=== PATIENT | male | born 1970 | race Caucasian/White ===

== ENCOUNTER → 2019-11-21 15:46 | Outpatient (BNVA) | payer OTHER, SELFPAY | PROVIDERS: Family Provider Nurse Practitioner Family; PCP Internal Medicine; Visit Provider Urology | DX: N48.6 Induration penis plastica (principal); N52.9 Male erectile dysfunction, unspecified; N52.8 Other male erectile dysfunction | CPT/HCPCS: 81001 ==

== ENCOUNTER 2020-08-26 09:38 | Inpatient (IN) | payer OTHER, SELFPAY ==
[2020-08-26] VITALS (74 sets, daily range): BP systolic 104–246; BP diastolic 70–147; PULSE 68–124; RESP 14–18; TEMP 36.2–36.6; O2SAT 16–98; BMI 33.9
--- NOTE | 2020-08-26 | XR_ITS ---
WS: [id number] XR chest 1V portable [id number] REASON FOR EXAM: POST intubation FINDINGS: In comparison to previous examination on 08/26/2020 at 9:56 AM the patient has been intubated. The ti p of the endotracheal tube is within the christie. There is cardiomegaly. In less than an hour the infiltrative changes in the lungs have significantly increased. This has to indicate hemorrhage and/or fluid with such a rapid development. Possibly this is the rapid onset of a dult respiratory distress syndrome. No barotrauma identified. XR/XR chest 1V portable [id number] IMPRESSION: Endotracheal tube tip within the christie. Rapidly progressive infiltrative changes in the lungs as above.
--- NOTE | 2020-08-26 09:41 | XR_ITS ---
WS: [id number] XR chest 1V portable [id number] REASON FOR EXAM: sob- possible covid FINDINGS: There are no prior chest films for comparison. The heart is enlarged. There are interstitial infiltrative changes in the periphery of the right lower lung field with more patchy consolidative changes noted in both lower lung ying. No other significant findings. XR/XR chest 1V portable [id number] IMPRESSION: Findings compatible with acute/subacute pneumonitis.
--- NOTE | 2020-08-26 09:41 | ECG_ITS ---
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 Measurements Intervals [place] Rate: 106 P: 15 TN: 152 QRS: -52 QRSD: 106 T: 32 QT: 329 QTc: 438 Interpretive Statements SINUS TACHYCARDIA POSSIBLE LEFT ATRIAL ENLARGEMENT [-0.1mV P WAVE IN V1/V2] LEFT AXIS DEVIATION [QRS AXIS < -30] POSSIBLE LEFT VENTRICULAR HYPERTROPHY [VOLTAGE CRITERIA PLUS LAE OR QRS WIDENING] POSSIBLE ANTERIOR MYOCARDIAL INFARCTION , OF INDETERMINATE AGE [30 ms Q WAVE IN V3/V4, OR R < 0.2 mV IN V4] No previous ECG available for comparison Electronically Signed On 08-26-2020 19:17:56 CLINICAL SCIENCES PROFESSOR by Efra Castro M.D. [id number]
[2020-08-26 09:53] LABS: ABG PCO2 22.9 mmHg (35-45); ABG PH Result 7.48 (7.35-7.45); Arterial Blood Gas Hematocrit 46.6 % (42-52); Base Excess ABG -4.3 mmol/L (-2.0-2.0); Blood Gas Allen Test Pos; Blood Gas Operator Identificat CAK; Blood Gas Sample Site Radial, right; Blood Gas Sample Type Arterial; Oxygen Device NRB; PO2 ABG 55.8 mmHg (80.0-100.0)
--- NOTE | 2020-08-26 09:53 | W.ED.SOB ---
HPI - SOB/Dyspnea General: Chief Complaint: Shortness of Breath/Dyspnea Stated Complaint: RESP DISTRESS Time Seen by Provider: 08/26/20 09:41 History of Present Illness: HPI Narrative: 49-year-old male presents emergency room via EMS with hypoxia and dyspnea. He started having symptoms last week and was tested for Covid on Tuesday it sounds if he had a rapid antibody test which she was told was negative. In the last 2 to 3 days he began having increasing shortness of breath and increasing diarrhea. He does have some level of baseline diarrhea. He is cough has not been productive. He has had some myalgias and subjective low-grade fever. Patient was given several nebulizer treatments in route to the emergency room. EMS reports he had a 72% oxygen saturation in the field MD elicited complaint: shortness of breath and cough Pertinent past history: diabetes Onset (ago): day(s) Context: recent illness Timing: constant Severity: severe Exacerbating factors: exertion and coughing Relieving factors: oxygen, rest and bronchodilators Associated symptoms: Reports chest congestion, cough, myalgias and nausea; Deny abdominal pain, chest pain, diaphoresis, dizziness, extremity pain, fever(s), hemoptysis, lightheadedness, orthopnea, palpitations, paresthesias, polydipsia, polyuria, rash, sense of impending doom, syncope or vomiting Treatment prior to arrival: oxygen and bronchodilator Review of Systems Const: Denies: fever(s) or diaphoresis ENMT: Denies: throat pain, ear or mastoid pain, nasal discharge or nasal congestion Card: Denies: chest pain, palpitations, lightheadedness, syncope or orthopnea Resp: Reports: chest congestion; Denies: hemoptysis GI: Reports: nausea; Denies: abdominal pain or vomiting : Denies: flank pain, dysuria, urinary frequency or urinary urgency Musc: Denies: extremity pain Skin/Breast: Denies: rash or pruritus Neuro: Denies: dizziness Endo: Denies: polyuria or polydipsia PFS ED PFSH: Medical History (Updated 08/27/20 @ 13:12 by Gurinder Patino DO) Erectile dysfunction Peyronie's disease Type 2 diabetes mellitus Surgical History History of vasectomy Family History Mother Hypertension Social History Smoking and tobacco status: smoker, details unknown smokeless tobacco Alcohol intake: never Adopted: No Caregiver/support person: No Lives independently: No Household members: spouse Marital status: Current occupational status: employed History of recent travel: No Physical Exam Const: COMMON NORMALS: no acute distress GENERAL APPEARANCE: cooperative and comfortable ORIENTATION/CONSCIOUSNESS: Yes awake, Yes oriented to person, Yes oriented to place and Yes oriented to time HENMT: COMMON NORMALS: normocephalic, atraumatic and hearing grossly normal bilaterally HEAD & SCALP: normocephalic and atraumatic Eye: COMMON NORMALS: Equal, round and reactive pupils present, EOMs intact bilaterally, conjunctivae normal and no scleral icterus CONJUNCTIVA: Yes conjunctivae normal PUPIL: Yes Equal, round and reactive pupils present Neck/C-Spine: COMMON NORMALS: full ROM, no lymphadenopathy, supple and no JVD Lymph: LYMPHATIC: no lymphadenopathy noted and no lymphedema noted Resp: AUSCULTATION: rhonchi right lower and wheezes Cardio: COMMON NORMALS: no JVD, regular rate, regular rhythm and No murmurs present (Cardio) RATE: regular rate RHYTHM: regular rhythm GI: COMMON NORMALS: Soft to palpation and No hepatosplenomegaly present AUSCULTATION: Yes normoactive bowel sounds PALPATION: Yes Soft to palpation, No Tenderness to palpation present (GI), No Guarding due to palpation present (GI) and Yes No hepatosplenomegaly present Extremity: COMMON NORMALS: normal to inspection, capillary refill normal, no clubbing, cyanosis or edema, no calf tenderness and no pedal edema Neuro: SENSORIUM/ORIENTATION: Yes oriented to person, Yes oriented to place and Yes oriented to time Skin: COMMON NORMALS: no rashes or lesions noted GENERAL SKIN EXAM: no rashes or lesions noted Procedures Intubation Time out performed: Yes sedative: Etomidate Mg Given: 40 paralytic: Succinylcholine Mg Given: 120 Laryngoscope: fiber optic video scope Assist Device Used: fiber optic device ET Tube Size: 8.5 ET Tube Uncuffed: No Tube Secured Depth (cm): 22 Tube Secured Location: teeth Tube Placement Confirmation: visualized tube passing through cords, equal breath sounds bilaterally, no breath sounds over epigastrium and confirmation by capnometry Patient Tolerated Procedure: well Intubation Complications: none Additional Comments: Initially ET tube at 22 cm at the teeth reviewed the first chest x-ray the tip is just at the os of the right mainstem it was retracted and alma-rayed it is above the christie at the level of the clavicles we will leave it in place there. He is ventilating well at this time. Course Vital Signs: Vital signs: Vital Signs Temperature 98.8 F 08/27/20 12:21 Pulse Rate 109 H 08/27/20 12:45 Respiratory Rate 12 08/27/20 12:21 Blood Pressure 129/66 08/27/20 12:45 Pulse Oximetry 96 08/27/20 12:45 MDM - SOB/Dyspnea Lab Data: Labs: Lab Results 08/26/20 08/26/20 08/26/20 Range/Units 09:42 10:12 10:12 WBC 16.6 H (4.0-10.0) 10^3/ uL RBC 5.16 (4.1-5.3) 10^6/u L Hgb 14.6 (11.7-16.6) g/dL Hct 44.9 (42.0-52.0) % MCV 87.0 (80-94) fL MCH 28.3 (28.0-34.0) pg MCHC 32.5 (30.0-36.0) g/dL RDW 13.2 (12.1-15.1) % Plt Count 291 (130-400) 10^3/c mm MPV 10.6 H (7.4-10.4) fL Neut % (Auto) 89.7 % Lymph % (Auto) 6.9 % Dillon % (Auto) 1.9 % Eos % (Auto) 0.0 % Baso % (Auto) 0.2 % Neut # (Auto) 14.85 H (1.8-7.7) 10^3/u L Lymph # (Auto) 1.1 (0.8-4.8) 10^3/u L Dillon # (Auto) 0.3 (0.2-0.9) 10^3/u L Eos # (Auto) 0.0 (0.0-0.8) 10^3/u L Baso # (Auto) 0.0 (0.0-0.1) 10^3/u L Nucleated RBC % (a uto) 0 % Nucleated RBCs # 0.0 /100WBC PT 14.80 (12.1-14.9) SECO NDS INR 1.12 (0.8-1.2) Fibrinogen 736 H (174-498) mg/dL D-Dimer 2.29 H (0-0.59) ug/mIFE U Specimen Type Arterial Sample Site Radial, right ABG pH 7.48 H (7.35-7.45) ABG pCO2 22.9 L (35-45) mmHg ABG pO2 55.8 L (80.0-100.0) mmH g ABG HCO3 17.0 L (22-26) mmol/L ABG O2 Saturation ABG Base Excess -4.3 L (-2.0-2.0) mmol/ L Mina Test Pos A-a O2 Gradient (5-10) mmHg Hematocrit 46.6 (42-52) % Hgb O2 Saturation (95-100) % Carboxyhemoglobin (0.4-20.1) %THgb Methemoglobin (0.4-1.5) % Total Hemoglobin (14-18) g/dL Ionized Calcium (1.1-1.4) mmol/L O2 Delivery Device Nrb FiO2 15.0 % Tidal Volume PEEP cmH20 Customer Marketing Assistant ID Cak Sodium (136-145) mmol/L Potassium (3.5-5.1) mmol/L Chloride (98-107) mmol/L Carbon Dioxide (22-29) mmol/L Anion Gap (5-19) BUN (6-20) mg/dL Creatinine (0.7-1.2) mg/dL GFR Calculation (90-130) mL/min Glucose (65-115) mg/dL Calculated Osmolal ity (285-295) mOsm/k g Lactic Acid (0.5-2.2) mmol/L Calcium (8.5-10.5) mg/dL Magnesium (1.7-2.3) mg/dL Iron (59-158) ug/dL TIBC mcg/dl % Saturation (20-50) % Unsat Iron Binding (112-347) ug/dL Ferritin (30-400) ng/mL Total Bilirubin (0.15-1.2) mg/dL AST (0-40) U/L ALT (0-41) U/L Alkaline Phosphata se (40-130) IU/L Lactate Dehydrogen ase (135-225) U/L Troponin T Gen 5 n g/L (0-15) ng/L C-Reactive Protein (0.0-4.9) mg/L NT-Pro-B Natriuret Pep (0-125) pg/mL Total Protein (6.6-8.7) g/dL Albumin (3.5-5.2) g/dL Globulin (1.3-4.6) g/dL Procalcitonin (0-0.5) ng/mL TSH (0.27-4.20) uIU/ mL SARS-CoV-2 Ag (Rap id) (Negative) 08/26/20 08/26/20 08/26/20 Range/Units 10:12 10:12 10:12 WBC (4.0-10.0) 10^3/ uL RBC (4.1-5.3) 10^6/u L Hgb (11.7-16.6) g/dL Hct (42.0-52.0) % MCV (80-94) fL MCH (28.0-34.0) pg MCHC (30.0-36.0) g/dL RDW (12.1-15.1) % Plt Count (130-400) 10^3/c mm MPV (7.4-10.4) fL Neut % (Auto) % Lymph % (Auto) % Dillon % (Auto) % Eos % (Auto) % Baso % (Auto) % Neut # (Auto) (1.8-7.7) 10^3/u L Lymph # (Auto) (0.8-4.8) 10^3/u L Dillon # (Auto) (0.2-0.9) 10^3/u L Eos # (Auto) (0.0-0.8) 10^3/u L Baso # (Auto) (0.0-0.1) 10^3/u L Nucleated RBC % (a uto) % Nucleated RBCs # /100WBC PT (12.1-14.9) SECO NDS INR (0.8-1.2) Fibrinogen (174-498) mg/dL D-Dimer (0-0.59) ug/mIFE U Specimen Type Sample Site ABG pH (7.35-7.45) ABG pCO2 (35-45) mmHg ABG pO2 (80.0-100.0) mmH g ABG HCO3 (22-26) mmol/L ABG O2 Saturation ABG Base Excess (-2.0-2.0) mmol/ L Mina Test A-a O2 Gradient (5-10) mmHg Hematocrit (42-52) % Hgb O2 Saturation (95-100) % Carboxyhemoglobin (0.4-20.1) %THgb Methemoglobin (0.4-1.5) % Total Hemoglobin (14-18) g/dL Ionized Calcium (1.1-1.4) mmol/L O2 Delivery Device FiO2 % Tidal Volume PEEP cmH20 Customer Marketing Assistant ID Sodium 133 L (136-145) mmol/L Potassium 3.5 (3.5-5.1) mmol/L Chloride 91 L (98-107) mmol/L Carbon Dioxide 18 L (22-29) mmol/L Anion Gap 27.5 H (5-19) BUN 25 H (6-20) mg/dL Creatinine 1.1 (0.7-1.2) mg/dL GFR Calculation 70.6 L (90-130) mL/min Glucose 315 H (65-115) mg/dL Calculated Osmolal ity 292 (285-295) mOsm/k g Lactic Acid 3.1 H (0.5-2.2) mmol/L Calcium 8.5 (8.5-10.5) mg/dL Magnesium 2.2 (1.7-2.3) mg/dL Iron (59-158) ug/dL TIBC mcg/dl % Saturation (20-50) % Unsat Iron Binding (112-347) ug/dL Ferritin 1430 H (30-400) ng/mL Total Bilirubin 0.5 (0.15-1.2) mg/dL AST 30 (0-40) U/L ALT 16 (0-41) U/L Alkaline Phosphata se 150 H (40-130) IU/L Lactate Dehydrogen ase 800 H (135-225) U/L Troponin T Gen 5 n g/L 14 (0-15) ng/L C-Reactive Protein 369.0 H (0.0-4.9) mg/L NT-Pro-B Natriuret Pep 231 H (0-125) pg/mL Total Protein 7.3 (6.6-8.7) g/dL Albumin 3.5 (3.5-5.2) g/dL Globulin 3.8 (1.3-4.6) g/dL Procalcitonin 0.65 H (0-0.5) ng/mL TSH (0.27-4.20) uIU/ mL SARS-CoV-2 Ag (Rap id) (Negative) 08/26/20 08/26/20 08/26/20 Range/Units 10:12 10:23 10:50 WBC (4.0-10.0) 10^3/ uL RBC (4.1-5.3) 10^6/u L Hgb (11.7-16.6) g/dL Hct (42.0-52.0) % MCV (80-94) fL MCH (28.0-34.0) pg MCHC (30.0-36.0) g/dL RDW (12.1-15.1) % Plt Count (130-400) 10^3/c mm MPV (7.4-10.4) fL Neut % (Auto) % Lymph % (Auto) % Dillon % (Auto) % Eos % (Auto) % Baso % (Auto) % Neut # (Auto) (1.8-7.7) 10^3/u L Lymph # (Auto) (0.8-4.8) 10^3/u L Dillon # (Auto) (0.2-0.9) 10^3/u L Eos # (Auto) (0.0-0.8) 10^3/u L Baso # (Auto) (0.0-0.1) 10^3/u L Nucleated RBC % (a uto) % Nucleated RBCs # /100WBC PT (12.1-14.9) SECO NDS INR (0.8-1.2) Fibrinogen (174-498) mg/dL D-Dimer (0-0.59) ug/mIFE U Specimen Type Arterial Sample Site Radial, left ABG pH 7.31 L (7.35-7.45) ABG pCO2 41.9 (35-45) mmHg ABG pO2 76.0 L (80.0-100.0) mmH g ABG HCO3 21.0 L (22-26) mmol/L ABG O2 Saturation 94.1 ABG Base Excess -5.2 L (-2.0-2.0) mmol/ L Mina Test Pos A-a O2 Gradient 47.8 H (5-10) mmHg Hematocrit 48.6 (42-52) % Hgb O2 Saturation 93.0 L (95-100) % Carboxyhemoglobin 1.0 (0.4-20.1) %THgb Methemoglobin 0.2 L (0.4-1.5) % Total Hemoglobin 15.9 (14-18) g/dL Ionized Calcium 1.1 (1.1-1.4) mmol/L O2 Delivery Device Vent FiO2 70.0 % Tidal Volume 0.55 PEEP 10.0 cmH20 Customer Marketing Assistant ID Ck Sodium 136.0 (136-145) mmol/L Potassium 3.3 L (3.5-5.1) mmol/L Chloride (98-107) mmol/L Carbon Dioxide (22-29) mmol/L Anion Gap (5-19) BUN (6-20) mg/dL Creatinine (0.7-1.2) mg/dL GFR Calculation (90-130) mL/min Glucose 312.0 H (65-115) mg/dL Calculated Osmolal ity (285-295) mOsm/k g Lactic Acid (0.5-2.2) mmol/L Calcium (8.5-10.5) mg/dL Magnesium (1.7-2.3) mg/dL Iron 21 L (59-158) ug/dL TIBC 188 mcg/dl % Saturation 11.1 L (20-50) % Unsat Iron Binding 167 (112-347) ug/dL Ferritin (30-400) ng/mL Total Bilirubin (0.15-1.2) mg/dL AST (0-40) U/L ALT (0-41) U/L Alkaline Phosphata se (40-130) IU/L Lactate Dehydrogen ase (135-225) U/L Troponin T Gen 5 n g/L (0-15) ng/L C-Reactive Protein (0.0-4.9) mg/L NT-Pro-B Natriuret Pep (0-125) pg/mL Total Protein (6.6-8.7) g/dL Albumin (3.5-5.2) g/dL Globulin (1.3-4.6) g/dL Procalcitonin (0-0.5) ng/mL TSH 0.85 (0.27-4.20) uIU/ mL SARS-CoV-2 Ag (Rap id) Positive H (Negative) Critical Care Time Critical Care Time: Critical Care Time: Yes Total Critical Care Time: 30 Attestation: This case had a high probability of a clinically significant, sudden, or life threatening deterioration of this patient's condition which required my full and direct attention, intervention and personal management. Discharge Plan Discharge Patient Disposition: Admitted As Inpatient Admit Provider: Steve Barbosa Clinical Impression: Severe acute respiratory syndrome coronavirus 2 (SARS-CoV-2) detected, Type 2 diabetes mellitus, Lactic acidosis, Hyponatremia, ARDS (adult respiratory distress syndrome) Condition: Stable Coding Level of Care Code ED Or First Assist Registered Nurse for Wendyg Fwd Exam Comprehensive
[2020-08-26] MEDS: LORazepam 2 mg/mL INJ 1 mL 1 MG IVP (10:13)
[2020-08-26] MEDS: dexamethasone 4 mg/mL INJ 8 MG (10:27)
[2020-08-26 10:32] LABS: Basophils % 0.2 %; Hematocrit 44.9 % (42.0-52.0); Hemoglobin 14.6 g/dL (11.7-16.6); Lymphocytes # 1.1 10^3/uL (0.8-4.8); Lymphocytes % 6.9 %; Mean Corpuscular HGB Conc 32.5 g/dL (30.0-36.0); Mean Corpuscular Hemoglobin 28.3 pg (28.0-34.0); Mean Platelet Volume 10.6 fL (7.4-10.4); Monocytes # 0.3 10^3/uL (0.2-0.9); Monocytes % 1.9 %; Neutrophils # 14.85 10^3/uL (1.8-7.7); Neutrophils % 89.7 %; Nucleated Red Blood Cells % 0 %; Platelet Count 291 10^3/cmm (130-400); Red Blood Count 5.16 10^6/uL (4.1-5.3); Red Cell Distribution Width 13.2 % (12.1-15.1); White Blood Count 16.6 10^3/uL (4.0-10.0)
[2020-08-26] MEDS: succinylcholine 20 mg/mL SDV 10mL 120 MG IVP (10:36)
[2020-08-26] MEDS: vecuronium 10 mg SDV IVP (10:45)
[2020-08-26] MEDS: propofol 1,000 MG/100 ML INJ 13 MG (10:45)
[2020-08-26 10:51] LABS: Lactic Sepsis W/Reflex 3.1 mmol/L (0.5-2.2)
[2020-08-26 10:54] LABS: INR 1.12 (0.8-1.2)
[2020-08-26 10:55] LABS: Fibrinogen 736 mg/dL (174-498)
[2020-08-26 10:57] LABS: NT Pro B Type Natriuretic Pept 231 pg/mL (0-125); Procalcitonin 0.65 ng/mL (0-0.5)
[2020-08-26 10:58] LABS: D Dimer 2.29 ug/mIFEU (0-0.59)
[2020-08-26 11:01] LABS: ABG PCO2 41.9 mmHg (35-45); ABG PH Result 7.31 (7.35-7.45); Alveolar-Arterial Oxygen Gradi 47.8 mmHg (5-10); Arterial Blood Gas Hematocrit 48.6 % (42-52); Base Excess ABG -5.2 mmol/L (-2.0-2.0); Blood Gas Allen Test Pos; Blood Gas Operator Identificat CAL; Blood Gas Sample Site Radial, left; Blood Gas Sample Type Arterial; Blood Gas Tidal Volume 0.55; Ionized Calcium Level - ABG 1.1 mmol/L (1.1-1.4); Methemoglobin 0.2 % (0.4-1.5); Oxygen Device VENT; Oxygen Saturation ABG 94.1; Potassium Level - ABG 3.3 mmol/L (3.5-5.0); Total Hemoglobin 15.9 g/dL (14-18)
--- NOTE | 2020-08-26 11:03 | CT_ITS ---
WS: [id number] CTA OF THE CHEST WITH PULMONARY EMBOLISM PROTOCOL TECHNIQUE: High-resolution contrast enhanced CTA of the chest with coronal and sagittal reformatted i elizabeths with pulmonary embolism protocol. MIP images are also reviewed. CLINICAL INFORMATION: elevated d-dimer COMPARISON: None. DLP: 485.[address] scans at [facility] use at least one of these dose optimization techniques: automat ed exposure control; mA and/or kV adjustment per patient size (includes targeted exams where dose is matched to clinical indication); or iterative reconstruction. FINDINGS: Some images degraded by breathing artifact. Proximal main pulmonary arteries are normal. Proximal tiffanie n pulmonary arteries are patent. Segmental and subsegmental pulmonary arteries are patent where visua lized considering motion artifact. No evidence of pulmonary embolus. Endotracheal tube with tip above the christie. Enteric tube with tip in the stomach.Reactive mediastinal and hilar lymph nodes. Small n odule right lower pole thyroid. Normal caliber thoracic aorta. Diffuse extensive hazy bilateral groundglass infiltrates in the perihi lar and upper lungs. Consolidative atelectasis in the lower lungs bilaterally. Adrenal glands are normal. Fatty atrophy of the pancreas. CT/CT angio chest PE protcl [id number] IMPRESSION: 1. No evidence for pulmonary embolus. 2. Diffuse hazy groundglass infiltrates in the perihilar and upper lungs bilat erally consistent with viral pneumonia. Compressive atelectasis in the lung bas es. 3. Endotracheal tube with tip above the christie. 4. Enteric tube with tip in the stomach. 5. Reactive mediastinal and hilar lymph nodes. Notified Gurinder Patino DO at 08/26/2020 1:18 PM.
[2020-08-26 11:08] LABS: Alanine Aminotransferase 16 U/L (0-41); Albumin Level 3.5 g/dL (3.5-5.2); Alkaline Phosphatase 150 IU/L (40-130); Anion Gap 27.5 (5-19); Aspartate Amino Transferase 30 U/L (0-40); Blood Urea Nitrogen 25 mg/dL (6-20); Calcium 8.5 mg/dL (8.5-10.5); Carbon Dioxide 18 mmol/L (22-29); Chloride 91 mmol/L (98-107); Globulin 3.8 g/dL (1.3-4.6); Glomerular Filtration Rate 70.6 mL/min (90-130); Glucose 315 mg/dL (65-115); Lactate Dehydrogenase 800 U/L (135-225); Magnesium 2.2 mg/dL (1.7-2.3); Osmolality Calculated 292 mOsm/kg (285-295); Potassium 3.5 mmol/L (3.5-5.1); Sodium 133 mmol/L (136-145); Total Bilirubin 0.5 mg/dL (0.15-1.2); Total Protein 7.3 g/dL (6.6-8.7)
[2020-08-26 11:30] LABS: Troponin T (5th) Once 14 ng/L (0-15)
[2020-08-26 11:35] LABS: SARS Covid-2 Antigen Positive (Negative)
[2020-08-26 12:05] LABS: Ferritin 1430 ng/mL (30-400)
[2020-08-26 12:08] LABS: Reflex Lactate Order REFLEX LACTIC ORDERD
[2020-08-26] MEDS: vancomycin 1,000 MG in sodium chloride 0.9% 250 ML 250 MG IV (12:30)
[2020-08-26] MEDS: aztreonam 2,000 MG in sodium chloride 0.9% (plus) 100 ML 200 MG IV (12:31)
[2020-08-26] MEDS: iohexol 350 mg/mL 100 mL Btl IV (12:45)
--- NOTE | 2020-08-26 15:20 | USCV_ITS ---
Bharath Vallejo Age: 49 Gender: M : 1970 Exam Date: 08/26/2020 15:44 Ordering Phys: Steve Barbosa MD Technologist: Russel Martinez [place] [facility] [place]: PULMONARY HTN, AND DD BP: 122 / 79 HR: 79 Rhythm: Sinus Technical Quality: Technically difficult study MEASUREMENTS (Male / Female) Normal Values 2D ECHO LV Diastolic Diameter PLAX 2.6 cm 4.2 - 5.9 / 3.9 - 5.3 cm LV Systolic Diameter PLAX 1.6 cm IVS Diastolic Thickness 0.8 cm 0.6 - 1.0 / 0.6 - 0.9 cm IVS Systolic Thickness 1.4 cm LVPW Diastolic Thickness 0.9 cm 0.6 - 1.0 / 0.6 - 0.9 cm LVPW Systolic Thickness 1.1 cm LVOT Diameter 2.0 cm LV Ejection Fraction 2D Teich 73.7 % LV Ejection Fraction MOD 2C 72.9 % LV Ejection Fraction 2C AL 73.8 % LA Diameter 3.9 cm LA Width 3.1 cm LA Height 5.4 cm RA Width 3.4 cm RA Height 4.2 cm M-MODE LV Diastolic Diameter MM 4.3 cm 4.2 - 5.9 / 3.9 - 5.3 cm LV Systolic Diameter MM 2.7 cm LV Ejection Fraction MM Teich 66.0 % IVS Diastolic Thickness MM 1.2 cm 0.6 - 1.0 / 0.6 - 0.9 cm IVS Systolic Thickness MM 1.7 cm LVPW Diastolic Thickness MM 1.1 cm 0.6 - 1.0 / 0.6 - 0.9 cm LVPW Systolic Thickness MM 2.1 cm RV Diastolic Diameter MM 1.2 cm Aortic Annulus Diameter 3.4 cm LA Ao Ratio MM 1.1 MV E Point Septal Separation 1.2 cm DOPPLER LVOT Peak Velocity 89.0 cm/s MV Area PHT 5.6 cm squared Mitral E to A Ratio 0.7 MV E' Velocity 35.0 cm/s Mitral E to MV E' Ratio 12.0 Mitral E to LV E' Lateral Ratio 12.4 Mitral E to LV E' Septal Ratio 11.8 TR Peak Velocity 130.8 cm/s TR Peak Gradient 6.8 mmHg TV Peak E Velocity 71.0 cm/s Right Atrial Pressure 3.0 mmHg Pulmonary Artery Systolic Pressu 9.8 mmHg PV Peak Velocity 99.0 cm/s FINDINGS Left Ventricle Normal left ventricular size, systolic function and wall thickness. Regional wall motion abnormalities cannot be assessed because of limited visualization of cardiac structures. LVEF is 55 to 60%. Normal left ventricular wall thickness. Grade 1 diastolic dysfunction is noted. Right Ventricle The right ventricle is normal in size and function. Right Atrium Not well-visualized. Left Atrium The left atrium is normal in size. Mitral Valve Grossly normal there is no significant stenosis.. There is no mitral regurgitation. Aortic Valve Structurally normal aortic valve without significant sclerosis or stenosis. There is no aortic regurgitation. Tricuspid Valve Grossly normal. Insufficient TR jet to calculate RVSP. Pulmonic Valve Not well-visualized. There is no pulmonic regurgitation. Pericardium Normal pericardium without effusion. Aorta Normal ascending aorta dimension. CONCLUSIONS This is a limited quality echocardiogram. LV systolic function is normal with EF of 55 to 60%. Grade 1 diastolic dysfunction is noted. Valvular structures are not well visualized however no gross abnormalities. Insufficient TR jet to calculate RVSP and assess pulmonary hypertension. No comparison studies are available. Wade Zepeda MD (Electronically Signed) Final Date: 26 August 2020 18:14 S
--- NOTE | 2020-08-26 15:30 | PM.HP ---
Providers/Chief Complaint Primary Care Provider: Kenn Cruz DO Chief Complaint: RESP DISTRESS History of Present Illness Bharath Vallejo is a 49 year old male with known medical history of type 2 diabetes mellitus who was brought into the ER today via EMS because of difficulty in breathing. In the field he was found to have a saturation of 50% on room air which improved to 70% on high flow nasal cannula. Most of the history taken via chart review and through ER physician. Apparently patient has been having difficulty in breathing and cough since Tuesday and had a rapid antibody test as an outpatient which was negative. In last 2 to 3 days he has been having increasing difficulty in breathing along with cough and some diarrhea and myalgias. Is brought to ER by EMS. On arrival in the ER he was saturating 50% on room air which did not improve even though he was put on high flow oxygenation. After discussion between the ER physician and patient he was electively intubated for further management. Currently on my examination patient is saturating 92% but the 100% FiO2, 14 oh respiratory rate with 10 of PEEP and 510 to volume on AC VC mode. His blood work in the ER showed white count of 16.6, hemoglobin of 14.6, INR of 1.2, D-dimer of 2.2, fibrinogen of 736, sodium of 133, creatinine of 1.1, lactate of 3.1, ferritin of 1430, AST/ALT of 30/16, alkaline phosphatase of 150, LDH of 800, CRP of 369, pro-Ck of 0.65. ABG done in the ER on presentation showing a pH of 7.4, PCO2 22, PO2 of 55 on nonrebreather mask. Review of Systems General: Reports: ROS unobtainable due to endotracheal tube Medications/Allergies Home Medications Medication Instructions Recorded Confirmed Last Taken Type NyQuil See Rx Instructions .ROUTE .COMPLEX 08/26/20 08/26/20 Unknown History acetaminophen [Tylenol Extra 1,000 - 1,500 mg PO PRN 08/26/20 08/26/20 Unknown History Strength] insulin glargine [Lantus Solostar See Rx Instructions .ROUTE .COMPLEX 08/26/20 08/26/20 Unknown History U-100 Insulin] insulin lispro [Humalog KwikPen See Rx Instructions .ROUTE .COMPLEX 08/26/20 08/26/20 Unknown History Insulin] omeprazole 20 mg PO DAILY PRN 08/26/20 08/26/20 Unknown History Allergies Allergy/AdvReac Type Severity Reaction Status Date / Time Penicillins Allergy Unknown Verified 08/26/20 11:20 PFSH Acute PFSH: Medical History (Updated 08/26/20 @ 15:36 by Steve Barbosa MD) Erectile dysfunction Peyronie's disease Type 2 diabetes mellitus Surgical History History of vasectomy Family History Mother Hypertension Social History Smoking and tobacco status: smoker, details unknown smokeless tobacco Alcohol intake: never Adopted: No Caregiver/support person: No Lives independently: No Household members: spouse Marital status: Current occupational status: employed History of recent travel: No Vitals/I&O/Wt Last Vital Signs Temp 97.8 F 08/26/20 09:40 Pulse 124 H 08/26/20 11:10 Resp 18 08/26/20 14:12 BP 188/122 08/26/20 11:10 Pulse Ox 96 08/26/20 11:10 08/26/20 08/26/20 08/26/20 06:59 14:59 22:59 Intake Total 13.850 / 13.850 Balance 13.850 / 13.850 Weight last 48 hrs Weight 113.398 kg Physical Exam Narrative: EXAM NARRATIVE: General: Intubated, sedated, no rash only to cotter present on the body HEENT: PERRLA, pupils bilaterally equal and reactive Chest: Normal vesicular breath sounds, bilateral coarse crepitations present all over the lung ying, right more than left, anterior more than posterior, equal good air entry bilaterally CVS: S1-S2 regular, no murmurs, tachycardia, no gallops, no rubs Abdomen: Soft, nontender, no organomegaly, bowel sounds present Neuro: GCS: E1 M1 VT Urinary Catheter Management^: Colon: Cath Placed During This Visit: no Data : 08/26/20 10:12 08/26/20 10:12 A&P Assessment and plan (1) ARDS (adult respiratory distress syndrome): Status: Acute (2) Severe acute respiratory syndrome coronavirus 2 (SARS-CoV-2) detected: Status: Acute (3) Type 2 diabetes mellitus: Status: Acute (4) Lactic acidosis: Status: Acute (5) Hyponatremia: Status: Acute Additional A&P Information ARDS secondary to severe COVID-19 pneumonia: Patient was intubated in the ER for severe hypoxia even on high flow oxygenation. Sepsis criteria met because of leukocytosis, tachycardia, lactic acidosis, hypoxia on admission. Keep sedated for now with fentanyl and Precedex. We will repeat ABG in 2 hours. We will check CTA pulmonary embolism protocol to rule out PE. Start patient on remdesivir for overall 5-day course. Dexamethasone 6 mg IV daily. Pulmonary toilet with chest vest. DuoNebs every 4 hour, budesonide twice daily. Vitamin C, zinc. Proning as possible. Check blood cultures, sputum culture, urinalysis, urine culture, urine Legionella, bacterial antigen, MRSA swab. Pro-Ck elevated, lactate elevated, leukocytosis cannot rule out bacterial pneumonia given severe illness. For now start patient on vancomycin and aztreonam as patient is penicillin allergic. Both renally adjusted. Will de-escalate antibiotics as per the culture results. For now start patient on azithromycin to finish a 3-day course at least. Start patient on Lovenox 1 mg/kg body weight every 12 hourly. Continue to monitor inflammatory markers including ferritin, LDH, proBNP, D-dimer, fibrinogen. Normal saline at 50 cc/h. Repeat lactate tomorrow morning. Type 2 diabetes mellitus: N.p.o. for now. Insulin sliding scale at moderate dose every 4 hourly. Lactic acidosis: Most likely from severe sepsis. Hyponatremia: IV fluids as above. Continue to monitor BMP daily for now. Severely guarded prognosis. Full code. NPO. Full dose Lovenox. Protonix for PUD prophylaxis. Attestations Medical Necessity Statement*: Patient requires admission for management of ARDS because severe COVID-19 pneumonia. Patient is currently intubated. Anticipate admission for more than 2 midnights. 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
[2020-08-26 16:34] LABS: ABG PCO2 37.1 mmHg (35-45); ABG PH Result 7.29 (7.35-7.45); Alveolar-Arterial Oxygen Gradi 41.4 mmHg (5-10); Arterial Blood Gas Hematocrit 44.6 % (42-52); Base Excess ABG -8.3 mmol/L (-2.0-2.0); Blood Gas Allen Test Pos; Blood Gas Operator Identificat CAK; Blood Gas Sample Site Radial, left; Blood Gas Sample Type Arterial; Blood Gas Tidal Volume 0.55; HCO3 ABG 17.6 mmol/L (22-26); HGB O2 Sat 87.1 % (95-100); Ionized Calcium Level - ABG 1.1 mmol/L (1.1-1.4); Oxygen Device VENT; Oxygen Saturation ABG 88.9; PO2 ABG 59.6 mmHg (80.0-100.0); Potassium Level - ABG 4.4 mmol/L (3.5-5.0); Total Hemoglobin 14.5 g/dL (14-18)
[2020-08-26] MEDS: pantoprazole 40 mg SDV IVP (16:52)
[2020-08-26 17:48] LABS: Iron 21 ug/dL (59-158); Percent Saturation 11.1 % (20-50); Thyroid Stimulating Hormone 0.85 uIU/mL (0.27-4.20); Total Iron Binding Capacity 188 mcg/dl; Unsaturated Iron Binding 167 ug/dL (112-347)
[2020-08-26] MEDS: insulin regular-human 100 units/1 mL 10 UNIT IV (18:00)
--- NOTE | 2020-08-26 18:30 | PC.NURSE ---
Received bedside report on patient from Zoey KISER. Assumed care at this time.
[2020-08-26 18:37] LABS: Influenza A by IFA Negative (Negative); Influenza B by IFA Negative (Negative)
[2020-08-26] MEDS: sodium chloride 0.9% 1,000 ML 50 ML IV (18:43)
[2020-08-26 18:55] LABS: Amphetamines Screen Urine Negative (Negative); Barbiturates Screen Urine Negative (Negative); Benzodiazepines Screen Urine Negative (Negative); Cocaine Screen Urine Negative (Negative); Opiate Screen Urine Negative (Negative); PCP Screen Urine Negative (Negative); THC Screen Urine Negative (Negative)
[2020-08-26 19:30] LABS: Glucose Point of Care 429 mg/dL (70-110)
[2020-08-26] MEDS: propofol 1,000 MG/100 ML INJ 30.6 MG IV ×2 (19:49→22:51)
[2020-08-26] MEDS: dexamethasone 4 mg/mL INJ 6 MG IVP (19:51)
[2020-08-26] MEDS: budesonide 0.5 mg/2 mL Neb INHALATION (20:30)
[2020-08-26] MEDS: ipratropium-albuterol 3 mL Neb INHALATION ×2 (20:30→23:26)
[2020-08-26 20:59] LABS: ABG PCO2 39.1 mmHg (35-45); ABG PH Result 7.32 (7.35-7.45); Arterial Blood Gas Hematocrit 42.3 % (42-52); Base Excess ABG -5.8 mmol/L (-2.0-2.0); Blood Gas Allen Test Pos; Blood Gas Sample Site Radial, right; Blood Gas Sample Type Arterial; Blood Gas Tidal Volume 0.55; HCO3 ABG 19.9 mmol/L (22-26); Oxygen Device VENT; PO2 ABG 54.9 mmHg (80.0-100.0)
[2020-08-26 22:57] LABS: Glucose Point of Care 398 mg/dL (70-110)
[2020-08-27] VITALS (136 sets, daily range): BP systolic 100–156; BP diastolic 55–100; PULSE 60–119; RESP 12–21; TEMP 36.8–37.2; O2SAT 82–99; BMI 33.9
[2020-08-27] MEDS: aztreonam 1,000 MG in sodium chloride 0.9% (plus) 50 ML 100 MG IV (00:38)
[2020-08-27] MEDS: propofol 1,000 MG/100 ML INJ 34 MG IV ×6 (02:21→23:18)
[2020-08-27 03:35] LABS: Estmated Average Glucose 214; Hemoglobin A1C 9.1 % (4.0-6.0)
[2020-08-27 03:40] LABS: Glucose Point of Care 350 mg/dL (70-110)
[2020-08-27] MEDS: pantoprazole 40 mg SDV IVP ×2 (03:51→16:24)
[2020-08-27 04:19] LABS: Basophils % 0.3 %; Hematocrit 40.6 % (42.0-52.0); Lymphocytes % 9.3 %; Mean Corpuscular Hemoglobin 28.3 pg (28.0-34.0); Mean Corpuscular Volume 88.5 fL (80-94); Mean Platelet Volume 10.2 fL (7.4-10.4); Monocytes # 0.3 10^3/uL (0.2-0.9); Monocytes % 2.8 %; Neutrophils # 9.67 10^3/uL (1.8-7.7); Neutrophils % 86.4 %; Nucleated Red Blood Cells % 0 %; Platelet Count 303 10^3/cmm (130-400); Red Blood Count 4.59 10^6/uL (4.1-5.3); Red Cell Distribution Width 13.6 % (12.1-15.1); White Blood Count 11.2 10^3/uL (4.0-10.0)
[2020-08-27 04:29] LABS: Lactic Sepsis W/Reflex 1.7 mmol/L (0.5-2.2)
[2020-08-27 04:30] LABS: Alanine Aminotransferase 12 U/L (0-41); Albumin Level 3.1 g/dL (3.5-5.2); Alkaline Phosphatase 131 IU/L (40-130); Anion Gap 17.4 (5-19); Aspartate Amino Transferase 23 U/L (0-40); Blood Urea Nitrogen 40 mg/dL (6-20); Calcium 8.1 mg/dL (8.5-10.5); Carbon Dioxide 23 mmol/L (22-29); Chloride 99 mmol/L (98-107); Globulin 4.1 g/dL (1.3-4.6); Glomerular Filtration Rate 63.8 mL/min (90-130); Glucose 380 mg/dL (65-115); Osmolality Calculated 305 mOsm/kg (285-295); Potassium 4.4 mmol/L (3.5-5.1); Sodium 135 mmol/L (136-145); Total Bilirubin 0.3 mg/dL (0.15-1.2); Total Protein 7.2 g/dL (6.6-8.7)
[2020-08-27 04:30] LABS: C Reactive Protein 347.7 mg/L (0.0-4.9); Lactate Dehydrogenase 654 U/L (135-225)
[2020-08-27 04:32] LABS: Creatine Phosphokinase 382 U/L (39-308)
[2020-08-27 04:39] LABS: Fibrinogen 858 mg/dL (174-498)
[2020-08-27 04:42] LABS: Ferritin 1633 ng/mL (30-400)
[2020-08-27 05:04] LABS: Slide Review Slide Review Perform
[2020-08-27] MEDS: enoxaparin 120 mg/0.8 mL Syringe 110 MG SUBCUT ×2 (05:15→16:07)
--- NOTE | 2020-08-27 06:00 | XR_ITS ---
WS: [id number] Portable AP semiupright chest, 08/27/2020 Clinical Data: covid Comparison: Portable chest, 08/26/2020 Findings: The nasogastric tube and enteric tube remain in same position. The bilateral diffuse opacit ies have not changed. The heart is enlarged. No nodules or masses are seen. Monitor leads on the ches t wall. XR/XR chest 1V portable [id number] Impression: 1. No change in bilateral opacities which probably represent diffuse pneumonia. 2. Cardiomegaly. 3. No change in endotracheal tube and oral gastric tube.
[2020-08-27 06:07] LABS: Glucose Point of Care 343 mg/dL (70-110)
[2020-08-27 06:15] LABS: INR 0.99 (0.8-1.2)
[2020-08-27] MEDS: budesonide 0.5 mg/2 mL Neb INHALATION ×2 (07:28→20:36)
[2020-08-27] MEDS: ipratropium-albuterol 3 mL Neb INHALATION ×5 (07:28→23:52)
[2020-08-27 07:31] LABS: Magnesium 2.7 mg/dL (1.7-2.3); Phosphorus 4.4 mg/dL (2.5-4.5)
[2020-08-27] MEDS: propofol 1,000 MG/100 ML INJ 27.2 MG IV (09:07)
[2020-08-27] MEDS: ascorbic acid 500 mg Tablet PO (09:27)
[2020-08-27] MEDS: dexamethasone 4 mg/mL INJ 6 MG IVP (09:27)
[2020-08-27 10:37] LABS: Alveolar-Arterial Oxygen Gradi 36.9 mmHg (5-10); Arterial Blood Gas Hematocrit 41.1 % (42-52); Blood Gas Allen Test Pos; Blood Gas Operator Identificat CAK; Blood Gas Sample Site Brachial, left; Blood Gas Sample Type Arterial; Carboxyhemoglobin 0.8 %THgb (0.4-20.1); HCO3 ABG 16.5 mmol/L (22-26); HGB O2 Sat 91.1 % (95-100); Oxygen Device VENT; Oxygen Saturation ABG 92.7; PO2 ABG 66.1 mmHg (80.0-100.0); Potassium Level - ABG 3.4 mmol/L (3.5-5.0); Total Hemoglobin 13.4 g/dL (14-18)
[2020-08-27] MEDS: insulin glargine 100 units/1 mL 15 UNIT SUBCUT (11:20)
[2020-08-27] MEDS: sodium chloride 0.9% 1,000 ML 50 ML IV (11:20)
[2020-08-27] MEDS: aztreonam 1,000 MG in sodium chloride 0.9% (plus) 50 ML 50 MG IV ×2 (12:07→23:42)
[2020-08-27 14:02] LABS: D Dimer 6.42 ug/mIFEU (0-0.59)
[2020-08-27 14:15] LABS: Glucose Point of Care 437 mg/dL (70-110)
[2020-08-27] MEDS: FUROsemide 10 mg/mL SDV 2mL 20 MG IVP (15:21)
--- NOTE | 2020-08-27 15:38 | PM.PN ---
Subjective Subjective: Interval history: No acute events overnight. Overnight patient has been getting mildly agitated and breathing over the vent on the sedation with fentanyl and propofol for which Versed was added. Currently patient is on fentanyl, propofol, Versed. Patient is sedated but arousable not agitated. Currently he is on 55% FiO2, 550 of tidal volume, PEEP of 10. ABG appreciated. Labs and vitals have been appreciated. Patient has remained hemodynamically stable and afebrile. Documented urine output since last night 550 cc. Vitals/I&O/Wt Last Vital Signs Temp 98.8 F 08/27/20 12:21 Pulse 109 H 08/27/20 12:45 Resp 12 08/27/20 12:21 BP 129/66 08/27/20 12:45 Pulse Ox 96 08/27/20 12:45 08/27/20 08/27/20 08/27/20 06:59 14:59 22:59 Intake Total 100.117 / 062.083 2982.513 / 2088.513 Output Total 550 / 550 Balance -449.883 / 443.029 3240.513 / 2088.513 Weight last 48 hrs Weight 113.398 kg Weight 113.398 kg Physical Exam Narrative: EXAM NARRATIVE: General: Intubated, sedated, no rash only to cotter present on the body HEENT: PERRLA, pupils bilaterally equal and reactive Chest: Normal vesicular breath sounds, bilateral coarse crepitations present all over the lung ying, right more than left, anterior more than posterior, equal good air entry bilaterally CVS: S1-S2 regular, no murmurs, tachycardia, no gallops, no rubs Abdomen: Soft, nontender, no organomegaly, bowel sounds present Neuro: GCS: E1 M1 VT Urinary Catheter Management^: Colon: Cath Placed During This Visit: no Data : 08/27/20 02:40 08/27/20 02:40 Micro: Microbiology 08/26/20 16:30 Gram Stain - Final Sputum - Expectorated Sputum Sputum Culture - Preliminary 08/26/20 17:26 Legionella Urinary Antigen - Final Urethra 08/26/20 18:40 Blood Culture - Preliminary Blood SPECIMEN COLLECTED 08/26/20 10:12 Blood Culture - Preliminary Blood SPECIMEN COLLECTED A&P Assessment and plan (1) ARDS (adult respiratory distress syndrome): Status: Acute (2) Severe acute respiratory syndrome coronavirus 2 (SARS-CoV-2) detected: Status: Acute (3) Type 2 diabetes mellitus: Status: Acute (4) Lactic acidosis: Status: Acute (5) Hyponatremia: Status: Acute Additional A&P Information ARDS secondary to severe COVID-19 pneumonia: Patient was intubated in the ER for severe hypoxia even on high flow oxygenation. Sepsis criteria met because of leukocytosis, tachycardia, lactic acidosis, hypoxia on admission. Continue sedation with fentanyl, propofol, Versed. Patient did get 1 dose of convalescent plasma today morning. We will repeat second dose tomorrow. We will confirm with blood bank. Continue with remdesivir for overall 5-day course. Day 2 of 5 Dexamethasone 6 mg IV daily. Pulmonary toilet with chest vest. DuoNebs every 4 hour, budesonide twice daily. Vitamin C, zinc. Proning as possible. Urine Legionella, bacterial antigen negative. MRSA swab, sputum culture, blood culture awaited. For now continue with vancomycin, aztreonam and azithromycin. Will dose follow dose renally. We will continue to monitor the culture results and change her medications accordingly. Continue with therapeutic dose of Lovenox. Continue to monitor inflammatory markers including ferritin, LDH, proBNP, D-dimer, fibrinogen. Normal saline at 75 cc/h. Patient urine output is on the lower side so we will give him 20 mg of IV Lasix. Type 2 diabetes mellitus: N.p.o. for now. Blood sugars have been trending high even though he was given 15 units of Lantus and has been getting moderate insulin sliding scale every 4 hours. We will stop the sliding scale. Switch over to insulin drip given blood sugars around 200. Lactic acidosis: Resolved. Most likely from severe sepsis. Anion gap metabolic acidosis: pH 7.3 on the ABG done today morning with a PCO2 of 34. Patient does not have DKA. Lactic acidosis resolved. Most likely secondary to normal saline bolus he received in the ER yesterday. For now we will continue to monitor. Insulin drip as above. Continue check BMP every 12 hours for now. Hyponatremia: Resolved. IV fluids as above. Continue to monitor BMP daily for now. Severely guarded prognosis. Full code. NPO. Full dose Lovenox. Protonix for PUD prophylaxis. Patient's care has been discussed in detail with his Ms. Thomas on [phone]. All the questions were answered. Attestations Medical Necessity Statement*: Patient requires further hospitalization for management of ARDS from COVID-19 pneumonia, uncontrolled hyperglycemia, anion gap metabolic acidosis, vent dependent Critical Care Time: Critical Care Time (min): 70 Coding Level of Care Code Acute Retail Sales Associate Bilingual for [facility] Fwd Diagnoses ARDS (adult respiratory distress syndrome) J80 Severe acute respiratory syndrome coronavirus 2 (SARS-CoV-2) detected U07.1 Type 2 diabetes mellitus E11.9 Lactic acidosis E87.2 Hyponatremia E87.1
[2020-08-27 15:55] LABS: Glucose Point of Care 395 mg/dL (70-110)
[2020-08-27] MEDS: insulin regular-human 250 UNIT in sodium chloride 0.9% 250 ML 10 UNIT IV (16:02)
[2020-08-27] MEDS: azithromycin 500 MG in sodium chloride 0.9% 250 ML 250 MG IV (16:24)
[2020-08-27] MEDS: artificial tears Op Soln 15 mL Btl 1 DROP EYE-BOTH (16:32)
[2020-08-27] MEDS: blistex lip oint 7 gm Tube 1 APPLIC TOPICAL (16:33)
--- NOTE | 2020-08-27 16:51 | PC.RESP ---
Smoking Cessation information sent to patient.
[2020-08-27 17:01] LABS: Glucose Point of Care 397 mg/dL (70-110)
--- NOTE | 2020-08-27 17:01 | PC.NURSE ---
Started patients plasma at 26 minutes after recieving product. Contacted blood bank and they stated that that was fine. Md aware as well. The expiration date did not scan due to blood bank changing it and writing on it but blood aware as well and verified with another nurse, Rosalind Hemphill RN.
[2020-08-27 18:00] LABS: Glucose Point of Care 345 mg/dL (70-110)
[2020-08-27 18:51] LABS: Glucose Point of Care 332 mg/dL (70-110)
[2020-08-27 20:03] LABS: Glucose Point of Care 284 mg/dL (70-110)
[2020-08-27 21:31] LABS: Glucose Point of Care 211 mg/dL (70-110)
[2020-08-27 22:04] LABS: Glucose Point of Care 163 mg/dL (70-110)
[2020-08-27 23:01] LABS: Glucose Point of Care 127 mg/dL (70-110)
[2020-08-28] VITALS (102 sets, daily range): BP systolic 114–163; BP diastolic 64–96; PULSE 64–117; RESP 11–20; TEMP 36.9–37.2; O2SAT 87–100
[2020-08-28 00:17] LABS: Glucose Point of Care 125 mg/dL (70-110)
[2020-08-28 01:03] LABS: Glucose Point of Care 123 mg/dL (70-110)
[2020-08-28] MEDS: sodium chloride 0.9% 1,000 ML 50 ML IV (01:13)
[2020-08-28 02:08] LABS: Glucose Point of Care 124 mg/dL (70-110)
[2020-08-28] MEDS: propofol 1,000 MG/100 ML INJ 34 MG IV ×4 (02:08→10:42)
[2020-08-28 03:12] LABS: Glucose Point of Care 127 mg/dL (70-110)
[2020-08-28] MEDS: ipratropium-albuterol 3 mL Neb INHALATION ×6 (03:14→23:54)
[2020-08-28] MEDS: pantoprazole 40 mg SDV IVP ×2 (03:18→16:26)
[2020-08-28] MEDS: enoxaparin 120 mg/0.8 mL Syringe 110 MG SUBCUT ×2 (03:57→16:26)
--- NOTE | 2020-08-28 04:06 | XR_ITS ---
WS: [id number] Portable AP upright chest, 08/28/2020 Clinical Data: covid vent pt Comparison: Portable chest, 08/27/2020 Findings: The diffuse bilateral lung opacities remain unchanged. The heart size is enlarged. The endo tracheal tube and nasogastric tube remain in the same position. Monitor leads are on the chest wall. XR/XR chest 1V portable [id number] Impression: No change from yesterday's portable chest.
[2020-08-28 04:20] LABS: Glucose Point of Care 144 mg/dL (70-110)
[2020-08-28 05:06] LABS: Glucose Point of Care 146 mg/dL (70-110)
[2020-08-28 05:24] LABS: D Dimer 3.06 ug/mIFEU (0-0.59)
[2020-08-28 05:37] LABS: ABG PCO2 39.9 mmHg (35-45); ABG PH Result 7.38 (7.35-7.45); Base Excess ABG -1.4 mmol/L (-2.0-2.0); Blood Gas Allen Test POS; Blood Gas Operator Identificat JB; HCO3 ABG 23.6 mmol/L (22-26); Oxygen Device VENT; PO2 ABG 76.4 mmHg (80.0-100.0)
[2020-08-28 05:38] LABS: Arterial Blood Gas Hematocrit 29.7 % (42-52)
[2020-08-28 05:57] LABS: Glucose Point of Care 156 mg/dL (70-110)
[2020-08-28 05:58] LABS: Fibrinogen 685 mg/dL (174-498)
[2020-08-28 06:22] LABS: Hematocrit 35.1 % (42.0-52.0); Hemoglobin 11.2 g/dL (11.7-16.6); Mean Corpuscular HGB Conc 31.9 g/dL (30.0-36.0); Mean Corpuscular Hemoglobin 28.6 pg (28.0-34.0); Mean Corpuscular Volume 89.5 fL (80-94); Mean Platelet Volume 10.2 fL (7.4-10.4); Platelet Count 318 10^3/cmm (130-400); Red Blood Count 3.92 10^6/uL (4.1-5.3); Red Cell Distribution Width 13.7 % (12.1-15.1); White Blood Count 14.8 10^3/uL (4.0-10.0)
[2020-08-28 06:47] LABS: Alanine Aminotransferase 15 U/L (0-41); Albumin Level 2.8 g/dL (3.5-5.2); Alkaline Phosphatase 99 IU/L (40-130); Anion Gap 14.4 (5-19); Aspartate Amino Transferase 27 U/L (0-40); Blood Urea Nitrogen 44 mg/dL (6-20); Calcium 7.9 mg/dL (8.5-10.5); Carbon Dioxide 24 mmol/L (22-29); Chloride 108 mmol/L (98-107); Globulin 3.4 g/dL (1.3-4.6); Glomerular Filtration Rate 88.6 mL/min (90-130); Glucose 128 mg/dL (65-115); Osmolality Calculated 309 mOsm/kg (285-295); Potassium 3.4 mmol/L (3.5-5.1); Sodium 143 mmol/L (136-145); Total Bilirubin 0.2 mg/dL (0.15-1.2); Total Protein 6.2 g/dL (6.6-8.7)
[2020-08-28 07:11] LABS: Slide Review Slide Review Perform
[2020-08-28 07:13] LABS: Absolute Segmented Neutrophil 11.4 10/cmm (1.6-7.1); Band Neutrophils Absolute 1.6 10^3/cmm (0.0-1.2); Lymphocytes 4 %; Monocytes Absolute 0.6 10^3/cmm (0.1-0.6); Platelet Estimate Normal (Normal); Segmented Neutrophils 77 %; Total Cells Counted 100 (0-100)
[2020-08-28 07:14] LABS: Eosinophils 0 %
[2020-08-28] MEDS: budesonide 0.5 mg/2 mL Neb INHALATION ×2 (07:58→20:10)
[2020-08-28 08:18] LABS: Glucose Point of Care 176 mg/dL (70-110)
[2020-08-28 09:04] LABS: Glucose Point of Care 172 mg/dL (70-110)
[2020-08-28 09:14] LABS: C Reactive Protein 145.9 mg/L (0.0-4.9); Lactate Dehydrogenase 509 U/L (135-225); NT Pro B Type Natriuretic Pept 453 pg/mL (0-125)
[2020-08-28 09:37] LABS: Creatine Phosphokinase 1167 U/L (39-308); Ferritin 1334 ng/mL (30-400)
[2020-08-28] MEDS: blistex lip oint 7 gm Tube 1 APPLIC TOPICAL (10:33)
[2020-08-28] MEDS: artificial tears Op Soln 15 mL Btl 1 DROP EYE-BOTH (10:34)
[2020-08-28] MEDS: ascorbic acid 500 mg Tablet PO (10:34)
[2020-08-28] MEDS: zinc gluconate 50 mg Tablet PO (10:34)
[2020-08-28] MEDS: dexamethasone 4 mg/mL INJ 6 MG IVP (10:34)
[2020-08-28 11:06] LABS: Glucose Point of Care 179 mg/dL (70-110)
[2020-08-28 11:37] LABS: Coronavirus Lab Test PTC Positive
[2020-08-28] MEDS: FUROsemide 10 mg/mL SDV 4mL 40 MG IVP ×2 (11:59→23:29)
[2020-08-28] MEDS: lidocaine 1% 5 ML in potassium chloride premix 100 ML 25 ML IV (12:00)
[2020-08-28] MEDS: aztreonam 1,000 MG in sodium chloride 0.9% (plus) 50 ML 50 MG IV (12:57)
--- NOTE | 2020-08-28 13:14 | PC.RESP ---
Dr. Bowers was notified and was satisfied with the current vent settings, and to wean down the FIO2
[2020-08-28] MEDS: propofol 1,000 MG/100 ML INJ 27.2 MG IV ×3 (14:00→22:39)
[2020-08-28 14:11] LABS: Glucose Point of Care 300 mg/dL (70-110)
[2020-08-28 14:11] LABS: Glucose Point of Care 265 mg/dL (70-110)
[2020-08-28 14:11] LABS: Glucose Point of Care 278 mg/dL (70-110)
[2020-08-28] MEDS: azithromycin 500 MG in sodium chloride 0.9% 250 ML 250 MG IV (16:25)
[2020-08-28 16:34] LABS: Glucose Point of Care 226 mg/dL (70-110)
[2020-08-28 16:34] LABS: Glucose Point of Care 270 mg/dL (70-110)
[2020-08-28 17:16] LABS: Glucose Point of Care 215 mg/dL (70-110)
--- NOTE | 2020-08-28 17:27 | PM.PN ---
Subjective Subjective: Interval history: This morning patient was examined, currently he is intubated, sedated on the ventilator, on propofol, Versed, Precedex, overnight did have episodes of tachypnea and desats to the low 80s, requiring increasing his sedation. Remains afebrile, normotensive, no pressors required, currently is on the vent with a PEEP of 10, rate of 14, 70% FiO2, Vitals/I&O/Wt Last Vital Signs Temp 98.7 F 08/28/20 15:45 Pulse 95 08/28/20 17:15 Resp 18 08/28/20 17:13 BP 143/75 08/28/20 17:15 Pulse Ox 96 08/28/20 17:15 08/28/20 08/28/20 08/28/20 06:59 14:59 22:59 Intake Total 1417.033 / 4278.389 1052.524 / 1052.524 27.557 / 1080.081 Output Total 850 / 1725 Balance 567.033 / 2553.389 1052.524 / 1052.524 27.557 / 1080.081 Weight last 48 hrs Weight 113.398 kg Physical Exam Const: COMMON NORMALS: no acute distress OTHER: Intubated, sedated, on multiple sedation medication HENMT: COMMON NORMALS: normocephalic HEAD & SCALP: normocephalic Neck/C-Spine: COMMON NORMALS: no JVD Resp: COMMON NORMALS: normal respiratory effort, No retractions and No use of accessory muscles AUSCULTATION: crackles Cardio: COMMON NORMALS: no JVD, regular rate, regular rhythm, S1 normal heart sound present and S2 normal heart sound present RATE: regular rate RHYTHM: regular rhythm HEART SOUNDS: S1 normal heart sound present and S2 normal heart sound present GI: COMMON NORMALS: Normal to inspection, nondistended, normoactive bowel sounds present, Soft to palpation, non-tender, No hepatosplenomegaly present, no masses and no bruits PALPATION: Yes Soft to palpation and Yes No hepatosplenomegaly present Extremity: COMMON NORMALS: capillary refill normal, no clubbing, cyanosis or edema, no calf tenderness and no pedal edema Urinary Catheter Management^: Colon: Cath Placed During This Visit: no Data : 08/28/20 03:00 08/28/20 03:00 Micro: Microbiology 08/26/20 16:30 Gram Stain - Final Sputum - Expectorated Sputum Sputum Culture - Final 08/26/20 18:40 Blood Culture - Preliminary Blood Gram positive cocci 08/26/20 10:12 Blood Culture - Preliminary Blood NEGATIVE TO DATE A&P Assessment and plan (1) ARDS (adult respiratory distress syndrome): Status: Acute (2) Severe acute respiratory syndrome coronavirus 2 (SARS-CoV-2) detected: Status: Acute (3) Type 2 diabetes mellitus: Status: Acute (4) Lactic acidosis: Status: Acute (5) Hyponatremia: Status: Acute Additional A&P Information Acute hypoxic respiratory failure secondary to : ARDS, severe COVID-19 pneumonia, secondary bacterial pneumonia -Patient was intubated in the ER for severe hypoxia even on high flow oxygenation. -Sepsis criteria met because of leukocytosis, tachycardia, lactic acidosis, hypoxia on admission. -Currently intubated, vent settings PEEP of 10, FiO2 of 70%, rate 14, minimize tidal volumes, minimize FiO2 -Continue sedation with fentanyl, propofol, Versed. -Day 2 of 2 of convalescent plasma -Continue with remdesivir for overall 5-day course. Day 2 of 5 -Dexamethasone 6 mg IV daily. -Broad-spectrum antibiotics vancomycin, aztreonam, azithromycin -Pulmonary toilet with chest vest. -DuoNebs every 4 hour, budesonide twice daily. -vit C, zinc. -Proning if possible. -Urine Legionella, bacterial antigen negative. MRSA swab, sputum culture, blood culture awaited. -Daily EKGs, telemetry monitoring -Continue with therapeutic dose of Lovenox. -Continue to monitor inflammatory markers including ferritin, LDH, proBNP, D-dimer, fibrinogen. -Stop IV fluids, patient's positive fluid balance, Lasix 40 mg IV twice daily -We will start him on tube feeds, with free water flushes -We will consult pulmonary, input appreciated Type 2 diabetes mellitus: N.p.o. for now. Continue insulin drip Continue tube feeds Lactic acidosis: Resolved. Most likely from severe sepsis. Anion gap metabolic acidosis: Resolved, pH 7.38, bicarb 24 Patient does not have DKA. Lactic acidosis resolved. Hyponatremia: Resolved. Continue to monitor BMP daily for now. Severely guarded prognosis. Full code. NPO. Full dose Lovenox. Protonix for PUD prophylaxis. Patient's care has been discussed in detail with his Ms. Thomas on [phone]. All the questions were answered. Attestations Medical Necessity Statement*: Patient requires hospitalization for acute hypoxic respiratory failure secondary to acute respiratory distress syndrome, COVID-19 pneumonia, secondary bacterial pneumonia Coding Level of Care Code Acute Health Promotion Manager for [facility] Fwd Diagnoses ARDS (adult respiratory distress syndrome) J80 Severe acute respiratory syndrome coronavirus 2 (SARS-CoV-2) detected U07.1 Type 2 diabetes mellitus E11.9 Lactic acidosis E87.2 Hyponatremia E87.1
[2020-08-28 18:01] LABS: Glucose Point of Care 184 mg/dL (70-110)
--- NOTE | 2020-08-28 19:00 | PC.NURSE ---
Report received, care assumed. Monitor alarms, plan of care et previous orders reviewed. Patient currently on Fentanyl, Insulin, Propofol et Versed gtts. Orally intubated with 8.0 ETT secured 25 cm at the lip, see RT flowsheet for details. Please see physical assessment et vital sign flowhsheets for details.
[2020-08-28 19:15] LABS: Glucose Point of Care 162 mg/dL (70-110)
--- NOTE | 2020-08-28 20:00 | PC.NURSE ---
Plasma infusion complete. Vital sign obtained et documented. No transfusion reaction noted. Will continue to monitor closely.
--- NOTE | 2020-08-28 20:00 | ECG_ITS ---
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 Measurements Intervals [place] Rate: 93 P: 14 IN: 128 QRS: -26 QRSD: 106 T: 29 QT: 371 QTc: 462 Interpretive Statements SINUS RHYTHM BORDERLINE LEFT AXIS DEVIATION [QRS AXIS < -20] VOLTAGE CRITERIA FOR LVH NONSPECIFIC T-WAVE ABNORMALITY Compared to ECG 08/26/2020 10:17:17 T-wave abnormality now present Sinus tachycardia no longer present Myocardial infarct finding no longer present Electronically Signed On 09-02-2020 22:10:36 EDITOR MANAGING NEWSPAPER by Mini You M.D. [id number]
[2020-08-28 20:14] LABS: Glucose Point of Care 147 mg/dL (70-110)
[2020-08-28 21:16] LABS: Glucose Point of Care 165 mg/dL (70-110)
[2020-08-28 22:19] LABS: Glucose Point of Care 178 mg/dL (70-110)
[2020-08-28 23:28] LABS: Glucose Point of Care 197 mg/dL (70-110)
[2020-08-28] MEDS: aztreonam 1,000 MG in sodium chloride 0.9% (plus) 50 ML 100 MG IV (23:31)
[2020-08-29] VITALS (90 sets, daily range): BP systolic 130–173; BP diastolic 57–98; PULSE 76–100; RESP 14–17; TEMP 37.1–37.9; O2SAT 90–100
[2020-08-29] MEDS: propofol 1,000 MG/100 ML INJ 27.2 MG IV ×2 (01:34→04:59)
[2020-08-29 02:15] LABS: Glucose Point of Care 266 mg/dL (70-110)
[2020-08-29 02:15] LABS: Glucose Point of Care 258 mg/dL (70-110)
[2020-08-29 02:15] LABS: Glucose Point of Care 221 mg/dL (70-110)
[2020-08-29] MEDS: ipratropium-albuterol 3 mL Neb INHALATION ×5 (03:03→20:09)
[2020-08-29] MEDS: enoxaparin 120 mg/0.8 mL Syringe 110 MG SUBCUT ×2 (03:52→15:29)
[2020-08-29] MEDS: pantoprazole 40 mg SDV IVP ×2 (03:52→15:28)
[2020-08-29 04:38] LABS: ABG PCO2 38.1 mmHg (35-45); ABG PH Result 7.43 (7.35-7.45); Arterial Blood Gas Hematocrit 48.2 % (42-52); Blood Gas Allen Test Pos; Blood Gas Operator Identificat JB; Blood Gas Sample Site Radial, right; Blood Gas Sample Type Arterial; HCO3 ABG 25.2 mmol/L (22-26); Oxygen Device VENT; PO2 ABG 62.3 mmHg (80.0-100.0)
[2020-08-29 04:59] LABS: Basophils % 0.3 %; Eosinophils % 0.1 %; Hematocrit 34.4 % (42.0-52.0); Lymphocytes # 1.3 10^3/uL (0.8-4.8); Lymphocytes % 10.4 %; Mean Corpuscular Hemoglobin 28.6 pg (28.0-34.0); Mean Corpuscular Volume 89.6 fL (80-94); Mean Platelet Volume 10.2 fL (7.4-10.4); Monocytes # 0.3 10^3/uL (0.2-0.9); Monocytes % 2.5 %; Neutrophils # 9.82 10^3/uL (1.8-7.7); Neutrophils % 81.6 %; Nucleated Red Blood Cells % 0 %; Platelet Count 320 10^3/cmm (130-400); Red Blood Count 3.84 10^6/uL (4.1-5.3); Red Cell Distribution Width 14.3 % (12.1-15.1)
[2020-08-29 05:35] LABS: INR 1.13 (0.8-1.2)
[2020-08-29 05:36] LABS: Fibrinogen 774 mg/dL (174-498)
[2020-08-29 05:39] LABS: D Dimer 1.49 ug/mIFEU (0-0.59)
[2020-08-29 05:49] LABS: Lactic Sepsis W/Reflex 1.9 mmol/L (0.5-2.2)
[2020-08-29 05:57] LABS: Alanine Aminotransferase 20 U/L (0-41); Alkaline Phosphatase 123 IU/L (40-130); Anion Gap 14.5 (5-19); Aspartate Amino Transferase 53 U/L (0-40); Blood Urea Nitrogen 32 mg/dL (6-20); C Reactive Protein 234.6 mg/L (0.0-4.9); Calcium 8.2 mg/dL (8.5-10.5); Carbon Dioxide 25 mmol/L (22-29); Chloride 108 mmol/L (98-107); Globulin 3.2 g/dL (1.3-4.6); Glomerular Filtration Rate 88.6 mL/min (90-130); Glucose 239 mg/dL (65-115); Magnesium 2.5 mg/dL (1.7-2.3); Osmolality Calculated 313 mOsm/kg (285-295); Phosphorus 1.8 mg/dL (2.5-4.5); Potassium 3.5 mmol/L (3.5-5.1); Sodium 144 mmol/L (136-145); Total Bilirubin 0.3 mg/dL (0.15-1.2); Total Protein 6.2 g/dL (6.6-8.7)
--- NOTE | 2020-08-29 06:00 | ECG_ITS ---
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 Measurements Intervals [place] Rate: 90 P: 16 IL: 136 QRS: -33 QRSD: 102 T: 21 QT: 356 QTc: 436 Interpretive Statements SINUS RHYTHM MARKED LEFT AXIS DEVIATION [QRS AXIS < -30] VOLTAGE CRITERIA FOR LVH [MEETS CRITERIA IN ONE OF: R(aVL), S(V1), R(V5), R(V5/V6)+S(V1)] NONSPECIFIC T-WAVE ABNORMALITY Compared to ECG 08/28/2020 21:02:01 No significant changes Electronically Signed On 09-02-2020 22:08:32 LADDER OPERATOR by Mini You M.D. [email or web address]
[2020-08-29 06:10] LABS: NT Pro B Type Natriuretic Pept 466 pg/mL (0-125); Procalcitonin 1.11 ng/mL (0-0.5)
[2020-08-29 06:10] LABS: Glucose Point of Care 242 mg/dL (70-110)
[2020-08-29 06:10] LABS: Glucose Point of Care 197 mg/dL (70-110)
[2020-08-29 06:10] LABS: Glucose Point of Care 228 mg/dL (70-110)
[2020-08-29 06:10] LABS: Glucose Point of Care 219 mg/dL (70-110)
[2020-08-29 06:21] LABS: Lactate Dehydrogenase 537 U/L (135-225)
[2020-08-29 06:25] LABS: Creatine Phosphokinase 1491 U/L (39-308); Slide Review Slide Review Perform
--- NOTE | 2020-08-29 06:30 | PC.NURSE ---
Critical lab notification to physician: Spoke with Dr. Olmos about patient's critical lab value et patient's recent change in movements. Updated on patient condition.No new orders received at this time. Will continue to monitor.
[2020-08-29 06:40] LABS: Ferritin 1224 ng/mL (30-400)
--- NOTE | 2020-08-29 07:00 | XR_ITS ---
WS: [id number] Portable AP upright chest, 08/29/2020 Clinical Data: sob Comparison: Portable chest, 08/28/2020 Findings: Bilateral lung opacities remain unchanged. The heart is enlarged. The endotracheal tube and nasogastric tube remain in the same position. Monitor leads on the chest wall. XR/XR chest 1V portable [id number] Impression: No change from yesterday's portable chest.
--- NOTE | 2020-08-29 07:07 | PC.NURSE ---
Report given to next shift.
[2020-08-29] MEDS: propofol 1,000 MG/100 ML INJ 34 MG IV (08:10)
[2020-08-29] MEDS: dexamethasone 4 mg/mL INJ 6 MG IVP (08:10)
[2020-08-29] MEDS: ascorbic acid 500 mg Tablet PO (08:10)
[2020-08-29] MEDS: zinc gluconate 50 mg Tablet PO (08:12)
[2020-08-29 08:29] LABS: Glucose Point of Care 250 mg/dL (70-110)
[2020-08-29] MEDS: budesonide 0.5 mg/2 mL Neb INHALATION ×2 (09:27→20:09)
[2020-08-29] MEDS: lidocaine 1% 5 ML in potassium chloride premix 100 ML 25 ML IV (09:51)
[2020-08-29] MEDS: metOLazone 5 MG Tablet PO (09:51)
[2020-08-29] MEDS: FUROsemide 10 mg/mL SDV 4mL 40 MG IVP ×2 (09:51→20:32)
[2020-08-29 11:24] LABS: Glucose Point of Care 249 mg/dL (70-110)
[2020-08-29 11:24] LABS: Glucose Point of Care 229 mg/dL (70-110)
[2020-08-29 11:24] LABS: Glucose Point of Care 245 mg/dL (70-110)
[2020-08-29 11:24] LABS: Glucose Point of Care 216 mg/dL (70-110)
--- NOTE | 2020-08-29 12:53 | P.PN_ITS ---
Subjective Subjective: Interval history: Patient overnight has remained afebrile, normotensive, urine output was a bit lackluster with diuresis 1.7 L, remains on the ventilator, no tachypnea or desaturation episodes overnight, 40% FiO2, PEEP of 10, respiratory rate 14, Vitals/I&O/Wt Last Vital Signs Temp 99.2 F 08/29/20 08:00 Pulse 82 08/29/20 11:50 Resp 14 08/29/20 11:55 BP 148/68 08/29/20 11:00 Pulse Ox 94 08/29/20 11:50 08/28/20 08/29/20 08/29/20 22:59 06:59 14:59 Intake Total 764.192 / 5714.386 4893.786 / 2821.502 863.368 / 863.368 Output Total 700 / 700 800 / 1500 Balance 64.192 / 1116.716 204.786 / 1321.502 863.368 / 863.368 Weight last 48 hrs Weight 129.41 kg Physical Exam Const: COMMON NORMALS: no acute distress OTHER: Intubated, sedated, on multiple sedation medication HENMT: COMMON NORMALS: normocephalic HEAD & SCALP: normocephalic Neck/C-Spine: COMMON NORMALS: no JVD Resp: COMMON NORMALS: normal respiratory effort, No retractions and No use of accessory muscles AUSCULTATION: crackles Cardio: COMMON NORMALS: no JVD, regular rate, regular rhythm, S1 normal heart sound present and S2 normal heart sound present RATE: regular rate RHYTHM: regular rhythm HEART SOUNDS: S1 normal heart sound present and S2 normal heart sound present GI: COMMON NORMALS: Normal to inspection, nondistended, normoactive bowel sounds present, Soft to palpation, non-tender, No hepatosplenomegaly present, no masses and no bruits PALPATION: Yes Soft to palpation and Yes No hepatosplenomegaly present Extremity: COMMON NORMALS: capillary refill normal, no clubbing, cyanosis or e mansoor, no calf tenderness and no pedal edema Urinary Catheter Management^: Colon: Cath Placed During This Visit: no Data : 08/29/20 04:15 08/29/20 04:15 Micro: Microbiology 08/26/20 16:30 Gram Stain - Final Sputum - Expectorated Sputum Sputum Culture - Final 08/26/20 18:40 Blood Culture - Preliminary Blood Gram positive cocci A&P Assessment and plan (1) ARDS (adult respiratory distress syndrome): Status: Acute (2) Severe acute respiratory syndrome coronavirus 2 (SARS-CoV-2) detected: Status: Acute (3) Type 2 diabetes mellitus: Status: Acute (4) Lactic acidosis: Status: Acute (5) Hyponatremia: Status: Acute Additional A&P Information Acute hypoxic respiratory failure secondary to : ARDS, severe COVID-19 pneumonia, secondary bacterial pneumonia -Patient was intubated in the ER for severe hypoxia even on high flow oxygenation. -Sepsis criteria met because of leukocytosis, tachycardia, lactic acidosis, hypoxia on admission. -Currently intubated, vent settings PEEP of 10, FiO2 of 40%, rate 14, minimize tidal volumes, minimize FiO2 -Continue sedation with fentanyl, propofol, Versed. -Day 2 of 2 of convalescent plasma completed on 08/28/2020 -Continue with remdesivir for overall 5-day course. Day 3 of 5 -Dexamethasone 6 mg IV daily. -Broad-spectrum antibiotics vancomycin, aztreonam, azithromycin -Pulmonary toilet with chest vest. -DuoNebs every 4 hour, budesonide twice daily. -vit C, zinc. -Proning if possible. -Urine Legionella, bacterial antigen negative. MRSA swab, sputum culture, blood culture awaited. -Daily EKGs, telemetry monitoring -Continue with therapeutic dose of Lovenox. -Continue to monitor inflammatory markers including ferritin, LDH, proBNP, D- dimer, fibrinogen. -Lasix 40 mg IV twice daily, with metolazone 5 mg daily -We will start him on tube feeds, with free water flushes -We will consult pulmonary, input appreciated Type 2 diabetes mellitus: N.p.o. for now. Continue insulin drip Continue tube feeds Lactic acidosis: Resolved. Most likely from severe sepsis. Anion gap metabolic acidosis: Resolved, pH 7.43, PCO2 30.1 Patient does not have DKA. Lactic acidosis resolved. Hyponatremia: Resolved. Continue to monitor BMP daily for now. Severely guarded prognosis. Full code. NPO. Full dose Lovenox. Protonix for PUD prophylaxis. Patient's care has been discussed in detail with his Ms. Thomas on [phone]. All the questions were answered. Attestations Medical Necessity Statement*: Patient requires hospitalization for acute respiratory distress syndrome secondary COVID-19 Coding Level of Care Code Acute Government Service Executive for g Fwd Diagnoses ARDS (adult respiratory distress syndrome) J80 Severe acute respiratory syndrome coronavirus 2 (SARS-CoV-2) detected U07.1 Type 2 diabetes mellitus E11.9 Lactic acidosis E87.2 Hyponatremia E87.1
[2020-08-29 12:59] LABS: Vancomycin Trough 19.9 ug/mL (10-15)
--- NOTE | 2020-08-29 13:31 | P.CONIM_ITS ---
Providers/Reason For Consult Consulting Physican/Specialty*: Vin Bowers M.D/ Pulmonary Critical care Reason for Consult*: Vent management Attending Physician: Robert Roy MD Primary Care Provider: Kenn Cruz DO History of Present Illness History of Present Illness Bharath Vallejo is a 50 year old male with past medical history of type 2 diabetes admitted [facility]2020 for acute hypoxic respiratory failure secondary to ARDS due to Covid 19 pneumonia. Patient was intubated in the ER. Currently patient is sedated and is on vent settings. Failed weaning trial today Review of Systems General: Reports: ROS unobtainable due to endotracheal tube and ROS unobtainable due to mental status Meds/Allergies Home Medications and Allergies Home Medications Medication Instructions Recorded Confirmed Last Taken Type NyQuil See Rx Instructions .ROUTE .COMPLEX 08/26/20 08/26/20 Unknown History acetaminophen [Tylenol Extra 1,000 - 1,500 mg PO PRN 08/26/20 08/26/20 Unknown History Strength] insulin glargine [Lantus Solostar See Rx Instructions .ROUTE .COMPLEX 08/26/20 08/26/20 Unknown History U-100 Insulin] insulin lispro [Humalog KwikPen See Rx Instructions .ROUTE .COMPLEX 08/26/20 08/26/20 Unknown History Insulin] omeprazole 20 mg PO DAILY PRN 08/26/20 08/26/20 Unknown History Allergies Allergy/AdvReac Type Severity Reaction Status Date / Time Penicillins Allergy Unknown Verified 08/26/20 11:20 Current Medications Current Medications Generic Name Dose Route Start Last Admin Trade Name Freq PRN Reason Stop Dose Admin Albuterol/Ipratropium 3 ml 08/26/20 20:00 08/29/20 11:49 Ipratropium-Albuterol 3 Ml Neb INHALATION 3 ml Q4H.RESPIRATORY STALIN Administration Artificial Tears 1 drop 08/27/20 15:18 08/28/20 10:34 Artificial Tears Op Soln 15 Ml Btl EYE-BOTH 1 drop Q4H PRN Administration DRY EYE(S) Ascorbic Acid 500 mg 08/27/20 09:00 08/29/20 08:10 Ascorbic Acid 500 Mg Tablet PO 500 mg DAILY STALIN Administration Budesonide 0.5 mg 08/26/20 20:00 08/29/20 09:27 Budesonide 0.5 Mg/2 Ml Neb INHALATION 0.5 mg BID.RESPIRATORY STALIN Administration Camphor/Menthol/Phenol 1 applic 08/27/20 15:17 08/28/20 10:33 Blistex Lip Oint 7 Gm Tube TOPICAL 1 applic PRN PRN Administration DRYNESS Dexamethasone 6 mg 08/27/20 09:00 08/29/20 08:10 Dexamethasone 4 Mg/Ml Inj IVP 6 mg Q24H STALIN Administration Enoxaparin Sodium 110 mg 08/26/20 16:30 08/29/20 03:52 Enoxaparin 120 Mg/0.8 Ml Syringe SUBCUT 110 mg Q12H STALIN Administration Furosemide 40 mg 08/29/20 08:30 08/29/20 09:51 Furosemide 10 Mg/Ml Sdv 4ml IVP 08/29/20 20:31 40 mg Q12H STALIN Administration Fentanyl 1,000 mcg/ Sodium 100 mls @ 0 mls/hr 08/26/20 10:30 08/29/20 04:59 Chloride IV 100 mcg/hr .Q0M STALIN 10 mls/hr Administration Protocol Per Protocol Propofol 1,000 mg in 100 mls @ 0 mls/hr 08/26/20 10:45 08/29/20 11:48 Diprivan IV Infused .Q0M STALIN Titration Protocol Per Protocol remdesivir (EUA) 100 mg/ 100 mls @ 100 mls/hr 08/27/20 13:00 08/28/20 13:24 Sodium Chloride IV 08/30/20 13:59 Infused Q24H STALIN Infusion Azithromycin 500 mg/ Sodium 250 mls @ 250 mls/hr 08/27/20 16:00 08/28/20 19:04 Chloride IV Infused Q24H STALIN Infusion Protocol Aztreonam 1,000 mg/ Sodium 50 mls @ 100 mls/hr 08/27/20 00:30 08/29/20 08:03 Chloride IV Infused Q12H STALIN Infusion Protocol Midazolam HCl 100 mg/ Sodium 100 mls @ 0 mls/hr 08/27/20 00:15 08/29/20 11:48 Chloride IV 3 mg/hr .Q0M STALIN 3 mls/hr Titration Protocol Per Protocol Insulin Human Regular 250 unit 252.5 mls @ 0 mls/hr 08/27/20 14:45 08/29/20 11:49 / Sodium Chloride IV 3.7 ml/hr .Q0M STALIN 3.7 mls/hr Titration Protocol Per Protocol Vancomycin HCl 1,500 mg/ 250 mls @ 166.667 mls/hr 08/28/20 12:00 08/29/20 12:55 Sodium Chloride IV 250 mls/hr Q12H STALIN Administration Protocol Pantoprazole Sodium 40 mg 08/26/20 16:00 08/29/20 03:52 Pantoprazole 40 Mg Sdv IVP 40 mg Q12H STALIN Administration Zinc Gluconate 50 mg 08/27/20 09:00 08/29/20 08:12 Zinc Gluconate 50 Mg Tablet PO 50 mg DAILY STALIN Administration PFSH Acute PFSH: Medical History Erectile dysfunction Peyronie's disease Type 2 diabetes mellitus Surgical History History of vasectomy Family History Mother Hypertension Social History Smoking and tobacco status: smoker, details unknown smokeless tobacco Alcohol intake: never Adopted: No Caregiver/support person: No Lives independently: No Household members: spouse Marital status: Current occupational status: employed History of recent travel: No Vitals/I&O/Wt Last Vital Signs Temp 99.2 F 08/29/20 08:00 Pulse 82 08/29/20 11:50 Resp 14 08/29/20 11:55 BP 148/68 08/29/20 11:00 Pulse Ox 94 08/29/20 11:50 08/28/20 08/29/20 08/29/20 22:59 06:59 14:59 Intake Total 764.192 / 0100.680 7793.786 / 2821.502 863.368 / 863.368 Output Total 700 / 700 800 / 1500 Balance 64.192 / 1116.716 204.786 / 1321.502 863.368 / 863.368 Weight last 48 hrs Weight 285 lb 4.8 oz Physical Exam Narrative: EXAM NARRATIVE: PHYSICAL EXAM: General: lying in bed, sedated and intubated. HEENT:NCAT, PERRLA, EOMI Neck: Supple Lungs: Clear, Heart: s1/s2, RRR Abd: soft, NT, ND, BS + Normoactive Extremities: No edema ENVIRONMENTAL COMPLIANCE SPECIALIST: sedated and limited ENVIRONMENTAL COMPLIANCE SPECIALIST exam possible. SKIN: no rash Urinary Catheter Management^: Guevara: Cath Placed During This Visit: no Data Micro: Micro: Microbiology 08/26/20 16:30 Gram Stain - Final Sputum - Expector ated Sputum Sputum Culture - F inal 08/26/20 18:40 Blood Culture - Pr eliminary Blood Gram positive c occi Other Data: Other data: Review the chest x-ray, echo, CT A A&P Assessment and plan (1) Severe acute respiratory syndrome coronavirus 2 (SARS-CoV-2) detected: Status: Acute (2) Type 2 diabetes mellitus: Status: Acute (3) Acute respiratory failure with hypoxia: Status: Acute 50-year-old male with past medical history of type 2 diabetes admitted to PICU for acute hypoxic respiratory failure secondary to severe ARDS secondary to COVID-19 pneumonia on 08/26/2020. NEURO: Sedation -Propofol, Versed, fentanyl -DC Versed and start patient on Precedex -Continue SBT trial tomorrow and try to extubate PULM: Acute hypoxic and hypercapneic respiratory failure -secondary to COVID pna -Intubated on arrival to ER 08/26/2020 -CMV PC PIP 24, 40%, 12, 18, , pulling at good tidal volumes, can come down on IPAP to 20 -ABG 7.4 3/38/62/20 5/92% -CXR Bilateral lung opacities remain unchanged. The heart is enlarged. -BNP 466 -On remdesivir, azithromycin, vancomycin, aztreonam, dexamethasone, -DuoNeb and Pulmicort nebulizations -Monitor saturation and titrate down FiO2 -Daily morning awakening trials and breathing trials and extubate if tolerates -Daily chest x-ray CVS: -Echo LV systolic function normal with EF 55 to 60%, grade 1 diastolic. -Hemodynamically stable -Monitor input output -Lasix 40 every 12 GI: On tube feeds Recommended to start bowel regimen -Monitor LFTs; AST today 5 3 RENAL: -Normal renal functions, improving BUN -On Lasix 40 twice daily -Strict I/O-try to keep slight negative to even -Continue guevara cath -Avoid nephrotoxins -Potassium 3.5, phosphorus 1.8-given potassium phosphate -Monitor electrolytes and supplement accordingly HEM: H&H stable Plts stable,will trend DVT prophylaxis: On Lovenox ENDO: Sugars 197-289 On IV insulin POCT Q6H ID: Severe sepsis secondary to COVID pna -afebrile,Tmax 100.1,Mild leucocytosis 12 K trending down -Blood cultures preliminary gram-positive cocci -On remdesivir, azithromycin, vancomycin, aztreonam, dexamethasone, -Procalcitonin 1.11, lactic acid normal Code Status: Full code Disposition: ICU Consult Attestations Medical Necessity Statement: Acute hypoxic respiratory failure secondary to ARDS due to COVID-19 pneumonia, intubated and mechanically ventilated. Coding Level of Care Code New Pt Acute Blanker Operator for g Fwd Patient Type New History Comprehensive Exam Comprehensive Medical Decision Making High Complexity Diagnoses Severe acute respiratory syndrome coronavirus 2 (SARS-CoV-2) detected U07.1 Type 2 diabetes mellitus E11.9 Acute respiratory failure with hypoxia J96.01 Time Spent (min) 45
[2020-08-29] MEDS: aztreonam 1,000 MG in sodium chloride 0.9% (plus) 50 ML 100 MG IV (13:33)
[2020-08-29] MEDS: propofol 1,000 MG/100 ML INJ 20.4 MG IV ×2 (14:02→19:32)
--- NOTE | 2020-08-29 14:25 | PC.NURSE ---
Called pharmacy. No propofol was stocked in the xis but there was a box of propofol on the table. I called pharmacy and asked them to stock tiara because my patient needed a new bottle spiked now. They told me to grab a bottle out of the unopened box and they would come and restock the rest when they had time.
[2020-08-29 14:57] LABS: Glucose Point of Care 305 mg/dL (70-110)
[2020-08-29 14:57] LABS: Glucose Point of Care 245 mg/dL (70-110)
[2020-08-29 14:57] LABS: Glucose Point of Care 289 mg/dL (70-110)
[2020-08-29] MEDS: azithromycin 500 MG in sodium chloride 0.9% 250 ML 250 MG IV (15:28)
[2020-08-29] MEDS: dexmedetomidine 400 MCG in sodium chloride 0.9% (100 ml) 100 ML IV (16:55)
[2020-08-29 17:06] LABS: Glucose Point of Care 297 mg/dL (70-110)
[2020-08-29 17:06] LABS: Glucose Point of Care 317 mg/dL (70-110)
[2020-08-29 18:06] LABS: Glucose Point of Care 276 mg/dL (70-110)
[2020-08-29 18:59] LABS: Glucose Point of Care 232 mg/dL (70-110)
--- NOTE | 2020-08-29 19:00 | PC.NURSE ---
versed gtt 100mls/100mg bag not opened handed off to RASHEL Hart
[2020-08-29 20:15] LABS: Glucose Point of Care 169 mg/dL (70-110)
[2020-08-29] MEDS: phosphorus 250 mg Tablet OG-TUBE (20:33)
[2020-08-29 21:21] LABS: Glucose Point of Care 175 mg/dL (70-110)
[2020-08-29] MEDS: insulin regular-human 250 UNIT in sodium chloride 0.9% 250 ML IV (22:00)
[2020-08-30] VITALS (68 sets, daily range): BP systolic 127–191; BP diastolic 72–104; PULSE 79–103; RESP 14–981; TEMP 36.7–37.4; O2SAT 89–96
[2020-08-30] MEDS: ipratropium-albuterol 3 mL Neb INHALATION ×7 (00:12→23:57)
--- NOTE | 2020-08-30 00:30 | PC.NURSE ---
RT notified RN that patient is pulling 1000 mL tidal volumes et is concerned that he is not tolerating decreasing sedation from a pulmonary standpoint. Increased precedex to 0.7 mcg/ kg/ hr et versed to 3 mg/hr. Will continue to monitor et assess for sedation needs.
[2020-08-30] MEDS: dexmedetomidine 400 MCG in sodium chloride 0.9% (100 ml) 100 ML 23.6 MCG IV ×3 (00:51→09:34)
[2020-08-30] MEDS: propofol 1,000 MG/100 ML INJ 20.4 MG IV ×3 (00:52→06:42)
[2020-08-30] MEDS: aztreonam 1,000 MG in sodium chloride 0.9% (plus) 50 ML 100 MG IV ×3 (00:53→17:26)
[2020-08-30 02:04] LABS: Glucose Point of Care 216 mg/dL (70-110)
[2020-08-30 02:04] LABS: Glucose Point of Care 203 mg/dL (70-110)
[2020-08-30 02:04] LABS: Glucose Point of Care 241 mg/dL (70-110)
[2020-08-30 02:04] LABS: Glucose Point of Care 263 mg/dL (70-110)
[2020-08-30 02:04] LABS: Glucose Point of Care 185 mg/dL (70-110)
[2020-08-30] MEDS: pantoprazole 40 mg SDV IVP ×2 (03:26→17:25)
[2020-08-30 04:00] LABS: ABG PCO2 41.1 mmHg (35-45); ABG PH Result 7.46 (7.35-7.45); Arterial Blood Gas Hematocrit 40.4 % (42-52); Base Excess ABG 5.1 mmol/L (-2.0-2.0); Blood Gas Allen Test Pos; Blood Gas Operator Identificat HARKR; Blood Gas Sample Site Radial, left; Blood Gas Sample Type Arterial; HCO3 ABG 29.4 mmol/L (22-26); Oxygen Device VENT; PO2 ABG 52.4 mmHg (80.0-100.0)
[2020-08-30] MEDS: enoxaparin 120 mg/0.8 mL Syringe 110 MG SUBCUT ×2 (05:10→17:26)
--- NOTE | 2020-08-30 06:00 | ECG_ITS ---
[facility] ED Test Date: 2020-08-30 Pat Name: Bharath Vallejo Department: Room: ICU19 Gender: Male Frame Fixer: : 1970 Requested By: Robert Roy Order Number: [id number] August MD: Mini You M.D. Measurements Intervals [place] Rate: 83 P: 21 SD: 150 QRS: -35 QRSD: 104 T: 19 QT: 377 QTc: 443 Interpretive Statements SINUS RHYTHM MARKED LEFT AXIS DEVIATION [QRS AXIS < -30] POSSIBLE RIGHT VENTRICULAR CONDUCTION DELAY [RSR (QR) IN V1/V2] VOLTAGE CRITERIA FOR LVH [MEETS CRITERIA IN ONE OF: R(aVL), S(V1), R(V5), R(V5/V6)+S(V1)] MODERATE ST DEPRESSION [0.05+ mV ST DEPRESSION] Compared to ECG 08/29/2020 05:24:51 ST (T wave) deviation now present T-wave abnormality no longer present Electronically Signed On 09-02-2020 22:07:19 LEAD INSTRUCTOR/FLIGHT ATTENDANT by Mini You M.D. [id number]
[2020-08-30 06:10] LABS: Lactic Sepsis W/Reflex 1.4 mmol/L (0.5-2.2)
[2020-08-30 06:12] LABS: Basophils # 0.1 10^3/uL (0.0-0.1); Basophils % 0.4 %; Hematocrit 39.2 % (42.0-52.0); Hemoglobin 12.6 g/dL (11.7-16.6); Lymphocytes # 1.2 10^3/uL (0.8-4.8); Lymphocytes % 8.2 %; Mean Corpuscular HGB Conc 32.1 g/dL (30.0-36.0); Mean Corpuscular Hemoglobin 28.7 pg (28.0-34.0); Mean Corpuscular Volume 89.3 fL (80-94); Mean Platelet Volume 10.2 fL (7.4-10.4); Monocytes # 0.5 10^3/uL (0.2-0.9); Monocytes % 3.3 %; Neutrophils # 11.31 10^3/uL (1.8-7.7); Nucleated Red Blood Cells % 0 %; Platelet Count 378 10^3/cmm (130-400); Red Blood Count 4.39 10^6/uL (4.1-5.3); Red Cell Distribution Width 14.3 % (12.1-15.1); White Blood Count 14.1 10^3/uL (4.0-10.0)
[2020-08-30 06:18] LABS: Glucose Point of Care 245 mg/dL (70-110)
[2020-08-30 06:18] LABS: Glucose Point of Care 197 mg/dL (70-110)
[2020-08-30 06:18] LABS: Glucose Point of Care 171 mg/dL (70-110)
[2020-08-30 06:18] LABS: Glucose Point of Care 180 mg/dL (70-110)
[2020-08-30 06:53] LABS: D Dimer 1.52 ug/mIFEU (0-0.59)
[2020-08-30 06:54] LABS: Alanine Aminotransferase 28 U/L (0-41); Albumin Level 2.9 g/dL (3.5-5.2); Alkaline Phosphatase 186 IU/L (40-130); Aspartate Amino Transferase 53 U/L (0-40); Blood Urea Nitrogen 27 mg/dL (6-20); Calcium 8.7 mg/dL (8.5-10.5); Carbon Dioxide 28 mmol/L (22-29); Chloride 106 mmol/L (98-107); Globulin 4.4 g/dL (1.3-4.6); Glomerular Filtration Rate 101.5 mL/min (90-130); Glucose 201 mg/dL (65-115); Magnesium 2.5 mg/dL (1.7-2.3); Osmolality Calculated 311 mOsm/kg (285-295); Phosphorus 2.1 mg/dL (2.5-4.5); Sodium 145 mmol/L (136-145); Total Bilirubin 0.4 mg/dL (0.15-1.2); Total Protein 7.3 g/dL (6.6-8.7)
--- NOTE | 2020-08-30 07:00 | XRR_ITS ---
PROCEDURE INFORMATION: Exam: XR Chest, 1 View Exam date and time: 08/30/2020 3:17 AM Age: 50 years old Clinical indication: Shortness of breath; Patient HX: Covid; Additional info: SOB TECHNIQUE: Imaging protocol: XR of the chest Views: 1 view. COMPARISON: CR XR chest 1V portable [id number] 08/29/2020 4:59 AM FINDINGS: Tubes, catheters and devices: An endotracheal tube and nasogastric tube projects in satisfactory position. Lungs: There is bilateral pulmonary consolidation especially in the lung bases. This has worsened in the left base when compared to the previous study. This may indicate bibasilar worsening pneumonia. Pleural space: No pleural effusion or pneumothorax is seen. Heart/Mediastinum: Cardiac silhouette is mildly enlarged but unchanged. Bones/joints: Unremarkable. XR/XR chest 1V portable [id number] IMPRESSION: 1. Satisfactory endotracheal tube and nasogastric tube position. 2. Bibasilar pneumonia worsening on the left side.
[2020-08-30 07:12] LABS: Fibrinogen 1224 mg/dL (174-498)
[2020-08-30 07:31] LABS: C Reactive Protein 360.8 mg/L (0.0-4.9)
[2020-08-30] MEDS: budesonide 0.5 mg/2 mL Neb INHALATION ×2 (08:18→19:59)
[2020-08-30 08:23] LABS: Neutrophils % 87.4 %
[2020-08-30 08:41] LABS: Glucose Point of Care 234 mg/dL (70-110)
[2020-08-30 08:41] LABS: Glucose Point of Care 273 mg/dL (70-110)
[2020-08-30 08:55] LABS: NT Pro B Type Natriuretic Pept 822 pg/mL (0-125); Procalcitonin 0.75 ng/mL (0-0.5)
[2020-08-30] MEDS: ascorbic acid 500 mg Tablet PO (09:19)
[2020-08-30] MEDS: sennosides-docusate Tablet 1 TAB PO (09:19)
[2020-08-30] MEDS: zinc gluconate 50 mg Tablet PO (09:19)
[2020-08-30] MEDS: FUROsemide 10 mg/mL SDV 4mL 40 MG IVP ×2 (09:20→20:43)
[2020-08-30] MEDS: dexamethasone 4 mg/mL INJ 6 MG IVP (09:20)
[2020-08-30 09:34] LABS: Creatine Phosphokinase 1404 U/L (39-308)
[2020-08-30] MEDS: metOLazone 5 MG Tablet PO (09:34)
[2020-08-30 12:01] LABS: Glucose Point of Care 212 mg/dL (70-110)
--- NOTE | 2020-08-30 12:35 | PC.NURSE ---
Addendum entered by Rossana Stewart RN 08/31/20 16:33: Error: His 's name is not Gloria. STACI. Original Note: Gloria, his , called for update.. Spoke to her about his condition and pans for the day.
[2020-08-30] MEDS: dexmedetomidine 400 MCG in sodium chloride 0.9% (100 ml) 100 ML 16.8 MCG IV ×2 (15:56→22:56)
--- NOTE | 2020-08-30 16:45 | PC.RESP ---
pt on ps of 6, peep 9, 45%, pt has tidal volumes of 700-900, rr 14-17, sats 92%. pt is not responding appropriately, pt will not squeeze hand, or acknowledge rt or nurse
--- NOTE | 2020-08-30 17:00 | PC.NURSE ---
Dr Roy notified via telephone of last two blood sugar checks missed and antibiotic late start due to care of another patient. ok'd, no new orders.
[2020-08-30 17:06] LABS: Glucose Point of Care 217 mg/dL (70-110)
--- NOTE | 2020-08-30 17:32 | PM.PN ---
Subjective Subjective: Interval history: This morning patient was examined, he is intubated, sedated, on the ventilator, remains afebrile overnight, normotensive, no telemetry events, had over 4300 cc urine output, this afternoon weaning trial was tried, however patient became tachypneic, variable tidal volumes, with desaturations, this was done on Precedex Vitals/I&O/Wt Last Vital Signs Temp 98.8 F 08/30/20 04:00 Pulse 99 08/30/20 15:15 Resp 18 08/30/20 16:50 BP 158/82 08/30/20 05:30 Pulse Ox 92 08/30/20 15:15 08/30/20 08/30/20 08/30/20 06:59 14:59 22:59 Intake Total 1679.429 / 4354.823 207.84 / 207.84 Output Total 1750 / 4300 Balance -70.571 / 54.823 207.84 / 207.84 Weight last 48 hrs Weight 124.33 kg Weight 129.41 kg Physical Exam Const: COMMON NORMALS: no acute distress OTHER: Intubated, sedated, on multiple sedation medication HENMT: COMMON NORMALS: normocephalic HEAD & SCALP: normocephalic Neck/C-Spine: COMMON NORMALS: no JVD Resp: COMMON NORMALS: normal respiratory effort, No retractions and No use of accessory muscles AUSCULTATION: crackles Cardio: COMMON NORMALS: no JVD, regular rate, regular rhythm, S1 normal heart sound present and S2 normal heart sound present RATE: regular rate RHYTHM: regular rhythm HEART SOUNDS: S1 normal heart sound present and S2 normal heart sound present GI: COMMON NORMALS: Normal to inspection, nondistended, normoactive bowel sounds present, Soft to palpation, non-tender, No hepatosplenomegaly present, no masses and no bruits PALPATION: Yes Soft to palpation and Yes No hepatosplenomegaly present Extremity: COMMON NORMALS: capillary refill normal, no clubbing, cyanosis or edema, no calf tenderness and no pedal edema Urinary Catheter Management^: Colon: Cath Placed During This Visit: yes Reason for Continuing Indwelling Catheter: Accurate Measurement of Urinary Output in Critically Ill Patients Urinary Catheter Date of Insertion: 08/26/20 Urinary Catheter Time of Insertion: 10:45 Data : 08/30/20 03:46 08/30/20 03:46 Micro: Microbiology 08/26/20 18:40 Blood Culture - Preliminary Blood Coagulase negativ staphylococc 08/30/20 03:40 Blood Culture - Preliminary Blood SPECIMEN COLLECTED 08/30/20 03:40 Blood Culture - Preliminary Blood SPECIMEN COLLECTED A&P Assessment and plan (1) ARDS (adult respiratory distress syndrome): Status: Acute (2) Severe acute respiratory syndrome coronavirus 2 (SARS-CoV-2) detected: Status: Acute (3) Type 2 diabetes mellitus: Status: Acute (4) Lactic acidosis: Status: Acute (5) Hyponatremia: Status: Acute (6) Pneumonia due to COVID-19 virus: Status: Acute (7) Secondary bacterial pneumonia: Status: Acute Additional A&P Information Acute hypoxic respiratory failure secondary to : ARDS, severe COVID-19 pneumonia, secondary bacterial pneumonia, pulmonary edema -Patient was intubated in the ER for severe hypoxia even on high flow oxygenation. -Sepsis criteria met because of leukocytosis, tachycardia, lactic acidosis, hypoxia on admission. -Currently intubated, vent settings FiO2 50%, PEEP of 10, respiratory rate of 14, minimize tidal volumes, minimize FiO2 -We will do weaning trials on Precedex, has failed last 2 days, due to tachypnea, desaturations, high variable tidal volumes -Continue sedation with fentanyl, propofol, Versed. -Day 2 of 2 of convalescent plasma completed on 08/28/2020 -Continue with remdesivir for overall 5-day course. Day 4 of 5 -Dexamethasone 6 mg IV daily. -Broad-spectrum antibiotics vancomycin, aztreonam, azithromycin -Pulmonary toilet with chest vest. -DuoNebs every 4 hour, budesonide twice daily. -vit C, zinc. -Proning if possible. -Urine Legionella, bacterial antigen negative. MRSA swab, sputum culture, blood culture awaited. -Daily EKGs, telemetry monitoring -Continue with therapeutic dose of Lovenox. -Continue to monitor inflammatory markers including ferritin, LDH, proBNP, D-dimer, fibrinogen. -For pulmonary edema, Lasix 40 mg IV twice daily, with metolazone 5 mg daily, and albumin. Monitor creatinine, monitor urine output -On tube feeds with free water flushes -We will consult pulmonary, input appreciated -Replace potassium and phosphorus today -1 blood culture coagulase-negative staphylococci, likely contamination, repeat blood cultures negative so far Rhabdomyolysis, CPK 1404, continue to monitor Type 2 diabetes mellitus: N.p.o. for now. Continue insulin drip Continue tube feeds Lactic acidosis: Resolved. Most likely from severe sepsis. Anion gap metabolic acidosis: Resolved, pH 7.46, PCO2 41.1, bicarb 29.4 Patient does not have DKA. Lactic acidosis resolved. Hyponatremia: Resolved. Continue to monitor BMP daily for now. Severely guarded prognosis. Full code. NPO. Full dose Lovenox. Protonix for PUD prophylaxis. Patient's care has been discussed in detail with his Ms. Thomas on [phone]. All the questions were answered. 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
[2020-08-30] MEDS: azithromycin 500 MG in sodium chloride 0.9% 250 ML 250 MG IV (17:44)
[2020-08-30] MEDS: insulin regular-human 250 UNIT in sodium chloride 0.9% 250 ML 7.3 UNIT IV (18:50)
--- NOTE | 2020-08-30 19:59 | PC.NURSE ---
Shift summary: Pt remains intubated and sedated. Attempted to wean sedation, pt did not tolerate it completely. Was able to stop the Versed and Propofol. Fentanyl and Precedex decreased. Please see DEC. Bilat hand IVs removed. NOew IV to left wrist. Pt remains on insulin gtt, blood sugars rangning 217 to 300's. He was afebrile but has been diaphoretic twice today, first thing am shift and during weaning trial. He has Jevity infusing into Og at goal rate of 60 ml/hr with H2O flushes scheduled.. He has had a large bowel movement Pale yellow , clear urnie output of 3300.
[2020-08-30] MEDS: dextrose 5%-sod chloride 0.45% 1,000 ML 75 ML IV (22:15)
--- NOTE | 2020-08-30 23:21 | PC.NURSE ---
CHANGE OF SHIFT Upon change of shift, patient on 0.5 mcg/kg/hour of precedex and 35 mcg/hour of fentanyl. Insulin gtt at 7.3 units/hour prior to 1900 blood sugar and gtt titration.
[2020-08-30] MEDS: hyDRALAzine 20 mg/mL INJ 1 mL 10 MG IVP (23:34)
--- NOTE | 2020-08-30 23:55 | PC.NURSE ---
INSULIN GTT Patients blood sugar dropped from 256 at 1900 to 180 at 2100. Physician called to notify of drop and nurse requested fluids to keep patients blood sugar from decreasing too quickly. Physician ordered D51/2NS at 75 mL/hour. Order to change accu checks to Q6H and to discontinue the insulin gtt. Insulin gtt discontinued at 2215.
[2020-08-31] VITALS (53 sets, daily range): BP systolic 88–185; BP diastolic 63–104; PULSE 77–124; RESP 14–29; TEMP 37–37.9; O2SAT 90–97
--- NOTE | 2020-08-31 00:08 | PC.NURSE ---
SEDATION Patient has been increasingly restless tonight and hypertensive. Sedation has been increased and order for IV hydralazine 10 mg put in by Dr. Olmos. Post administration patients BP decreased to 166/89. Patient appearing more comfortable at this time.
--- NOTE | 2020-08-31 00:20 | PC.NURSE ---
HYPERTENSION Patients BP 191/104 and maintaining high. Physician notified and one time order for 10 mg IV hydralazine ordered. Patients blood pressure decreased to 166/89.
[2020-08-31] MEDS: dexmedetomidine 400 MCG in sodium chloride 0.9% (100 ml) 100 ML IV (02:05)
[2020-08-31] MEDS: propofol 1,000 MG/100 ML INJ 3.4 MG IV (02:36)
[2020-08-31] MEDS: ipratropium-albuterol 3 mL Neb INHALATION ×6 (03:13→23:50)
--- NOTE | 2020-08-31 03:36 | PC.NURSE ---
BLOOD SUGAR Patients blood sugar 261 at 0130. Physician notified and ordered to discontinue the D5 1/2 NS. Sugar rechecked at 0245 and was 441. Physician notified and ordered 25 units of novolog one time and Q6H sliding scale insulin for coverage with Q6H accu checks.
[2020-08-31 04:16] LABS: Basophils # 0.1 10^3/uL (0.0-0.1); Basophils % 0.4 %; Eosinophils % 0.1 %; Hematocrit 38.3 % (42.0-52.0); Hemoglobin 12.1 g/dL (11.7-16.6); Lymphocytes # 1.4 10^3/uL (0.8-4.8); Lymphocytes % 8.5 %; Mean Corpuscular HGB Conc 31.6 g/dL (30.0-36.0); Mean Corpuscular Hemoglobin 28.1 pg (28.0-34.0); Mean Corpuscular Volume 89.1 fL (80-94); Mean Platelet Volume 10.1 fL (7.4-10.4); Monocytes # 0.7 10^3/uL (0.2-0.9); Monocytes % 4.3 %; Neutrophils # 12.58 10^3/uL (1.8-7.7); Neutrophils % 78.6 %; Nucleated Red Blood Cells % 0 %; Platelet Count 431 10^3/cmm (130-400); Red Cell Distribution Width 13.9 % (12.1-15.1)
[2020-08-31 04:24] LABS: Lactic Sepsis W/Reflex 1.6 mmol/L (0.5-2.2)
[2020-08-31 04:34] LABS: Alanine Aminotransferase 30 U/L (0-41); Albumin Level 3.3 g/dL (3.5-5.2); Alkaline Phosphatase 135 IU/L (40-130); Anion Gap 19.4 (5-19); Aspartate Amino Transferase 42 U/L (0-40); Blood Urea Nitrogen 36 mg/dL (6-20); C Reactive Protein 212.2 mg/L (0.0-4.9); Calcium 8.7 mg/dL (8.5-10.5); Carbon Dioxide 27 mmol/L (22-29); Chloride 98 mmol/L (98-107); Globulin 3.2 g/dL (1.3-4.6); Glomerular Filtration Rate 101.5 mL/min (90-130); Glucose 477 mg/dL (65-115); Magnesium 2.2 mg/dL (1.7-2.3); Osmolality Calculated 319 mOsm/kg (285-295); Phosphorus 2.4 mg/dL (2.5-4.5); Potassium 4.4 mmol/L (3.5-5.1); Sodium 140 mmol/L (136-145); Total Bilirubin 0.5 mg/dL (0.15-1.2); Total Protein 6.5 g/dL (6.6-8.7)
[2020-08-31 04:38] LABS: NT Pro B Type Natriuretic Pept 978 pg/mL (0-125); Procalcitonin 0.55 ng/mL (0-0.5)
[2020-08-31 04:46] LABS: ABG PCO2 36.8 mmHg (35-45); ABG PH Result 7.51 (7.35-7.45); Arterial Blood Gas Hematocrit 38.9 % (42-52); Base Excess ABG 6.4 mmol/L (-2.0-2.0); Blood Gas Allen Test Pos; Blood Gas Sample Site Brachial, right; Blood Gas Sample Type Arterial; HCO3 ABG 29.6 mmol/L (22-26); Oxygen Device VENT; PO2 ABG 64.9 mmHg (80.0-100.0)
[2020-08-31 04:58] LABS: INR 1.02 (0.8-1.2)
[2020-08-31 05:00] LABS: Fibrinogen 877 mg/dL (174-498)
[2020-08-31 05:02] LABS: Creatine Phosphokinase 912 U/L (39-308)
[2020-08-31 05:04] LABS: Glucose Point of Care 302 mg/dL (70-110)
[2020-08-31 05:04] LABS: Glucose Point of Care 168 mg/dL (70-110)
[2020-08-31 05:04] LABS: Glucose Point of Care 240 mg/dL (70-110)
[2020-08-31 05:04] LABS: Glucose Point of Care 180 mg/dL (70-110)
[2020-08-31 05:04] LABS: Glucose Point of Care 205 mg/dL (70-110)
[2020-08-31 05:04] LABS: Glucose Point of Care 261 mg/dL (70-110)
[2020-08-31 05:04] LABS: Glucose Point of Care 277 mg/dL (70-110)
[2020-08-31 05:04] LABS: Glucose Point of Care 256 mg/dL (70-110)
[2020-08-31 05:04] LABS: Glucose Point of Care 235 mg/dL (70-110)
[2020-08-31 05:04] LABS: Glucose Point of Care 238 mg/dL (70-110)
[2020-08-31 05:04] LABS: Glucose Point of Care 322 mg/dL (70-110)
[2020-08-31 05:04] LABS: Glucose Point of Care 335 mg/dL (70-110)
[2020-08-31 05:05] LABS: Glucose Point of Care 465 mg/dL (70-110)
[2020-08-31 05:05] LABS: Glucose Point of Care 441 mg/dL (70-110)
--- NOTE | 2020-08-31 05:26 | PC.NURSE ---
BLOOD GLUCOSE 1 hour after giving patient 25 unit subq novolog injection, patients blood sugar still at 462. Doctor notified and ordered to restart the insulin drip. Nurse asked physician if it would be beneficial for patient to switch him to glucerna tube feeds instead of jevity. Patients tube feeds switched to glucerna.
[2020-08-31] MEDS: enoxaparin 120 mg/0.8 mL Syringe 110 MG SUBCUT ×2 (05:55→15:48)
[2020-08-31] MEDS: pantoprazole 40 mg SDV IVP ×2 (05:55→15:48)
[2020-08-31] MEDS: insulin regular-human 250 UNIT in sodium chloride 0.9% 250 ML 10.7 UNIT IV (06:00)
--- NOTE | 2020-08-31 06:00 | ECG_ITS ---
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 Measurements Intervals [place] Rate: 95 P: 50 NM: 153 QRS: -35 QRSD: 100 T: 57 QT: 351 QTc: 443 Interpretive Statements SINUS RHYTHM MARKED LEFT AXIS DEVIATION [QRS AXIS < -30] MINIMAL VOLTAGE CRITERIA FOR LVH, CONSIDER NORMAL VARIANT [MEETS CRITERIA IN ONE OF: R(aVL), S(V1), R(V5), R(V5/V6)+S(V1)] Compared to ECG 08/30/2020 05:16:28 ST (T wave) deviation no longer present Electronically Signed On 09-02-2020 22:03:33 MANAGING EDITOR by Mini You M.D. [id number]
--- NOTE | 2020-08-31 06:52 | PC.NURSE ---
GTTS Patient on propofol at 25 mcg/kg/hour, fentanyl at 75 mcg/hour, and insulin gtt at 10.7 units/hour until titration at 0700 check.
--- NOTE | 2020-08-31 07:00 | XRR_ITS ---
PROCEDURE INFORMATION: Exam: XR Chest, 1 View Exam date and time: 08/31/2020 4:01 AM Age: 50 years old Clinical indication: Condition or disease; Other: Covid; Patient HX: Et, og; Additional info: SOB TECHNIQUE: Imaging protocol: XR of the chest Views: 1 view. COMPARISON: CR XR chest 1V portable [id number] 08/30/2020 4:12 AM FINDINGS: Tubes, catheters and devices: An endotracheal tube is placed with its tip approximately 3.6 cm from the christie. A nasogastric tube is present with its tip at least in the proximal stomach. Lungs: Bilateral ground-glass opacities are present with some patchy areas of consolidation seen predominately within the right lower hemithorax, findings compatible with a bilateral interstitial pneumonia. These findings are slightly improved compared with yesterday's examination. Pleural space: Unremarkable. No pleural effusion. No pneumothorax. Heart/Mediastinum: Unremarkable. No cardiomegaly. Bones/joints: Unremarkable. XR/XR chest 1V portable [id number] IMPRESSION: 1. Endotracheal tube tip approximately 3.6 cm from the christie. 2. Bilateral ground-glass opacities with areas of consolidation seen in the right lower hemithorax compatible with a bilateral interstitial pneumonitis. There is a slight improvement in aeration compared with yesterday's examination.
[2020-08-31] MEDS: propofol 1,000 MG/100 ML INJ 17 MG IV (07:25)
[2020-08-31] MEDS: budesonide 0.5 mg/2 mL Neb INHALATION ×2 (07:55→19:51)
[2020-08-31] MEDS: albumin 12.5 GM/50 ML VIAL IV (08:11)
[2020-08-31] MEDS: ascorbic acid 500 mg Tablet PO (08:13)
[2020-08-31] MEDS: zinc gluconate 50 mg Tablet PO (08:13)
[2020-08-31] MEDS: FUROsemide 10 mg/mL SDV 4mL 40 MG IVP ×2 (08:13→18:13)
[2020-08-31] MEDS: dexamethasone 4 mg/mL INJ 6 MG IVP (08:13)
--- NOTE | 2020-08-31 10:21 | PC.NURSE ---
H2O flushes per OG decreased to 20ml every 6 hours as ordered.
[2020-08-31] MEDS: phosphorus 250 mg Tablet 500 MG PO (10:31)
[2020-08-31] MEDS: dexmedetomidine 400 MCG in sodium chloride 0.9% (100 ml) 100 ML 16 MCG IV (11:35)
--- NOTE | 2020-08-31 11:55 | PC.NURSE ---
Wasted Versed gtt still hanging in room. 72.5 ml wasted. Witness by Jamee Acosta RN.
[2020-08-31 12:11] LABS: Glucose Point of Care 462 mg/dL (70-110)
[2020-08-31 12:11] LABS: Glucose Point of Care 356 mg/dL (70-110)
[2020-08-31 12:11] LABS: Glucose Point of Care 279 mg/dL (70-110)
[2020-08-31 12:11] LABS: Glucose Point of Care 418 mg/dL (70-110)
[2020-08-31 12:11] LABS: Glucose Point of Care 163 mg/dL (70-110)
[2020-08-31 12:11] LABS: Glucose Point of Care 209 mg/dL (70-110)
[2020-08-31 12:11] LABS: Glucose Point of Care 309 mg/dL (70-110)
[2020-08-31 12:11] LABS: Glucose Point of Care 266 mg/dL (70-110)
[2020-08-31] MEDS: aztreonam 1,000 MG in sodium chloride 0.9% (plus) 50 ML 100 MG IV (12:30)
--- NOTE | 2020-08-31 13:02 | PM.PN ---
Subjective Subjective: Interval history: This morning on sedation vacation, patient was able to follow commands, he nods his head, voicing understanding, squeezes my fingers, overnight remains afebrile, normotensive, good urine output, the morning was 40% FiO2, PEEP of 10, respiratory 14, plan on extubating today, if all parameters met Vitals/I&O/Wt Last Vital Signs Temp 100 F H 08/31/20 07:45 Pulse 89 08/31/20 11:22 Resp 19 H 08/31/20 11:40 BP 132/73 08/31/20 09:15 Pulse Ox 94 08/31/20 11:22 08/30/20 08/31/20 08/31/20 22:59 06:59 14:59 Intake Total 1675.600 / 2660.2729 1601.031 / 4261.3039 171.45 / 171.45 Output Total 2900 / 4600 1750 / 6350 150 / 150 Balance -1224.400 / -1939.7271 -148.969 / -2088.6961 21.45 / 21.45 Weight last 48 hrs Weight 122.742 kg Weight 124.33 kg Physical Exam Narrative: EXAM NARRATIVE: Follows commands on sedation vacation Const: COMMON NORMALS: no acute distress and patient oriented x3 HENMT: COMMON NORMALS: normocephalic HEAD & SCALP: normocephalic Neck/C-Spine: COMMON NORMALS: no JVD Resp: COMMON NORMALS: normal respiratory effort, No retractions, No use of accessory muscles and clear to auscultation bilaterally AUSCULTATION: clear to auscultation bilaterally Cardio: COMMON NORMALS: no JVD, regular rate, regular rhythm, S1 normal heart sound present and S2 normal heart sound present RATE: regular rate RHYTHM: regular rhythm HEART SOUNDS: S1 normal heart sound present and S2 normal heart sound present GI: COMMON NORMALS: Normal to inspection, nondistended, normoactive bowel sounds present, Soft to palpation, non-tender, No hepatosplenomegaly present, no masses and no bruits PALPATION: Yes Soft to palpation and Yes No hepatosplenomegaly present Extremity: COMMON NORMALS: capillary refill normal, no clubbing, cyanosis or edema, no calf tenderness and no pedal edema Neuro: COMMON NORMALS: patient oriented x3 Psych: COMMON NORMALS: mental status grossly normal Urinary Catheter Management^: Colon: Cath Placed During This Visit: yes Reason for Continuing Indwelling Catheter: Accurate Measurement of Urinary Output in Critically Ill Patients Urinary Catheter Date of Insertion: 08/26/20 Urinary Catheter Time of Insertion: 10:45 Data : 08/31/20 03:25 08/31/20 03:25 Micro: Microbiology 08/30/20 03:40 Blood Culture - Preliminary Blood NEGATIVE TO DATE 08/30/20 03:40 Blood Culture - Preliminary Blood NEGATIVE TO DATE 08/26/20 18:40 Blood Culture - Preliminary Blood Coagulase negativ staphylococc A&P Assessment and plan (1) ARDS (adult respiratory distress syndrome): Status: Acute (2) Severe acute respiratory syndrome coronavirus 2 (SARS-CoV-2) detected: Status: Acute (3) Type 2 diabetes mellitus: Status: Acute (4) Lactic acidosis: Status: Acute (5) Hyponatremia: Status: Acute (6) Pneumonia due to COVID-19 virus: Status: Acute (7) Secondary bacterial pneumonia: Status: Acute Additional A&P Information Acute hypoxic respiratory failure secondary to : ARDS, severe COVID-19 pneumonia, secondary bacterial pneumonia, pulmonary edema -Patient was intubated in the ER for severe hypoxia even on high flow oxygenation. -Sepsis criteria met because of leukocytosis, tachycardia, lactic acidosis, hypoxia on admission. -Currently intubated, on sedation vacation, plan on extubating later on today with Precedex - has failed last 2 days, due to tachypnea, desaturations, high variable tidal volumes -Sedation with propofol and Precedex, would avoid fentanyl try Versed instead if required -Day 2 of 2 of convalescent plasma completed on 08/28/2020 -Continue with remdesivir for overall 5-day course. Day 5 of 5 -Dexamethasone 6 mg IV daily. -Broad-spectrum antibiotics vancomycin, aztreonam, azithromycin -Pulmonary toilet with chest vest. -DuoNebs every 4 hour, budesonide twice daily. -vit C, zinc. -Proning if possible. -Urine Legionella, bacterial antigen negative. MRSA swab, sputum culture, blood culture awaited. -Daily EKGs, telemetry monitoring -Continue with therapeutic dose of Lovenox. -Continue to monitor inflammatory markers including ferritin, LDH, proBNP, D-dimer, fibrinogen. -For pulmonary edema, Lasix 40 mg IV once today, monitor creatinine, monitor urine output -On tube feeds with free water flushes, decrease free water flushes to 20 cc every 4 -We will consult pulmonary, input appreciated -Replace potassium and phosphorus today -1 blood culture coagulase-negative staphylococci, likely contamination, repeat blood cultures negative so far continue antibiotics as above -Tube feeds changed to Glucerna due to hyperglycemia -Continue insulin drip Rhabdomyolysis, CPK 912 continue to monitor Type 2 diabetes mellitus: N.p.o. for now. Continue insulin drip Continue tube feeds Lactic acidosis: Resolved. Most likely from severe sepsis. Anion gap metabolic acidosis: Resolved, Patient does not have DKA. Lactic acidosis resolved. Hyponatremia: Resolved. Continue to monitor BMP daily for now. Severely guarded prognosis. Full code. NPO. Full dose Lovenox. Protonix for PUD prophylaxis. Patient's care has been discussed in detail with his Ms. Thomas on [phone]. All the questions were answered. Plan for today: Plan on extubation today, will get Lasix dose today, continue antibiotics, see if we can get him off insulin drip Attestations Medical Necessity Statement*: Patient requires hospitalization, inpatient for acute respiratory failure secondary COVID-19 Coding Level of Care Code Acute Microfiche Duplicator for [facility] Diagnoses ARDS (adult respiratory distress syndrome) J80 Severe acute respiratory syndrome coronavirus 2 (SARS-CoV-2) detected U07.1 Type 2 diabetes mellitus E11.9 Lactic acidosis E87.2 Hyponatremia E87.1 Pneumonia due to COVID-19 virus U07.1; J12.89 Secondary bacterial pneumonia J15.9
--- NOTE | 2020-08-31 13:03 | PC.NURSE ---
Fentanyl gtt wast: 30 ml. Witnessed by Jazzmine Mackey RN.
--- NOTE | 2020-08-31 13:04 | PC.NURSE ---
30 mLs of fentanyl wasted.
[2020-08-31] MEDS: propofol 1,000 MG/100 ML INJ 6.8 MG IV (13:12)
--- NOTE | 2020-08-31 15:10 | PC.NURSE ---
Tube feeding discontinued on preparation of extubation.
--- NOTE | 2020-08-31 15:30 | PC.NURSE ---
Pt extubated. OG removed. Pt tolerating good. RT at bedside. Heated hi flow applied. See RT documentation.
[2020-08-31] MEDS: azithromycin 500 MG in sodium chloride 0.9% 250 ML 250 MG IV (15:48)
--- NOTE | 2020-08-31 16:55 | PC.NURSE ---
Attempted to call Martha, , to give update. No answer. Left Message.
--- NOTE | 2020-08-31 17:20 | PC.NURSE ---
Pt face timed with his , Martha, on IPad.
[2020-08-31 18:14] LABS: Glucose Point of Care 121 mg/dL (70-110)
[2020-08-31 18:14] LABS: Glucose Point of Care 156 mg/dL (70-110)
[2020-08-31 18:14] LABS: Glucose Point of Care 166 mg/dL (70-110)
[2020-08-31 18:14] LABS: Glucose Point of Care 167 mg/dL (70-110)
[2020-08-31 18:14] LABS: Glucose Point of Care 197 mg/dL (70-110)
[2020-08-31 18:14] LABS: Glucose Point of Care 141 mg/dL (70-110)
[2020-08-31 18:14] LABS: Glucose Point of Care 185 mg/dL (70-110)
[2020-08-31 18:14] LABS: Vancomycin Trough 9.7 ug/mL (10-15)
[2020-08-31] MEDS: ondansetron 2 mg/ML SDV 2 mL 4 MG IVP (18:42)
--- NOTE | 2020-08-31 18:44 | PC.PHAR ---
Vancomycin trough level on dosage of 1500mg IVPB every 18 hours is 9.7. Dosage is adjusted to 1500mg IVPB every 12 hours with another trough level to be obtained before the fourth dose.
--- NOTE | 2020-08-31 18:44 | PC.NURSE ---
Pt yelling them coughing. Then emesis noted. Zofran admin for his comfort. Will continue to monitor.
--- NOTE | 2020-08-31 19:41 | PC.NURSE ---
Pt summary: Pt extubated at 1530 to hi flow oxygen 50 l/75% FIO2. Pt is alert to self, family. He is able to answer question appropriately. He remains on insulin gtt and precedex at 0.2mcg/kg/min. He has had two bouts of emesis since extubation. Zofran admin after first bout, Second bout within an hour of first bout. He has ad 1850 of clear yellow urine output.
[2020-08-31] MEDS: hyDRALAzine 20 mg/mL INJ 1 mL 5 MG IVP (22:15)
[2020-08-31] MEDS: metoclopramide 5 mg/mL SDV 2 mL IVP (22:42)
[2020-09-01] VITALS (33 sets, daily range): BP systolic 101–161; BP diastolic 54–87; PULSE 90–119; RESP 16–34; TEMP 36.5–37.1; O2SAT 78–100
[2020-09-01] MEDS: aztreonam 1,000 MG in sodium chloride 0.9% (plus) 50 ML 100 MG IV ×2 (01:23→12:07)
[2020-09-01] MEDS: pantoprazole 40 mg SDV IVP ×2 (03:12→15:31)
[2020-09-01] MEDS: ipratropium-albuterol 3 mL Neb INHALATION ×4 (03:15→15:48)
[2020-09-01 04:35] LABS: Lactic Sepsis W/Reflex 2.4 mmol/L (0.5-2.2)
[2020-09-01 04:43] LABS: ABG PCO2 39.8 mmHg (35-45); ABG PH Result 7.54 (7.35-7.45); Arterial Blood Gas Hematocrit 39.8 % (42-52); Base Excess ABG 10.6 mmol/L (-2.0-2.0); Blood Gas Operator Identificat HARKR; Blood Gas Sample Site Brachial, left; Blood Gas Sample Type Arterial; HCO3 ABG 34.1 mmol/L (22-26); PO2 ABG 56.9 mmHg (80.0-100.0)
[2020-09-01 04:44] LABS: Basophils # 0.1 10^3/uL (0.0-0.1); Basophils % 0.3 %; Eosinophils # 0.1 10^3/uL (0.0-0.8); Eosinophils % 0.4 %; Hematocrit 39.7 % (42.0-52.0); Hemoglobin 12.7 g/dL (11.7-16.6); Lymphocytes # 1.4 10^3/uL (0.8-4.8); Lymphocytes % 8.2 %; Mean Corpuscular Hemoglobin 28.5 pg (28.0-34.0); Mean Platelet Volume 9.8 fL (7.4-10.4); Monocytes % 6.3 %; Neutrophils # 13.07 10^3/uL (1.8-7.7); Neutrophils % 78.9 %; Nucleated Red Blood Cells % 0 %; Platelet Count 445 10^3/cmm (130-400); Red Blood Count 4.46 10^6/uL (4.1-5.3); Red Cell Distribution Width 13.8 % (12.1-15.1); White Blood Count 16.5 10^3/uL (4.0-10.0)
[2020-09-01] MEDS: enoxaparin 120 mg/0.8 mL Syringe 110 MG SUBCUT ×2 (05:01→17:20)
[2020-09-01 05:03] LABS: Alanine Aminotransferase 31 U/L (0-41); Albumin Level 4.2 g/dL (3.5-5.2); Alkaline Phosphatase 122 IU/L (40-130); Anion Gap 18.3 (5-19); Aspartate Amino Transferase 47 U/L (0-40); Blood Urea Nitrogen 45 mg/dL (6-20); C Reactive Protein 123.6 mg/L (0.0-4.9); Calcium 9.8 mg/dL (8.5-10.5); Carbon Dioxide 31 mmol/L (22-29); Chloride 96 mmol/L (98-107); Glomerular Filtration Rate 88.6 mL/min (90-130); Glucose 150 mg/dL (65-115); Magnesium 2.2 mg/dL (1.7-2.3); Osmolality Calculated 308 mOsm/kg (285-295); Phosphorus 4.5 mg/dL (2.5-4.5); Potassium 3.3 mmol/L (3.5-5.1); Sodium 142 mmol/L (136-145); Total Bilirubin 0.7 mg/dL (0.15-1.2); Total Protein 8.2 g/dL (6.6-8.7)
[2020-09-01] MEDS: FUROsemide 10 mg/mL SDV 4mL 40 MG IVP (05:32)
[2020-09-01] MEDS: ondansetron 2 mg/ML SDV 2 mL 4 MG IVP ×2 (05:32→19:51)
[2020-09-01 05:38] LABS: NT Pro B Type Natriuretic Pept 813 pg/mL (0-125); Procalcitonin 0.51 ng/mL (0-0.5)
[2020-09-01 05:46] LABS: INR 1.11 (0.8-1.2)
[2020-09-01 05:51] LABS: Fibrinogen 787 mg/dL (174-498)
--- NOTE | 2020-09-01 06:00 | ECG_ITS ---
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 Measurements Intervals [place] Rate: 104 P: 6 ND: 132 QRS: -38 QRSD: 105 T: 10 QT: 360 QTc: 475 Interpretive Statements SINUS TACHYCARDIA MARKED LEFT AXIS DEVIATION [QRS AXIS < -30] LEFT VENTRICULAR HYPERTROPHY AND ST-T CHANGE [VOLTAGE CRITERIA PLUS ST/T ABNORMALITY] Compared to ECG 09/01/2020 05:50:28 Left-axis deviation now present Left anterior fascicular block no longer present Myocardial infarct finding no longer present ST (T wave) deviation still present Electronically Signed On 09-02-2020 22:00:15 TEST LEAD by Mini You M.D. [id number]
--- NOTE | 2020-09-01 06:00 | ECG_ITS ---
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 Measurements Intervals [place] Rate: 100 P: 21 MI: 146 QRS: -47 QRSD: 109 T: 18 QT: 363 QTc: 469 Interpretive Statements SINUS TACHYCARDIA POSSIBLE LEFT ATRIAL ENLARGEMENT [-0.1mV P WAVE IN V1/V2] LEFT ANTERIOR FASCICULAR BLOCK [QRS AXIS <= -45, QR IN I, RS IN II] LEFT VENTRICULAR HYPERTROPHY AND ST-T CHANGE POSSIBLE LATERAL MYOCARDIAL INFARCTION, OF INDETERMINATE AGE Compared to ECG 08/31/2020 04:00:48 Left anterior fascicular block now present ST (T wave) deviation now present Myocardial infarct finding now present Sinus rhythm no longer present Left-axis deviation no longer present Electronically Signed On 09-02-2020 22:00:50 PERFECT BINDER OPERATOR by Mini You M.D. [id number]
[2020-09-01 06:19] LABS: Reflex Lactate Order REFLEX LACTIC ORDERD
[2020-09-01 06:20] LABS: Slide Review Slide Review Perform
[2020-09-01 06:37] LABS: Ferritin 1267 ng/mL (30-400)
[2020-09-01 06:38] LABS: Creatine Phosphokinase 785 U/L (39-308)
--- NOTE | 2020-09-01 07:00 | XR_ITS ---
WS: [id number] Exam: XR chest 1V portable [id number] Date/Time of Exam: 09/01/2020 5:34 AM Reason For Exam: sob Comparison 08/31/2020. Bilateral interstitial infiltrates are noted. Infiltrates on the right have improved. No other change since prior study. Heart size is normal. The mediastinum is not widened. The ET tube and enteric tub e have been removed since previous exam. No pneumothorax or pleural effusion. Monitoring leads superi mpose the chest. XR/XR chest 1V portable [id number] IMPRESSION: 1. Bilateral interstitial infiltrates. There is been significant improvement on the right but no other significant change. 2. ET tube and NG tube have been removed since prior study.
--- NOTE | 2020-09-01 07:43 | PC.NURSE ---
CHANGE OF SHIFT When coming onto shift, patient on heated high erinn nasal cannula at 50 L and 70%. Patient on 0.2 mcg/kg/hour of precedex. Patient has vomited on himself and in his bed. Day shift nurse and current nurse bathed and changed patients linens.
--- NOTE | 2020-09-01 07:45 | PC.NURSE ---
HYPERTENSION Patient had hypertensive episode with BP at 184/98. Nurse obtained order for IV hydralazine 5mg PRN. Only given once and patient 150s/90s.
--- NOTE | 2020-09-01 07:46 | PC.NURSE ---
NAUSEA Patient had multiple episodes of vomiting this shift. One time order from physician for Reglan. Patient also given zofran once throughout the night.
--- NOTE | 2020-09-01 07:48 | PC.NURSE ---
BIPAP Patients work of breathing has been increased and patient somewhat diaphoretic. Patients oxygen did not decrease this shift but respiratory switched patient to BIPAP about 0600. Patients effort appears less labored.
[2020-09-01 08:10] LABS: Lactic Acid level (Lactate) 1.7 mmol/L (0.5-2.2)
[2020-09-01 08:25] LABS: Glucose Point of Care 152 mg/dL (70-110)
[2020-09-01 08:25] LABS: Glucose Point of Care 156 mg/dL (70-110)
[2020-09-01 08:25] LABS: Glucose Point of Care 109 mg/dL (70-110)
[2020-09-01 08:25] LABS: Glucose Point of Care 115 mg/dL (70-110)
[2020-09-01 08:25] LABS: Glucose Point of Care 145 mg/dL (70-110)
[2020-09-01 08:25] LABS: Glucose Point of Care 142 mg/dL (70-110)
[2020-09-01 08:25] LABS: Glucose Point of Care 150 mg/dL (70-110)
[2020-09-01 08:25] LABS: Glucose Point of Care 162 mg/dL (70-110)
[2020-09-01 08:25] LABS: Glucose Point of Care 111 mg/dL (70-110)
[2020-09-01 08:25] LABS: Glucose Point of Care 147 mg/dL (70-110)
[2020-09-01 08:25] LABS: Glucose Point of Care 158 mg/dL (70-110)
[2020-09-01 08:25] LABS: Glucose Point of Care 137 mg/dL (70-110)
[2020-09-01] MEDS: dexamethasone 4 mg/mL INJ 6 MG IVP (08:43)
[2020-09-01] MEDS: blistex lip oint 7 gm Tube 1 APPLIC TOPICAL (08:43)
[2020-09-01] MEDS: lidocaine 1% 5 ML in potassium chloride premix 100 ML 25 ML IV (08:44)
[2020-09-01] MEDS: budesonide 0.5 mg/2 mL Neb INHALATION ×2 (11:05→23:36)
[2020-09-01 11:52] LABS: Glucose Point of Care 363 mg/dL (70-110)
--- NOTE | 2020-09-01 12:18 | PM.PN ---
Subjective Subjective: Interval history: Yesterday evening, patient was successfully extubated on to heated high flow, he did well, currently remains on 50 L, 50% FiO2, alert oriented x3, does have episodes of confusion, but follows all commands, denies any chest pain, does feel a bit short of breath when moved, but overall doing well wondering when he can go home, diuresed over 6 L yesterday Vitals/I&O/Wt Last Vital Signs Temp 98.8 F 09/01/20 08:00 Pulse 112 H 09/01/20 11:00 Resp 20 H 09/01/20 11:00 BP 155/85 09/01/20 09:00 Pulse Ox 97 09/01/20 11:00 08/31/20 09/01/20 09/01/20 22:59 06:59 14:59 Intake Total 1782.108 / 2258.898 84.4 / 2343.298 37.215 / 37.215 Output Total 2301 / 3301 975 / 4276 Balance -518.892 / -1042.102 -890.6 / -1932.702 37.215 / 37.215 Weight last 48 hrs Weight 120.447 kg Weight 122.742 kg Physical Exam Const: COMMON NORMALS: no acute distress and patient oriented x3 HENMT: COMMON NORMALS: normocephalic HEAD & SCALP: normocephalic Neck/C-Spine: COMMON NORMALS: no JVD Resp: COMMON NORMALS: normal respiratory effort, No retractions and No use of accessory muscles AUSCULTATION: wheezes Cardio: COMMON NORMALS: no JVD, regular rate, regular rhythm, S1 normal heart sound present and S2 normal heart sound present RATE: regular rate RHYTHM: regular rhythm HEART SOUNDS: S1 normal heart sound present and S2 normal heart sound present GI: COMMON NORMALS: Normal to inspection, nondistended, normoactive bowel sounds present, Soft to palpation, non-tender, No hepatosplenomegaly present, no masses and no bruits PALPATION: Yes Soft to palpation and Yes No hepatosplenomegaly present Extremity: COMMON NORMALS: capillary refill normal, no clubbing, cyanosis or edema, no calf tenderness and no pedal edema Neuro: COMMON NORMALS: patient oriented x3 Urinary Catheter Management^: Colon: Cath Placed During This Visit: yes Reason for Continuing Indwelling Catheter: Accurate Measurement of Urinary Output in Critically Ill Patients Urinary Catheter Date of Insertion: 08/26/20 Urinary Catheter Time of Insertion: 10:45 Data : 09/01/20 04:05 09/01/20 04:05 Micro: Microbiology 08/26/20 10:12 Blood Culture - Final Blood NO GROWTH AFTER 5 DAYS A&P Assessment and plan (1) ARDS (adult respiratory distress syndrome): Status: Acute (2) Severe acute respiratory syndrome coronavirus 2 (SARS-CoV-2) detected: Status: Acute (3) Type 2 diabetes mellitus: Status: Acute (4) Lactic acidosis: Status: Acute (5) Hyponatremia: Status: Acute (6) Pneumonia due to COVID-19 virus: Status: Acute (7) Secondary bacterial pneumonia: Status: Acute Additional A&P Information Acute hypoxic respiratory failure secondary to : ARDS, severe COVID-19 pneumonia, secondary bacterial pneumonia, pulmonary edema -Successfully extubated 08/31/2020 -Currently on high flow, 50 L, 50% FiO2 -Passed bedside swallow eval -Day 2 of 2 of convalescent plasma completed on 08/28/2020 -Continue with remdesivir for overall 5-day course. Day 5 of 5 -Dexamethasone 6 mg IV daily. -Broad-spectrum antibiotics aztreonam, azithromycin. Vancomycin stopped yesterday -ABG this morning shows metabolic alkalosis likely secondary to diuresis, hold for today -Pulmonary toilet with chest vest. -DuoNebs every 4 hour, budesonide twice daily. -vit C, zinc. -Blood cultures negative so far, blood culture on 08/26/2023 shows coagulase-negative staphylococci, likely contamination -Daily EKGs, telemetry monitoring -Continue with therapeutic dose of Lovenox. -Continue to monitor inflammatory markers including ferritin, LDH, proBNP, D-dimer, fibrinogen. -For pulmonary edema, Lasix 40 mg IV on hold, monitor creatinine, monitor urine output -We will consult pulmonary, input appreciated -Replace potassium and phosphorus as needed -1 blood culture coagulase-negative staphylococci, likely contamination, repeat blood cultures negative so far continue antibiotics as above -Switch over to moderate dose sliding scale, Levemir 5 units twice daily Metabolic alkalosis: Likely secondary to Lasix therapy, hold for today Rhabdomyolysis, CPK 785 continue to monitor Type 2 diabetes mellitus: Clear liquid, advance to dysphagia diet Moderate dose sliding scale, Levemir 5 units twice daily Lactic acidosis: Resolved. Most likely from severe sepsis. Anion gap metabolic acidosis: Resolved, Patient does not have DKA. Lactic acidosis resolved. Hyponatremia: Resolved. Continue to monitor BMP daily for now. Status is stable, prognosis is guarded Start to work on LTAC placement Physical therapy Full code. NPO. Full dose Lovenox. Protonix for PUD prophylaxis. Patient's care has been discussed in detail with his Ms. Thomas on [phone]. All the questions were answered. Plan for today: Continue high flow, hold Lasix, continue antibiotics, work with physical therapy Attestations Medical Necessity Statement*: Patient requires hospitalization for acute hypoxic respiratory failure secondary to COVID-19 Coding Level of Care Code Acute Coroner Technician for [facility] Diagnoses ARDS (adult respiratory distress syndrome) J80 Severe acute respiratory syndrome coronavirus 2 (SARS-CoV-2) detected U07.1 Type 2 diabetes mellitus E11.9 Lactic acidosis E87.2 Hyponatremia E87.1 Pneumonia due to COVID-19 virus U07.1; J12.89 Secondary bacterial pneumonia J15.9
--- NOTE | 2020-09-01 15:54 | PM.PN ---
Subjective Subjective: Interval history: Yesterday evening, patient was successfully extubated on to heated high flow, he did well, currently remains on 30 L, 40% FiO2, alert oriented x3, does feel a bit short of breath when moved, but overall doing well. Diuresed 6L yesterday Vitals/I&O/Wt Last Vital Signs Temp 98.7 F 09/01/20 12:00 Pulse 108 H 09/01/20 15:48 Resp 20 H 09/01/20 15:48 BP 137/80 09/01/20 12:00 Pulse Ox 91 09/01/20 15:48 09/01/20 09/01/20 09/01/20 06:59 14:59 22:59 Intake Total 84.4 / 2343.298 277.215 / 277.215 50 / 327.215 Output Total 975 / 4276 450 / 450 Balance -890.6 / -1932.702 -172.785 / -172.785 50 / -122.785 Weight last 48 hrs Weight 265 lb 8.64 oz Weight 270 lb 9.6 oz Physical Exam Narrative: EXAM NARRATIVE: PHYSICAL EXAM: General:sitting in chair, in mild respiratory distress HEENT:NCAT, PERRLA, EOMI Neck: Supple Lungs: Clear, Heart: s1/s2, RRR Abd: soft, NT, ND, BS + Normoactive Extremities: No edema TUBE MOLDER FIBERGLASS: alert, on and off episodes of slowing, 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 SKIN: no rash Urinary Catheter Management^: Guevara: Cath Placed During This Visit: yes Reason for Continuing Indwelling Catheter: Accurate Measurement of Urinary Output in Critically Ill Patients Urinary Catheter Date of Insertion: 08/26/20 Urinary Catheter Time of Insertion: 10:45 Data : 09/01/20 04:05 09/01/20 04:05 Micro: Microbiology 08/26/20 10:12 Blood Culture - Final Blood NO GROWTH AFTER 5 DAYS A&P Assessment and plan (1) Severe acute respiratory syndrome coronavirus 2 (SARS-CoV-2) detected: Status: Acute (2) Type 2 diabetes mellitus: Status: Acute (3) Acute respiratory failure with hypoxia: Status: Acute 50-year-old male with past medical history of type 2 diabetes admitted to PICU for acute hypoxic respiratory failure secondary to severe ARDS secondary to COVID-19 pneumonia on 08/26/2020. NEURO: off sedation and extubated following commands alert but mildly confused possibly due to previous sedation PULM: Acute hypoxic and hypercapneic respiratory failure -secondary to COVID pna -Intubated on arrival to ER 08/26/2020 - extuabted on 08/31/2020 -Currently on high flow 30 L and 40% FiO2 saturating 94% -ABG 7.54/39/56/30 4/94% on 60% FiO2 on 50 L today morning -CXR Bilateral interstitial infiltrates. There is been significant improvement on the right but no other significant change. -BNP 466 -On remdesivir, azithromycin, vancomycin, aztreonam, dexamethasone, -Cultures negative so far -DuoNeb and Pulmicort nebulizations -Monitor saturation and titrate down FiO2 CVS: -Echo LV systolic function normal with EF 55 to 60%, grade 1 diastolic. -Hemodynamically stable -Monitor input output -Lasix 40 every 12 ; hold lasix and give diamox 500 mg one dose -BNP improving GI: On tube feeds -On senna -Monitor LFTs; AST today 47 RENAL: -Normal renal functions, improving BUN -Metabolic alkalosis likely due to contraction alkalosis -Can you 500 cc NS at 75 mL/h -DC lasix and give diamox 500 mg one dose -Strict I/O-try to keep slight negative to even -Continue guevara cath -Avoid nephrotoxins -Potassium 3.3, supplement -Monitor electrolytes and supplement accordingly -CK improving HEM: H&H stable Plts stable,will trend DVT prophylaxis: On Lovenox ENDO: Sugars well controlled with one hard reading 363 today morning On Levemir 5 every 12 and a scale coverage POCT Q6H ID: Severe sepsis secondary to COVID pna -afebrile, leukocytosis 16 point 5K -Blood cultures coagulase-negative staph -On remdesivir, azithromycin, aztreonam, dexamethasone, -Can DC aztreonam after 7 days -Procalcitonin 0.51, lactic acid 2.4 Code Status: Full code Disposition: ICU Attestations Medical Necessity Statement*: Acute hypoxic respiratory failure secondary to COVID-19 pneumonia, extubated yesterday, still requiring high flow oxygen 30 L at 40% FiO2 Time Spent in Patient Care: Greater than 35 minutes (>than 50% of time spent in counselling and/or direct pt care on unit). Coding Level of Care Code Acute Unloading Checker for [facility]wd Diagnoses Severe acute respiratory syndrome coronavirus 2 (SARS-CoV-2) detected U07.1 Type 2 diabetes mellitus E11.9 Acute respiratory failure with hypoxia J96.01
[2020-09-01 16:51] LABS: Glucose Point of Care 422 mg/dL (70-110)
[2020-09-01] MEDS: acetaZOLAMIDE 250 mg Tablet 500 MG PO (17:19)
[2020-09-01] MEDS: azithromycin 500 MG in sodium chloride 0.9% 250 ML 250 MG IV (17:19)
--- NOTE | 2020-09-01 20:03 | PC.NURSE ---
Report received from previous nurse; plan of care reviewed. Patient viced c/o nausea; zofran given per MD orders. Patient otherwise stable and denies pain and or chest pain. No other concerns noted at this time. Will continue to monitor for safety or any acute changes.
[2020-09-02] VITALS (36 sets, daily range): BP systolic 80–157; BP diastolic 58–97; PULSE 85–110; RESP 8–32; TEMP 36.6–37.6; O2SAT 83–100
[2020-09-02 00:11] LABS: Glucose Point of Care 323 mg/dL (70-110)
[2020-09-02 00:11] LABS: Glucose Point of Care 148 mg/dL (70-110)
[2020-09-02 00:11] LABS: Glucose Point of Care 259 mg/dL (70-110)
--- NOTE | 2020-09-02 02:31 | PC.NURSE ---
Patient refusing to ear Bipap to assit with work of breathing and increase oxygen saturation. Patient has been consistently at a saturation level ranging from HHF oxygen supplementation. RT and staff nurse educated pation of the risks and benefits of not earing the Bipap. The of the patient was called to assist with patient decision making; unreachable and a phone message was left. Patient is currently wearing his Bipap, an order for Ativan 1mg was also obtained to assist with any anxiety that the patient may be experiencing. Will continue to monitor. No other concerns noted at this time.
[2020-09-02] MEDS: aztreonam 1,000 MG in sodium chloride 0.9% (plus) 50 ML 100 MG IV ×3 (02:40→23:48)
[2020-09-02] MEDS: LORazepam 2 mg/mL INJ 1 mL 1 MG IVP (02:52)
--- NOTE | 2020-09-02 03:11 | PC.NURSE ---
Addendum entered by Layton Tony RN 09/02/20 03:46: Bipap 03/08 Original Note: of patient Martha returned phone call to facility. was given an update concerning the patients respiratory status and his episodes of refusing the Bipap. Patient currently has the Bipap 09/25 @100%. Oxygen saturation 100%. Patient received 1 mg of ativan iv; patien calm and tolerating Bipap at this time.
[2020-09-02] MEDS: ipratropium-albuterol 3 mL Neb INHALATION ×7 (03:20→23:45)
[2020-09-02] MEDS: enoxaparin 120 mg/0.8 mL Syringe 110 MG SUBCUT ×2 (04:27→17:38)
[2020-09-02] MEDS: pantoprazole 40 mg SDV IVP ×2 (04:27→17:36)
[2020-09-02] MEDS: acetaZOLAMIDE 250 mg Tablet 500 MG PO (04:28)
[2020-09-02 04:39] LABS: Lactic Sepsis W/Reflex 1.6 mmol/L (0.5-2.2)
[2020-09-02 04:57] LABS: Basophils % 0.3 %; Eosinophils % 0.2 %; Hematocrit 37.1 % (42.0-52.0); Hemoglobin 11.9 g/dL (11.7-16.6); Lymphocytes % 6.4 %; Mean Corpuscular HGB Conc 32.1 g/dL (30.0-36.0); Mean Corpuscular Hemoglobin 28.1 pg (28.0-34.0); Mean Corpuscular Volume 87.7 fL (80-94); Monocytes # 0.9 10^3/uL (0.2-0.9); Monocytes % 5.8 %; Neutrophils # 13.56 10^3/uL (1.8-7.7); Neutrophils % 85.3 %; Nucleated Red Blood Cells % 0 %; Platelet Count 429 10^3/cmm (130-400); Red Blood Count 4.23 10^6/uL (4.1-5.3); Red Cell Distribution Width 13.4 % (12.1-15.1); White Blood Count 15.9 10^3/uL (4.0-10.0)
[2020-09-02 05:06] LABS: Fibrinogen 772 mg/dL (174-498); INR 1.17 (0.8-1.2)
[2020-09-02 05:17] LABS: Alanine Aminotransferase 22 U/L (0-41); Alkaline Phosphatase 101 IU/L (40-130); Anion Gap 18.4 (5-19); Aspartate Amino Transferase 22 U/L (0-40); Blood Urea Nitrogen 56 mg/dL (6-20); C Reactive Protein 151.1 mg/L (0.0-4.9); Calcium 9.3 mg/dL (8.5-10.5); Carbon Dioxide 30 mmol/L (22-29); Chloride 94 mmol/L (98-107); Globulin 3.5 g/dL (1.3-4.6); Glomerular Filtration Rate 78.5 mL/min (90-130); Glucose 243 mg/dL (65-115); Magnesium 2.4 mg/dL (1.7-2.3); Osmolality Calculated 312 mOsm/kg (285-295); Phosphorus 3.7 mg/dL (2.5-4.5); Potassium 3.4 mmol/L (3.5-5.1); Sodium 139 mmol/L (136-145); Total Bilirubin 0.8 mg/dL (0.15-1.2); Total Protein 7.5 g/dL (6.6-8.7)
[2020-09-02 05:36] LABS: D Dimer 1.14 ug/mIFEU (0-0.59)
[2020-09-02 05:39] LABS: NT Pro B Type Natriuretic Pept 1093 pg/mL (0-125); Procalcitonin 0.49 ng/mL (0-0.5)
[2020-09-02 05:54] LABS: Creatine Phosphokinase 407 U/L (39-308)
--- NOTE | 2020-09-02 06:00 | ECG_ITS ---
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 Measurements Intervals [place] Rate: 102 P: 19 IA: 149 QRS: -58 QRSD: 106 T: 60 QT: 356 QTc: 465 Interpretive Statements SINUS TACHYCARDIA LEFT ANTERIOR FASCICULAR BLOCK [QRS AXIS <= -45, QR IN I, RS IN II] LEFT VENTRICULAR HYPERTROPHY AND ST-T CHANGE [VOLTAGE CRITERIA PLUS ST/T ABNORMALITY] Compared to ECG 09/01/2020 08:18:31 Left anterior fascicular block now present Left-axis deviation no longer present ST (T wave) deviation still present Electronically Signed On 09-02-2020 21:57:31 WIND TURBINE CONTROLS ENGINEER by Mini You M.D. [id number]
[2020-09-02 06:07] LABS: Ferritin 1071 ng/mL (30-400)
[2020-09-02 06:17] LABS: Vancomycin Trough 5.9 ug/mL (10-15)
--- NOTE | 2020-09-02 07:00 | XR_ITS ---
WS: [id number] Exam: XR chest 1V portable [id number] Date/Time of Exam: 09/02/2020 7:02 AM Reason For Exam: sob Comparison 09/01/2020. There is increasing consolidating pneumonia in the upper and lower lobes of the left lung since last exam. Right pulmonary infiltrates are unchanged. The lungs are fully expanded. Heart size is top limi ts normal. The mediastinum and bony thorax are intact. XR/XR chest 1V portable [id number] IMPRESSION: 1. Increasing infiltrates in the mid and lower left lung since previous study. No other change.
[2020-09-02 07:31] LABS: Glucose Point of Care 286 mg/dL (70-110)
[2020-09-02] MEDS: budesonide 0.5 mg/2 mL Neb INHALATION ×2 (08:31→19:54)
[2020-09-02] MEDS: sennosides-docusate Tablet 1 TAB PO (09:18)
[2020-09-02] MEDS: zinc gluconate 50 mg Tablet PO (09:18)
[2020-09-02] MEDS: dexamethasone 4 mg/mL INJ 6 MG IVP (09:33)
[2020-09-02] MEDS: ascorbic acid 500 mg Tablet PO (09:33)
[2020-09-02] MEDS: potassium chloride ER 10 mEq Tablet 40 MEQ PO (09:33)
[2020-09-02 09:45] LABS: ABG PH Result 7.48 (7.35-7.45); Arterial Blood Gas Hematocrit 38.3 % (42-52); Base Excess ABG 3.6 mmol/L (-2.0-2.0); Blood Gas Allen Test Pos; Blood Gas Sample Site Radial, right; Blood Gas Sample Type Arterial; HCO3 ABG 27.2 mmol/L (22-26); PO2 ABG 60.2 mmHg (80.0-100.0)
--- NOTE | 2020-09-02 10:21 | PC.OT ---
OT note: Hold OT today per nursing.
[2020-09-02 11:24] LABS: Glucose Point of Care 345 mg/dL (70-110)
[2020-09-02] MEDS: ondansetron 2 mg/ML SDV 2 mL 4 MG IVP (11:48)
--- NOTE | 2020-09-02 12:18 | P.PN_ITS ---
Subjective Subjective: Interval history: This morning patient was examined multiple times, at noon he was up into a chair, on heated high flow, overnight he did require BiPAP, this morning in a chair, when he speaks he does desat into the low 80s, on heated high flow, has no particular complaints, low-grade temperatures overnight, diuresed over 4 L yesterday, Vitals/I&O/Wt Last Vital Signs Temp 99.4 F 09/02/20 08:00 Pulse 87 09/02/20 11:07 Resp 20 H 09/02/20 11:07 BP 157/84 09/02/20 10:00 Pulse Ox 92 09/02/20 11:07 09/01/20 09/02/20 09/02/20 22:59 06:59 14:59 Intake Total 764 / 1041.215 480 / 1521.215 885 / 885 Output Total 950 / 1400 750 / 2150 Balance -186 / -358.785 -270 / -628.785 885 / 885 Weight last 48 hrs Weight 120.447 kg Physical Exam Const: COMMON NORMALS: no acute distress and patient oriented x3 HENMT: COMMON NORMALS: normocephalic HEAD & SCALP: normocephalic Neck/C-Spine: COMMON NORMALS: no JVD Resp: COMMON NORMALS: normal respiratory effort, No retractions and No use of accessory muscles AUSCULTATION: wheezes Cardio: COMMON NORMALS: no JVD, regular rate, regular rhythm, S1 normal heart sound present and S2 normal heart sound present RATE: regular rate RHYTHM: regular rhythm HEART SOUNDS: S1 normal heart sound present and S2 normal heart sound present GI: COMMON NORMALS: Normal to inspection, nondistended, normoactive bowel s ounds present, Soft to palpation, non-tender, No hepatosplenomegaly present, no masses and no bruits PALPATION: Yes Soft to palpation and Yes No hepatosplenomegaly present Extremity: COMMON NORMALS: capillary refill normal, no clubbing, cyanosis or edema, no calf tenderness and no pedal edema Neuro: COMMON NORMALS: patient oriented x3 Psych: COMMON NORMALS: mental status grossly normal Urinary Catheter Management^: Colon: Cath Placed During This Visit: yes Reason for Continuing Indwelling Catheter: Accurate Measurement of Urinary Output in Critically Ill Patients Urinary Catheter Date of Insertion: 08/26/20 Urinary Catheter Time of Insertion: 10:45 Data : 09/02/20 03:27 09/02/20 03:27 A&P Assessment and plan (1) ARDS (adult respiratory distress syndrome): Status: Acute (2) Severe acute respiratory syndrome coronavirus 2 (SARS-CoV-2) detected: Status: Acute (3) Type 2 diabetes mellitus: Status: Acute (4) Lactic acidosis: Status: Acute (5) Hyponatremia: Status: Acute (6) Pneumonia due to COVID-19 virus: Status: Acute (7) Secondary bacterial pneumonia: Status: Acute Additional A&P Information Acute hypoxic respiratory failure secondary to : ARDS, severe COVID-19 pneumonia, secondary bacterial pneumonia, pulmonary edema -Successfully extubated 08/31/2020 -Currently on high flow, 40 L, 70% FiO2 -Passed bedside swallow eval -Day 2 of 2 of convalescent plasma completed on 08/28/2020 -Continue with remdesivir for overall 5-day course. Day 5 of 5 -Dexamethasone 6 mg IV daily. -Broad-spectrum antibiotics aztreonam, azithromycin. Vancomycin stopped yesterday, MRSA nares pending, started on Diamox -ABG this morning shows metabolic alkalosis likely secondary to diuresis, pH 7.48 -Pulmonary toilet with chest vest. -DuoNebs every 4 hour, budesonide twice daily. -vit C, zinc. -Blood cultures negative so far, blood culture on 08/26/2023 shows coagulase- negative staphylococci, likely contamination -Daily EKGs, telemetry monitoring -Continue with therapeutic dose of Lovenox. -Continue to monitor inflammatory markers including ferritin, LDH, proBNP, D- dimer, fibrinogen. -For pulmonary edema, Lasix 40 mg IV on hold, monitor creatinine, monitor urine output -We will consult pulmonary, input appreciated -Replace potassium and phosphorus as needed -1 blood culture coagulase-negative staphylococci, likely contamination, repeat blood cultures negative so far continue antibiotics as above -Switch over to moderate dose sliding scale, Levemir 10 units twice daily Metabolic alkalosis: Likely secondary to Lasix therapy, hold for today, on Diamox Rhabdomyolysis, CPK 407 continue to monitor Type 2 diabetes mellitus: Clear liquid, advance to dysphagia diet Moderate dose sliding scale, Levemir 5 units twice daily Lactic acidosis: Resolved. Most likely from severe sepsis. Anion gap metabolic acidosis: Resolved, Patient does not have DKA. Lactic acidosis resolved. Hyponatremia: Resolved. Continue to monitor BMP daily for now. Status is stable, prognosis is guarded Start to work on LTAC placement Physical therapy Full code. NPO. Full dose Lovenox. Protonix for PUD prophylaxis. Patient's care has been discussed in detail with his Ms. Thomas on [phone]. All the questions were answered. Plan for today: Continue high flow, up out of bed, work with physical therapy, monitor urine output, monitor respiratory status Attestations Medical Necessity Statement*: Patient requires hospitalization for acute respiratory distress syndrome COVID-19 pneumonia Coding Level of Care Code Acute Filler Shaker for [facility] F[facility] Diagnoses ARDS (adult respiratory distress syndrome) J80 Severe acute respiratory syndrome coronavirus 2 (SARS-CoV-2) detected U07.1 Type 2 diabetes mellitus E11.9 Lactic acidosis E87.2 Hyponatremia E87.1 Pneumonia due to COVID-19 virus U07.1; J12.89 Secondary bacterial pneumonia J15.9
[2020-09-02 17:06] LABS: Glucose Point of Care 138 mg/dL (70-110)
--- NOTE | 2020-09-02 17:24 | PM.PN ---
Subjective Subjective: Interval history: Noted to be sitting out of bed to chair -On high flow 70% -Chest x-ray showing worsening left upper lobe and lower lobe opacities -Clinically looks good but there is concern of worsening left pneumonIA mostly from aspiration due to poor cough reflex -Overall fluid status is close to even since admission Vitals/I&O/Wt Last Vital Signs Temp 99.4 F 09/02/20 08:00 Pulse 95 09/02/20 15:42 Resp 20 H 09/02/20 15:42 BP 139/84 09/02/20 13:00 Pulse Ox 94 09/02/20 15:42 09/02/20 09/02/20 09/02/20 06:59 14:59 22:59 Intake Total 480 / 6687.306 5745 / 1065 50 / 1115 Output Total 750 / 2150 400 / 400 Balance -270 / -628.785 665 / 665 50 / 715 Weight last 48 hrs Weight 265 lb 8.64 oz Physical Exam Narrative: EXAM NARRATIVE: PHYSICAL EXAM: General:sitting in chair, in mild respiratory distress HEENT:NCAT, PERRLA, EOMI Neck: Supple Lungs: Left lower lobe crackles Heart: s1/s2, RRR Abd: soft, NT, ND, BS + Normoactive Extremities: No edema OIL BAY TECHNICIAN: alert, on and off episodes of slowing, 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 SKIN: no rash Urinary Catheter Management^: Guevara: Cath Placed During This Visit: yes Reason for Continuing Indwelling Catheter: Accurate Measurement of Urinary Output in Critically Ill Patients Urinary Catheter Date of Insertion: 08/26/20 Urinary Catheter Time of Insertion: 10:45 Data : 09/02/20 03:27 09/02/20 03:27 A&P Assessment and plan (1) Severe acute respiratory syndrome coronavirus 2 (SARS-CoV-2) detected: Status: Acute (2) Type 2 diabetes mellitus: Status: Acute (3) Acute respiratory failure with hypoxia: Status: Acute 50-year-old male with past medical history of type 2 diabetes admitted to PICU for acute hypoxic respiratory failure secondary to severe ARDS secondary to COVID-19 pneumonia on 08/26/2020. NEURO: Mentation normal following commands PULM: Acute hypoxic and hypercapneic respiratory failure -secondary to COVID pna -Intubated on arrival to ER 08/26/2020 - extuabted on 08/31/2020 -Currently on high flow 40 L and 70 % FiO2 saturating 94% -ABG 7.4 // on 70% and 40 L -CXR worsening left upper lobe and lower lobe consolidation -On remdesivir, azithromycin,aztreonam, dexamethasone, -Recommended to send for MRSA nares until then covered with vancomycin and Flagyl for anaerobic coverage -Cultures negative so far: Sent for sputum cultures -Encourage incentive spirometry -Chest physiotherapy -DuoNeb and Pulmicort nebulizations -Monitor saturation and titrate down FiO2 CVS: -Echo LV systolic function normal with EF 55 to 60%, grade 1 diastolic. -Hemodynamically stable -Monitor input output -Held Lasix and was on Diamox 500 mg for contraction alkalosis; can hold Diamox GI: -Started on carb consistent diet -On senna -Improved LFTs RENAL: -Normal renal functions except worsening BUN likely due to overdiuresis -Metabolic alkalosis likely due to contraction alkalosis -Overall close to net even -Can give 500 cc NS at 75 mL/h; DC diuretics -Strict I/O-try to keep slight negative to even -Continue guevara cath -Avoid nephrotoxins -Potassium 3.4, supplement -Monitor electrolytes and supplement accordingly -CK improving HEM: H&H stable Plts stable,will trend DVT prophylaxis: On Lovenox ENDO: Sugars well controlled On Levemir 18 every 12 and a scale coverage POCT Q6H ID: Severe sepsis secondary to COVID pna -afebrile, leukocytosis 15 K -Blood cultures coagulase-negative staph -On remdesivir, azithromycin, aztreonam, dexamethasone, -Can DC aztreonam after 7 days -In view of chest x-ray showing left-sided consolidations and requiring higher FiO2 would go ahead and do sputum culture, MRSA and start gram-positive coverage with vancomycin and Flagyl for anaerobic coverage and encourage incentive spirometry and chest physiotherapy Code Status: Full code Disposition: ICU Recommendations conveyed to hospitalist covering the patient Attestations Medical Necessity Statement*: Acute hypoxic respiratory failure secondary to COVID-19 pneumonia still requiring high flow oxygen 70% and high risk for reintubation Time Spent in Patient Care: Greater than 35 minutes (>than 50% of time spent in counselling and/or direct pt care on unit). 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
[2020-09-02] MEDS: metroNIDAZOLE IV 500 MG/100 ML PREMIX 100 MG IV (17:37)
[2020-09-02] MEDS: azithromycin 500 MG in sodium chloride 0.9% 250 ML 250 MG IV (17:39)
[2020-09-02] MEDS: sodium chloride 0.9% 500 ML 75 ML IV (18:37)
--- NOTE | 2020-09-02 19:41 | PC.NURSE ---
Report received from previous nurse; plan of care reviewed. Patient in bed resting with eyes open. Respirations even and unlabored. Patient currently on HHF 45L 60%. No acute distress noted.will continue to monitor for any acute changes.
[2020-09-02 20:14] LABS: Glucose Point of Care 236 mg/dL (70-110)
--- NOTE | 2020-09-02 23:59 | PC.NURSE ---
Patient starting to experience respiratory distress approximately 2320pm with HHF noted at 45L 80%.Patient encourage to use the Bipap HS assist with breathing demand and requirements. Despite provided education patient is reluctant to accepting t//he recommended treatment but eventually after much education to accept. Patient has been placed on Bipap / @ 80%. No other concerns noted at this time,
[2020-09-03] VITALS (46 sets, daily range): BP systolic 115–175; BP diastolic 63–110; PULSE 70–105; RESP 14–30; TEMP 36.2–37.4; O2SAT 82–98
[2020-09-03] MEDS: metroNIDAZOLE IV 500 MG/100 ML PREMIX 100 MG IV ×3 (00:40→16:55)
[2020-09-03] MEDS: ondansetron 2 mg/ML SDV 2 mL 4 MG IVP (02:18)
[2020-09-03 03:51] LABS: ABG PCO2 36.5 mmHg (35-45); ABG PH Result 7.41 (7.35-7.45); Arterial Blood Gas Hematocrit 41.8 % (42-52); Base Excess ABG -1.3 mmol/L (-2.0-2.0); Blood Gas Allen Test Pos; Blood Gas Sample Site Radial, right; Blood Gas Sample Type Arterial; Oxygen Device BIPAP; PO2 ABG 61.6 mmHg (80.0-100.0)
[2020-09-03 03:57] LABS: Basophils % 0.2 %; Eosinophils # 0.1 10^3/uL (0.0-0.8); Eosinophils % 0.3 %; Hematocrit 38.4 % (42.0-52.0); Hemoglobin 12.1 g/dL (11.7-16.6); Lymphocytes # 1.1 10^3/uL (0.8-4.8); Lymphocytes % 6.2 %; Mean Corpuscular HGB Conc 31.5 g/dL (30.0-36.0); Mean Corpuscular Hemoglobin 28.1 pg (28.0-34.0); Mean Corpuscular Volume 89.1 fL (80-94); Mean Platelet Volume 9.7 fL (7.4-10.4); Monocytes # 0.9 10^3/uL (0.2-0.9); Monocytes % 4.7 %; Neutrophils # 15.69 10^3/uL (1.8-7.7); Nucleated Red Blood Cells % 0 %; Platelet Count 388 10^3/cmm (130-400); Red Blood Count 4.31 10^6/uL (4.1-5.3); Red Cell Distribution Width 13.1 % (12.1-15.1)
[2020-09-03 04:23] LABS: INR 1.16 (0.8-1.2)
[2020-09-03 04:25] LABS: Fibrinogen 775 mg/dL (174-498); NT Pro B Type Natriuretic Pept 275 pg/mL (0-125); Procalcitonin 0.34 ng/mL (0-0.5)
[2020-09-03 04:25] LABS: Lactic Sepsis W/Reflex 1.3 mmol/L (0.5-2.2)
[2020-09-03 04:28] LABS: D Dimer 0.78 ug/mIFEU (0-0.59)
[2020-09-03 04:38] LABS: Alanine Aminotransferase 26 U/L (0-41); Albumin Level 3.8 g/dL (3.5-5.2); Alkaline Phosphatase 111 IU/L (40-130); Anion Gap 16.9 (5-19); Aspartate Amino Transferase 23 U/L (0-40); Blood Urea Nitrogen 41 mg/dL (6-20); C Reactive Protein 154.7 mg/L (0.0-4.9); Calcium 8.8 mg/dL (8.5-10.5); Carbon Dioxide 23 mmol/L (22-29); Chloride 101 mmol/L (98-107); Globulin 3.1 g/dL (1.3-4.6); Glomerular Filtration Rate 101.5 mL/min (90-130); Glucose 189 mg/dL (65-115); Magnesium 2.5 mg/dL (1.7-2.3); Osmolality Calculated 299 mOsm/kg (285-295); Phosphorus 2.7 mg/dL (2.5-4.5); Potassium 3.9 mmol/L (3.5-5.1); Sodium 137 mmol/L (136-145); Total Bilirubin 0.7 mg/dL (0.15-1.2); Total Protein 6.9 g/dL (6.6-8.7)
[2020-09-03] MEDS: enoxaparin 120 mg/0.8 mL Syringe 110 MG SUBCUT ×2 (04:39→16:56)
[2020-09-03] MEDS: pantoprazole 40 mg SDV IVP ×2 (04:39→16:56)
[2020-09-03 04:40] LABS: Creatine Phosphokinase 188 U/L (39-308)
[2020-09-03 04:57] LABS: Ferritin 1100 ng/mL (30-400)
[2020-09-03 06:00] LABS: Glucose Point of Care 201 mg/dL (70-110)
--- NOTE | 2020-09-03 06:00 | ECG_ITS ---
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 Measurements Intervals [place] Rate: 89 P: 21 WA: 147 QRS: -54 QRSD: 104 T: 30 QT: 387 QTc: 473 Interpretive Statements SINUS RHYTHM LEFT ANTERIOR FASCICULAR BLOCK [QRS AXIS <= -45, QR IN I, RS IN II] LEFT VENTRICULAR HYPERTROPHY AND ST-T CHANGE [VOLTAGE CRITERIA PLUS ST/T ABNORMALITY] Compared to ECG 09/02/2020 03:32:12 Sinus tachycardia no longer present ST (T wave) deviation still present Electronically Signed On 09-05-2020 10:28:27 GROUNDS KEEPER by Mini You M.D. [id number]
[2020-09-03] MEDS: ipratropium-albuterol 3 mL Neb INHALATION ×5 (08:08→23:39)
[2020-09-03] MEDS: budesonide 0.5 mg/2 mL Neb INHALATION ×2 (08:08→19:33)
[2020-09-03] MEDS: dexamethasone 4 mg/mL INJ 6 MG IVP (09:06)
[2020-09-03] MEDS: sennosides-docusate Tablet 1 TAB PO (09:06)
[2020-09-03] MEDS: guaiFENesin 600 mg Tablet 1200 MG PO ×2 (09:06→16:58)
[2020-09-03] MEDS: zinc gluconate 50 mg Tablet PO (09:06)
[2020-09-03] MEDS: ascorbic acid 500 mg Tablet PO (09:07)
[2020-09-03 09:34] LABS: Glucose Point of Care 202 mg/dL (70-110)
[2020-09-03 11:22] LABS: Glucose Point of Care 236 mg/dL (70-110)
--- NOTE | 2020-09-03 11:45 | P.PN_ITS ---
Subjective Subjective: Interval history: This morning patient was examined, overnight he did require BiPAP therapy, this morning is on high flow, states that he is doing doing okay, really wants to go home, no fevers, chills, no nausea, no vomiting Vitals/I&O/Wt Last Vital Signs Temp 97.2 F L 09/03/20 11:32 Pulse 88 09/03/20 11:38 Resp 16 09/03/20 11:38 BP 158/105 09/03/20 02:00 Pulse Ox 94 09/03/20 11:38 09/02/20 09/03/20 09/03/20 22:59 06:59 14:59 Intake Total 720 / 1785 350 / 2135 1000 / 1000 Output Total 600 / 1000 450 / 1450 Balance 120 / 785 -100 / 685 1000 / 1000 Weight last 48 hrs Weight 123.377 kg Physical Exam Const: COMMON NORMALS: no acute distress and patient oriented x3 HENMT: COMMON NORMALS: normocephalic HEAD & SCALP: normocephalic Neck/C-Spine: COMMON NORMALS: no JVD Resp: COMMON NORMALS: normal respiratory effort, No retractions and No use of accessory muscles AUSCULTATION: wheezes Cardio: COMMON NORMALS: no JVD, regular rate, regular rhythm, S1 normal heart sound present and S2 normal heart sound present RATE: regular rate RHYTHM: regular rhythm HEART SOUNDS: S1 normal heart sound present and S2 normal heart sound present GI: COMMON NORMALS: Normal to inspection, nondistended, normoactive bowel sounds present, Soft to palpation, non-tender, No hepatosplenomegaly present, no masses and no bruits PALPATION: Yes Soft to palpation and Yes No hepatos plenomegaly present Extremity: COMMON NORMALS: capillary refill normal, no clubbing, cyanosis or edema, no calf tenderness and no pedal edema Neuro: COMMON NORMALS: patient oriented x3 Psych: COMMON NORMALS: mental status grossly normal Urinary Catheter Management^: Colon: Cath Placed During This Visit: yes Reason for Continuing Indwelling Catheter: Accurate Measurement of Urinary Output in Critically Ill Patients Urinary Catheter Date of Insertion: 08/26/20 Urinary Catheter Time of Insertion: 10:45 Data : 09/03/20 03:20 09/03/20 03:20 A&P Assessment and plan (1) ARDS (adult respiratory distress syndrome): Status: Acute (2) Severe acute respiratory syndrome coronavirus 2 (SARS-CoV-2) detected: Status: Acute (3) Type 2 diabetes mellitus: Status: Acute (4) Lactic acidosis: Status: Acute (5) Hyponatremia: Status: Acute (6) Pneumonia due to COVID-19 virus: Status: Acute (7) Secondary bacterial pneumonia: Status: Acute Additional A&P Information Acute hypoxic respiratory failure secondary to : ARDS, severe COVID-19 pneumonia, secondary bacterial pneumonia, pulmonary edema -Successfully extubated 08/31/2020 -Currently on high flow needed as tolerated, BiPAP as needed during the night -Passed bedside swallow eval -Day 2 of 2 of convalescent plasma completed on 08/28/2020 -Continue with remdesivir for overall 5-day course. Day 5 of 5 -Dexamethasone 6 mg IV daily. -Broad-spectrum antibiotics aztreonam, azithromycin. Vancomycin and Flagyl was restarted today due to concerns for developing consolidation on the left lung, with white blood cell count of 18,000, pro-Ck 0.34 -ABG this morning shows pH 7.41, PCO2 36.5, PO2 61.6, -Pulmonary toilet with chest vest incentive spirometer, flutter valve -DuoNebs every 4 hour, budesonide twice daily. -vit C, zinc. -Blood cultures negative so far, blood culture on 08/26/2023 shows coagulase- negative staphylococci, likely contamination -Repeat sputum, blood, urine cultures -Daily EKGs, telemetry monitoring -Continue with therapeutic dose of Lovenox. -Continue to monitor inflammatory markers including ferritin, LDH, proBNP, D- dimer, fibrinogen. -For pulmonary edema, Lasix 40 mg IV on hold, monitor creatinine, monitor urine output -We will consult pulmonary, input appreciated -Replace potassium and phosphorus as needed -1 blood culture coagulase-negative staphylococci, likely contamination, repeat blood cultures negative so far continue antibiotics as above -Switch over to moderate dose sliding scale, Levemir 10 units twice daily Metabolic alkalosis: Likely secondary to Lasix therapy, hold for today, on Diamox Rhabdomyolysis, CPK 407 continue to monitor Type 2 diabetes mellitus: Clear liquid, advance to dysphagia diet Moderate dose sliding scale, Levemir 5 units twice daily Lactic acidosis: Resolved. Most likely from severe sepsis. Anion gap metabolic acidosis: Resolved, Patient does not have DKA. Lactic acidosis resolved. Hyponatremia: Resolved. Continue to monitor BMP daily for now. Status is stable, prognosis is guarded Start to work on LTAC placement Physical therapy Full code. NPO. Full dose Lovenox. Protonix for PUD prophylaxis. Patient's care has been discussed in detail with his Ms. Thomas on . All the questions were answered. Plan for today: Continue high flow, up out of bed, work with physical therapy, monitor urine output, monitor respiratory status, aggressive pulmonary toilet,, add vancomycin, Flagyl Attestations Medical Necessity Statement*: Patient requires hospitalization for acute respiratory distress syndrome secondary COVID-19 pneumonia, secondary bacterial pneumonia Coding Level of Care Code Acute Solutions Architect Consultant for [facility] Fw Diagnoses ARDS (adult respiratory distress syndrome) J80 Severe acute respiratory syndrome coronavirus 2 (SARS-CoV-2) detected U07.1 Type 2 diabetes mellitus E11.9 Lactic acidosis E87.2 Hyponatremia E87.1 Pneumonia due to COVID-19 virus U07.1; J12.89 Secondary bacterial pneumonia J15.9
[2020-09-03] MEDS: aztreonam 1,000 MG in sodium chloride 0.9% (plus) 50 ML 100 MG IV (12:56)
--- NOTE | 2020-09-03 12:58 | P.PN_ITS ---
Subjective Subjective: Interval history: Overall patient is clinically improving except requiring BiPAP at night -Currently on high flow 50% saturating more than 92% Otherwise no new complaints Vitals/I&O/Wt Last Vital Signs Temp 97.2 F L 09/03/20 11:32 Pulse 88 09/03/20 11:38 Resp 16 09/03/20 11:38 BP 158/105 09/03/20 02:00 Pulse Ox 94 09/03/20 11:38 09/02/20 09/03/20 09/03/20 22:59 06:59 14:59 Intake Total 720 / 1785 350 / 2135 1000 / 1000 Output Total 600 / 1000 450 / 1450 Balance 120 / 785 -100 / 685 1000 / 1000 Weight last 48 hrs Weight 272 lb Physical Exam Narrative: EXAM NARRATIVE: PHYSICAL EXAM: General:sitting in chair, in mild respiratory distress HEENT:NCAT, PERRLA, EOMI Neck: Supple Lungs: Clear bilaterally no wheeze Heart: s1/s2, RRR Abd: soft, NT, ND, BS + Normoactive Extremities: No edema SENIOR TECHNICAL PROGRAM MANAGER: alert, 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 SKIN: no rash Urinary Catheter Management^: Guevara: Cath Placed During This Visit: yes Reason for Continuing Indwelling Catheter: Accurate Measurement of Urinary Output in Critically Ill Patients Urinary Catheter Date of Insertion: 08/26/20 Urinary Catheter Time of Insertion: 10:45 Data : 09/03/20 03:20 09/03/20 03:20 A&P Assessment and plan (1) Severe acute respiratory syndrome coronavirus 2 (SARS-CoV-2) detected: Status: Acute (2) Type 2 diabetes mellitus: Status: Acute (3) Acute respiratory failure with hypoxia: Status: Acute 50-year-old male with past medical history of type 2 diabetes admitted to PICU for acute hypoxic respiratory failure secondary to severe ARDS secondary to COVID-19 pneumonia on 08/26/2020. NEURO: Mentation normal following commands PULM: Acute hypoxic and hypercapneic respiratory failure -secondary to COVID pna -Intubated on arrival to ER 08/26/2020 - extuabted on 08/31/2020 -Currently on high flow 40 L and 50 % FiO2 saturating 94% -ABG today morning 7.4 // -CXR : Increasing infiltrates in the mid and lower left lung since previous study. -On remdesivir, azithromycin,aztreonam, dexamethasone, vancomycin and Flagyl -Recommended to send for MRSA nares until then cover with vancomycin and Flagyl for anaerobic coverage -Cultures negative so far: Repeat sputum and blood cultures cultures -Encourage incentive spirometry/chest physiotherapy/out of bed to chair -Continue scheduled DuoNeb, Pulmicort, Mucomyst nebulizations -Monitor saturation and titrate down FiO2 CVS: -Echo LV systolic function normal with EF 55 to 60%, grade 1 diastolic. -Hemodynamically stable -Monitor input output GI: -Started on carb consistent diet -On senna -Improved LFTs RENAL: -Renal functions improving -Metabolic alkalosis resolved -Overall close to net even -Give Lasix 40 mg 1 dose today evening if fluid positive -Strict I/O-try to keep slight negative to even -Continue guevara cath -Avoid nephrotoxins -Monitor electrolytes and supplement accordingly -CK normalized HEM: H&H stable Plts stable,will trend DVT prophylaxis: On Lovenox ENDO: Sugars well controlled 200-2 50 On Levemir 18 every 12 and a scale coverage POCT Q6H ID: Severe sepsis secondary to COVID pna -afebrile, leukocytosis slightly up to 18 K -Blood cultures coagulase-negative staph -CXR : Increasing infiltrates in the mid and lower left lung since previous study. -On remdesivir, azithromycin,aztreonam, dexamethasone, vancomycin and Flagyl -Recommended to send for MRSA nares until then cover with vancomycin and Flagyl for anaerobic coverage -Cultures negative so far: Repeat sputum and blood cultures cultures -In view of chest x-ray showing left-sided consolidations and requiring higher FiO2 would go ahead and do sputum culture, MRSA and start gram-positive coverage with vancomycin and Flagyl for anaerobic coverage and encourage incentive spirometry and chest physiotherapy Code Status: Full code Disposition: ICU Recommendations conveyed to hospitalist covering the patient Attestations Medical Necessity Statement*: Acute hypoxic respiratory failure likely secondary to COVID-19 pneumonia still requiring high flow oxygen-gradually improving with worsening left lung infiltrates Time Spent in Patient Care: Greater than 35 minutes (>than 50% of time spent in counselling and/or direct pt care on unit) . 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
[2020-09-03 16:16] LABS: Glucose Point of Care 117 mg/dL (70-110)
[2020-09-03] MEDS: vancomycin 1,500 MG/300 ML PIGGYBACK 200 MG IV (16:55)
[2020-09-03] MEDS: azithromycin 500 MG in sodium chloride 0.9% 250 ML 250 MG IV (16:57)
--- NOTE | 2020-09-03 17:55 | PC.NURSE ---
Vancomycin trough was retimed for next vancomycin dose. MD mccrayay with that and pharmacy aware.
[2020-09-03] MEDS: FUROsemide 10 mg/mL SDV 4mL 40 MG IVP (18:03)
[2020-09-03 19:55] LABS: Glucose Point of Care 87 mg/dL (70-110)
--- NOTE | 2020-09-03 20:55 | PC.NURSE ---
Report received from previous nurse; plan of care reviewed. Patient in bed resting with HHF in place. respiratory at bedside to assist with proning the patient. Denies pain or chest pain. No other concerns noted at this time. Will continue to monitor.
[2020-09-03 21:06] LABS: Lactate (Lactic Acid level) 1.3 mmol/L (0.5-2.2)
[2020-09-04] VITALS (34 sets, daily range): BP systolic 95–169; BP diastolic 60–97; PULSE 84–106; RESP 16–37; TEMP 36.9–37.4; O2SAT 82–97
[2020-09-04] MEDS: aztreonam 1,000 MG in sodium chloride 0.9% (plus) 50 ML 100 MG IV ×2 (00:15→13:12)
[2020-09-04] MEDS: metroNIDAZOLE IV 500 MG/100 ML PREMIX 100 MG IV ×3 (00:58→15:58)
[2020-09-04] MEDS: ipratropium-albuterol 3 mL Neb INHALATION ×6 (03:44→23:23)
[2020-09-04] MEDS: vancomycin 1,500 MG/300 ML PIGGYBACK 200 MG IV ×2 (03:54→18:11)
[2020-09-04] MEDS: pantoprazole 40 mg SDV IVP ×2 (03:54→15:57)
[2020-09-04] MEDS: enoxaparin 120 mg/0.8 mL Syringe 110 MG SUBCUT ×2 (03:54→15:57)
[2020-09-04 04:29] LABS: Basophils # 0.1 10^3/uL (0.0-0.1); Basophils % 0.2 %; Eosinophils # 0.2 10^3/uL (0.0-0.8); Eosinophils % 0.9 %; Hemoglobin 12.1 g/dL (11.7-16.6); Lymphocytes # 1.6 10^3/uL (0.8-4.8); Lymphocytes % 7.8 %; Mean Corpuscular HGB Conc 32.7 g/dL (30.0-36.0); Mean Corpuscular Hemoglobin 28.3 pg (28.0-34.0); Mean Corpuscular Volume 86.4 fL (80-94); Neutrophils # 17.79 10^3/uL (1.8-7.7); Neutrophils % 84.6 %; Nucleated Red Blood Cells % 0 %; Platelet Count 380 10^3/cmm (130-400); Red Blood Count 4.28 10^6/uL (4.1-5.3); Red Cell Distribution Width 12.8 % (12.1-15.1)
[2020-09-04 04:56] LABS: Vancomycin Trough 18.7 ug/mL (10-15)
[2020-09-04 05:00] LABS: D Dimer 0.81 ug/mIFEU (0-0.59)
[2020-09-04 05:06] LABS: ABG PCO2 31.7 mmHg (35-45); ABG PH Result 7.43 (7.35-7.45); Arterial Blood Gas Hematocrit 37.9 % (42-52); Base Excess ABG -2.3 mmol/L (-2.0-2.0); Blood Gas Allen Test Pos; Blood Gas Sample Type Arterial; HCO3 ABG 21.1 mmol/L (22-26); PO2 ABG 70.3 mmHg (80.0-100.0)
[2020-09-04 05:07] LABS: NT Pro B Type Natriuretic Pept 206 pg/mL (0-125); Procalcitonin 0.37 ng/mL (0-0.5)
[2020-09-04 05:07] LABS: Blood Gas Sample Site Brachial, left
[2020-09-04 05:18] LABS: Creatine Phosphokinase 81 U/L (39-308)
[2020-09-04 05:59] LABS: Alanine Aminotransferase 27 U/L (0-41); Albumin Level 3.6 g/dL (3.5-5.2); Alkaline Phosphatase 114 IU/L (40-130); Anion Gap 20.6 (5-19); Aspartate Amino Transferase 23 U/L (0-40); Blood Urea Nitrogen 41 mg/dL (6-20); C Reactive Protein 77.8 mg/L (0.0-4.9); Calcium 9.1 mg/dL (8.5-10.5); Carbon Dioxide 20 mmol/L (22-29); Chloride 100 mmol/L (98-107); Globulin 3.1 g/dL (1.3-4.6); Glomerular Filtration Rate 88.6 mL/min (90-130); Glucose 82 mg/dL (65-115); Magnesium 2.1 mg/dL (1.7-2.3); Osmolality Calculated 293 mOsm/kg (285-295); Phosphorus 3.3 mg/dL (2.5-4.5); Potassium 3.6 mmol/L (3.5-5.1); Sodium 137 mmol/L (136-145); Total Bilirubin 0.5 mg/dL (0.15-1.2); Total Protein 6.7 g/dL (6.6-8.7)
[2020-09-04 06:28] LABS: Glucose Point of Care 91 mg/dL (70-110)
[2020-09-04 06:44] LABS: Oxygen Device HHFNC
--- NOTE | 2020-09-04 07:00 | XR_ITS ---
WS: [id number] Exam: XR chest 1V portable [id number] Date/Time of Exam: 09/04/2020 7:00 AM Reason For Exam: sob Comparison 09/02/2020. Increasing groundglass opacities throughout both lungs since previous study. Heart size is stable. No pneumothorax or pleural effusion seen. Monitoring leads superimpose the chest. XR/XR chest 1V portable [id number] IMPRESSION: 1. Increasing consolidating pneumonia in both lung since prior study.
[2020-09-04] MEDS: budesonide 0.5 mg/2 mL Neb INHALATION ×2 (08:02→20:17)
[2020-09-04] MEDS: guaiFENesin 600 mg Tablet 1200 MG PO ×2 (08:41→18:12)
[2020-09-04] MEDS: dexamethasone 4 mg/mL INJ 6 MG IVP (08:42)
[2020-09-04] MEDS: sennosides-docusate Tablet 1 TAB PO (08:42)
[2020-09-04] MEDS: zinc gluconate 50 mg Tablet PO (08:42)
[2020-09-04] MEDS: ascorbic acid 500 mg Tablet PO (08:42)
[2020-09-04 10:06] LABS: HIV 1 & 2 Antibody Non-Reactive (Non-Reactiv); HIV 1 & 2 Antigen Non-Reactive (Non-Reactiv)
[2020-09-04] MEDS: morphine 4 mg/mL SDV 1 mL 1 MG IVP ×2 (10:49→20:15)
[2020-09-04 11:35] LABS: Glucose Point of Care 173 mg/dL (70-110)
--- NOTE | 2020-09-04 12:24 | P.PN_ITS ---
Subjective Subjective: Interval history: This morning patient was examined, he was actually sitting up in a chair, when he is speaking with me, and with minimal exertion, his oxygen saturations do's sustained in the low 80s, but they do come up into the low 90s after some time, still has a cough, no fevers, no shortness of breath, no chest discomfort Vitals/I&O/Wt Last Vital Signs Temp 98.9 F 09/04/20 08:00 Pulse 93 09/04/20 11:00 Resp 35 H 09/04/20 11:00 BP 165/89 09/04/20 11:00 Pulse Ox 95 09/04/20 11:00 09/03/20 09/04/20 09/04/20 22:59 06:59 14:59 Intake Total 420 / 1810 604 / 2414 790 / 790 Output Total 250 / 250 1450 / 1700 Balance 170 / 1560 -846 / 714 790 / 790 Weight last 48 hrs Weight 121.79 kg Weight 123.377 kg Physical Exam Const: COMMON NORMALS: no acute distress and patient oriented x3 HENMT: COMMON NORMALS: normocephalic HEAD & SCALP: normocephalic Neck/C-Spine: COMMON NORMALS: no JVD Resp: COMMON NORMALS: normal respiratory effort, No retractions, No use of accessory muscles and clear to auscultation bilaterally AUSCULTATION: clear to auscultation bilaterally and diminished lung sounds on the left Cardio: COMMON NORMALS: no JVD, regular rate, regular rhythm, S1 normal heart sound present and S2 normal heart sound present RATE: regular rate RHYTHM: regular rhythm HEART SOUNDS: S1 normal heart sound present and S2 normal heart sound present GI: COMMON NORMALS: Normal to inspection, nondistended, normoactive bowel sounds present, Soft to palpation, non-tender, No hepatosplenomegaly present, no masses and no bruits PALPATION: Yes Soft to palpation and Yes No hepatosplenomegaly present Extremity: COMMON NORMALS: capillary refill normal, no clubbing, cyanosis or edema, no calf tenderness and no pedal edema Neuro: COMMON NORMALS: patient oriented x3 Psych: COMMON NORMALS: mental status grossly normal Urinary Catheter Management^: Colon: Cath Placed During This Visit: yes Reason for Continuing Indwelling Catheter: Accurate Measurement of Urinary Output in Critically Ill Patients Urinary Catheter Date of Insertion: 08/26/20 Urinary Catheter Time of Insertion: 10:45 Data : 09/04/20 03:44 09/04/20 03:44 Micro: Microbiology 08/30/20 03:40 Blood Culture - Final Blood NO GROWTH AFTER 5 DAYS 08/30/20 03:40 Blood Culture - Final Blood NO GROWTH AFTER 5 DAYS 09/03/20 20:30 Blood Culture - Preliminary Blood SPECIMEN COLLECTED 09/03/20 20:30 Blood Culture - Preliminary Blood SPECIMEN COLLECTED A&P Assessment and plan (1) ARDS (adult respiratory distress syndrome): Status: Acute (2) Severe acute respiratory syndrome coronavirus 2 (SARS-CoV-2) detected: Status: Acute (3) Type 2 diabetes mellitus: Status: Acute (4) Lactic acidosis: Status: Acute (5) Hyponatremia: Status: Acute (6) Pneumonia due to COVID-19 virus: Status: Acute (7) Secondary bacterial pneumonia: Status: Acute Additional A&P Information Acute hypoxic respiratory failure secondary to : ARDS, severe COVID-19 pneumonia, secondary bacterial pneumonia, pulmonary edema -Successfully extubated 08/31/2020 -Currently on high flow needed as tolerated, BiPAP as needed during the night -Passed bedside swallow eval -Day 2 of 2 of convalescent plasma completed on 08/28/2020 -Continue with remdesivir for overall 5-day course. Day 5 of 5 -Dexamethasone 6 mg IV daily. -Broad-spectrum antibiotics aztreonam, azithromycin. Vancomycin and Flagyl was restarted yesterday due to concerns for developing consolidation on the left lung. However continues to have consolidation in left lung, afebrile overnight, white blood cell count 21,006, CRP 77.8, pro-Ck 0.37. Caspofungin was started for antifungal coverage, fungal studies sent. Might need a bronchoscopy in the near future. -ABG this morning shows pH 7.43, PO2 70.3, bicarb 21 -Pulmonary toilet with chest vest incentive spirometer, flutter valve -DuoNebs every 4 hour, budesonide twice daily. -vit C, zinc. -Blood cultures negative so far, blood culture on 08/26/2023 shows coagulase- negative staphylococci, likely contamination -Repeat sputum, blood, urine cultures so far negative -Daily EKGs, telemetry monitoring -Continue with therapeutic dose of Lovenox. -Continue to monitor inflammatory markers including ferritin, LDH, proBNP, D- dimer, fibrinogen. -For pulmonary edema, Lasix 40 mg IV on hold, monitor creatinine, monitor urine output -We will consult pulmonary, input appreciated -Replace potassium and phosphorus as needed -1 blood culture coagulase-negative staphylococci, likely contamination, repeat blood cultures negative so far continue antibiotics as above -Switch over to moderate dose sliding scale, Levemir 10 units twice daily Metabolic alkalosis: Likely secondary to Lasix therapy, hold for today, finished Diamox Rhabdomyolysis, continue to monitor Type 2 diabetes mellitus: Clear liquid, advance to dysphagia diet Moderate dose sliding scale, Levemir 10 units twice daily Lactic acidosis: Resolved. Most likely from severe sepsis. Anion gap metabolic acidosis: Resolved, Patient does not have DKA. Lactic acidosis resolved. Hyponatremia: Resolved. Continue to monitor BMP daily for now. Status is stable, prognosis is guarded Start to work on LTAC placement Physical therapy Full code. dysphagia diet Full dose Lovenox. Protonix for PUD prophylaxis. Patient's care has been discussed in detail with his Ms. Thomas on [phone]. All the questions were answered. 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
[2020-09-04] MEDS: azithromycin 500 MG in sodium chloride 0.9% 250 ML 250 MG IV (15:57)
[2020-09-04 16:42] LABS: Glucose Point of Care 173 mg/dL (70-110)
--- NOTE | 2020-09-04 19:05 | PM.PN ---
Subjective Subjective: Interval history: Overall patient looks clinically improving except for worsening the opacities on the left side chest x-ray and worsening WBC. Vitals/I&O/Wt Last Vital Signs Temp 98.4 F 09/04/20 16:00 Pulse 94 09/04/20 18:17 Resp 24 H 09/04/20 18:17 BP 142/81 09/04/20 17:00 Pulse Ox 90 09/04/20 18:17 09/04/20 09/04/20 09/04/20 06:59 14:59 22:59 Intake Total 604 / 2414 990 / 990 450 / 1440 Output Total 1450 / 1700 1300 / 1300 Balance -846 / 714 990 / 990 -850 / 140 Weight last 48 hrs Weight 268 lb 8 oz Weight 272 lb Physical Exam Narrative: EXAM NARRATIVE: PHYSICAL EXAM: General:sitting in chair, in mild respiratory distress HEENT:NCAT, PERRLA, EOMI Neck: Supple Lungs: Reduced left chest breath sounds Heart: s1/s2, RRR Abd: soft, NT, ND, BS + Normoactive Extremities: No edema 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, 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 SKIN: no rash Urinary Catheter Management^: Guevara: Cath Placed During This Visit: yes Reason for Continuing Indwelling Catheter: Accurate Measurement of Urinary Output in Critically Ill Patients Urinary Catheter Date of Insertion: 08/26/20 Urinary Catheter Time of Insertion: 10:45 Data : 09/04/20 03:44 09/04/20 03:44 Micro: Microbiology 08/26/20 18:40 Blood Culture - Final Blood Coagulase negativ staphylococc 08/30/20 03:40 Blood Culture - Final Blood NO GROWTH AFTER 5 DAYS 08/30/20 03:40 Blood Culture - Final Blood NO GROWTH AFTER 5 DAYS 09/03/20 20:30 Blood Culture - Preliminary Blood SPECIMEN COLLECTED 09/03/20 20:30 Blood Culture - Preliminary Blood SPECIMEN COLLECTED A&P Assessment and plan (1) Severe acute respiratory syndrome coronavirus 2 (SARS-CoV-2) detected: Status: Acute (2) Type 2 diabetes mellitus: Status: Acute (3) Acute respiratory failure with hypoxia: Status: Acute 50-year-old male with past medical history of type 2 diabetes admitted to PICU for acute hypoxic respiratory failure secondary to severe ARDS secondary to COVID-19 pneumonia on 08/26/2020. NEURO: Mentation normal following commands PULM: Acute hypoxic and hypercapneic respiratory failure -secondary to COVID pna -Intubated on arrival to ER 08/26/2020 - extuabted on 08/31/2020 -Currently on high flow 45 L and 60% FiO2 saturating 90% -ABG today morning 7.4 01/14/70 on FiO2 75% and 45 L -CXR : Increasing consolidating pneumonia in both lung since prior study. -On remdesivir, azithromycin,aztreonam, dexamethasone, vancomycin and Flagyl -started micafungin for fungal coverage in view of worsening leukocytosis, metabolic acidosis, worsening consolidations on x-ray despite being on broad-spectrum antibiotics along with anaerobic coverage -Also received convalescent plasma -Recommended to send for MRSA nares until then cover with vancomycin and Flagyl for anaerobic coverage -Cultures negative so far: Repeat sputum and blood cultures cultures -Improving inflammatory markers -Encourage incentive spirometry/chest physiotherapy/out of bed to chair -Continue scheduled DuoNeb, Pulmicort, Mucomyst nebulizations -Monitor saturation and titrate down FiO2 CVS: -Echo LV systolic function normal with EF 55 to 60%, grade 1 diastolic. -Hemodynamically stable -Monitor input output GI: -Started on carb consistent diet -On senna -Improved LFTs RENAL: -Renal functions improving -Metabolic alkalosis resolved but currently anion gap metabolic acidosis -Baseline lactic acid -Overall close to net even -Give Lasix 40 mg 1 dose today evening if fluid positive -Strict I/O-try to keep slight negative to even -Continue guevara cath -Avoid nephrotoxins -Monitor electrolytes and supplement accordingly -CK normalized HEM: H&H stable Plts stable,will trend DVT prophylaxis: On Lovenox ENDO: Sugars well controlled 87-1 73 On Levemir 18 every 12 and a scale coverage POCT Q6H ID: Severe sepsis secondary to COVID pna -afebrile, leukocytosis slightly up to 21 K -Blood cultures coagulase-negative staph -CXR : Worsening consolidation bilaterally -On remdesivir, azithromycin,aztreonam, dexamethasone, vancomycin and Flagyl -Received convalescent plasma transfusion to doses, -Improving inflammatory markers -Recommended to send for MRSA nares until then cover with vancomycin and Flagyl for anaerobic coverage -Cultures negative so far: Repeat sputum and blood cultures cultures -Please send for Fungitell and galactomannan -Recommended to start micafungin for fungal coverage in view of worsening leukocytosis, metabolic acidosis, worsening consolidations on x-ray despite being on broad-spectrum antibiotics along with anaerobic coverage Code Status: Full code Disposition: ICU Recommendations conveyed to hospitalist covering the patient Attestations Medical Necessity Statement*: Acute hypoxic failure secondary to COVID-19 pneumonia still requiring high flow 60% and now with worsening consolidations on x-ray, leukocytosis, metabolic acidosis despite being on broad-spectrum bacterial and anaerobic coverage. Started on anti-fungal coverage as well Time Spent in Patient Care: Greater than 35 minutes (>than 50% of time spent in counselling and/or direct pt care on unit). 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
[2020-09-04 21:07] LABS: Glucose Point of Care 135 mg/dL (70-110)
[2020-09-05] VITALS (34 sets, daily range): BP systolic 116–157; BP diastolic 66–106; PULSE 83–103; RESP 17–35; TEMP 36.7–36.9; O2SAT 86–99
[2020-09-05] MEDS: morphine 4 mg/mL SDV 1 mL 1 MG IVP (00:06)
[2020-09-05] MEDS: ipratropium-albuterol 3 mL Neb INHALATION ×6 (03:36→23:50)
[2020-09-05] MEDS: pantoprazole 40 mg SDV IVP ×2 (04:09→16:26)
[2020-09-05] MEDS: enoxaparin 120 mg/0.8 mL Syringe 110 MG SUBCUT ×2 (04:10→16:27)
[2020-09-05] MEDS: vancomycin 1,500 MG/300 ML PIGGYBACK 200 MG IV (04:10)
[2020-09-05 04:24] LABS: Oxygen Device HHFNC
[2020-09-05 05:43] LABS: Basophils # 0.1 10^3/uL (0.0-0.1); Basophils % 0.3 %; Eosinophils # 0.2 10^3/uL (0.0-0.8); Eosinophils % 1.3 %; Hematocrit 36.5 % (42.0-52.0); Hemoglobin 11.8 g/dL (11.7-16.6); Lymphocytes # 1.7 10^3/uL (0.8-4.8); Lymphocytes % 9.5 %; Mean Corpuscular HGB Conc 32.3 g/dL (30.0-36.0); Mean Corpuscular Volume 86.7 fL (80-94); Mean Platelet Volume 9.7 fL (7.4-10.4); Neutrophils % 81.4 %; Nucleated Red Blood Cells % 0 %; Platelet Count 367 10^3/cmm (130-400); Red Blood Count 4.21 10^6/uL (4.1-5.3); Red Cell Distribution Width 12.9 % (12.1-15.1); White Blood Count 17.4 10^3/uL (4.0-10.0)
[2020-09-05 05:56] LABS: D Dimer 0.67 ug/mIFEU (0-0.59)
[2020-09-05 06:01] LABS: Lactate (Lactic Acid level) 1.1 mmol/L (0.5-2.2)
[2020-09-05 06:08] LABS: NT Pro B Type Natriuretic Pept 148 pg/mL (0-125)
[2020-09-05 06:09] LABS: Creatine Phosphokinase 54 U/L (39-308); NT Pro B Type Natriuretic Pept 154 pg/mL (0-125)
[2020-09-05 06:27] LABS: Alanine Aminotransferase 25 U/L (0-41); Albumin Level 3.3 g/dL (3.5-5.2); Alkaline Phosphatase 111 IU/L (40-130); Anion Gap 17.8 (5-19); Aspartate Amino Transferase 24 U/L (0-40); Blood Urea Nitrogen 32 mg/dL (6-20); C Reactive Protein 50.4 mg/L (0.0-4.9); Calcium 8.9 mg/dL (8.5-10.5); Carbon Dioxide 19 mmol/L (22-29); Chloride 100 mmol/L (98-107); Globulin 3.1 g/dL (1.3-4.6); Glomerular Filtration Rate 118.4 mL/min (90-130); Glucose 92 mg/dL (65-115); Osmolality Calculated 283 mOsm/kg (285-295); Phosphorus 3.5 mg/dL (2.5-4.5); Potassium 3.8 mmol/L (3.5-5.1); Sodium 133 mmol/L (136-145); Total Bilirubin 0.4 mg/dL (0.15-1.2); Total Protein 6.4 g/dL (6.6-8.7)
--- NOTE | 2020-09-05 07:00 | XR_ITS ---
WS: [id number] Exam: XR chest 1V portable [id number] Date/Time of Exam: 09/05/2020 7:00 AM Reason For Exam: sob Comparison 09/04/2020. Extensive bilateral consolidating infiltrates are unchanged. Heart size is top limits normal. No pleu ral effusions. No pneumothorax. Monitoring leads superimpose the chest. XR/XR chest 1V portable [id number] IMPRESSION: 1. Extensive bilateral pneumonia showing no change since prior study.
--- NOTE | 2020-09-05 07:42 | CT_ITS ---
WS: [id number] CT CHEST WITHOUT INTRAVENOUS CONTRAST HISTORY: LLL consolidation TECHNIQUE: Contiguous 5 mm axial imaging performed on the thorax. Coronal and sagittal reformats are submitted. All CT scans at [facility] use at least one of these dose optimization techniq ues: automated exposure control; mA and/or kV adjustment per patient size (includes targeted exams wh ere dose is matched to clinical indication); or iterative reconstruction. CONTRAST: None DLP: 899.57 mGy.cm COMPARISON: 08/26/2020 Lungs and central airway: There are extensive bilateral areas of consolidation involving all lobes. C onsolidation is increasing with less groundglass opacification. Crazy paving is also noted in all lob es. Slight improvement in the dense consolidations and atelectasis at the lung bases. No pericardial or pleural effusion. No pneumothorax. Pleura: Normal. No pleural effusion. Heart and pericardium: Normal size heart with no pericardial effusion. Mediastinum and angela: Mildly prominent lymphoid tissue. Cannot be further evaluated without IV contra st. Endotracheal tube has been removed. Nasogastric tube is no longer present. Vessels: Normal size aortic and pulmonary artery. No coronary artery calcifications. Chest wall and lower neck: No soft tissue masses. Upper abdomen: Negative. Osseous structures: No destructive process. CT/CT chest wo con [id number] IMPRESSION: 1. Progression of bilateral diffuse opacifications since the prior CT of 08/26. Less groundglass attenuation with increasing consolidations. These findi ngs can be seen with temporal progression of Covid 19. No improvement. 2. Endotracheal nasogastric tubes have been removed.
[2020-09-05 07:49] LABS: Glucose Point of Care 104 mg/dL (70-110)
[2020-09-05] MEDS: budesonide 0.5 mg/2 mL Neb INHALATION ×2 (08:10→20:20)
[2020-09-05 09:03] LABS: Procalcitonin 0.38 ng/mL (0-0.5)
[2020-09-05] MEDS: guaiFENesin 600 mg Tablet 1200 MG PO ×2 (09:48→17:17)
[2020-09-05 09:50] LABS: ABG PCO2 30.4 mmHg (35-45); ABG PH Result 7.44 (7.35-7.45); Arterial Blood Gas Hematocrit 38.2 % (42-52); Base Excess ABG -2.4 mmol/L (-2.0-2.0); Blood Gas Allen Test Pos; Blood Gas Sample Site Radial, right; Blood Gas Sample Type Arterial; HCO3 ABG 20.8 mmol/L (22-26); PO2 ABG 61.7 mmHg (80.0-100.0)
[2020-09-05] MEDS: dexamethasone 4 mg/mL INJ 6 MG IVP (09:54)
[2020-09-05] MEDS: zinc gluconate 50 mg Tablet PO (09:55)
[2020-09-05] MEDS: ascorbic acid 500 mg Tablet PO (09:55)
[2020-09-05] MEDS: sennosides-docusate Tablet 1 TAB PO (09:55)
--- NOTE | 2020-09-05 11:00 | PM.PN ---
Subjective Subjective: Interval history: Overall patient looks clinically stable sitting out of bed to chair and offers no complaints except he wants to go home No bowel movements in last 5 days Chest x-ray still showing Extensive bilateral pneumonia showing no change since prior study. Vitals/I&O/Wt Last Vital Signs Temp 98.4 F 09/04/20 16:00 Pulse 96 09/05/20 10:11 Resp 20 H 09/05/20 10:11 BP 133/76 09/05/20 04:00 Pulse Ox 95 09/05/20 10:11 09/04/20 09/05/20 09/05/20 22:59 06:59 14:59 Intake Total 850 / 1840 300 / 2140 Output Total 1300 / 1300 1000 / 2300 Balance -450 / 540 -700 / -160 Weight last 48 hrs Weight 268 lb 8 oz Physical Exam Narrative: EXAM NARRATIVE: PHYSICAL EXAM: General:sitting in chair, in mild respiratory distress HEENT:NCAT, PERRLA, EOMI Neck: Supple Lungs: Bilateral diffuse crackles Heart: s1/s2, RRR Abd: soft, NT, ND, BS + Normoactive Extremities: No edema 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, 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 SKIN: no rash Urinary Catheter Management^: Guevara: Cath Placed During This Visit: yes Reason for Continuing Indwelling Catheter: Accurate Measurement of Urinary Output in Critically Ill Patients Urinary Catheter Date of Insertion: 08/26/20 Urinary Catheter Time of Insertion: 10:45 Data : 09/05/20 03:40 09/05/20 03:40 Micro: Microbiology 09/03/20 20:30 Blood Culture - Preliminary Blood NEGATIVE TO DATE 09/03/20 20:30 Blood Culture - Preliminary Blood NEGATIVE TO DATE 08/26/20 18:40 Blood Culture - Final Blood Coagulase negativ staphylococc 08/30/20 03:40 Blood Culture - Final Blood NO GROWTH AFTER 5 DAYS 08/30/20 03:40 Blood Culture - Final Blood NO GROWTH AFTER 5 DAYS A&P Assessment and plan (1) Severe acute respiratory syndrome coronavirus 2 (SARS-CoV-2) detected: Status: Acute (2) Type 2 diabetes mellitus: Status: Acute (3) Acute respiratory failure with hypoxia: Status: Acute 50-year-old male with past medical history of type 2 diabetes admitted to VICU for acute hypoxic respiratory failure secondary to severe ARDS secondary to COVID-19 pneumonia on 08/26/2020 and currently with worsening bilateral consolidations on chest x-ray.. NEURO: Mentation normal following commands PULM: Acute hypoxic and hypercapneic respiratory failure secondary to COVID-19 pneumonia Worsening bilateral opacities on imaging with PF ratio 100 suggestive of ARDS Cannot rule out underlying nonresolving pneumonia - ? fungal pneumonia -secondary to COVID pna -Intubated on arrival to ER 08/26/2020 - extuabted on 08/31/2020 -Currently on high flow 35 L and 60% FiO2 saturating 98% -ABG today morning 7.4 02/13/61/20/92% on 60% FiO2 -CXR :Extensive bilateral pneumonia showing no change since prior study.-Likely ARDS -Obtain CT chest -S/p remdesivir, -Also received convalescent plasma -Currently on vancomycin, imipenem, micafungin azithromycin, dexamethasone, -started micafungin for fungal coverage in view of worsening leukocytosis, metabolic acidosis, worsening consolidations on x-ray despite being on broad-spectrum antibiotics along with anaerobic coverage -Recommended to send for MRSA nares until then cover with vancomycin -Cultures negative so far: Repeat sputum cultures -Improving inflammatory markers -Encourage incentive spirometry/chest physiotherapy/out of bed to chair -Continue scheduled DuoNeb, Pulmicort, Mucomyst nebulizations -Monitor saturation and titrate down FiO2 CVS: -Echo LV systolic function normal with EF 55 to 60%, grade 1 diastolic. -Hemodynamically stable -Monitor input output GI: -Started on carb consistent diet -On senna -no BM in the last 5 days-add lactulose 15 bid -Improved LFTs RENAL: -Renal functions improving - CMP suggestive of anion gap metabolic acidosis please send lactic acid -Overall close to net even -Strict I/O-try to keep slight negative to even -Continue guevara cath -Avoid nephrotoxins -Monitor electrolytes and supplement accordingly -CK normalized HEM: H&H stable Plts stable,will trend DVT prophylaxis: On Lovenox ENDO: Sugars well controlled On Levemir 18 every 12 and a scale coverage POCT Q6H ID: Severe sepsis secondary to COVID pna -afebrile, leukocytosis slightly down to 17 K -Blood cultures coagulase-negative staph -CXR : Worsening consolidation bilaterally-obtain CT-looks more like ARDS than infection -S/p remdesivir, -Also received convalescent plasma -Currently on vancomycin, imipenem, micafungin azithromycin, dexamethasone, -started micafungin for fungal coverage in view of worsening leukocytosis, metabolic acidosis, worsening consolidations on x-ray despite being on broad-spectrum antibiotics along with anaerobic coverage -Recommended to send for MRSA nares until then cover with vancomycin -Cultures negative so far: Repeat sputum cultures -Improving inflammatory markers -Follow-up Fungitell and galactomannan and histoplasma Code Status: Full code Disposition: ICU Recommendations conveyed to hospitalist covering the patient Attestations Medical Necessity Statement*: Acute hypoxic failure secondary to COVID-19 pneumonia still requiring high flow 60% and now with worsening consolidations on x-ray, leukocytosis, metabolic acidosis despite being on broad-spectrum bacterial and anaerobic coverage. Started on anti-fungal coverage as well Time Spent in Patient Care: Greater than 35 minutes (>than 50% of time spent in counselling and/or direct pt care on unit). 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
[2020-09-05 11:45] LABS: Glucose Point of Care 255 mg/dL (70-110)
[2020-09-05] MEDS: lactulose oral liq 20 gm/30 mL UDC PO (12:11)
--- NOTE | 2020-09-05 12:42 | P.PN_ITS ---
Subjective Subjective: Interval history: This morning patient was examined, he is actually sitting up into a chair, he tells me today is his 's birthday, he really wants to be with her, he wants me to do the best I can to try to get him out of the hospital, afebrile overnight, denies any shortness of breath, doing well with incentive spirometer and flutter valve use, Vitals/I&O/Wt Last Vital Signs Temp 98.3 F 09/05/20 12:00 Pulse 97 09/05/20 11:15 Resp 22 H 09/05/20 11:15 BP 136/94 09/05/20 10:00 Pulse Ox 92 09/05/20 11:15 09/04/20 09/05/20 09/05/20 22:59 06:59 14:59 Intake Total 1100 / 2090 300 / 2390 750 / 750 Output Total 1300 / 1300 1000 / 2300 675 / 675 Balance -200 / 790 -700 / 90 75 / 75 Weight last 48 hrs Weight 121.79 kg Physical Exam Const: COMMON NORMALS: no acute distress and patient oriented x3 HENMT: COMMON NORMALS: normocephalic HEAD & SCALP: normocephalic Neck/C-Spine: COMMON NORMALS: no JVD Resp: COMMON NORMALS: normal respiratory effort, No retractions, No use of accessory muscles and clear to auscultation bilaterally AUSCULTATION: clear to auscultation bilaterally Cardio: COMMON NORMALS: no JVD, regular rate, regular rhythm, S1 normal heart sound present and S2 normal heart sound present RATE: regular rate RHYTHM: regular rhythm HEART SOUNDS: S1 normal heart sound present and S2 normal heart sound present GI: COMMON NORMALS: Normal to inspection, nondistended, normoactive bowel sounds present, Soft to palpation, non-tender, No hepatosplenomegaly present, no masses and no bruits PALPATION: Yes Soft to palpation and Yes No hepatosplenomegaly present Extremity: COMMON NORMALS: capillary refill normal, no clubbing, cyanosis or edema, no calf tenderness and no pedal edema Neuro: COMMON NORMALS: patient oriented x3 Psych: COMMON NORMALS: mental status grossly normal Urinary Catheter Management^: Colon: Cath Placed During This Visit: yes Reason for Continuing Indwelling Catheter: Accurate Measurement of Urinary Output in Critically Ill Patients Urinary Catheter Date of Insertion: 08/26/20 Urinary Catheter Time of Insertion: 10:45 Data : 09/05/20 03:40 09/05/20 03:40 Micro: Microbiology 09/03/20 20:30 Blood Culture - Preliminary Blood NEGATIVE TO DATE 09/03/20 20:30 Blood Culture - Preliminary Blood NEGATIVE TO DATE 08/26/20 18:40 Blood Culture - Final Blood Coagulase negativ staphylococc A&P Assessment and plan (1) ARDS (adult respiratory distress syndrome): Status: Acute (2) Severe acute respiratory syndrome coronavirus 2 (SARS-CoV-2) detected: Status: Acute (3) Type 2 diabetes mellitus: Status: Acute (4) Lactic acidosis: Status: Acute (5) Hyponatremia: Status: Acute (6) Pneumonia due to COVID-19 virus: Status: Acute (7) Secondary bacterial pneumonia: Status: Acute Additional A&P Information Acute hypoxic respiratory failure secondary to : ARDS, severe COVID-19 pneumonia, secondary bacterial pneumonia, pulmonary edema -Successfully extubated 08/31/2020 -Currently on high flow needed as tolerated, BiPAP as needed during the night -Passed bedside swallow eval, nurses report some desaturations after feeding, will have speech therapy reassess him -Day 2 of 2 of convalescent plasma completed on 08/28/2020 -Continue with remdesivir for overall 5-day course. Day 5 of 5 -Dexamethasone 6 mg IV daily. -Spoke to infectious disease, recommended to switch aztreonam and Flagyl to Primaxin, continue vancomycin, continue caspofungin for possible candidal fungemia, if has fevers or continue white count over the next 48 hours, consider switching over to voriconazole for possible Aspergillus only risk factor is type 2 diabetes A1c 9.1, repeat blood cultures, sputum cultures, urine cultures, fungal studies ordered, hopefully will have a CT chest today -ABG this morning shows pH 7.44, bicarb 20.8, PCO2 30.4 -Pulmonary toilet with chest vest incentive spirometer, flutter valve -DuoNebs every 4 hour, budesonide twice daily. -vit C, zinc. -Daily EKGs, telemetry monitoring -Continue with therapeutic dose of Lovenox. -Continue to monitor inflammatory markers including ferritin, LDH, proBNP, D- dimer, fibrinogen. -We will consult pulmonary, input appreciated -Replace potassium and phosphorus as needed -Switch over to moderate dose sliding scale, Levemir 10 units twice daily Metabolic alkalosis: Likely secondary to Lasix therapy, hold for today, finished Diamox Rhabdomyolysis, continue to monitor Type 2 diabetes mellitus: Clear liquid, advance to dysphagia diet Moderate dose sliding scale, Levemir 10 units twice daily Lactic acidosis: Resolved. Most likely from severe sepsis. Anion gap metabolic acidosis: Resolved, Patient does not have DKA. Lactic acidosis resolved. Hyponatremia: Resolved. Continue to monitor BMP daily for now. Status is stable, prognosis is guarded Start to work on LTAC placement Physical therapy Full code. dysphagia diet Full dose Lovenox. Protonix for PUD prophylaxis. Patient's care has been discussed in detail with his Ms. Thomas on [phone]. All the questions were answered. Plan for today: Continue high flow, up out of bed, work with physical therapy, aggressive pulmonary toilet, monitor for fevers, monitor respiratory status, will do CT of the chest today Attestations Medical Necessity Statement*: She requires hospitalization, for acute respiratory distress syndrome, COVID-19 pneumonia, secondary bacterial pneumonia, recurrent fevers, high oxygen requirements Coding Level of Care Code Acute Signals Intelligence Superintendent for [facility] Diagnoses ARDS (adult respiratory distress syndrome) J80 Severe acute respiratory syndrome coronavirus 2 (SARS-CoV-2) detected U07.1 Type 2 diabetes mellitus E11.9 Lactic acidosis E87.2 Hyponatremia E87.1 Pneumonia due to COVID-19 virus U07.1; J12.89 Secondary bacterial pneumonia J15.9
[2020-09-05] MEDS: azithromycin 500 MG in sodium chloride 0.9% 250 ML 250 MG IV (16:26)
[2020-09-05] MEDS: vancomycin 1,500 MG/300 ML PIGGYBACK 166 MG IV (16:28)
[2020-09-05 16:51] LABS: Glucose Point of Care 305 mg/dL (70-110)
--- NOTE | 2020-09-05 18:41 | PC.NURSE ---
per dr wade he asked that lab draw a few fungal type labs . i notified them at 1130 and again at 1800 as i noticed nothing had been collected. they said they would look into it.
--- NOTE | 2020-09-05 18:56 | PC.NURSE ---
lab personalexis spoke to sheri, apparently it is only a sputum that will be sent out . patient is aware he needs to expectorate one from the lungs not just saliva.
--- NOTE | 2020-09-05 19:09 | PC.NURSE ---
PATIENTS BUTTOCK CLEFT IS SCABBED AND HAS EXUDATE PRESENT. OPTIFOAMS PLACED TO PROTECT AND PADS USED IN CHAIR , HE COULD LAY SIDE TO SIDE IN THE CHAIR AND IN BED . WANTS HIS MORPHINE AT AROUND 2300.
--- NOTE | 2020-09-05 20:03 | PC.NURSE ---
Beginning Shift assessment AO x4, 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, speech clear, answers questions appropriately denied SOB, lungs diminished and clear, unlabored RR
[2020-09-06] VITALS (25 sets, daily range): BP systolic 132–180; BP diastolic 71–106; PULSE 84–107; RESP 17–42; TEMP 36.8–37.1; O2SAT 86–98
[2020-09-06] MEDS: lactulose oral liq 20 gm/30 mL UDC PO (00:26)
[2020-09-06 01:27] LABS: Glucose Point of Care 57 mg/dL (70-110)
--- NOTE | 2020-09-06 01:37 | PC.NURSE ---
C/O sudden onset of nausea and Dyspnea, Glucose 54, Juice offered per protocol, pt requested milk instead
[2020-09-06 01:46] LABS: Glucose Point of Care 242 mg/dL (70-110)
[2020-09-06 01:46] LABS: Glucose Point of Care 63 mg/dL (70-110)
[2020-09-06 02:14] LABS: Glucose Point of Care 89 mg/dL (70-110)
[2020-09-06] MEDS: ipratropium-albuterol 3 mL Neb INHALATION ×6 (03:15→23:43)
[2020-09-06 04:13] LABS: ABG PCO2 28.9 mmHg (35-45); ABG PH Result 7.47 (7.35-7.45); Arterial Blood Gas Hematocrit 37.7 % (42-52); Base Excess ABG -1.8 mmol/L (-2.0-2.0); Blood Gas Operator Identificat HARKR; Blood Gas Sample Site Brachial, left; Blood Gas Sample Type Arterial; HCO3 ABG 20.9 mmol/L (22-26); PO2 ABG 84.9 mmHg (80.0-100.0)
[2020-09-06 04:36] LABS: Basophils % 0.2 %; Eosinophils # 0.2 10^3/uL (0.0-0.8); Eosinophils % 0.9 %; Hemoglobin 11.8 g/dL (11.7-16.6); Lymphocytes # 1.6 10^3/uL (0.8-4.8); Lymphocytes % 9.5 %; Mean Corpuscular HGB Conc 32.8 g/dL (30.0-36.0); Mean Corpuscular Hemoglobin 28.4 pg (28.0-34.0); Mean Corpuscular Volume 86.7 fL (80-94); Mean Platelet Volume 9.9 fL (7.4-10.4); Monocytes # 1.3 10^3/uL (0.2-0.9); Monocytes % 7.3 %; Neutrophils # 13.89 10^3/uL (1.8-7.7); Neutrophils % 80.4 %; Nucleated Red Blood Cells % 0 %; Platelet Count 379 10^3/cmm (130-400); Red Blood Count 4.15 10^6/uL (4.1-5.3); Red Cell Distribution Width 12.9 % (12.1-15.1); White Blood Count 17.3 10^3/uL (4.0-10.0)
[2020-09-06] MEDS: enoxaparin 120 mg/0.8 mL Syringe 110 MG SUBCUT ×2 (04:38→17:19)
[2020-09-06] MEDS: pantoprazole 40 mg SDV IVP ×2 (04:38→15:13)
[2020-09-06 05:06] LABS: Alanine Aminotransferase 31 U/L (0-41); Albumin Level 3.3 g/dL (3.5-5.2); Alkaline Phosphatase 116 IU/L (40-130); Anion Gap 15.4 (5-19); Aspartate Amino Transferase 34 U/L (0-40); Blood Urea Nitrogen 26 mg/dL (6-20); C Reactive Protein 39.9 mg/L (0.0-4.9); Calcium 9.3 mg/dL (8.5-10.5); Carbon Dioxide 20 mmol/L (22-29); Chloride 103 mmol/L (98-107); Globulin 3.6 g/dL (1.3-4.6); Glomerular Filtration Rate 118.4 mL/min (90-130); Glucose 133 mg/dL (65-115); Magnesium 1.9 mg/dL (1.7-2.3); Osmolality Calculated 287 mOsm/kg (285-295); Phosphorus 3.1 mg/dL (2.5-4.5); Potassium 3.4 mmol/L (3.5-5.1); Sodium 135 mmol/L (136-145); Total Bilirubin 0.3 mg/dL (0.15-1.2); Total Protein 6.9 g/dL (6.6-8.7)
[2020-09-06 05:13] LABS: Vancomycin Trough 19.4 ug/mL (10-15)
--- NOTE | 2020-09-06 05:38 | PC.NURSE ---
This Nurse Reported Vanc trough 19.4 to Rx, this nurse was advised to continue same dose
[2020-09-06] MEDS: vancomycin 1,500 MG/300 ML PIGGYBACK 200 MG IV (05:39)
[2020-09-06 05:56] LABS: Glucose Point of Care 154 mg/dL (70-110)
[2020-09-06 06:03] LABS: INR 1.16 (0.8-1.2)
[2020-09-06 06:05] LABS: D Dimer 0.52 ug/mIFEU (0-0.59)
--- NOTE | 2020-09-06 07:00 | XRR_ITS ---
PROCEDURE INFORMATION: Exam: XR Chest, 1 View Exam date and time: 09/06/2020 4:24 AM Age: 50 years old Clinical indication: Condition or disease; Lung condition and disease; Other: Covid; Additional info: SOB TECHNIQUE: Imaging protocol: XR of the chest Views: 1 view. COMPARISON: CT chest con [id number] 09/05/2020 2:00 PM FINDINGS: Lungs: Interstitial and chronic granulomatous disease. Extensive asymmetric airspace disease, left greater than right, in the setting of reported COVID pneumonitis. Pleural space: No significant pleural effusion. Heart/Mediastinum: no cardiomegaly, allowing for hypoinflation and portable positioning. Bones/joints: Mild degenerative change. XR/XR chest 1V portable [id number] IMPRESSION: Extensive asymmetric airspace disease, left greater than right, in the setting of reported COVID pneumonitis.
[2020-09-06 07:52] LABS: NT Pro B Type Natriuretic Pept 225 pg/mL (0-125); Procalcitonin 0.29 ng/mL (0-0.5)
[2020-09-06 08:04] LABS: Creatine Phosphokinase 44 U/L (39-308)
--- NOTE | 2020-09-06 08:05 | PC.RESP ---
chest vest not performed due to patient having belly pain. Patient also tried IS and could not managed to achieve any goal. Therapist will try at a later time and nurse notified.
[2020-09-06] MEDS: budesonide 0.5 mg/2 mL Neb INHALATION ×2 (08:07→20:14)
[2020-09-06] MEDS: lidocaine 1% 5 ML in potassium chloride premix 100 ML 25 ML IV (09:22)
[2020-09-06] MEDS: hyDRALAzine 20 mg/mL INJ 1 mL 5 MG IVP ×2 (09:28→12:05)
[2020-09-06] MEDS: guaiFENesin 600 mg Tablet 1200 MG PO ×2 (09:28→15:34)
[2020-09-06] MEDS: ascorbic acid 500 mg Tablet PO (09:30)
[2020-09-06] MEDS: sennosides-docusate Tablet 1 TAB PO (09:30)
[2020-09-06] MEDS: dexamethasone 4 mg/mL INJ 6 MG IVP (09:31)
[2020-09-06] MEDS: zinc gluconate 50 mg Tablet PO (09:33)
[2020-09-06] MEDS: morphine 4 mg/mL SDV 1 mL 1 MG IVP (09:42)
--- NOTE | 2020-09-06 09:46 | PM.PN ---
Subjective Subjective: Interval history: Patient appears clinically stable, normal mentation mild respiratory distress but otherwise saturating 95% on 55% FiO2\ Had an episode of hypoglycemia overnight Patient wants to go home as he said staying isolated for so long the so depressing but denied any suicidal or homicidal ideations. His son is getting today and evidently he is missing the occasion and he is emotional about it. Vitals/I&O/Wt Last Vital Signs Temp 98.4 F 09/05/20 20:00 Pulse 94 09/06/20 08:08 Resp 25 H 09/06/20 09:42 BP 152/102 09/06/20 06:24 Pulse Ox 94 09/06/20 08:08 09/05/20 09/06/20 09/06/20 22:59 06:59 14:59 Intake Total 600 / 1750 100 / 1850 Output Total 200 / 875 1400 / 2275 Balance 400 / 875 -1300 / -425 Weight last 48 hrs Weight 270 lb Physical Exam Narrative: EXAM NARRATIVE: PHYSICAL EXAM: General:sitting in chair, in mild respiratory distress HEENT:NCAT, PERRLA, EOMI Neck: Supple Lungs: Bilateral diffuse crackles Heart: s1/s2, RRR Abd: soft, NT, ND, BS + Normoactive Extremities: No edema CLINICAL OPERATIONS MANAGER: alert, 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 SKIN: no rash Urinary Catheter Management^: Guevara: Cath Placed During This Visit: yes Reason for Continuing Indwelling Catheter: Accurate Measurement of Urinary Output in Critically Ill Patients Urinary Catheter Date of Insertion: 08/26/20 Urinary Catheter Time of Insertion: 10:45 Data : 09/06/20 03:50 09/06/20 03:50 Micro: Microbiology 09/05/20 07:30 MRSA Culture - Final Nose A&P Assessment and plan (1) Severe acute respiratory syndrome coronavirus 2 (SARS-CoV-2) detected: Status: Acute (2) Type 2 diabetes mellitus: Status: Acute (3) Acute respiratory failure with hypoxia: Status: Acute 50-year-old male with past medical history of type 2 diabetes admitted to VICU for acute hypoxic respiratory failure secondary to severe ARDS secondary to COVID-19 pneumonia on 08/26/2020 and currently with worsening bilateral consolidations on chest x-ray.. NEURO: Mentation normal following commands PULM: Acute hypoxic and hypercapneic respiratory failure secondary to COVID-19 pneumonia Worsening bilateral opacities on imaging with PF ratio 100 suggestive of ARDS Cannot rule out underlying nonresolving pneumonia - ? fungal pneumonia -secondary to COVID pna -Intubated on arrival to ER 08/26/2020 - extuabted on 08/31/2020 -Currently on high flow 35 L and 60% FiO2 saturating 98% -ABG today morning 7.4 4/30/61/20/92% on 60% FiO2 -CXR :Extensive bilateral pneumonia showing no change since prior study. -CT chest 09/05/2020:Progression of bilateral diffuse opacifications since the prior CT of 08/26/2020. Less groundglass attenuation with increasing consolidations. These findings can be seen with temporal progression of Covid 19. No improvement. -S/p remdesivir, -Also received convalescent plasma -Currently on vancomycin, imipenem, micafungin azithromycin, dexamethasone, -MRSA nares negative -Overall clinically patient doing well and oxygenating 95% on 50% FiO2 when compared to the severity of CT chest findings of GGO's of severe COVID-19 pneumonia -I feel like it is a slow process of recovery and radiological findings will take its time for resolution -Once repeat blood cultures are negative recommend to DC antibiotics and antifungals -Cultures negative so far: Repeat sputum cultures -Improving inflammatory markers -Encourage incentive spirometry/chest physiotherapy/out of bed to chair -Continue scheduled DuoNeb, Pulmicort, Mucomyst nebulizations -Monitor saturation and titrate down FiO2 CVS: -Echo LV systolic function normal with EF 55 to 60%, grade 1 diastolic. -Hemodynamically stable -Monitor input output GI: -Started on carb consistent diet -On senna -no BM in the last 5 days-add lactulose 15 bid -Improved LFTs RENAL: -Renal functions improving - CMP suggestive of anion gap metabolic acidosis please send lactic acid -Overall close to net even -Strict I/O-try to keep slight negative to even -Continue guevara cath -Avoid nephrotoxins -Monitor electrolytes and supplement accordingly -CK normalized HEM: H&H stable Plts stable,will trend DVT prophylaxis: On Lovenox ENDO: Sugars well controlled -Episode of hypoglycemia yesterday night Recommended to decrease Levemir to 15 units twice daily and continue scale coverage POCT Q6H ID: Severe sepsis secondary to COVID pna -afebrile, leukocytosis slightly down to 17 K -Blood cultures coagulase-negative staph -CXR :Extensive bilateral pneumonia showing no change since prior study. -CT chest 09/05/2020:Progression of bilateral diffuse opacifications since the prior CT of 08/26/2020. Less groundglass attenuation with increasing consolidations. These findings can be seen with temporal progression of Covid 19. No improvement. -S/p remdesivir, -Also received convalescent plasma -Currently on vancomycin, imipenem, micafungin azithromycin, dexamethasone, -MRSA nares negative -Overall clinically patient doing well and oxygenating 95% on 50% FiO2 when compared to the severity of CT chest findings of GGO's of severe COVID-19 pneumonia -I feel like it is a slow process of recovery and radiological findings will take its time for resolution -Once repeat blood cultures are negative recommend to DC antibiotics and antifungals -Cultures negative so far: Repeat sputum cultures -Improving inflammatory markers -Follow-up Fungitell and galactomannan and histoplasma Code Status: Full code Disposition: ICU Recommendations conveyed to hospitalist covering the patient Attestations Medical Necessity Statement*: Patient requires hospitalization, for acute respiratory distress syndrome, COVID-19 pneumonia, secondary bacterial pneumonia, recurrent fevers, high oxygen requirements Time Spent in Patient Care: Greater than 35 minutes (>than 50% of time spent in counselling and/or direct pt care on unit). Coding Level of Care Code Established Pt Acute Game Manager for [facility] Fwd Patient Type Established History Comprehensive Exam Comprehensive Medical Decision Making High Complexity Diagnoses Severe acute respiratory syndrome coronavirus 2 (SARS-CoV-2) detected U07.1 Type 2 diabetes mellitus E11.9 Acute respiratory failure with hypoxia J96.01 Time Spent (min) 45
[2020-09-06] MEDS: sodium chloride 0.9% 250 ML IV (10:06)
[2020-09-06] MEDS: collagenase oint 30 gm 1 APPLIC TOPICAL (10:19)
[2020-09-06 11:54] LABS: Glucose Point of Care 245 mg/dL (70-110)
--- NOTE | 2020-09-06 13:37 | P.PN_ITS ---
Subjective Subjective: Interval history: This morning patient was examined, he is in bed, he is a bit emotional this morning, it is his son's wedding, he really wants to get out of the hospital, afebrile overnight, no shortness of breath, his oxygen requirements are improving Vitals/I&O/Wt Last Vital Signs Temp 98.8 F 09/06/20 11:41 Pulse 106 H 09/06/20 11:43 Resp 23 H 09/06/20 11:43 BP 180/106 09/06/20 11:43 Pulse Ox 93 09/06/20 11:43 09/05/20 09/06/20 09/06/20 22:59 06:59 14:59 Intake Total 850 / 2000 100 / 2100 340 / 340 Output Total 200 / 875 1400 / 2275 780 / 780 Balance 650 / 1125 -1300 / -175 -440 / -440 Weight last 48 hrs Weight 122.47 kg Physical Exam Const: COMMON NORMALS: no acute distress and patient oriented x3 HENMT: COMMON NORMALS: normocephalic HEAD & SCALP: normocephalic Neck/C-Spine: COMMON NORMALS: no JVD Resp: COMMON NORMALS: normal respiratory effort, No retractions, No use of accessory muscles and clear to auscultation bilaterally AUSCULTATION: clear to auscultation bilaterally Cardio: COMMON NORMALS: no JVD, regular rate, regular rhythm, S1 normal heart sound present and S2 normal heart sound present RATE: regular rate RHYTHM: regular rhythm HEART SOUNDS: S1 normal heart sound present and S2 normal heart sound present GI: COMMON NORMALS: Normal to inspection, nondistended, normoactive bowel sounds present, Soft to palpation, non-tender, No hepatosplenomegaly present, no masses and no bruits PALPATION: Yes Soft to palpation and Yes No hepato splenomegaly present Extremity: COMMON NORMALS: capillary refill normal, no clubbing, cyanosis or edema, no calf tenderness and no pedal edema Neuro: COMMON NORMALS: patient oriented x3 Psych: COMMON NORMALS: mental status grossly normal Urinary Catheter Management^: Colon: Cath Placed During This Visit: yes Reason for Continuing Indwelling Catheter: Accurate Measurement of Urinary Output in Critically Ill Patients Urinary Catheter Date of Insertion: 08/26/20 Urinary Catheter Time of Insertion: 10:45 Data : 09/06/20 03:50 09/06/20 03:50 Micro: Microbiology 09/05/20 07:30 MRSA Culture - Final Nose A&P Assessment and plan (1) ARDS (adult respiratory distress syndrome): Status: Acute (2) Severe acute respiratory syndrome coronavirus 2 (SARS-CoV-2) detected: Status: Acute (3) Type 2 diabetes mellitus: Status: Acute (4) Lactic acidosis: Status: Acute (5) Hyponatremia: Status: Acute (6) Pneumonia due to COVID-19 virus: Status: Acute (7) Secondary bacterial pneumonia: Status: Acute Additional A&P Information Acute hypoxic respiratory failure secondary to : ARDS, severe COVID-19 pneumonia, secondary bacterial pneumonia, pulmonary edema -Successfully extubated 08/31/2020 -Currently on high flow needed as tolerated, BiPAP as needed during the night -Passed bedside swallow eval, nurses report some desaturations after feeding, will have speech therapy reassess him -Day 2 of 2 of convalescent plasma completed on 08/28/2020 -Continue with remdesivir for overall 5-day course. Day 5 of 5 -Dexamethasone 6 mg IV daily. -CT chest progression of bilateral diffuse opacifications since the prior CT of 08/26/2020. Less groundglass attenuation with increasing consolidations. These findings can be seen with temporal progression of Covid 19. No improvement -White blood cell count has improved to 17,000, all repeat cultures so far have been unremarkable -Caspofungin discontinued today -Continue vancomycin, Primaxin and azithromycin -Will discontinue vancomycin based upon follow-up cultures -Pulmonary toilet with chest vest incentive spirometer, flutter valve -DuoNebs every 4 hour, budesonide twice daily. -vit C, zinc. -Daily EKGs, telemetry monitoring -Continue with therapeutic dose of Lovenox. -Continue to monitor inflammatory markers including ferritin, LDH, proBNP, D- dimer, fibrinogen. -We will consult pulmonary, input appreciated -Replace potassium and phosphorus as needed -Switch over to moderate dose sliding scale, Levemir decreased to 12 units twice daily given hypoglycemic episode last night, Metabolic alkalosis: Resolved Rhabdomyolysis, continue to monitor Type 2 diabetes mellitus: Clear liquid, advance to dysphagia diet Moderate dose sliding scale, Levemir 12 units twice daily Lactic acidosis: Resolved. Most likely from severe sepsis. Anion gap metabolic acidosis: Resolved, Patient does not have DKA. Lactic acidosis resolved. Hyponatremia: Resolved. Continue to monitor BMP daily for now. Status is stable, prognosis is guarded Start to work on LTAC placement Physical therapy Full code. dysphagia diet Full dose Lovenox. Protonix for PUD prophylaxis. Patient's care has been discussed in detail with his Ms. Thomas on [phone]. All the questions were answered. Plan for today: Continue high flow, up out of bed, work with physical therapy, aggressive pulmonary toilet, monitor for fevers, monitor respiratory status, Attestations Medical Necessity Statement*: Patient requires hospitalization for acute respiratory failure secondary to COVID-19, acute respiratory distress syndrome Coding Level of Care Code Acute Drawing Kiln Operator for [facility] Fwd Diagnoses ARDS (adult respiratory distress syndrome) J80 Severe acute respiratory syndrome coronavirus 2 (SARS-CoV-2) detected U07.1 Type 2 diabetes mellitus E11.9 Lactic acidosis E87.2 Hyponatremia E87.1 Pneumonia due to COVID-19 virus U07.1; J12.89 Secondary bacterial pneumonia J15.9
[2020-09-06] MEDS: azithromycin 500 MG in sodium chloride 0.9% 250 ML 250 MG IV (15:11)
[2020-09-06] MEDS: HYDROcodone-acetaminophen 5-325 mg Tablet 1 TAB PO (15:34)
[2020-09-06 16:56] LABS: Glucose Point of Care 240 mg/dL (70-110)
[2020-09-06] MEDS: vancomycin 1,500 MG/300 ML PIGGYBACK 166 MG IV (17:19)
--- NOTE | 2020-09-06 19:01 | PC.NURSE ---
PATIENT WORE OUT TODAY AND IRRITATED BY SORE ON BUTTOCK. PATIENT HAS A SMALL STAGE 2 WITHIN A 7CM LONG DTI IN BUTTOCK CLEFT. AND 2 STAGE 1 NON BLANCHING AREAS ABOUT 1CM IN DIAMETER ON EITHER SIDE OF BUTTOCK. OPTIFOAM FOR THE BUTTOCK UNAVAILABLE IN THE STOREROOM AND MEDSURGE DID NOT HAVE ANY . 2 2/2 OPTIFOAM ON STAGE 1 S AND GAUZE WET TO DRY WITH SANTYL IN THE CLEFT. AND A ISLAND DRESSING OVER THAT AREA. PAIN TREATED, HE MAY BE ANXIOUS. ENCOURAGED HIM TO GET UP TO CHAIR FOR DINNER. HE BARELY ATE ALL DAY. HE DID BRUSH TEETH.
[2020-09-06 21:12] LABS: Glucose Point of Care 140 mg/dL (70-110)
[2020-09-07] VITALS (21 sets, daily range): BP systolic 120–154; BP diastolic 64–97; PULSE 82–109; RESP 17–34; TEMP 36.9–37.1; O2SAT 88–97
--- NOTE | 2020-09-07 00:51 | PC.NURSE ---
When explaining medication to patient and its purpose, pt states he does not want as he had explosive diarrhea this morning.
[2020-09-07 03:57] LABS: Basophils % 0.3 %; Eosinophils # 0.1 10^3/uL (0.0-0.8); Hematocrit 33.7 % (42.0-52.0); Hemoglobin 10.9 g/dL (11.7-16.6); Lymphocytes # 1.5 10^3/uL (0.8-4.8); Lymphocytes % 11.4 %; Mean Corpuscular HGB Conc 32.3 g/dL (30.0-36.0); Mean Corpuscular Hemoglobin 28.2 pg (28.0-34.0); Mean Corpuscular Volume 87.3 fL (80-94); Mean Platelet Volume 10.9 fL (7.4-10.4); Monocytes # 1.1 10^3/uL (0.2-0.9); Neutrophils # 10.45 10^3/uL (1.8-7.7); Neutrophils % 77.7 %; Nucleated Red Blood Cells % 0 %; Platelet Count 315 10^3/cmm (130-400); Red Blood Count 3.86 10^6/uL (4.1-5.3); Red Cell Distribution Width 13.1 % (12.1-15.1); White Blood Count 13.5 10^3/uL (4.0-10.0)
[2020-09-07] MEDS: enoxaparin 120 mg/0.8 mL Syringe 110 MG SUBCUT ×2 (04:00→15:19)
[2020-09-07] MEDS: pantoprazole 40 mg SDV IVP ×2 (04:00→15:19)
[2020-09-07 04:01] LABS: ABG PCO2 29.4 mmHg (35-45); ABG PH Result 7.47 (7.35-7.45); Arterial Blood Gas Hematocrit 34.9 % (42-52); Base Excess ABG -1.5 mmol/L (-2.0-2.0); Blood Gas Allen Test Pos; Blood Gas Sample Site Radial, left; Blood Gas Sample Type Arterial; HCO3 ABG 21.4 mmol/L (22-26); PO2 ABG 90.2 mmHg (80.0-100.0)
[2020-09-07] MEDS: vancomycin 1,500 MG/300 ML PIGGYBACK 166 MG IV ×2 (04:01→16:25)
[2020-09-07 04:09] LABS: INR 1.14 (0.8-1.2)
[2020-09-07 04:12] LABS: D Dimer 0.44 ug/mIFEU (0-0.59)
[2020-09-07] MEDS: ipratropium-albuterol 3 mL Neb INHALATION ×3 (04:30→11:06)
[2020-09-07 04:42] LABS: Oxygen Device HHFNC
[2020-09-07 05:19] LABS: NT Pro B Type Natriuretic Pept 302 pg/mL (0-125); Procalcitonin 0.18 ng/mL (0-0.5)
[2020-09-07 05:32] LABS: Alanine Aminotransferase 32 U/L (0-41); Albumin Level 3.1 g/dL (3.5-5.2); Alkaline Phosphatase 94 IU/L (40-130); Anion Gap 13.8 (5-19); Aspartate Amino Transferase 33 U/L (0-40); Blood Urea Nitrogen 23 mg/dL (6-20); C Reactive Protein 19.4 mg/L (0.0-4.9); Calcium 8.6 mg/dL (8.5-10.5); Carbon Dioxide 20 mmol/L (22-29); Chloride 105 mmol/L (98-107); Creatine Phosphokinase 37 U/L (39-308); Globulin 3.2 g/dL (1.3-4.6); Glomerular Filtration Rate 141.5 mL/min (90-130); Glucose 132 mg/dL (65-115); Magnesium 1.8 mg/dL (1.7-2.3); Osmolality Calculated 286 mOsm/kg (285-295); Phosphorus 2.7 mg/dL (2.5-4.5); Potassium 3.8 mmol/L (3.5-5.1); Sodium 135 mmol/L (136-145); Total Bilirubin 0.3 mg/dL (0.15-1.2); Total Protein 6.3 g/dL (6.6-8.7)
[2020-09-07] MEDS: budesonide 0.5 mg/2 mL Neb INHALATION (07:55)
[2020-09-07] MEDS: sennosides-docusate Tablet 1 TAB PO (08:55)
[2020-09-07] MEDS: guaiFENesin 600 mg Tablet 1200 MG PO ×2 (08:55→15:21)
[2020-09-07] MEDS: zinc gluconate 50 mg Tablet PO (08:56)
[2020-09-07] MEDS: ascorbic acid 500 mg Tablet PO (08:56)
[2020-09-07] MEDS: dexamethasone 4 mg/mL INJ 6 MG IVP (08:56)
[2020-09-07] MEDS: HYDROcodone-acetaminophen 5-325 mg Tablet 1 TAB PO ×3 (08:56→21:35)
[2020-09-07] MEDS: ondansetron 2 mg/ML SDV 2 mL 4 MG IVP (08:57)
[2020-09-07] MEDS: collagenase oint 30 gm 1 APPLIC TOPICAL (08:57)
[2020-09-07] MEDS: tamsulosin 0.4 mg Capsule PO (11:18)
[2020-09-07] MEDS: polyethylene glycol 3350 Pkt 17 gm PO (11:18)
[2020-09-07 11:50] LABS: Glucose Point of Care 347 mg/dL (70-110)
[2020-09-07] MEDS: albuterol 8 gm MDI 2 PUFF INHALATION ×3 (15:12→23:29)
[2020-09-07] MEDS: azithromycin 500 MG in sodium chloride 0.9% 250 ML 250 MG IV (15:16)
[2020-09-07 16:21] LABS: Glucose Point of Care 399 mg/dL (70-110)
[2020-09-07 21:08] LABS: Glucose Point of Care 161 mg/dL (70-110)
--- NOTE | 2020-09-07 21:22 | PC.NURSE ---
Pt stated I don't want the insulin 6 units, I dropped last night my blood sugar . Pt agreed to take the Levemir SQ. Pt c/o about his coccyx pain at the wound.
[2020-09-08] VITALS (19 sets, daily range): BP systolic 100–153; BP diastolic 55–105; PULSE 84–104; RESP 12–33; TEMP 36.1–37.1; O2SAT 90–100; BMI 37.4
[2020-09-08] MEDS: pantoprazole 40 mg SDV IVP ×2 (04:06→17:29)
[2020-09-08] MEDS: enoxaparin 120 mg/0.8 mL Syringe 110 MG SUBCUT (04:06)
[2020-09-08 05:54] LABS: Basophils # 0.1 10^3/uL (0.0-0.1); Basophils % 0.4 %; Eosinophils # 0.2 10^3/uL (0.0-0.8); Eosinophils % 1.7 %; Hematocrit 33.4 % (42.0-52.0); Hemoglobin 10.8 g/dL (11.7-16.6); Lymphocytes # 1.7 10^3/uL (0.8-4.8); Lymphocytes % 14.2 %; Mean Corpuscular HGB Conc 32.3 g/dL (30.0-36.0); Mean Corpuscular Hemoglobin 28.6 pg (28.0-34.0); Mean Corpuscular Volume 88.4 fL (80-94); Monocytes # 0.9 10^3/uL (0.2-0.9); Monocytes % 7.8 %; Neutrophils # 8.78 10^3/uL (1.8-7.7); Neutrophils % 74.7 %; Nucleated Red Blood Cells % 0 %; Platelet Count 367 10^3/cmm (130-400); Red Blood Count 3.78 10^6/uL (4.1-5.3); White Blood Count 11.8 10^3/uL (4.0-10.0)
[2020-09-08 06:39] LABS: Glucose Point of Care 222 mg/dL (70-110)
--- NOTE | 2020-09-08 07:00 | XR_ITS ---
WS: [id number] XR chest 1V portable [id number] REASON FOR EXAM: sob FINDINGS: The chest is unchanged compared to previous examination of 09/06/2020. There are diffuse alveolar infiltrates throughout both lung ying compatible with acute/subacute pne umonitis. No new chest findings. XR/XR chest 1V portable [id number] IMPRESSION: Stable abnormal chest as above.
--- NOTE | 2020-09-08 07:00 | PC.NURSE ---
report to RASHEL Greer
[2020-09-08 07:08] LABS: Alanine Aminotransferase 35 U/L (0-41); Albumin Level 3.2 g/dL (3.5-5.2); Alkaline Phosphatase 102 IU/L (40-130); Anion Gap 15.1 (5-19); Aspartate Amino Transferase 24 U/L (0-40); Blood Urea Nitrogen 18 mg/dL (6-20); C Reactive Protein 20.9 mg/L (0.0-4.9); Calcium 8.5 mg/dL (8.5-10.5); Carbon Dioxide 21 mmol/L (22-29); Chloride 103 mmol/L (98-107); Globulin 2.6 g/dL (1.3-4.6); Glomerular Filtration Rate 174.6 mL/min (90-130); Glucose 201 mg/dL (65-115); Magnesium 1.8 mg/dL (1.7-2.3); Osmolality Calculated 288 mOsm/kg (285-295); Phosphorus 2.6 mg/dL (2.5-4.5); Potassium 4.1 mmol/L (3.5-5.1); Sodium 135 mmol/L (136-145); Total Bilirubin 0.4 mg/dL (0.15-1.2); Total Protein 5.8 g/dL (6.6-8.7)
[2020-09-08 07:09] LABS: NT Pro B Type Natriuretic Pept 301 pg/mL (0-125); Procalcitonin 0.12 ng/mL (0-0.5)
[2020-09-08] MEDS: dexamethasone 4 mg/mL INJ 6 MG IVP (08:33)
[2020-09-08] MEDS: zinc gluconate 50 mg Tablet PO (08:33)
[2020-09-08] MEDS: ascorbic acid 500 mg Tablet PO (08:33)
[2020-09-08] MEDS: sennosides-docusate Tablet 1 TAB PO (08:33)
[2020-09-08] MEDS: polyethylene glycol 3350 Pkt 17 gm PO (08:37)
[2020-09-08] MEDS: albuterol 8 gm MDI 2 PUFF INHALATION ×5 (09:01→23:46)
[2020-09-08] MEDS: guaiFENesin 600 mg Tablet 1200 MG PO ×2 (09:40→17:28)
[2020-09-08] MEDS: collagenase oint 30 gm 1 APPLIC TOPICAL (10:17)
--- NOTE | 2020-09-08 11:10 | P.PN_ITS ---
Subjective Subjective: Interval history: clinically improving, down to 6L O2, off antibiotics tolerated out of bed to chair, physical therapy Vitals/I&O/Wt Last Vital Signs Temp 97.0 F L 09/08/20 07:45 Pulse 101 H 09/08/20 10:00 Resp 22 H 09/08/20 10:00 BP 151/91 09/08/20 10:00 Pulse Ox 93 09/08/20 10:00 09/07/20 09/08/20 09/08/20 22:59 06:59 14:59 Intake Total 950 / 1650 300 / 1950 890 / 890 Output Total 620 / 870 475 / 1345 Balance 330 / 780 -175 / 605 890 / 890 Weight last 48 hrs Weight 276 lb 3 oz Weight 276 lb 3 oz Physical Exam Narrative: EXAM NARRATIVE: PHYSICAL EXAM: General:sitting in chair, in mild respiratory distress HEENT:NCAT, PERRLA, EOMI Neck: Supple Lungs: bilateral mild diffuse crackles Heart: s1/s2, RRR Abd: soft, NT, ND, BS + Normoactive Extremities: No edema 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, 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 SKIN: no rash Urinary Catheter Management^: Guevara: Cath Placed During This Visit: yes, but has since been removed by the nurse Reason for Continuing Indwelling Catheter: Decision to DC Catheter Urinary Catheter Date of Insertion: 08/26/20 Urinary Catheter Time of Insertion: 10:45 Date Urinary Catheter Removed: 09/07/20 Time Urinary Catheter Discontinued: 10:25 Data : 09/08/20 04:55 09/08/20 04:55 A&P Assessment and plan (1) Severe acute respiratory syndrome coronavirus 2 (SARS-CoV-2) detected: Status: Acute (2) Type 2 diabetes mellitus: Status: Acute (3) Acute respiratory failure with hypoxia: Status: Acute 50-year-old male with past medical history of type 2 diabetes admitted to VICU for acute hypoxic respiratory failure secondary to severe ARDS secondary to COVID-19 pneumonia on 08/26/2020 and currently with worsening bilateral consolidations on chest x-ray but improving clinically and today down to 6 L nasal cannula. NEURO: Mentation normal following commands PULM: Acute hypoxic and hypercapneic respiratory failure secondary to COVID-19 pneumonia Worsening bilateral opacities on imaging -improving clinically -secondary to COVID pna -Intubated on arrival to ER 08/26/2020 - extuabted on 08/31/2020 -Currently on 6 L nasal cannula saturating 92% -Last ABG on 09/07/2020 7.4 4/30/61/20/92% on 60% FiO2 -CXR :Extensive bilateral pneumonia showing no change since prior study. -CT chest 09/05/2020:Progression of bilateral diffuse opacifications since the prior CT of 08/26/2020. Less groundglass attenuation with increasing consolidations. These findings can be seen with temporal progression of Covid 19. No improvement. -S/p remdesivir, -Also received convalescent plasma -On dexamethasone, -MRSA nares negative -Overall clinically patient doing well and oxygenating 92% on 6 L nasal cannula when compared to the severity of CT chest findings of GGO's of severe COVID-19 pneumonia -I feel like it is a slow process of recovery and radiological findings will take its time for resolution -repeat blood cultures are negative -patient received antibiotics for more than 10 days -Discontinue vancomycin, imipenem, micafungin azithromycin -Improving inflammatory markers -Encourage incentive spirometry/chest physiotherapy/out of bed to chair/physical therapy -Currently on Advair, Spiriva, albuterol as needed -Monitor saturation and titrate down FiO2 CVS: -Echo LV systolic function normal with EF 55 to 60%, grade 1 diastolic. -Hemodynamically stable -Monitor input output GI: -Started on carb consistent diet -On senna -miralax- lactulose 20 bid -Improved LFTs RENAL: -Renal functions improving - CMP suggestive of anion gap metabolic acidosis -Overall close to net even -Strict I/O-try to keep slight negative to even -Continue guevara cath -Avoid nephrotoxins -Monitor electrolytes and supplement accordingly -CK normalized HEM: H&H stable Plts stable, DVT prophylaxis: On Lovenox ENDO: Sugars moderately controlled Levemir 12 units twice daily and continue scale coverage POCT Q6H ID: Severe sepsis secondary to COVID pna -afebrile, leukocytosis slightly down to 11 K -Blood cultures coagulase-negative staph -CXR :Extensive bilateral pneumonia showing no change since prior study. -CT chest 09/05/2020:Progression of bilateral diffuse opacifications since the prior CT of 08/26/2020. Less groundglass attenuation with increasing consolidations. These findings can be seen with temporal progression of Covid 19. No improvement. -S/p remdesivir, -Also received convalescent plasma -On dexamethasone, -MRSA nares negative -Overall clinically patient doing well and oxygenating 92% on 6 L nasal cannula when compared to the severity of CT chest findings of GGO's of severe COVID-19 pneumonia -I feel like it is a slow process of recovery and radiological findings will take its time for resolution -repeat blood cultures are negative -patient received antibiotics for more than 10 days -Discontinue vancomycin, imipenem, micafungin azithromycin -Improving inflammatory markers -Encourage incentive spirometry/chest physiotherapy/out of bed to chair/physical therapy -Continue scheduled DuoNeb, Pulmicort, Mucomyst nebulizations -Monitor saturation and titrate down FiO2 -Follow-up Fungitell and galactomannan and histoplasma Code Status: Full code Disposition: ICU Recommendations conveyed to hospitalist covering the patient Attestations Medical Necessity Statement*: Acute hypoxic respiratory failure secondary to COVID-19 pneumonia-gradual recovery still requiring 6 L nasal cannula Time Spent in Patient Care: Greater than 35 minutes (>than 50% of time spent in counselling and/or direct pt care on unit) . Coding Level of Care Code Established Pt Acute Quality Improvement Specialist for [facility] Patient Type Established History Comprehensive Exam Comprehensive Medical Decision Making High Complexity Diagnoses Severe acute respiratory syndrome coronavirus 2 (SARS-CoV-2) detected U07.1 Type 2 diabetes mellitus E11.9 Acute respiratory failure with hypoxia J96.01 Time Spent (min) 45
[2020-09-08 11:33] LABS: Glucose Point of Care 293 mg/dL (70-110)
--- NOTE | 2020-09-08 15:11 | P.PN_ITS ---
Subjective Subjective: Interval history: Hospital course, labs and vitals noted. On examination patient sitting comfortably in chair on 6 L high flow nasal cannula saturating 94% which was able to wean down to 4 during my stay. He is able to talk to me in complete sentences without much difficulty in breathing. He is working well with incentive spirometry Acapella. Asking when can he be discharged. He is thankful for the treatment given at the hospital. Denies any nausea, vomiting, headache or weakness. Eating well. Vitals/I&O/Wt Last Vital Signs Temp 98.6 F 09/08/20 12:54 Pulse 86 09/08/20 14:50 Resp 20 H 09/08/20 14:50 BP 107/66 09/08/20 14:50 Pulse Ox 100 09/08/20 14:50 09/08/20 09/08/20 09/08/20 06:59 14:59 22:59 Intake Total 300 / 1950 890 / 890 Output Total 475 / 1345 375 / 375 Balance -175 / 605 515 / 515 Weight last 48 hrs Weight 125.277 kg Weight 125.277 kg Physical Exam Narrative: EXAM NARRATIVE: General: No acute distress, AO x3 HEENT: PERRLA, pupils bilaterally equal and reactive Chest: Normal vesicular breath sounds, bilateral diffuse rhonchi, right more than left, anterior more than posterior, equal good air entry bilaterally CVS: S1-S2 regular, no murmurs, tachycardia, no gallops, no rubs Abdomen: Soft, nontender, no organomegaly, bowel sounds present Neuro: Moving all limbs, AO x3 Urinary Catheter Management^: Colon: Cath Placed During This Visit: yes, but has since been removed by the nurse Reason for Continuing Indwelling Catheter: Decision to DC Catheter Urinary Catheter Date of Insertion: 08/26/20 Urinary Catheter Time of Insertion: 10:45 Date Urinary Catheter Removed: 09/07/20 Time Urinary Catheter Discontinued: 10:25 Data : 09/08/20 04:55 09/08/20 04:55 A&P Assessment and plan (1) ARDS (adult respiratory distress syndrome): Status: Acute (2) Severe acute respiratory syndrome coronavirus 2 (SARS-CoV-2) detected: Status: Acute (3) Pneumonia due to COVID-19 virus: Status: Acute (4) Secondary bacterial pneumonia: Status: Acute (5) Type 2 diabetes mellitus: Status: Acute (6) Lactic acidosis: Status: Acute (7) Hyponatremia: Status: Acute Additional A&P Information Acute hypoxic respiratory failure/ARDS secondary to severe COVID-19 pneumonia: Successfully extubated 08/31/2020 Patient has already finished course of remdesivir and conversant plasma. Oxygen supplementation to be weaned keeping saturation over 90%. Bed to chair and ambulation. Continue with dexamethasone 6 mg IV daily. Vitamin C, zinc. Eliquis 5 mg twice daily. Most likely patient will require Eliquis for 2 weeks post discharge. Advair, Spiriva. Patient does have leukocytosis but has remained afebrile and patient has had over 10 days of vancomycin and gram-negative coverage with Primaxin and aztreonam along with 10 days of azithromycin caspofungin in between as well. Procalcitonin negative. We will stop all antimicrobials today and continue to monitor. Pulmonary toilet with chest vest,incentive spirometer, flutter valve Type 2 diabetes mellitus: Continue to monitor blood glucose levels. Moderate dose sliding scale, Levemir 12 units twice daily Full code. Cardiac carb consistent regular diet Full dose Lovenox. Protonix for PUD prophylaxis. Patient's care has been discussed in detail with his Ms. Thomas on [phone]. All the questions were answered. Plan for today: Continue to wean oxygen as possible keeping saturation over 90%. Continue with aggressive pulmonary toilet. If patient continues to do well can plan to transition over to medical surgical floor tomorrow. Continue to monitor off antimicrobials for next 48 hours. Discharge plan: Did appear to peer evaluation with medical records supervisor at [facility]. Patient has been denied for acute facility for now. We will continue to wean oxygen as possible. If able to get down to nasal cannula oxygen supplementation can plan to discharge home with home health later this week. We will continue to monitor as per the clinical course. Attestations Medical Necessity Statement*: Patient requires further hospitalization for management of resolving ARDS and acute hypoxic respiratory failure because of COVID-19 pneumonia. Time Spent in Patient Care: Greater than 35 minutes (>than 50% of time spent in counselling and/or direct pt care on unit) . 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
[2020-09-08 16:29] LABS: Glucose Point of Care 156 mg/dL (70-110)
[2020-09-08] MEDS: apixaban 5 mg Tablet PO (17:28)
[2020-09-08] MEDS: trazodone 50 mg Tablet PO (20:17)
[2020-09-08] MEDS: HYDROcodone-acetaminophen 5-325 mg Tablet 1 TAB PO (20:17)
[2020-09-08 21:03] LABS: Glucose Point of Care 98 mg/dL (70-110)
[2020-09-09] VITALS (18 sets, daily range): BP systolic 110–137; BP diastolic 64–91; PULSE 8–105; RESP 13–38; TEMP 36.6–37.3; O2SAT 84–98; BMI 37.4
[2020-09-09] MEDS: albuterol 8 gm MDI 2 PUFF INHALATION ×6 (03:09→23:22)
[2020-09-09] MEDS: pantoprazole 40 mg SDV IVP ×2 (03:48→15:06)
[2020-09-09 04:59] LABS: Basophils % 0.3 %; Eosinophils # 0.2 10^3/uL (0.0-0.8); Eosinophils % 1.5 %; Hematocrit 33.4 % (42.0-52.0); Hemoglobin 10.8 g/dL (11.7-16.6); Lymphocytes # 1.7 10^3/uL (0.8-4.8); Lymphocytes % 14.2 %; Mean Corpuscular HGB Conc 32.3 g/dL (30.0-36.0); Mean Corpuscular Volume 86.5 fL (80-94); Monocytes % 8.5 %; Neutrophils # 8.78 10^3/uL (1.8-7.7); Neutrophils % 74.2 %; Nucleated Red Blood Cells % 0 %; Platelet Count 395 10^3/cmm (130-400); Red Blood Count 3.86 10^6/uL (4.1-5.3); Red Cell Distribution Width 13.1 % (12.1-15.1); White Blood Count 11.8 10^3/uL (4.0-10.0)
[2020-09-09 05:28] LABS: Alanine Aminotransferase 30 U/L (0-41); Alkaline Phosphatase 99 IU/L (40-130); Anion Gap 14.8 (5-19); Aspartate Amino Transferase 20 U/L (0-40); Blood Urea Nitrogen 18 mg/dL (6-20); C Reactive Protein 31.8 mg/L (0.0-4.9); Calcium 8.9 mg/dL (8.5-10.5); Carbon Dioxide 23 mmol/L (22-29); Chloride 104 mmol/L (98-107); Globulin 3.4 g/dL (1.3-4.6); Glomerular Filtration Rate 141.5 mL/min (90-130); Glucose 102 mg/dL (65-115); Magnesium 1.7 mg/dL (1.7-2.3); Osmolality Calculated 288 mOsm/kg (285-295); Phosphorus 3.9 mg/dL (2.5-4.5); Potassium 3.8 mmol/L (3.5-5.1); Sodium 138 mmol/L (136-145); Total Bilirubin 0.2 mg/dL (0.15-1.2); Total Protein 6.4 g/dL (6.6-8.7)
[2020-09-09 05:37] LABS: NT Pro B Type Natriuretic Pept 259 pg/mL (0-125); Procalcitonin 0.11 ng/mL (0-0.5)
--- NOTE | 2020-09-09 06:25 | PC.NURSE ---
patient laid in bed all night with no voiced pain or concerns. held well on o2 saturations on 6 L of high flow Lungs diminished and patient sounds very winded when he is awake. Patient able to turn self and use urinal with no to minimal assistance. Will continue to monitor and assist as needed following CPOC.
[2020-09-09 07:59] LABS: Glucose Point of Care 157 mg/dL (70-110)
[2020-09-09 07:59] LABS: Glucose Point of Care 140 mg/dL (70-110)
[2020-09-09] MEDS: dexamethasone 4 mg/mL INJ 6 MG IVP (08:02)
[2020-09-09] MEDS: collagenase oint 30 gm 1 APPLIC TOPICAL (08:04)
[2020-09-09] MEDS: apixaban 5 mg Tablet PO ×2 (08:04→16:44)
[2020-09-09] MEDS: polyethylene glycol 3350 Pkt 17 gm PO (08:04)
[2020-09-09] MEDS: ascorbic acid 500 mg Tablet PO (08:04)
[2020-09-09] MEDS: zinc gluconate 50 mg Tablet PO (08:04)
[2020-09-09] MEDS: guaiFENesin 600 mg Tablet 1200 MG PO ×2 (08:04→16:43)
[2020-09-09] MEDS: sennosides-docusate Tablet 1 TAB PO (08:04)
--- NOTE | 2020-09-09 08:08 | PC.NURSE ---
Patients sugar was 140 this morning.
[2020-09-09 11:32] LABS: Glucose Point of Care 279 mg/dL (70-110)
--- NOTE | 2020-09-09 12:27 | PC.RESP ---
SMOKING CESSATION INFORMATION SENT TO PATIENT.
[2020-09-09] MEDS: FUROsemide 10 mg/mL SDV 2mL 20 MG IVP (13:44)
[2020-09-09] MEDS: metoprolol tartrate 25 mg Tablet 12.5 MG PO ×2 (13:44→16:44)
[2020-09-09] MEDS: potassium chloride ER 10 mEq Tablet 40 MEQ PO (13:45)
[2020-09-09 16:06] LABS: Glucose Point of Care 267 mg/dL (70-110)
--- NOTE | 2020-09-09 16:44 | PM.PN ---
Subjective Subjective: Interval history: No events overnight. Today morning upon getting up out of bed to chair he desaturated to 86% for which he was put on 10 L of high flow nasal cannula which was trended down to 6 L nasal cannula with saturation at 94%. Currently on my examination patient is sitting comfortably in chair having complete conversation with me without having any tachypnea or difficulty in breathing on 5 to 6 L of high flow nasal cannula saturating 94%. Denies any nausea, vomiting, headache, dizziness. States appetite is improving. Wants to go home as soon as possible. Working well with incentive spirometry and Acapella. Vitals/I&O/Wt Last Vital Signs Temp 98.7 F 09/09/20 16:19 Pulse 89 09/09/20 16:19 Resp 22 H 09/09/20 16:19 BP 124/84 09/09/20 14:27 Pulse Ox 94 09/09/20 16:19 09/09/20 09/09/20 09/09/20 06:59 14:59 22:59 Intake Total 200 / 1390 360 / 360 Output Total 200 / 1775 700 / 700 Balance 0 / -385 -340 / -340 Weight last 48 hrs Weight 125.277 kg Weight 125.277 kg Physical Exam Narrative: EXAM NARRATIVE: General: No acute distress, AO x3 HEENT: PERRLA, pupils bilaterally equal and reactive Chest: Normal vesicular breath sounds, bilateral diffuse rhonchi, right more than left, anterior more than posterior, equal good air entry bilaterally CVS: S1-S2 regular, no murmurs, tachycardia, no gallops, no rubs Abdomen: Soft, nontender, no organomegaly, bowel sounds present Neuro: Moving all limbs, AO x3 Urinary Catheter Management^: Colon: Cath Placed During This Visit: yes, but has since been removed by the nurse Reason for Continuing Indwelling Catheter: Decision to DC Catheter Urinary Catheter Date of Insertion: 08/26/20 Urinary Catheter Time of Insertion: 10:45 Date Urinary Catheter Removed: 09/07/20 Time Urinary Catheter Discontinued: 10:25 Data : 09/09/20 04:00 09/09/20 04:00 Micro: Microbiology 09/03/20 20:30 Blood Culture - Final Blood NO GROWTH AFTER 5 DAYS 09/03/20 20:30 Blood Culture - Final Blood NO GROWTH AFTER 5 DAYS A&P Assessment and plan (1) ARDS (adult respiratory distress syndrome): Status: Acute (2) Severe acute respiratory syndrome coronavirus 2 (SARS-CoV-2) detected: Status: Acute (3) Pneumonia due to COVID-19 virus: Status: Acute (4) Secondary bacterial pneumonia: Status: Acute (5) Type 2 diabetes mellitus: Status: Acute (6) Lactic acidosis: Status: Acute (7) Hyponatremia: Status: Acute Additional A&P Information Acute hypoxic respiratory failure/ARDS secondary to severe COVID-19 pneumonia: Successfully extubated 08/31/2020 Patient has already finished course of remdesivir and conversant plasma. Oxygen supplementation to be weaned keeping saturation over 90%. Bed to chair and ambulation. Continue physical therapy. Continue with dexamethasone 6 mg IV daily. Vitamin C, zinc. Eliquis 5 mg twice daily. Most likely patient will require Eliquis for 2 weeks post discharge. Advair, Spiriva. Patient does have leukocytosis but has remained afebrile and patient has had over 10 days of vancomycin and gram-negative coverage with Primaxin and aztreonam along with 10 days of azithromycin caspofungin in between as well. Procalcitonin negative. We will stop all antimicrobials today and continue to monitor. Pulmonary toilet with chest vest,incentive spirometer, flutter valve Patient is overall 2 L positive since admission. We will give him 20 mg of IV Lasix and monitor input output strictly. We will try to make patient more negative to help with resolving ARDS. Type 2 diabetes mellitus: Continue to monitor blood glucose levels. Moderate dose sliding scale, Levemir 12 units twice daily Full code. Cardiac carb consistent regular diet Full dose Lovenox. Protonix for PUD prophylaxis. Patient's care has been discussed in detail with his Ms. Thomas on [phone]. All the questions were answered. Plan for today: Continue aggressive pulmonary toilet along with IV Lasix today to keep patient more negative in view of resolving ARDS. Continue with IV Decadron. Physical therapy. We will try to wean down oxygen as much as we can keeping saturation over 90%. Discharge plan: Did a peer to peer evaluation with medical information specialist at [facility]. Patient has been denied for acute facility for now. We will continue to wean oxygen as possible. If able to get down to nasal cannula oxygen supplementation can plan to discharge home with home health later this week. We will continue to monitor as per the clinical course. Attestations Medical Necessity Statement*: Requires further hospitalization for management for resolving ARDS because of COVID-19 pneumonia while patient is high flow dependent. Time Spent in Patient Care: Greater than 35 minutes (>than 50% of time spent in counselling and/or direct pt care on unit). Coding Level of Care Code Acute Ultrasound Manager for [facility] Fwd Diagnoses ARDS (adult respiratory distress syndrome) J80 Severe acute respiratory syndrome coronavirus 2 (SARS-CoV-2) detected U07.1 Pneumonia due to COVID-19 virus U07.1; J12.89 Secondary bacterial pneumonia J15.9 Type 2 diabetes mellitus E11.9 Lactic acidosis E87.2 Hyponatremia E87.1
--- NOTE | 2020-09-09 17:23 | PM.PN ---
Subjective Subjective: Interval history: No events overnight. Sitting out of bed to chair saturating 94% on 6L. Able to have normal conversation. As per RN, Today morning desaturated to 86% requiring 10 L of high flow nasal cannula upon getting out of bed to chair, later down to 6 L nasal cannula with saturation at 94%. Denies any nausea, vomiting, headache, dizziness. States appetite is improving. Vitals/I&O/Wt Last Vital Signs Temp 98.7 F 09/09/20 16:19 Pulse 89 09/09/20 16:19 Resp 22 H 09/09/20 16:19 BP 124/84 09/09/20 14:27 Pulse Ox 94 09/09/20 16:19 09/09/20 09/09/20 09/09/20 06:59 14:59 22:59 Intake Total 200 / 1390 360 / 360 Output Total 200 / 1775 700 / 700 Balance 0 / -385 -340 / -340 Weight last 48 hrs Weight 276 lb 3 oz Weight 276 lb 3 oz Physical Exam Narrative: EXAM NARRATIVE: PHYSICAL EXAM: General:sitting in chair, in mild respiratory distress HEENT:NCAT, PERRLA, EOMI Neck: Supple Lungs: bilateral mild diffuse crackles Heart: s1/s2, RRR Abd: soft, NT, ND, BS + Normoactive Extremities: No edema 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, 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 SKIN: no rash Urinary Catheter Management^: Guevara: Cath Placed During This Visit: yes, but has since been removed by the nurse Reason for Continuing Indwelling Catheter: Decision to DC Catheter Urinary Catheter Date of Insertion: 08/26/20 Urinary Catheter Time of Insertion: 10:45 Date Urinary Catheter Removed: 09/07/20 Time Urinary Catheter Discontinued: 10:25 Data : 09/09/20 04:00 09/09/20 04:00 Micro: Microbiology 09/03/20 20:30 Blood Culture - Final Blood NO GROWTH AFTER 5 DAYS 09/03/20 20:30 Blood Culture - Final Blood NO GROWTH AFTER 5 DAYS A&P Assessment and plan (1) Severe acute respiratory syndrome coronavirus 2 (SARS-CoV-2) detected: Status: Acute (2) Type 2 diabetes mellitus: Status: Acute (3) Acute respiratory failure with hypoxia: Status: Acute 50-year-old male with past medical history of type 2 diabetes admitted to VICU for acute hypoxic respiratory failure secondary to severe ARDS secondary to COVID-19 pneumonia on 08/26/2020 and currently with worsening bilateral consolidations on chest x-ray but improving clinically and today down to 6 L nasal cannula. NEURO: Mentation normal following commands PULM: Acute hypoxic and hypercapneic respiratory failure secondary to COVID-19 pneumonia Worsening bilateral opacities on imaging -improving clinically -secondary to COVID pna -Intubated on arrival to ER 08/26/2020 - extuabted on 08/31/2020 -Currently on 6 L nasal cannula saturating 92% -Last ABG on 09/07/2020 7.4 4/30/61/20/92% on 60% FiO2 -CXR :Extensive bilateral pneumonia showing no change since prior study. -CT chest 09/05/2020:Progression of bilateral diffuse opacifications since the prior CT of 08/26/2020. Less groundglass attenuation with increasing consolidations. These findings can be seen with temporal progression of Covid 19. No improvement. -S/p remdesivir, -Also received convalescent plasma -On dexamethasone, -MRSA nares negative -Overall clinically patient doing well and oxygenating 92% on 6 L nasal cannula when compared to the severity of CT chest findings of GGO's of severe COVID-19 pneumonia -I feel like it is a slow process of recovery and radiological findings will take its time for resolution -repeat blood cultures are negative -patient received antibiotics for more than 10 days -Discontinue vancomycin, imipenem, micafungin azithromycin -Improving inflammatory markers -Encourage incentive spirometry/chest physiotherapy/out of bed to chair/physical therapy -Currently on Advair, Spiriva, albuterol as needed -Monitor saturation and titrate down FiO2 CVS: -Echo LV systolic function normal with EF 55 to 60%, grade 1 diastolic. -Hemodynamically stable -Monitor input output GI: -Started on carb consistent diet -On senna -miralax- lactulose 20 bid -Improved LFTs RENAL: -Renal functions improving - CMP suggestive of anion gap metabolic acidosis -Overall close to net even -Strict I/O-try to keep slight negative to even -Continue guevara cath -Avoid nephrotoxins -Monitor electrolytes and supplement accordingly -CK normalized HEM: H&H stable Plts stable, DVT prophylaxis: On Lovenox ENDO: Sugars moderately controlled Levemir 12 units twice daily and continue scale coverage POCT Q6H ID: Severe sepsis secondary to COVID pna -afebrile, leukocytosis slightly down to 11 K -Blood cultures coagulase-negative staph -CXR :Extensive bilateral pneumonia showing no change since prior study. -CT chest 09/05/2020:Progression of bilateral diffuse opacifications since the prior CT of 08/26/2020. Less groundglass attenuation with increasing consolidations. These findings can be seen with temporal progression of Covid 19. No improvement. -S/p remdesivir, -Also received convalescent plasma -On dexamethasone, -MRSA nares negative -Overall clinically patient doing well and oxygenating 92% on 6 L nasal cannula when compared to the severity of CT chest findings of GGO's of severe COVID-19 pneumonia -I feel like it is a slow process of recovery and radiological findings will take its time for resolution -repeat blood cultures are negative -patient received antibiotics for more than 10 days -Discontinue vancomycin, imipenem, micafungin azithromycin -Improving inflammatory markers -Encourage incentive spirometry/chest physiotherapy/out of bed to chair/physical therapy -Continue scheduled DuoNeb, Pulmicort, Mucomyst nebulizations -Monitor saturation and titrate down FiO2 -Follow-up Fungitell and galactomannan and histoplasma Code Status: Full code Disposition: ICU Recommendations conveyed to hospitalist covering the patient Attestations Medical Necessity Statement*: Acute hypoxic respiratory failure secondary to COVID 19 pneumonia requiring 6L nc Time Spent in Patient Care: Greater than 35 minutes (>than 50% of time spent in counselling and/or direct pt care on unit). 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
[2020-09-09 20:22] LABS: Aspergillus AG,EIA,Serum NOT DETECTED; Aspergillus Galactomannan Inde <0.50
[2020-09-09 20:31] LABS: Glucose Point of Care 133 mg/dL (70-110)
[2020-09-10] VITALS (17 sets, daily range): BP systolic 83–140; BP diastolic 59–92; PULSE 79–107; RESP 17–31; TEMP 36.6–37.2; O2SAT 86–95
[2020-09-10] MEDS: lactulose oral liq 20 gm/30 mL UDC PO (00:09)
[2020-09-10] MEDS: albuterol 8 gm MDI 2 PUFF INHALATION ×5 (03:11→21:01)
[2020-09-10] MEDS: pantoprazole 40 mg SDV IVP ×2 (04:33→16:30)
[2020-09-10 04:56] LABS: Basophils # 0.1 10^3/uL (0.0-0.1); Basophils % 0.5 %; Eosinophils # 0.2 10^3/uL (0.0-0.8); Eosinophils % 1.8 %; Hematocrit 34.9 % (42.0-52.0); Hemoglobin 11.3 g/dL (11.7-16.6); Lymphocytes # 2.1 10^3/uL (0.8-4.8); Lymphocytes % 16.4 %; Mean Corpuscular HGB Conc 32.4 g/dL (30.0-36.0); Mean Corpuscular Hemoglobin 28.3 pg (28.0-34.0); Mean Corpuscular Volume 87.3 fL (80-94); Mean Platelet Volume 9.4 fL (7.4-10.4); Monocytes # 0.9 10^3/uL (0.2-0.9); Monocytes % 7.3 %; Neutrophils # 9.08 10^3/uL (1.8-7.7); Neutrophils % 72.5 %; Nucleated Red Blood Cells % 0 %; Platelet Count 396 10^3/cmm (130-400); Red Cell Distribution Width 13.3 % (12.1-15.1); White Blood Count 12.5 10^3/uL (4.0-10.0)
[2020-09-10 05:23] LABS: Alanine Aminotransferase 32 U/L (0-41); Albumin Level 3.3 g/dL (3.5-5.2); Alkaline Phosphatase 110 IU/L (40-130); Anion Gap 15.1 (5-19); Aspartate Amino Transferase 20 U/L (0-40); Blood Urea Nitrogen 20 mg/dL (6-20); C Reactive Protein 57.5 mg/L (0.0-4.9); Carbon Dioxide 23 mmol/L (22-29); Chloride 104 mmol/L (98-107); Globulin 3.6 g/dL (1.3-4.6); Glomerular Filtration Rate 118.4 mL/min (90-130); Glucose 145 mg/dL (65-115); Osmolality Calculated 291 mOsm/kg (285-295); Phosphorus 3.7 mg/dL (2.5-4.5); Potassium 4.1 mmol/L (3.5-5.1); Sodium 138 mmol/L (136-145); Total Bilirubin 0.3 mg/dL (0.15-1.2); Total Protein 6.9 g/dL (6.6-8.7)
[2020-09-10 05:58] LABS: Calcium 9.2 mg/dL (8.5-10.5); Magnesium 1.9 mg/dL (1.7-2.3)
[2020-09-10 06:10] LABS: NT Pro B Type Natriuretic Pept 203 pg/mL (0-125); Procalcitonin 0.11 ng/mL (0-0.5)
[2020-09-10 07:35] LABS: Glucose Point of Care 190 mg/dL (70-110)
[2020-09-10] MEDS: dexamethasone 4 mg/mL INJ 6 MG IVP (08:17)
[2020-09-10] MEDS: polyethylene glycol 3350 Pkt 17 gm PO (08:17)
[2020-09-10] MEDS: zinc gluconate 50 mg Tablet PO (08:18)
[2020-09-10] MEDS: guaiFENesin 600 mg Tablet 1200 MG PO ×2 (08:18→17:56)
[2020-09-10] MEDS: ascorbic acid 500 mg Tablet PO (08:18)
[2020-09-10] MEDS: metoprolol tartrate 25 mg Tablet 12.5 MG PO ×2 (08:18→17:56)
[2020-09-10] MEDS: apixaban 5 mg Tablet PO ×2 (08:19→17:56)
[2020-09-10] MEDS: collagenase oint 30 gm 1 APPLIC TOPICAL (08:34)
--- NOTE | 2020-09-10 10:36 | PC.NURSE ---
ambulation This nurse and RT walked with patient down hallway. Patient was able to walk around 10 feet at a time with high flow oxygen at 8L and take breaks in between. When patient would sit, oxygen level would be at 86-87. At the lowest oxygen dropped to 79. Pt was able to bring oxygen back up to 93-95 oxygen.
[2020-09-10 11:04] LABS: Glucose Point of Care 257 mg/dL (70-110)
--- NOTE | 2020-09-10 14:33 | PC.NURSE ---
SBAR report sheet sent to [facility]
--- NOTE | 2020-09-10 15:27 | PM.PN ---
Subjective Subjective: Interval history: No acute events overnight. Today morning on examination patient sitting at bedside on 7 L high flow nasal cannula saturating 94%. Whenever he walks his saturation drops down to mid 80s requiring up to 10 L. Patient is extremely anxious and wants to go home. Had a long discussion and counseling with him where I tried to explain that he still on high flow nasal cannula and he needs to be transitioned over to regular nasal cannula and on that his saturations have to maintain for at least 24 hours before I can plan to do discharge him. Patient states he is aware of the same and he thinks he can work with regular nasal cannula and is requesting to be placed on regular nasal cannula and to be given a chance. Patient wants to be discharged as soon as possible. I did tell him that at current state patient is not medically stable to be discharged. He seems to understand for now but seems fairly agitated but cooperative at present. Denies any nausea, vomiting, headache, dizziness. Appetite is fair. Vitals and labs noted. Has remained hemodynamically stable and afebrile. Vitals/I&O/Wt Last Vital Signs Temp 98.3 F 09/10/20 13:38 Pulse 79 09/10/20 12:55 Resp 18 09/10/20 12:55 BP 126/75 09/10/20 12:00 Pulse Ox 92 09/10/20 12:55 09/10/20 09/10/20 09/10/20 06:59 14:59 22:59 Intake Total 480 / 480 Output Total 425 / 2025 300 / 300 Balance -425 / -1285 180 / 180 Weight last 48 hrs Weight 125.373 kg Weight 125.277 kg Physical Exam Narrative: EXAM NARRATIVE: General: No acute distress, AO x3, anxious, agitated but cooperative HEENT: PERRLA, pupils bilaterally equal and reactive Chest: Normal vesicular breath sounds, bilateral diffuse rhonchi, right more than left, anterior more than posterior, equal good air entry bilaterally CVS: S1-S2 regular, no murmurs, tachycardia, no gallops, no rubs Abdomen: Soft, nontender, no organomegaly, bowel sounds present Neuro: Moving all limbs, AO x3 Urinary Catheter Management^: Colon: Cath Placed During This Visit: yes, but has since been removed by the nurse Reason for Continuing Indwelling Catheter: Decision to DC Catheter Urinary Catheter Date of Insertion: 08/26/20 Urinary Catheter Time of Insertion: 10:45 Date Urinary Catheter Removed: 09/07/20 Time Urinary Catheter Discontinued: 10:25 Data : 09/10/20 04:05 09/10/20 04:05 Micro: Microbiology 09/06/20 07:30 Fungal Smear - Preliminary Sputum - Expectorated Sputum A&P Assessment and plan (1) ARDS (adult respiratory distress syndrome): Status: Acute (2) Severe acute respiratory syndrome coronavirus 2 (SARS-CoV-2) detected: Status: Acute (3) Pneumonia due to COVID-19 virus: Status: Acute (4) Secondary bacterial pneumonia: Status: Acute (5) Type 2 diabetes mellitus: Status: Acute (6) Lactic acidosis: Status: Acute (7) Hyponatremia: Status: Acute (8) Anxiety: Status: Acute Additional A&P Information Acute hypoxic respiratory failure/ARDS secondary to severe COVID-19 pneumonia: Successfully extubated 08/31/2020 Patient has already finished course of remdesivir and conversant plasma. Oxygen supplementation to be weaned keeping saturation over 90%. Bed to chair and ambulation. Continue physical therapy. Continue with dexamethasone 6 mg IV daily. Vitamin C, zinc. Eliquis 5 mg twice daily. Most likely patient will require Eliquis for 2 weeks post discharge. Advair, Spiriva. Patient does have leukocytosis but has remained afebrile and patient has had over 10 days of vancomycin and gram-negative coverage with Primaxin and aztreonam along with 10 days of azithromycin caspofungin in between as well. Procalcitonin negative. We will stop all antimicrobials today and continue to monitor. Pulmonary toilet with chest vest,incentive spirometer, flutter valve Patient is overall 2 L positive since admission. We will give him 1 more dose of 20 mg of IV Lasix and monitor input output strictly. We will try to make patient more negative to help with resolving ARDS. Type 2 diabetes mellitus: A1c 9.1. Continue to monitor blood glucose levels. High dose sliding scale, Levemir 12 units twice daily Anxiety: Start patient on Xanax 0.25 mg 3 times daily as needed, trazodone 100 mg nightly. Move patient to medical surgical floor. Have allowed patient's to visit him once as she is also COVID-19 positive once patient is transferred over to the floors. Full code. Cardiac carb consistent regular diet Full dose Lovenox. Protonix for PUD prophylaxis. Patient's care has been discussed in detail with his Ms. Thomas on [phone]. All the questions were answered. Plan for today: IV Lasix 20 mg once to make patient as negative as possible. Continue strict input output charting. Transitioning over to regular nasal cannula at request of patient while trying to maintain saturation over 90% if patient fails will put him back onto high flow nasal cannula. Continue counseling with patient regarding slow baby steps towards recovery. Aggressive pulmonary toilet. We will start patient on Xanax 0.25 3 times daily as needed and trazodone 100 nightly and trying to calm him down. Move patient to regular floors. Discharge plan: Did a peer to peer evaluation with medical health researcher at [facility]. Patient has been denied for acute facility for now. We will continue to wean oxygen as possible. If able to get down to nasal cannula oxygen supplementation can plan to discharge home with home health later this week. Patient is extremely anxious to be discharged home and is requesting to be discharged as soon as possible. Did explain to him that currently he is on high flow nasal cannula and he desaturates on minimal ambulation and is very tachypneic on talking and and eating and is not medically stable to be discharged at the moment. Also discussed that he needs to have patient's and continue to work with physical therapy and incentive spirometry and flutter valve to achieve the above. Also discussed all of this with patient's Ms. Thomas she is agreeable to the same and states she also thinks it is too soon for patient to be discharged. Attestations Medical Necessity Statement*: Patient requires further hospitalization for management of ARDS due to COVID-19 pneumonia, high flow nasal cannula dependent, anxiety Time Spent in Patient Care: Greater than 35 minutes (>than 50% of time spent in counselling and/or direct pt care on unit). Coding Level of Care Code Acute Property Preservation Specialist for [facility] F[facility] Diagnoses ARDS (adult respiratory distress syndrome) J80 Severe acute respiratory syndrome coronavirus 2 (SARS-CoV-2) detected U07.1 Pneumonia due to COVID-19 virus U07.1; J12.89 Secondary bacterial pneumonia J15.9 Type 2 diabetes mellitus E11.9 Lactic acidosis E87.2 Hyponatremia E87.1 Anxiety F41.9
--- NOTE | 2020-09-10 15:30 | PC.NURSE ---
Transfer Patient was transferred to [facility] via wheelchair at 1515. All of patients belongings were taken with him and report was given at bedside.
[2020-09-10] MEDS: FUROsemide 10 mg/mL SDV 2mL 20 MG IVP (16:30)
--- NOTE | 2020-09-10 16:57 | P.PN_ITS ---
Subjective Subjective: Interval history: No acute events overnight. Today morning on examination patient sitting at bedside on 7 L high flow nasal cannula saturating 94%. Whenever he walks his saturation drops down to mid 80s requiring up to 10 L. Transitioned over to regular nasal cannula 6 L and transferred to floor. Patient wants to be discharged as soon as possible. I did tell him that at current state patient is not medically stable to be discharged. He seems to understand for now but seems fairly agitated but cooperative at present. Denies any nausea, vomiting, headache, dizziness. Appetite is fair. Vitals and labs noted. Has remained hemodynamically stable and afebrile. Vitals/I&O/Wt Last Vital Signs Temp 98.1 F 09/10/20 16:00 Pulse 100 09/10/20 16:00 Resp 18 09/10/20 16:00 BP 139/85 09/10/20 16:00 Pulse Ox 93 09/10/20 16:00 09/10/20 09/10/20 09/10/20 06:59 14:59 22:59 Intake Total 480 / 480 Output Total / 5 300 / 300 300 / 600 Balance -425 / -1285 180 / 180 -300 / -120 Weight last 48 hrs Weight 276 lb 6.4 oz Weight 276 lb 3 oz Physical Exam Narrative: EXAM NARRATIVE: PHYSICAL EXAM: General:sitting in chair, in mild respiratory distress HEENT:NCAT, PERRLA, EOMI Neck: Supple Lungs: bilateral middle and lower zones mild crackles Heart: s1/s2, RRR Abd: soft, NT, ND, BS + Normoactive Extremities: No edema GREENHOUSE TECHNICIAN: alert, 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 SKIN: no rash Urinary Catheter Management^: Guevara: Cath Placed During This Visit: yes, but has since been removed by the nurse Reason for Continuing Indwelling Catheter: Decision to DC Catheter Urinary Catheter Date of Insertion: 08/26/20 Urinary Catheter Time of Insertion: 10:45 Date Urinary Catheter Removed: 09/07/20 Time Urinary Catheter Discontinued: 10:25 Data : 09/10/20 04:05 09/10/20 04:05 Micro: Microbiology 09/06/20 07:30 Fungal Smear - Preliminary Sputum - Expectorated Sputum A&P Assessment and plan (1) Severe acute respiratory syndrome coronavirus 2 (SARS-CoV-2) detected: Status: Acute (2) Type 2 diabetes mellitus: Status: Acute (3) Acute respiratory failure with hypoxia: Status: Acute 50-year-old male with past medical history of type 2 diabetes admitted to VICU for acute hypoxic respiratory failure secondary to severe ARDS secondary to COVID-19 pneumonia on 08/26/2020 and currently with worsening bilateral consolidations on chest x-ray but improving clinically and today down to 6 L nasal cannula. NEURO: Mentation normal following commands PULM: Acute hypoxic and hypercapneic respiratory failure secondary to COVID-19 pneumonia Worsening bilateral opacities on imaging -improving clinically -secondary to COVID pna -Intubated on arrival to ER 08/26/2020 - extuabted on 08/31/2020 -Currently on 6 L nasal cannula saturating 92% -Last ABG on 09/07/2020 7.4 02/13//20/92% on 60% FiO2 -CXR 09/08/2020:Extensive bilateral pneumonia showing no change since prior stud y. -CT chest 09/05/2020:Progression of bilateral diffuse opacifications since the prior CT of 08/26/2020. Less groundglass attenuation with increasing consolidations. These findings can be seen with temporal progression of Covid 19. No improvement. -S/p remdesivir, -Also received convalescent plasma -On dexamethasone, -MRSA nares negative -Overall clinically patient doing well and oxygenating 92% on 6 L nasal cannula when compared to the severity of CT chest findings of GGO's of severe COVID-19 pneumonia -But desaturating to low 80s upon ambulation -I feel like it is a slow process of recovery and radiological findings will take its time for resolution -But does not want to be discharged to rehab/fci and he is visibly upset and want to go home desperately for Thanksgiving tomorrow. He was counseled frequently by staff about his tenuous respiratory status and unsafe discharge due to desaturations during ambulation. He verbalizes understanding of the fact that he is still not 100% better but insists that his family can take care of him at home. Hospitalist taking care of the patient informed his about the patient condition and he also thinks that patient needs to be monitored at least in the medical floor and make sure that he maintains good saturations on nasal cannula for atleast 24 hours before discharging. -repeat blood cultures are negative - off vancomycin, imipenem, micafungin azithromycin -Improving inflammatory markers -Encourage incentive spirometry/chest physiotherapy/out of bed to chair/physical therapy -Currently on Advair, Spiriva, albuterol as needed -Monitor saturation and titrate down FiO2 CVS: -Echo LV systolic function normal with EF 55 to 60%, grade 1 diastolic. -Hemodynamically stable -Monitor input output -Metoprolol 12.5 mg PO bid GI: -Started on carb consistent diet -On senna -miralax- lactulose 20 bid -Improved LFTs - PPI 40 Q 12 hr RENAL: -Renal functions improving - CMP suggestive of anion gap metabolic acidosis -Overall close to net even -Strict I/O-try to keep slight negative to even -Continue guevara cath -Avoid nephrotoxins -Monitor electrolytes and supplement accordingly -CK normalized HEM: H&H stable Plts stable, DVT prophylaxis: Elliquis 5 mg po bid ENDO: Sugars moderately controlled - STILL ON DEXA Increased Levemir 16 units twice daily and continue scale coverage previously on levemir 18 Units bid pt had hypoglycemia POCT Q6H ID: Severe sepsis secondary to COVID pna -afebrile, leukocytosis 12k -Blood cultures coagulase-negative staph -CXR :Extensive bilateral pneumonia showing no change since prior study. -CT chest 09/05/2020:Progression of bilateral diffuse opacifications since the prior CT of 08/26/2020. Less groundglass attenuation with increasing consolidations. These findings can be seen with temporal progression of Covid 19. No improvement. -S/p remdesivir, -Also received convalescent plasma -On dexamethasone, -MRSA nares negative -Overall clinically patient doing well and oxygenating 92% on 6 L nasal cannula when compared to the severity of CT chest findings of GGO's of severe COVID-19 pneumonia -I feel like it is a slow process of recovery and radiological findings will take its time for resolution -repeat blood cultures are negative -patient received antibiotics for more than 10 days -repeat blood cultures are negative - off vancomycin, imipenem, micafungin azithromycin -Improving inflammatory markers -Follow-up Fungitell and galactomannan and histoplasma Code Status: Full code Disposition: ICU Recommendations conveyed to hospitalist covering the patient Attestations Medical Necessity Statement*: Acute hypoxic respiratory failure secondary to COVID-19 pneumonia still requiring 6 L nasal cannula and desaturating on ambulation Time Spent in Patient Care: Greater than 35 minutes (>than 50% of time spent in counselling and/or direct pt care on unit) . Coding Level of Care Code Established Pt Acute Sanitary [place] Machine Tender for [facility] Patient Type Established History Comprehensive Exam Comprehensive Medical Decision Making High Complexity Diagnoses Severe acute respiratory syndrome coronavirus 2 (SARS-CoV-2) detected U07.1 Type 2 diabetes mellitus E11.9 Acute respiratory failure with hypoxia J96.01 Time Spent (min) 45
--- NOTE | 2020-09-10 17:00 | PC.OT ---
OT note: Attempted OT session however pt unavailable as he was on phone call then in discussion with doctor. Will attempt later as able.
[2020-09-10 17:10] LABS: Glucose Point of Care 328 mg/dL (70-110)
[2020-09-10 20:30] LABS: Glucose Point of Care 243 mg/dL (70-110)
[2020-09-10] MEDS: HYDROcodone-acetaminophen 5-325 mg Tablet 1 TAB PO (21:21)
[2020-09-10] MEDS: trazodone 100 mg Tablet PO (21:21)
[2020-09-11] VITALS (11 sets, daily range): BP systolic 110–132; BP diastolic 68–82; PULSE 83–101; RESP 16–21; TEMP 36.7–37.1; O2SAT 90–95
[2020-09-11] MEDS: lactulose oral liq 20 gm/30 mL UDC PO (01:21)
[2020-09-11] MEDS: pantoprazole 40 mg SDV IVP ×2 (03:25→15:33)
[2020-09-11 04:01] LABS: Basophils # 0.1 10^3/uL (0.0-0.1); Basophils % 0.5 %; Eosinophils # 0.2 10^3/uL (0.0-0.8); Eosinophils % 1.3 %; Hematocrit 35.5 % (42.0-52.0); Hemoglobin 11.2 g/dL (11.7-16.6); Lymphocytes # 2.7 10^3/uL (0.8-4.8); Lymphocytes % 17.3 %; Mean Corpuscular HGB Conc 31.5 g/dL (30.0-36.0); Mean Corpuscular Hemoglobin 28.4 pg (28.0-34.0); Mean Corpuscular Volume 89.9 fL (80-94); Mean Platelet Volume 9.1 fL (7.4-10.4); Monocytes # 1.2 10^3/uL (0.2-0.9); Neutrophils # 10.91 10^3/uL (1.8-7.7); Neutrophils % 71.5 %; Nucleated Red Blood Cells % 0 %; Platelet Count 387 10^3/cmm (130-400); Red Blood Count 3.95 10^6/uL (4.1-5.3); Red Cell Distribution Width 13.4 % (12.1-15.1); White Blood Count 15.3 10^3/uL (4.0-10.0)
[2020-09-11 04:13] LABS: Fibrinogen 592 mg/dL (174-498)
[2020-09-11 04:16] LABS: D Dimer 0.54 ug/mIFEU (0-0.59)
[2020-09-11 04:24] LABS: Alanine Aminotransferase 37 U/L (0-41); Albumin Level 3.3 g/dL (3.5-5.2); Alkaline Phosphatase 114 IU/L (40-130); Anion Gap 14.4 (5-19); Aspartate Amino Transferase 22 U/L (0-40); Blood Urea Nitrogen 22 mg/dL (6-20); Calcium 9.3 mg/dL (8.5-10.5); Carbon Dioxide 27 mmol/L (22-29); Chloride 101 mmol/L (98-107); Globulin 3.5 g/dL (1.3-4.6); Glomerular Filtration Rate 141.5 mL/min (90-130); Glucose 68 mg/dL (65-115); Osmolality Calculated 288 mOsm/kg (285-295); Potassium 4.4 mmol/L (3.5-5.1); Sodium 138 mmol/L (136-145); Total Bilirubin 0.2 mg/dL (0.15-1.2); Total Protein 6.8 g/dL (6.6-8.7)
[2020-09-11 04:28] LABS: C Reactive Protein 53.9 mg/L (0.0-4.9); Creatine Phosphokinase 31 U/L (39-308); Ferritin 665 ng/mL (30-400); Lactate Dehydrogenase 257 U/L (135-225); NT Pro B Type Natriuretic Pept 216 pg/mL (0-125)
[2020-09-11] MEDS: metoprolol tartrate 25 mg Tablet 12.5 MG PO ×2 (08:10→17:35)
[2020-09-11] MEDS: ascorbic acid 500 mg Tablet PO (08:10)
[2020-09-11] MEDS: zinc gluconate 50 mg Tablet PO (08:11)
[2020-09-11] MEDS: guaiFENesin 600 mg Tablet 1200 MG PO ×2 (08:11→17:35)
[2020-09-11] MEDS: apixaban 5 mg Tablet PO ×2 (08:11→17:35)
[2020-09-11] MEDS: dexamethasone 4 mg/mL INJ 6 MG IVP (08:12)
[2020-09-11] MEDS: collagenase oint 30 gm 1 APPLIC TOPICAL (08:12)
[2020-09-11] MEDS: albuterol 8 gm MDI 2 PUFF INHALATION ×5 (08:30→20:26)
[2020-09-11 09:25] LABS: Glucose Point of Care 79 mg/dL (70-110)
--- NOTE | 2020-09-11 09:37 | XRR_ITS ---
PROCEDURE INFORMATION: Exam: XR Chest, 1 View Exam date and time: 09/11/2020 10:14 AM Age: 50 years old Clinical indication: Dyspnea; Additional info: Covid TECHNIQUE: Imaging protocol: XR of the chest Views: Frontal portable semiupright view of the chest. COMPARISON: CR XR chest 1V portable [id number] 09/08/2020 7:05 AM FINDINGS: Lungs: Moderate pulmonary hypoexpansion. Stable heterogeneous air space opacities in the bilateral lungs. The pulmonary vasculature is obscured by increased lung attenuation. Pleural space: No definite pleural effusion. No pneumothorax. Heart/Mediastinum: The heart is normal in size and contour. Bones/joints: Stable. XR/XR chest 1V portable [id number] IMPRESSION: 1. Moderate pulmonary hypoexpansion. 2. Stable bilateral pulmonary infiltrates, pneumonitis not excluded. Clinical correlation is recommended.
[2020-09-11 09:43] LABS: Glucose Point of Care 248 mg/dL (70-110)
--- NOTE | 2020-09-11 12:05 | PC.NURSE ---
Patient refused lactulose due to I do not want explosive diarrhea.
[2020-09-11 12:57] LABS: Glucose Point of Care 220 mg/dL (70-110)
--- NOTE | 2020-09-11 16:02 | PC.NURSE ---
Patient resting in bed, equal rise and fall of chest, alert and oriented watching TV, denies pain or needs, call light in reach.
--- NOTE | 2020-09-11 16:18 | PC.NURSE ---
Per Dr. Barbosa patient allowed one visitor one time for today only, Martha Vallejo, , escorted to patients room with precautions followed contact/droplet.
--- NOTE | 2020-09-11 17:03 | P.PN_ITS ---
Subjective Subjective: Interval history: Documents overnight. Patient a lot more joyful today. Currently on 4 L nasal cannula saturating 91%. He did ambulate with respiratory therapy today and was requiring up to 7 L to maintain saturation over 90% but did recover pretty fairly fast on rest. Denies any nausea, vomiting, headache. Apologizing for his behavior yesterday. Vitals noted. Vitals/I&O/Wt Last Vital Signs Temp 98.6 F 09/11/20 15:38 Pulse 98 09/11/20 16:16 Resp 18 09/11/20 16:16 BP 131/82 09/11/20 15:38 Pulse Ox 91 09/11/20 16:16 09/11/20 09/11/20 09/11/20 06:59 14:59 22:59 Intake Total 200 / 1070 720 / 720 Output Total 350 / 950 275 / 275 100 / 375 Balance -150 / 120 445 / 445 -100 / 345 Weight last 48 hrs Weight 90.718 kg Weight 125.373 kg Physical Exam Narrative: EXAM NARRATIVE: General: No acute distress, AO x3, anxious, agitated but cooperative HEENT: PERRLA, pupils bilaterally equal and reactive Chest: Normal vesicular breath sounds, bilateral diffuse rhonchi, right more than left, anterior more than posterior, equal good air entry bilaterally CVS: S1-S2 regular, no murmurs, tachycardia, no gallops, no rubs Abdomen: Soft, nontender, no organomegaly, bowel sounds present Neuro: Moving all limbs, AO x3 Urinary Catheter Management^: Colon: Cath Placed During This Visit: yes, but has since been removed by the nurse Reason for Continuing Indwelling Catheter: Decision to DC Catheter Urinary Catheter Date of Insertion: 08/26/20 Urinary Catheter Time of Insertion: 10:45 Date Urinary Catheter Removed: 09/07/20 Time Urinary Catheter Discontinued: 10:25 Data : 09/11/20 03:30 09/11/20 03:30 A&P Assessment and plan (1) ARDS (adult respiratory distress syndrome): Status: Acute (2) Severe acute respiratory syndrome coronavirus 2 (SARS-CoV-2) detected: Status: Acute (3) Pneumonia due to COVID-19 virus: Status: Acute (4) Secondary bacterial pneumonia: Status: Acute (5) Type 2 diabetes mellitus: Status: Acute (6) Lactic acidosis: Status: Acute (7) Hyponatremia: Status: Acute (8) Anxiety: Status: Acute Additional A&P Information Acute hypoxic respiratory failure/ARDS secondary to severe COVID-19 pneumonia: Successfully extubated 08/31/2020 Patient has already finished course of remdesivir and conversant plasma. Oxygen supplementation to be weaned keeping saturation over 90%. Bed to chair and ambulation. Continue physical therapy. Continue with dexamethasone 6 mg IV daily. Vitamin C, zinc. Eliquis 5 mg twice daily. Most likely patient will require Eliquis for 2 weeks post discharge. Advair, Spiriva. Patient does have leukocytosis but has remained afebrile and patient has had over 10 days of vancomycin and gram-negative coverage with Primaxin and aztreonam along with 10 days of azithromycin caspofungin in between as well. Procalcitonin negative. We will stop all antimicrobials today and continue to monitor. Continue with metoprolol 12.5 mg twice daily for tachycardia. Echocardiogram done earlier showed an EF 55 to 60% with grade 1 diastolic dysfunction without any valvular abnormalities. Patient looks euvolemic at pr esent. Pulmonary toilet with chest vest,incentive spirometer, flutter valve Type 2 diabetes mellitus: A1c 9.1. Continue to monitor blood glucose levels. High dose sliding scale, Levemir 12 units twice daily Anxiety: Start patient on Xanax 0.25 mg 3 times daily as needed, trazodone 100 mg nightly. Move patient to medical surgical floor. Have allowed patient's to visit him once as she is also COVID-19 positive once patient is transferred over to the floors. Full code. Cardiac carb consistent regular diet Full dose Lovenox. Protonix for PUD prophylaxis. Patient's care has been discussed in detail with his Ms. Thomas on [phone]. All the questions were answered. Plan for today: Continue aggressive pulmonary toilet with incentive spirometry and Acapella. Try to wean off oxygen keeping saturation over 90% both at rest and on ambulation. Discharge plan: If patient continues to do well can plan to discharge home once oxygen can be made available at home. Have asked assistance from care transitions nurse for oxygen availability at home. Most likely patient will require home health. Attestations Medical Necessity Statement*: Requires further hospitalization for management of resolving ARDS because of severe COVID-19 pneumonia while the wean of oxygen supplementation. Awaiting safe discharge planning for availability of oxygen at home Time Spent in Patient Care: Greater than 35 minutes (>than 50% of time spent in counselling and/or direct pt care on unit) . Coding Level of Care Code Acute Associate Editor for [facility] Fwd Diagnoses ARDS (adult respiratory distress syndrome) J80 Severe acute respiratory syndrome coronavirus 2 (SARS-CoV-2) detected U07.1 Pneumonia due to COVID-19 virus U07.1; J12.89 Secondary bacterial pneumonia J15.9 Type 2 diabetes mellitus E11.9 Lactic acidosis E87.2 Hyponatremia E87.1 Anxiety F41.9
[2020-09-11 17:14] LABS: Glucose Point of Care 279 mg/dL (70-110)
[2020-09-11] MEDS: FUROsemide 20 mg Tablet PO (17:35)
[2020-09-11 20:39] LABS: Glucose Point of Care 256 mg/dL (70-110)
[2020-09-11] MEDS: trazodone 100 mg Tablet PO (21:46)
[2020-09-12] VITALS (16 sets, daily range): BP systolic 105–136; BP diastolic 69–85; PULSE 83–110; RESP 18–22; TEMP 36.8–37.2; O2SAT 88–97
--- NOTE | 2020-09-12 01:30 | PC.NURSE ---
AT THE TIME OF MIDNIGHT VITALS, THE PATIENT'S OXYGEN SATURATION WAS T 79%. HE WAS RECEIVING 5 LITERS PER NASAL CANULA. THE AID WOKE THE PATIENT MORE AND ENCOURAGED HIM TO BREATH DEEP, WITH THIS HIS SATS CAME UP TO 88%. WHEN THIS NURSE WAS NOTIFIED I WENT TO ASSESS THE PATIENT. HE DENIED ANY SHORTNESS OF BREATH OR DIFFICULTY BREATHING. HE WAS MAINTAINING 86-88% WITH THE 5 LITERS OF OXYGEN. RESPIRATORY WAS CONSULTED. THE PATIENT WAS ENCOURAGED TO COUGH AND BREATH THROUGH HIS NOSE AND NOT HIS MOUTH, TO WHICH HE WOULD NOT CONTINUE. WHEN RT WENT IN AND ASSESSED, THE PATIENT WAS PLACED ON AN OXY MASK AT 10 LITERS OF OXYGEN. THE PATIENT'S SATS CAME UP TO 92% AT THAT TIME. WHILE GIVING THE PATIENT TIME TO RECOVER, HIS SATS ARE NOW 94% APPROXIMATELY 30 MINUTES AFTER PLACEMENT.
[2020-09-12] MEDS: pantoprazole 40 mg SDV IVP ×2 (03:37→15:31)
[2020-09-12] MEDS: albuterol 8 gm MDI 2 PUFF INHALATION ×5 (04:45→20:30)
[2020-09-12 06:10] LABS: Basophils # 0.1 10^3/uL (0.0-0.1); Basophils % 0.5 %; Eosinophils # 0.3 10^3/uL (0.0-0.8); Eosinophils % 2.3 %; Hematocrit 32.8 % (42.0-52.0); Hemoglobin 10.6 g/dL (11.7-16.6); Lymphocytes # 2.3 10^3/uL (0.8-4.8); Lymphocytes % 18.5 %; Mean Corpuscular HGB Conc 32.3 g/dL (30.0-36.0); Mean Corpuscular Hemoglobin 28.4 pg (28.0-34.0); Mean Corpuscular Volume 87.9 fL (80-94); Mean Platelet Volume 9.2 fL (7.4-10.4); Monocytes # 0.9 10^3/uL (0.2-0.9); Monocytes % 7.3 %; Neutrophils # 8.69 10^3/uL (1.8-7.7); Nucleated Red Blood Cells % 0 %; Platelet Count 374 10^3/cmm (130-400); Red Blood Count 3.73 10^6/uL (4.1-5.3); Red Cell Distribution Width 13.6 % (12.1-15.1); White Blood Count 12.4 10^3/uL (4.0-10.0)
[2020-09-12 06:41] LABS: Fibrinogen 552 mg/dL (174-498)
[2020-09-12 06:44] LABS: D Dimer 0.72 ug/mIFEU (0-0.59)
[2020-09-12 06:44] LABS: Glucose Point of Care 98 mg/dL (70-110)
[2020-09-12 07:00] LABS: Alanine Aminotransferase 39 U/L (0-41); Albumin Level 3.2 g/dL (3.5-5.2); Alkaline Phosphatase 118 IU/L (40-130); Aspartate Amino Transferase 23 U/L (0-40); Blood Urea Nitrogen 18 mg/dL (6-20); C Reactive Protein 38.6 mg/L (0.0-4.9); Carbon Dioxide 25 mmol/L (22-29); Chloride 103 mmol/L (98-107); Creatine Phosphokinase 23 U/L (39-308); Ferritin 578 ng/mL (30-400); Globulin 3.2 g/dL (1.3-4.6); Glomerular Filtration Rate 141.5 mL/min (90-130); Glucose 87 mg/dL (65-115); Lactate Dehydrogenase 247 U/L (135-225); NT Pro B Type Natriuretic Pept 175 pg/mL (0-125); Osmolality Calculated 289 mOsm/kg (285-295); Sodium 139 mmol/L (136-145); Total Bilirubin 0.2 mg/dL (0.15-1.2); Total Protein 6.4 g/dL (6.6-8.7)
[2020-09-12] MEDS: collagenase oint 30 gm 1 APPLIC TOPICAL (08:29)
[2020-09-12] MEDS: ascorbic acid 500 mg Tablet PO (08:30)
[2020-09-12] MEDS: metoprolol tartrate 25 mg Tablet 12.5 MG PO ×2 (08:30→17:31)
[2020-09-12] MEDS: dexamethasone 4 mg/mL INJ 6 MG IVP (08:30)
[2020-09-12] MEDS: zinc gluconate 50 mg Tablet PO (08:30)
[2020-09-12] MEDS: apixaban 5 mg Tablet PO ×2 (08:30→17:31)
[2020-09-12] MEDS: guaiFENesin 600 mg Tablet 1200 MG PO ×2 (08:30→17:31)
--- NOTE | 2020-09-12 08:49 | PC.NURSE ---
Patient refused miralax and and senna this morning due to X2 BM yesterday as charted, patient is currently on 6L high flow NC with oxygen saturation at 91%,, had oxygen desaturation over night per report, Dr. Barbosa notified. Patient educated on turn cough deep breath and notifying this nurse with any shortness of breath or changes in condition, verbalized understanding, sitting up in bed eating breakfast, call light in reach, side rails up X2.
--- NOTE | 2020-09-12 09:19 | P.PN_ITS ---
Subjective Subjective: Interval history: sitting out of bed to chair. looks in good spirits, looks more energetic and enthusiastic after being moved out of icu to floor. Saturating 90% on 6L nasal cannula. more cooperative and agrees that he will still need couple of days of monitoring and willing to go home once deemed stable. Other wong clinically improving. Vitals/I&O/Wt Last Vital Signs Temp 98.7 F 09/12/20 08:00 Pulse 92 09/12/20 08:00 Resp 18 09/12/20 08:00 BP 128/72 09/12/20 08:00 Pulse Ox 90 09/12/20 08:00 09/11/20 09/12/20 09/12/20 22:59 06:59 14:59 Intake Total 360 / 1080 Output Total 400 / 675 350 / 1025 Balance -40 / 405 -350 / 55 Weight last 48 hrs Weight 249 lb Weight 200 lb Physical Exam Narrative: EXAM NARRATIVE: PHYSICAL EXAM: General:sitting in chair, not in respiratory distress HEENT:NCAT, PERRLA, EOMI Neck: Supple Lungs: bilateral middle and lower zones mild crackles-improving Heart: s1/s2, RRR Abd: soft, NT, ND, BS + Normoactive Extremities: No edema AIRLINE SECURITY REPRESENTATIVE: alert, 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 SKIN: no rash Urinary Catheter Management^: Guevara: Cath Placed During This Visit: yes, but has since been removed by the nurse Reason for Continuing Indwelling Catheter: Decision to DC Catheter Urinary Catheter Date of Insertion: 08/26/20 Urinary Catheter Time of Insertion: 10:45 Date Urinary Catheter Removed: 09/07/20 Time Urinary Catheter Discontinued: 10:25 Data : 09/12/20 05:30 09/12/20 05:30 A&P Assessment and plan (1) Severe acute respiratory syndrome coronavirus 2 (SARS-CoV-2) detected: Status: Acute (2) Type 2 diabetes mellitus: Status: Acute (3) Acute respiratory failure with hypoxia: Status: Acute 50-year-old male with past medical history of type 2 diabetes admitted to VICU for acute hypoxic respiratory failure secondary to severe ARDS secondary to COVID-19 pneumonia on 08/26/2020 and currently with worsening bilateral consolidations on chest x-ray but improving clinically and today down to 6 L nasal cannula. NEURO: Mentation normal following commands PULM: Acute hypoxic and hypercapneic respiratory failure secondary to COVID-19 pneumonia Worsening bilateral opacities on imaging -improving clinically -secondary to COVID pna -Intubated on arrival to ER 08/26/2020 - extuabted on 08/31/2020 -Currently on 6 L nasal cannula saturating 92% -Last ABG on 09/07/2020 7.4 4/30/61/20/92% on 60% FiO2 -CXR 09/08/2020:Extensive bilateral pneumonia showing no change since prior study. -CT chest 09/05/2020:Progression of bilateral diffuse opacifications since the prior CT of 08/26/2020. Less groundglass attenuation with increasing consolidations. These findings can be seen with temporal progression of Covid 19. No improvement. -S/p remdesivir, -Also received convalescent plasma -On dexamethasone, -MRSA nares negative -Overall clinically patient doing well and oxygenating 92% on 6 L nasal cannula when compared to the severity of CT chest findings of GGO's of severe COVID-19 pneumonia -But desaturating to high 80s upon ambulation -I feel like it is a slow process of recovery and radiological findings will take its time for resolution -repeat blood cultures are negative - off vancomycin, imipenem, micafungin azithromycin -Improving inflammatory markers -Encourage incentive spirometry/chest physiotherapy/out of bed to chair/physical therapy -Currently on Advair, Spiriva, albuterol as needed -Monitor saturation and titrate down FiO2 CVS: -Echo LV systolic function normal with EF 55 to 60%, grade 1 diastolic. -Hemodynamically stable -Monitor input output -Metoprolol 12.5 mg PO bid GI: -Started on carb consistent diet -On senna -miralax- lactulose 20 bid -Improved LFTs - PPI 40 Q 12 hr RENAL: -Renal functions improving - CMP suggestive of anion gap metabolic acidosis -Overall close to net even -Strict I/O-try to keep slight negative to even -Continue guevara cath -Avoid nephrotoxins -Monitor electrolytes and supplement accordingly -CK normalized HEM: H&H stable Plts stable, DVT prophylaxis: Elliquis 5 mg po bid ENDO: Sugars moderately controlled - STILL ON DEXA Levemir 14 units twice daily and continue scale coverage previously on levemir 18 Units bid pt had hypoglycemia POCT Q6H ID: Severe sepsis secondary to COVID pna -afebrile, leukocytosis 12k -Blood cultures coagulase-negative staph -CXR :Extensive bilateral pneumonia showing no change since prior study. -CT chest 09/05/2020:Progression of bilateral diffuse opacifications since the prior CT of 08/26/2020. Less groundglass attenuation with increasing consolidations. These findings can be seen with temporal progression of Covid 19. No improvement. -S/p remdesivir, -Also received convalescent plasma -On dexamethasone, -MRSA nares negative -Overall clinically patient doing well and oxygenating 92% on 6 L nasal cannula when compared to the severity of CT chest findings of GGO's of severe COVID-19 pneumonia -I feel like it is a slow process of recovery and radiological findings will take its time for resolution -repeat blood cultures are negative -patient received antibiotics for more than 10 days - off vancomycin, imipenem, micafungin azithromycin -Improving inflammatory markers -Follow-up Fungitell and galactomannan and histoplasma Code Status: Full code Disposition: ICU Recommendations conveyed to hospitalist covering the patient Attestations Medical Necessity Statement*: Acute hypoxic respiratory failure secondary to COVID-19 pneumonia still requiring 6 L nasal cannula and slight desaturation upon ambulation to high 80s Coding Level of Care Code Established Pt Acute Bottom Turning Lathe Turner for g Fwd Patient Type Established History Comprehensive Exam Comprehensive Medical Decision Making High Complexity Diagnoses Severe acute respiratory syndrome coronavirus 2 (SARS-CoV-2) detected U07.1 Type 2 diabetes mellitus E11.9 Acute respiratory failure with hypoxia J96.01 Time Spent (min) 35
[2020-09-12] MEDS: FUROsemide 10 mg/mL SDV 2mL 20 MG IVP (09:51)
[2020-09-12 11:26] LABS: Glucose Point of Care 348 mg/dL (70-110)
--- NOTE | 2020-09-12 13:24 | PC.NURSE ---
Patient sitting up in chair, denies pain or needs, call light in reach.
--- NOTE | 2020-09-12 17:16 | PM.PN ---
Subjective Subjective: Interval history: No events overnight. On examination sitting in the recliner. Denies any nausea vomiting, headache. States his breathing is stable. States he thinks he overdid yesterday. Denies nausea vomiting, headache. Saturation maintaining more than 90% on 5 L nasal cannula. Other wong clinically improving. Vitals/I&O/Wt Last Vital Signs Temp 98.2 F 09/12/20 16:00 Pulse 97 09/12/20 16:00 Resp 18 09/12/20 16:00 BP 110/69 09/12/20 16:00 Pulse Ox 91 09/12/20 16:00 09/12/20 09/12/20 09/12/20 06:59 14:59 22:59 Intake Total 480 / 480 Output Total 350 / 1025 650 / 650 Balance -350 / 55 -170 / -170 Weight last 48 hrs Weight 112.945 kg Weight 90.718 kg Physical Exam Narrative: EXAM NARRATIVE: General: No acute distress, AO x3, anxious, agitated but cooperative HEENT: PERRLA, pupils bilaterally equal and reactive Chest: Normal vesicular breath sounds, bilateral diffuse rhonchi, right more than left, anterior more than posterior, equal good air entry bilaterally CVS: S1-S2 regular, no murmurs, tachycardia, no gallops, no rubs Abdomen: Soft, nontender, no organomegaly, bowel sounds present Neuro: Moving all limbs, AO x3 Urinary Catheter Management^: Colon: Cath Placed During This Visit: yes, but has since been removed by the nurse Reason for Continuing Indwelling Catheter: Decision to DC Catheter Urinary Catheter Date of Insertion: 08/26/20 Urinary Catheter Time of Insertion: 10:45 Date Urinary Catheter Removed: 09/07/20 Time Urinary Catheter Discontinued: 10:25 Data : 09/12/20 05:30 09/12/20 05:30 A&P Assessment and plan (1) ARDS (adult respiratory distress syndrome): Status: Acute (2) Severe acute respiratory syndrome coronavirus 2 (SARS-CoV-2) detected: Status: Acute (3) Pneumonia due to COVID-19 virus: Status: Acute (4) Secondary bacterial pneumonia: Status: Acute (5) Type 2 diabetes mellitus: Status: Acute (6) Lactic acidosis: Status: Acute (7) Hyponatremia: Status: Acute (8) Anxiety: Status: Acute Additional A&P Information Acute hypoxic respiratory failure/ARDS secondary to severe COVID-19 pneumonia: Successfully extubated 08/31/2020 Patient has already finished course of remdesivir and conversant plasma. Oxygen supplementation to be weaned keeping saturation over 90%. Bed to chair and ambulation. Continue physical therapy. Switch to prednisone 40 mg from tomorrow. Vitamin C, zinc. Eliquis 5 mg twice daily. Most likely patient will require Eliquis for 2 weeks post discharge. Deon Juarez. Has remained afebrile off antibiotics for last 5 days. We will continue to monitor. Holding off on antimicrobials for now.. Continue with metoprolol 12.5 mg twice daily for tachycardia. Echocardiogram done earlier showed an EF 55 to 60% with grade 1 diastolic dysfunction without any valvular abnormalities. Patient looks euvolemic at present. Pulmonary toilet with chest vest,incentive spirometer, flutter valve Type 2 diabetes mellitus: A1c 9.1. Blood sugars elevated.For now we will not increase insulin even though patient has borderline hyperglycemia as switching to oral steroids from tomorrow. Continue to monitor blood glucose levels. High dose sliding scale, Levemir 12 units twice daily Anxiety: Start patient on Xanax 0.25 mg 3 times daily as needed, trazodone 100 mg nightly. Move patient to medical surgical floor. Have allowed patient's to visit him once as she is also COVID-19 positive once patient is transferred over to the floors. Full code. Cardiac carb consistent regular diet Full dose Lovenox. Protonix for PUD prophylaxis. Patient's care has been discussed in detail with his Ms. Thomas on [phone]. All the questions were answered. Plan for today: Continue aggressive pulmonary toilet with incentive spirometry and Acapella. Try to wean off oxygen keeping saturation over 90% both at rest and on ambulation. Switching over to oral steroids. Continue to monitor blood sugars. Discharge plan: If patient continues to do well can plan to discharge home once oxygen can be made available at home. Have asked assistance from day care attendant for oxygen availability at home. Most likely patient will require home health. Attestations Medical Necessity Statement*: Requires further hospitalization while we wean down oxygen supplementation to keep saturation over 90% for COVID-19 pneumonia and home oxygen can be arranged for safe discharge planning. Time Spent in Patient Care: Greater than 35 minutes (>than 50% of time spent in counselling and/or direct pt care on unit). Coding Level of Care Code Acute Statement Request Clerk for [facility] Fwd Diagnoses ARDS (adult respiratory distress syndrome) J80 Severe acute respiratory syndrome coronavirus 2 (SARS-CoV-2) detected U07.1 Pneumonia due to COVID-19 virus U07.1; J12.89 Secondary bacterial pneumonia J15.9 Type 2 diabetes mellitus E11.9 Lactic acidosis E87.2 Hyponatremia E87.1 Anxiety F41.9
[2020-09-12 17:35] LABS: Glucose Point of Care 225 mg/dL (70-110)
--- NOTE | 2020-09-12 17:53 | PC.NURSE ---
This LIMB DRIVER asked the patient if he wanted to take a shower today the patient replied Ill take one later this evening after im done with my dinner ths LIMB DRIVER went in to his room after dinner and the patient stated I dont feel like taking a shower tonight is it alright alright if I take one tomorrow morning? this poultry raiser told the patient that that was fine just to let them know that he wanted to take one in the morning. This LIMB DRIVER will pass it on to the shift supervisor melting and have them pass it on to day shift for tomorrow.
[2020-09-12 21:55] LABS: Glucose Point of Care 163 mg/dL (70-110)
[2020-09-12] MEDS: trazodone 100 mg Tablet PO (22:34)
[2020-09-13] VITALS (18 sets, daily range): BP systolic 105–138; BP diastolic 62–84; PULSE 80–95; RESP 16–20; TEMP 36.6–37.1; O2SAT 86–96
[2020-09-13] MEDS: albuterol 8 gm MDI 2 PUFF INHALATION ×7 (00:45→23:54)
[2020-09-13] MEDS: pantoprazole 40 mg SDV IVP ×2 (05:27→18:12)
[2020-09-13 06:35] LABS: Glucose Point of Care 129 mg/dL (70-110)
[2020-09-13 06:59] LABS: Basophils # 0.1 10^3/uL (0.0-0.1); Basophils % 0.5 %; Eosinophils # 0.3 10^3/uL (0.0-0.8); Eosinophils % 2.2 %; Hematocrit 34.5 % (42.0-52.0); Lymphocytes # 2.6 10^3/uL (0.8-4.8); Lymphocytes % 18.7 %; Mean Corpuscular HGB Conc 31.9 g/dL (30.0-36.0); Mean Corpuscular Hemoglobin 28.4 pg (28.0-34.0); Mean Corpuscular Volume 89.1 fL (80-94); Mean Platelet Volume 9.1 fL (7.4-10.4); Monocytes % 7.3 %; Neutrophils # 9.71 10^3/uL (1.8-7.7); Neutrophils % 70.1 %; Nucleated Red Blood Cells % 0 %; Platelet Count 381 10^3/cmm (130-400); Red Blood Count 3.87 10^6/uL (4.1-5.3); Red Cell Distribution Width 13.5 % (12.1-15.1); White Blood Count 13.8 10^3/uL (4.0-10.0)
[2020-09-13 07:33] LABS: D Dimer 0.81 ug/mIFEU (0-0.59)
[2020-09-13 07:42] LABS: Alanine Aminotransferase 47 U/L (0-41); Albumin Level 3.2 g/dL (3.5-5.2); Alkaline Phosphatase 129 IU/L (40-130); Anion Gap 13.9 (5-19); Aspartate Amino Transferase 27 U/L (0-40); Blood Urea Nitrogen 19 mg/dL (6-20); C Reactive Protein 31.2 mg/L (0.0-4.9); Calcium 9.2 mg/dL (8.5-10.5); Carbon Dioxide 26 mmol/L (22-29); Chloride 99 mmol/L (98-107); Creatine Phosphokinase 27 U/L (39-308); Ferritin 601 ng/mL (30-400); Globulin 3.7 g/dL (1.3-4.6); Glomerular Filtration Rate 141.5 mL/min (90-130); Glucose 123 mg/dL (65-115); Lactate Dehydrogenase 267 U/L (135-225); NT Pro B Type Natriuretic Pept 125 pg/mL (0-125); Osmolality Calculated 284 mOsm/kg (285-295); Potassium 3.9 mmol/L (3.5-5.1); Sodium 135 mmol/L (136-145); Total Bilirubin 0.3 mg/dL (0.15-1.2); Total Protein 6.9 g/dL (6.6-8.7)
[2020-09-13 07:53] LABS: Fibrinogen 622 mg/dL (174-498)
[2020-09-13] MEDS: apixaban 5 mg Tablet PO ×2 (09:58→18:12)
[2020-09-13] MEDS: zinc gluconate 50 mg Tablet PO (09:58)
[2020-09-13] MEDS: guaiFENesin 600 mg Tablet 1200 MG PO ×2 (09:58→18:12)
[2020-09-13] MEDS: FUROsemide 10 mg/mL SDV 2mL 20 MG IVP (09:58)
[2020-09-13] MEDS: predniSONE 20 mg Tablet 40 MG PO (09:58)
[2020-09-13] MEDS: ascorbic acid 500 mg Tablet PO (09:58)
[2020-09-13] MEDS: metoprolol tartrate 25 mg Tablet 12.5 MG PO ×2 (09:59→18:13)
[2020-09-13 12:17] LABS: Glucose Point of Care 347 mg/dL (70-110)
--- NOTE | 2020-09-13 16:06 | PM.PN ---
Subjective Subjective: Interval history: No acute events overnight. On examination sitting comfortably in chair. Saturating 92% on 4 L nasal cannula. Denies any nausea, vomiting, headache. States his energy levels are better. Able to walk around in the room without headache, dizziness. States getting less short of breath on ambulation now. Still awaiting authorization for home oxygen. Vitals/I&O/Wt Last Vital Signs Temp 98.8 F 09/13/20 12:00 Pulse 94 09/13/20 12:00 Resp 18 09/13/20 12:00 BP 116/71 09/13/20 12:00 Pulse Ox 91 09/13/20 12:00 09/13/20 09/13/20 09/13/20 06:59 14:59 22:59 Intake Total 720 / 720 Output Total 300 / 1230 650 / 650 Balance -300 / -30 70 / 70 Weight last 48 hrs Weight 112.945 kg Physical Exam Narrative: EXAM NARRATIVE: General: No acute distress, AO x3, anxious, agitated but cooperative HEENT: PERRLA, pupils bilaterally equal and reactive Chest: Normal vesicular breath sounds, bilateral diffuse rhonchi, right more than left, anterior more than posterior, equal good air entry bilaterally CVS: S1-S2 regular, no murmurs, tachycardia, no gallops, no rubs Abdomen: Soft, nontender, no organomegaly, bowel sounds present Neuro: Moving all limbs, AO x3 Urinary Catheter Management^: Colon: Cath Placed During This Visit: yes, but has since been removed by the nurse Reason for Continuing Indwelling Catheter: Decision to DC Catheter Urinary Catheter Date of Insertion: 08/26/20 Urinary Catheter Time of Insertion: 10:45 Date Urinary Catheter Removed: 09/07/20 Time Urinary Catheter Discontinued: 10:25 Data : 09/13/20 05:50 09/13/20 05:50 A&P Assessment and plan (1) ARDS (adult respiratory distress syndrome): Status: Acute (2) Severe acute respiratory syndrome coronavirus 2 (SARS-CoV-2) detected: Status: Acute (3) Pneumonia due to COVID-19 virus: Status: Acute (4) Secondary bacterial pneumonia: Status: Acute (5) Type 2 diabetes mellitus: Status: Acute (6) Lactic acidosis: Status: Acute (7) Hyponatremia: Status: Acute (8) Anxiety: Status: Acute Additional A&P Information Acute hypoxic respiratory failure/ARDS secondary to severe COVID-19 pneumonia: Successfully extubated 08/31/2020 Patient has already finished course of remdesivir and conversant plasma. Oxygen supplementation to be weaned keeping saturation over 90%. Bed to chair and ambulation. Continue physical therapy. Continue prednisone 40 mg. Will need slow taper as an outpatient. Vitamin C, zinc. Eliquis 5 mg twice daily. Most likely patient will require Eliquis for 2 weeks post discharge. Deon Juarez. Has remained afebrile off antibiotics. We will continue to monitor. Holding off on antimicrobials for now.. Continue with metoprolol 12.5 mg twice daily for tachycardia. Echocardiogram done earlier showed an EF 55 to 60% with grade 1 diastolic dysfunction without any valvular abnormalities. Patient looks euvolemic at present. Pulmonary toilet with chest vest,incentive spirometer, flutter valve Type 2 diabetes mellitus: A1c 9.1. Blood sugars better than yesterday. Continue to monitor at current dose. Continue to monitor blood glucose levels. High dose sliding scale, Levemir 12 units twice daily Anxiety: Start patient on Xanax 0.25 mg 3 times daily as needed, trazodone 100 mg nightly. Move patient to medical surgical floor. Have allowed patient's to visit him once as she is also COVID-19 positive once patient is transferred over to the floors. Full code. Cardiac carb consistent regular diet Full dose Lovenox. Protonix for PUD prophylaxis. Patient's care has been discussed in detail with his Ms. Thomas on [phone]. All the questions were answered. Plan for today: Continue aggressive pulmonary toilet with incentive spirometry and Acapella. Try to wean off oxygen keeping saturation over 90% both at rest and on ambulation. Switching over to oral steroids. Continue to monitor blood sugars. Discharge plan: If patient continues to do well can plan to discharge home once oxygen can be made available at home. Have asked assistance from infant childcare provider for oxygen availability at home. Most likely patient will require home health. Attestations Medical Necessity Statement*: Patient requires further hospitalization till safe discharge planning can be done in view of requirement of oxygen at home for hypoxic respiratory failure due to COVID-19 pneumonia. Time Spent in Patient Care: Greater than 35 minutes (>than 50% of time spent in counselling and/or direct pt care on unit). Coding Level of Care Code Acute Talent Analyst for [facility] Fwd Diagnoses ARDS (adult respiratory distress syndrome) J80 Severe acute respiratory syndrome coronavirus 2 (SARS-CoV-2) detected U07.1 Pneumonia due to COVID-19 virus U07.1; J12.89 Secondary bacterial pneumonia J15.9 Type 2 diabetes mellitus E11.9 Lactic acidosis E87.2 Hyponatremia E87.1 Anxiety F41.9
[2020-09-13 17:18] LABS: Glucose Point of Care 250 mg/dL (70-110)
[2020-09-13] MEDS: collagenase oint 30 gm 1 APPLIC TOPICAL (18:12)
[2020-09-13] MEDS: lanolin oint 7 gm 1 APPLIC TOPICAL (18:30)
[2020-09-13 21:15] LABS: Glucose Point of Care 296 mg/dL (70-110)
[2020-09-13] MEDS: trazodone 100 mg Tablet PO (21:58)
[2020-09-14] VITALS (13 sets, daily range): BP systolic 105–138; BP diastolic 70–88; PULSE 70–95; RESP 18–20; TEMP 36.4–37.1; O2SAT 84–96
[2020-09-14] MEDS: pantoprazole 40 mg SDV IVP (04:55)
[2020-09-14 07:00] LABS: Glucose Point of Care 155 mg/dL (70-110)
[2020-09-14] MEDS: albuterol 8 gm MDI 2 PUFF INHALATION ×3 (07:05→15:10)
[2020-09-14] MEDS: predniSONE 20 mg Tablet 40 MG PO (09:46)
[2020-09-14] MEDS: ascorbic acid 500 mg Tablet PO (09:46)
[2020-09-14] MEDS: zinc gluconate 50 mg Tablet PO (09:46)
[2020-09-14] MEDS: guaiFENesin 600 mg Tablet 1200 MG PO (09:46)
[2020-09-14] MEDS: apixaban 5 mg Tablet PO (09:46)
[2020-09-14] MEDS: FUROsemide 10 mg/mL SDV 2mL 20 MG IVP (09:48)
[2020-09-14] MEDS: collagenase oint 30 gm 1 APPLIC TOPICAL (09:49)
[2020-09-14 12:57] LABS: Glucose Point of Care 319 mg/dL (70-110)
--- NOTE | 2020-09-14 13:03 | P.DS_ITS ---
Discharge Providers Date of Admission: 08/26/20 18:33 Date of Discharge: September 14, 2020 Attending Provider at Admission: Steve Barbosa MD Attending Provider at Discharge: Steve Barbosa MD Consults: Pulmonology:Dr. Rootr Primary Care Provider: Kenn Cruz DO Diagnoses at Discharge Discharge Diagnosis (1) ARDS (adult respiratory distress syndrome): Status: Acute (2) Severe acute respiratory syndrome coronavirus 2 (SARS-CoV-2) detected: Status: Acute (3) Pneumonia due to COVID-19 virus: Status: Acute (4) Secondary bacterial pneumonia: Status: Acute (5) Type 2 diabetes mellitus: Status: Acute (6) Lactic acidosis: Status: Acute (7) Hyponatremia: Status: Acute (8) Anxiety: Status: Acute Reason for Visit Reason for Visit: RESP DISTRESS Hospital Course Hospital Course Bharath Vallejo is a 49 year old male with known medical history of type 2 diabetes mellitus who was brought into the ER today via EMS because of difficulty in breathing. In the field he was found to have a saturation of 50% on room air which improved to 70% on high flow nasal cannula. Most of the history taken via chart review and through ER physician. Apparently patient has been having difficulty in breathing and cough since Tuesday and had a rapid antibody test as an outpatient which was negative. In last 2 to 3 days he has been having increasing difficulty in breathing along with cough and some diarrhea and myalgias. Is brought to ER by EMS. On arrival in the ER he was saturating 50% on room air which did not improve even though he was put on high flow oxygenation. After discussion between the ER physician and patient he was electively intubated for further management. Currently on my examination patient is saturating 92% but the 100% FiO2, 14 oh respiratory rate with 10 of PEEP and 510 to volume on AC VC mode. His blood work in the ER showed white count of 16.6, hemoglobin of 14.6, INR of 1.2, D-dimer of 2.2, fibrinogen of 736, sodium of 133, creatinine of 1.1, lactate of 3.1, ferritin of 1430, AST/ALT of 30/16, alkaline phosphatase of 150, LDH of 800, CRP of 369, pro-Ck of 0.65. ABG done in the ER on presentation showing a pH of 7.4, PCO2 22, PO2 of 55 on nonrebreather mask. On admission patient was intubated in the ER. He was admitted to the viral ICU and started on antiviral treatment with remdesivir, Decadron and was also given 2 treatments of convalescent plasma, broad-spectrum antibiotics to cover for community-acquired severe pneumonia. On admission patient was metabolic acido sis because of lactic acidosis, hyponatremia which were appropriately managed with IV fluids. Patient responded well to the treatment. He was eventually extubated on 08/31 2020. Post extubation his clinical recovery was slow but steady. His hospital course was complicated by occasional hypoglycemia, occasional sinus tachycardia and TALON which were managed accordingly. He has been discharged in hemodynamically stable condition after doing home O2 evaluation with advised to follow-up with his primary care provider within next 1 to 3 days on Eliquis 5 mg for 2 weeks, Advair and Spiriva for next 2 weeks. He has been counseled and explained in detail regarding chest physical therapy and physical therapy for generalized deconditioning. Given severe illness, post extubation status patient is at high risk of readmission. Both patient and his family are aware of the same. Patient has been advised in detail to continue with physical therapy, chest physical therapy with Acapella and incentive spirometry. Physical Exam Narrative: EXAM NARRATIVE: General: No acute distress, AO x3, anxious, agitated but cooperative HEENT: PERRLA, pupils bilaterally equal and reactive Chest: Normal vesicular breath sounds, bilateral diffuse rhonchi, right more than left, anterior more than posterior, equal good air entry bilaterally CVS: S1-S2 regular, no murmurs, tachycardia, no gallops, no rubs Abdomen: Soft, nontender, no organomegaly, bowel sounds present Neuro: Moving all limbs, AO x3 Urinary Catheter Management^: Cooln: Cath Placed During This Visit: yes, but has since been removed by the nurse Reason for Continuing Indwelling Catheter: Decision to DC Catheter Urinary Catheter Date of Insertion: 08/26/20 Urinary Catheter Time of Insertion: 10:45 Date Urinary Catheter Removed: 09/07/20 Time Urinary Catheter Discontinued: 10:25 Discharge Data Data Completed and Pending: Completed Studies During Hospitalization Category Date Time Status CT angio chest PE protcl 60621 Stat Cat Scan 08/26/20 11:[address] chest wo con 7 1250 Routine Cat Scan 09/05/20 07:42 Completed XR chest 1V kalyani ble 07236 Q48H Exams 08/27/20 06:00 Completed XR chest 1V kalyani ble 73481 Routine Exams 08/28/20 04:06 Completed XR chest 1V kalyani ble 26407 Routine Exams 08/29/20 07:00 Completed XR chest 1V kalyani ble 79921 Routine Exams 08/30/20 07:00 Completed XR chest 1V kalayni ble 82326 Routine Exams 08/31/20 07:00 Completed XR chest 1V kalyani ble 56921 Routine Exams 09/01/20 07:00 Completed XR chest 1V kalyani ble 60358 Routine Exams 09/02/20 07:00 Completed XR chest 1V kalyani ble 87629 Routine Exams 09/04/20 07:00 Completed XR chest 1V kalyani ble 95611 Routine Exams 09/05/20 07:00 Completed XR chest 1V kalyani ble 24680 Routine Exams 09/06/20 07:00 Completed XR chest 1V kalyani ble 57980 Routine Exams 09/08/20 07:00 Completed XR chest 1V kalyani ble 90098 Routine Exams 09/11/20 09:37 Completed XR chest 1V kalyani ble 14690 Stat Exams 08/26/20 09:41 Completed XR chest 1V kalyani ble 53175 Urgent Exams 08/26/20 Completed CV echo complete* 40914 Routine Ultrasound 08/26/20 15:20 Completed Pending at discharge Category Date Time Status ABO/Rh Type Stat Lab 08/26/20 19:35 Results C Reactive Protei n AM LABS Lab 09/15/20 04:00 Ordered C Reactive Protei n AM LABS Lab 09/16/20 04:00 Ordered C Reactive Protei n AM LABS Lab 09/17/20 04:00 Ordered Complete Blood Co unt w/Auto AM LABS Lab 09/15/20 04:00 Ordered Complete Crossmat ch Stat Lab 08/26/20 19:35 Results Comprehensive Met abolic Panel AM LA BS Lab 09/15/20 04:00 Ordered Creatine Phosphok inase AM LABS Lab 09/15/20 04:00 Ordered Creatine Phosphok inase AM LABS Lab 09/16/20 04:00 Ordered Creatine Phosphok inase AM LABS Lab 09/17/20 04:00 Ordered D Dimer AM LABS Lab 09/15/20 04:00 Ordered D Dimer AM LABS Lab 09/16/20 04:00 Ordered D Dimer AM LABS Lab 09/17/20 04:00 Ordered Ferritin AM LABS Lab 09/15/20 04:00 Ordered Ferritin AM LABS Lab 09/16/20 04:00 Ordered Ferritin AM LABS Lab 09/17/20 04:00 Ordered Fibrinogen AM LAB S Lab 09/15/20 04:00 Ordered Fibrinogen AM LAB S Lab 09/16/20 04:00 Ordered Fibrinogen AM LAB S Lab 09/17/20 04:00 Ordered Frozen Plasma FZ <24 1st Cont Stat Lab 08/26/20 19:35 Results Fungal Culture no t HR/SK/BL Routine Lab 09/06/20 07:30 Results Lactate Dehydroge nase AM LABS Lab 09/15/20 04:00 Ordered Lactate Dehydroge nase AM LABS Lab 09/16/20 04:00 Ordered Lactate Dehydroge nase AM LABS Lab 09/17/20 04:00 Ordered Miscellaneous Christy t Stat Lab 09/05/20 03:44 Received NT Pro B Type Britt riuretic Pept AM L ABS Lab 09/15/20 04:00 Ordered NT Pro B Type Britt riuretic Pept AM L ABS Lab 09/16/20 04:00 Ordered NT Pro B Type Britt riuretic Pept AM L ABS Lab 09/17/20 04:00 Ordered Type and Screen S tat Lab 08/26/20 19:35 Results Labs from last 24 hours 09/14/20 09/14/20 09/13/20 12:49 06:55 21:12 POC Glucose 319 155 296 09/13/20 17:09 POC Glucose 250 Vitals: Last Vital Signs Temp 97.6 F 09/14/20 08:00 Pulse 82 09/14/20 11:10 Resp 18 09/14/20 11:05 BP 105/72 09/14/20 08:00 Pulse Ox 91 09/14/20 11:05 Discharge Plan Discharge Patient Disposition: Home Health Service Condition: Stable Prescriptions: New Eliquis 5 mg Tablet 5 mg PO BID Qty: 30 RF: 0 Vitamin C 500 mg Tablet 1 g PO DAILY 14 Days Qty: 30 RF: 0 Advair Diskus 250-50 mcg/dose Blister With Device 1 ea inhalation BID.RESPIRATORY Qty: 30 RF: 0 Mucinex 600 mg Tablet Extended Release 12hr 1,200 mg PO BID Qty: 30 RF: 0 Spiriva with HandiHaler 18 mcg Capsule, W/Inhalation Device 18 mcg inhalation DAILY.RESPIRATORY Qty: 30 RF: 0 trazodone 100 mg Tablet 100 mg PO BEDTIME PRN (Reason: sleep) Qty: 110 RF: 0 zinc gluconate 50 mg Tablet 50 mg PO DAILY Qty: 30 RF: 0 Medrol (Nadir) 4 mg tablets,dose pack See Rx Instructions .ROUTE .COMPLEX Qty: 21 RF: 0 Protonix [address] for susp in packet 40 mg PO DAILY Qty: 30 RF: 0 metoprolol succinate 25 mg capsule,sprinkle,ER 24hr 25 mg PO DAILY Qty: 30 RF: 0 Continued Tylenol Extra Strength 500 mg Tablet 1,000 - 1,500 mg PO PRN RF: 0 Humalog KwikPen Insulin 100 unit/mL insulin pen See Rx Instructions .ROUTE .COMPLEX RF: 0 Lantus Solostar U-100 Insulin 100 unit/mL (3 mL) insulin pen See Rx Instructions .ROUTE .COMPLEX RF: 0 Discontinued omeprazole 20 mg capsule,delayed release(DR/EC) 20 mg PO DAILY PRN (Reason: UNKNOWN) RF: 0 NyQuil See Rx Instructions .ROUTE .COMPLEX RF: 0 Discharge Orders: Discharge Order (Routine); Ordered 09/14/20 Ordered By: Steve Barbosa Other Ambulatory Orders: DME: Oxygen (Order) Location: None Selected Ordered By: Steve Barbosa Referrals: [facility] [Outside] [facility] [Outside] Kenn Cruz DO [Primary Care Provider] - 1-3 days (Please call Tuesday morning to make a follow up appointment with Dr. Cruz for 1-3 days. ) Discharge Diet: Cardiac and Diabetic Discharge Activity: Resume usual activity and Increase activity as tolerated Patient Instructions: Metoprolol (By mouth), Trazodone (By mouth), Guaifenesin (By mouth), Ascorbic Acid (Vitamin C) (By mouth), Methylprednisolone (By mouth), Pantoprazole (By mouth), Fluticasone/Salmeterol (By breathing), Tiotropium (By breathing), Apixaban (By mouth), Pneumonia Stoplight Activity Restrictions/Additional Instructions: Please follow-up with your primary care provider within next 1 to 3 days and then in 2 weeks. You will be on blood thinners with Eliquis for 2 weeks, Advair and Spiriva inhalers for next 2 weeks, vitamin C and zinc for next 2 weeks. You are on Medrol pack which is a steroid and has to be tapered as directed on the pack. If you have any fever, more difficulty breathing than baseline, bleeding, hemoptysis, epistaxis please come to the ER. Discharge Attestations Time Spent in Discharge Care*: greater than 30 min Specific Discharge Activities: educating patient, educating and/or supporting family/caregiver, discussing with case work aide/social workers/dc planners, d ocumenting/other paperwork and evaluating patient/reviewing data Status at Discharge: Cognitive status at discharge: cognitively intact , Behavioral status at discharge: cooperative , Functional status at discharge: independent ambulation Overall status at discharge: patient is progressing back to baseline Quality Metrics Clinical Quality Measures During this hospital stay, did patient experience: None Coding Level of Care Code Acute Executive Assistant To General Counsel for [facility] Fwd Diagnoses ARDS (adult respiratory distress syndrome) J80 Severe acute respiratory syndrome coronavirus 2 (SARS-CoV-2) detected U07.1 Pneumonia due to COVID-19 virus U07.1; J12.89 Secondary bacterial pneumonia J15.9 Type 2 diabetes mellitus E11.9 Lactic acidosis E87.2 Hyponatremia E87.1 Anxiety F41.9
--- NOTE | 2020-09-15 15:29 | PC.SOCIAL ---
Spoke with the patient on the phone about the discharge information they received spoke about signs and symptoms to watch for such as; blue lips or face, fever of 104 or higher, trouble breathing or catching breath, chest pain lasting longer than 5 minute, confusion or trouble waking up. We also spoke about ways to improve the immune system, these included; eating and drinking well, eating fruits and vegetables, lean meat, low fat dairy products, keeping up with immunizations such as flu/pneumonia/shingles shots, going to all appointments and follow ups, lessening and stress. We also spoke about ways to stop or prevent the spread of the COVID 19. These included; social distancing at all times, washing hands longer than 20 seconds with a good lather, sanitizing surfaces in home and in vehicle, masking up when possible and washing any cloth masks after use and allow them to dry completely before next use, sneezing or coughing into arm, restricting company or going out in public. We spoke a little about the benefits of plasma donation. The patient did have a question about a medication he was wanting to continue that he was on here at the hospital (Hydrocodone APA 5-325 MG 1 tab PO Q 4 HR PRN) I called Dr. Cruz office and informed them of the patients need. The patient was also concerned for his oxygen as he has ran out of the portable oxygen and has an apt Tuesday to go to Dr. Flores. I called [facility] and they stated that they will call and see if they need to bring out any portable tanks. I also called the [employer] to ask when they would be out and they stated that it would be Tuesday. I informed them that the patient has an apt with Dr. Cruz that same day, to give the patient a call to make sure he is home. Patient is informed of all of this.
== END 2020-09-14 17:12 | disposition home health service (06) | DRG 870 ==
LOC: ER 10:07 → ICU 16:31 → MEDSURG 09-10 15:53
PROVIDERS: Family Medicine; Nurse Practitioner Family; Admitting Provider Student in an Organized Health Care Education/Training Program; Emergency Provider Family Medicine; PCP Internal Medicine; Visit Provider Student in an Organized Health Care Education/Training Program
DX: A41.9 Sepsis, unspecified organism (principal); J12.89 Other viral pneumonia; U07.1 COVID-19; J15.9 Unspecified bacterial pneumonia; J96.22 Acute and chronic respiratory failure with hypercapnia; J96.21 Acute and chronic respiratory failure with hypoxia; E87.1 Hypo-osmolality and hyponatremia; E87.2 Acidosis; M62.82 Rhabdomyolysis; F41.9 Anxiety disorder, unspecified; R19.7 Diarrhea, unspecified; E11.649 Type 2 diabetes mellitus with hypoglycemia without coma; Z79.4 Long term (current) use of insulin; R65.20 Severe sepsis without septic shock
CPT/HCPCS: 12345; 31500; 36415; 36416; 36430; 36600; 51702; 71045; 71250; 71275; 80051; 80053; 80202; 80306; 82330; 82550; 82728; 82803; 82805; 82962; 83036; 83540; 83550; 83605; 83615; 83735; 83880; 84100; 84145; 84443; 84484; 85007; 85025; 85378; 85384; 85610; 86140; 86698; 86850; 86900; 86927; 87040; 87070; 87102; 87205; 87206; 87305; 87426; 87449; 87635; 87641; 87804; 87806; 92526; 92610; 93005; 93306; 94002; 94003; 94640; 94664; 94669; 94799; 96372; 96375; 97110; 97116; 97163; 97166; 97530; 97535; 99284; A4570; C9113; J0330; J0360; J0456; J0637; J0743; J1100; J1650; J1815 ×2; J1940; J2060; J2250; J2270; J2405; J2704; J2765; J3010; J3370; J3480; J3490; J7030; J7040; J7050; J7512; J7611; J7626; J7799; P9017; P9047; Q9967; S0030

== ENCOUNTER → 2021-01-22 09:13 | Outpatient (BNVA) | payer OTHER, SELFPAY | PROVIDERS: PCP Internal Medicine; Visit Provider Internal Medicine Pulmonary Disease | DX: Z11.52 Encounter for screening for COVID-19 (principal); Z20.822 Contact with and (suspected) exposure to COVID-19; J80 Acute respiratory distress syndrome | CPT/HCPCS: 87635 ==

== ENCOUNTER 2021-01-27 11:14 | Outpatient (CLI) | payer OTHER, SELFPAY ==
--- NOTE | 2021-01-27 11:24 | USCV_ITS ---
Bharath Vallejo Age: 50 Gender: M : 1970 Exam Date: 01/27/2021 12:04 Ordering Phys: Vin Bowers MD Technologist: Trish Tang Exam Location: [facility] [place] Indication: CAD Rhythm: Sinus Patient History: Dyspnea/SOB/mcclellan Cardiac Medications: Medications in past 24 hours: Contrast: Optison Stress Results Protocol: Vu Total dose(mL): Exercise Duration (min:sec): 6:00 METS: 7.0 Resting HR: 76 Resting BP: 131 / 97 Peak HR: 136 Peak BP: 231 / 104 Max Predicted HR: 168 81 % Max Predicted HR Target HR: 143 Double Product: 25953 Stress Summary: The patient's target heart rate was not achieved due to sob BP Response: Normal Reason for Termination: sob/ maximal effort Cardiac Symptoms: None ECG Analysis Resting ECG: Stress ECG: Arrhythmia: MEASUREMENTS (Male/Female) Normal Values FINDINGS PROCEDURE: At the baseline, the patient's blood pressure was 131/97 mmHg with a heart rate of 76 bpm. The patient exercised for 6 minutes on a standard Vu protocol. Patient attained a maximum heart rate of 168 beats per minute(81% of the maximum predicted heart rate) with a blood pressure at the peak exercise of 231/104 mm Hg. During the recovery phase, there were no new changes. Echocardiographic pictures were taken at the baseline, immediately following the peak exercise and during the recovery phase. Baseline echocardiogram: Normal left ventricular size and systolic function with ejection fraction estimated at 70%. No regional wall motion abnormalities. No pericardial effusion. Peak exercise echocardiogram: Normal augmentation of left ventricular systolic function with exercise. No new regional wall motion abnormalities. Recovery echocardiogram: Left ventricular systolic function normalized. No regional wall motion abnormalities. CONCLUSIONS 1. This is a treadmill stress echocardiogram. 2. Patient exercised for 6 minutes. Fair exercise tolerance, attained a maximum of 7 METs. Double product of 31,417. 3. Normal baseline blood pressure with hypertensive response to exercise. 4. Normal echocardiographic response to submaximal exercise. Patient reached 81% of maximum predicted heart rate. 5. Please see separate report for the details on EKG portion of the study. Mini You MD (Electronically Signed) Final Date: 30 January 2021 13:09 S
[2021-01-27 11:36] VITALS: BMI 35.2
--- NOTE | 2021-01-27 11:58 | ECG_ITS ---
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 Interpretive Statements NAME OF STUDY: TREADMILL STRESS ECHOCARDIOGRAM INDICATION: Coronary Artery Disease PROCEDURE: At the baseline, the patient's blood pressure was 131/97 mmHg, oxygen saturation 93% with a heart rate of 76 bpm. The baseline electrocardiogram showed normal sinus rhythm, left anterior fascicular block. Poor anterior R wave progression. The patient exercised for 6 minutes on a standard Vu protocol. Patient attained a maximum heart rate of 136 beats per minute(80% of the maximum predicted heart rate) with a blood pressure at the peak exercise of 219/104 mm Hg. The EKG at the peak exercise revealed sinus tachycardia with no significant ST-T wave changes. Patient did not have any chest pain or any significant EKG changes with the exercise. Study was terminated due to exertional fatigue and shortness of breath. During the recovery phase, there were no new changes. Blood pressure at the end of the recovery phase was 122/84 mm Hg with a heart rate of 86 beats per minute and oxygen saturation 95%. Echocardiographic pictures were taken at the baseline, immediately following the peak exercise and during the recovery phase. CONCLUSION: 1. Normal EKG response to submaximal stress on treadmill exercise. Patient reached 80% of maximal predicted heart rate. 2. No exercise-induced chest pain or cardiac arrhythmia. 3. Fair exercise tolerance, attained a maximum of 7 METs. Maximum VO2 of 24.5 mL/kg/min. 4. Normal blood pressure with hypertensive response to exercise. 5. Please see separate report for the echocardiographic response to exercise. Electronically Signed On 01-30-2021 13:17:07 CDT by Mini You M.D. [id number]
[2021-01-27 12:40] VITALS: BP 122/84; PULSE 86
[2021-01-27] MEDS: perflutren protein-a microsphr 0.22 mg/mL SDV 3 mL IV (12:46)
--- NOTE | 2021-01-27 13:15 | PFTS_ITS ---
Date of Study:01/27/21 Date of Dictation: 01/30/21 MECHANICS: Prebronchodilator Forced vital capacity (FVC) is reduced. Prebronchodilator Forced expiratory volume in one second (FEV1) is reduced. FEV1/FVC is normal. Post bronchodilator study not performed. FLOW VOLUME LOOP: normal . LUNG VOLUMES: Total lung capacity (TLC) is midly reduced . Residual volume (RV) is normal. DIFFUSING CAPACITY FOR CARBON MONOXIDE: Mildly reduced 48% . INTERPRETATION: Spirometry and reduced TLC on lung volumes suggestive of restrictive lung disease.Mildly reduced gas transfer. Correlate Clinically. MTDD
[2021-01-27 13:18] VITALS: BP 125/90
== END 2021-01-27 11:15 | disposition home or self-care (01) ==
PROVIDERS: PCP Internal Medicine; Visit Provider Internal Medicine Pulmonary Disease
DX: I25.10 Atherosclerotic heart disease of native coronary artery without angina pectoris (principal)
CPT/HCPCS: 93017; 93350; 93352; 94010; 94618; 94726; 94729; Q9956

== ENCOUNTER → 2021-02-09 10:07 | Outpatient (BNVA) | payer OTHER, SELFPAY | PROVIDERS: PCP Internal Medicine; Visit Provider Urology | DX: N39.9 Disorder of urinary system, unspecified (principal); N52.8 Other male erectile dysfunction; N48.6 Induration penis plastica | CPT/HCPCS: 81003 ==

== ENCOUNTER 2021-02-26 08:06 | Outpatient (RCR) | payer OTHER, SELFPAY | END 2021-03-16 23:59 | disposition home or self-care (01) | LOC: PULRHB 08:06 | PROVIDERS: PCP Internal Medicine; Visit Provider Internal Medicine Pulmonary Disease | DX: J12.81 Pneumonia due to SARS-associated coronavirus (principal) | CPT/HCPCS: 94618; G0237; G0238; G0239; G0424 ==

== ENCOUNTER 2021-03-11 12:56 | Outpatient (CLI) | payer OTHER, SELFPAY ==
--- NOTE | 2021-03-11 13:30 | CT_ITS ---
WS: [id number] CT CHEST TECHNIQUE: Noncontrast CT of the chest with coronal and sagittal reformatted images. CLINICAL INFORMATION: resolution of pneumonia COMPARISON: CT September 05, 2020 DLP: 787.[address] scans at [facility] use at least one of these dose optimization techniques: automat ed exposure control; mA and/or kV adjustment per patient size (includes targeted exams where dose is matched to clinical indication); or iterative reconstruction. FINDINGS: Since the prior examination, interval resolution of the diffuse bilateral pulmonary infiltrates. A fe w residual hazy opacities in left greater than right upper lobe with micronodularity. Multiple bilateral noncalcified subcentimeter pulmonary nodules previously obscured by the infiltrat es. Largest nodules measure 4 to 5 mm. Recommend 6 month follow-up. No mediastinal or hilar lymphadenopathy. Calcified left hilar lymph nodes. A few tiny calcified granu bruce. Normal GE junction. Ovoid lesion in the pancreatic tail measuring 14 x 14 mm. Recommend further evaluation with contrast- enhanced CT abdomen and pelvis. Anterior hypertrophic changes thoracic spine. CT/CT chest wo con [id number] IMPRESSION: 1. Interval resolution of the diffuse bilateral pulmonary infiltrates. 2. A few residual hazy opacities in left upper lobe with micronodularity. 3. A few small noncalcified bilateral pulmonary nodules previously obscured by the infiltrates largest measuring 4 to 5 mm, recommend 6 month follow-up. 4. Partially visualized lesion in the pancreatic tail measuring 14 x 14 mm. Re commend further evaluation with contrast-enhanced CT abdomen pelvis.
== END 2021-03-11 12:57 | disposition home or self-care (01) ==
PROVIDERS: PCP Internal Medicine; Visit Provider Internal Medicine Pulmonary Disease
DX: J18.9 Pneumonia, unspecified organism (principal); R91.8 Other nonspecific abnormal finding of lung field; K86.9 Disease of pancreas, unspecified
CPT/HCPCS: 71250

== ENCOUNTER 2021-03-17 06:00 | Outpatient (RCR) | payer OTHER, SELFPAY | END 2021-04-15 23:59 | disposition home or self-care (01) | LOC: PULRHB 06:00 | PROVIDERS: PCP Internal Medicine; Visit Provider Internal Medicine Pulmonary Disease | DX: J12.81 Pneumonia due to SARS-associated coronavirus (principal) | CPT/HCPCS: G0424 ==

== ENCOUNTER 2021-06-30 13:55 | Outpatient (CLI) | payer OTHER, SELFPAY ==
--- NOTE | 2021-06-30 14:00 | CT_ITS ---
WS: [id number] CTA OF THE CHEST WITH PULMONARY EMBOLISM PROTOCOL TECHNIQUE: High-resolution contrast enhanced CTA of the chest with coronal and sagittal reformatted i mages with pulmonary embolism protocol. MIP images are also reviewed. CLINICAL INFORMATION: J80 - Acute respiratory distress syndrome COMPARISON: March 11, 2021 DLP: 733.[address] scans at [facility] use at least one of these dose optimization techniques: automated e xposure control; mA and/or kV adjustment per patient size (includes targeted exams where dose is matc hed to clinical indication); or iterative reconstruction. FINDINGS: Proximal main pulmonary arteries are normal. Normal segmental and subsegmental pulmonary arteries. No evidence of pulmonary embolus. Normal caliber thoracic aorta. No mediastinal or hilar lymphadenopath y. No axillary lymphadenopathy. Calcified AP window and left hilar nodes. Moderate chronic emphysematous changes. Interstitial and hazy groundglass infiltrates left greater th an right upper lobes progressed from previous. Subsegmental atelectasis with slight hazy opacities in the lung bases. Recommend correlation for pneumonitis. Shallow inspiration compared to the prior exa mination. A few noncalcified pulmonary nodules largest measuring 4 to 5 mm appear unchanged from previous. Prev ious described pancreatic tail lesion measuring 14 mm appears stable. Small esophageal hernia. Adrena l glands are normal. Fatty atrophy of the pancreas. Hypertrophic changes thoracic spine. CT/CT angio chest PE protcl [id number] IMPRESSION: 1. Proximal main pulmonary arteries are normal. No evidence for pulmonary embo andrew. 2. Normal caliber thoracic aorta. 3. Shallow inspiration compared to previous. Hazy interstitial and groundglass infiltrates in the lung apices appears progressed from previous. Slight hazy a telectasis in the lung bases. Recommend correlation for pneumonitis. 4. No focal pneumonia or pleural fluid. 5. Small esophageal hiatal hernia. 6. Stable 14 mm lesion pancreatic tail 7. A few noncalcified pulmonary nodules largest measuring 4 to 5 mm appear unc hanged from previous. Recommend 12 month follow-up.
[2021-06-30] MEDS: iohexol 350 mg/mL 100 mL Btl IV (14:48)
== END 2021-06-30 13:56 | disposition home or self-care (01) ==
PROVIDERS: PCP Physician Assistant Medical; Visit Provider Internal Medicine Pulmonary Disease
DX: J80 Acute respiratory distress syndrome (principal); R91.8 Other nonspecific abnormal finding of lung field; K86.89 Other specified diseases of pancreas; K44.9 Diaphragmatic hernia without obstruction or gangrene
CPT/HCPCS: 71275; Q9967

== ENCOUNTER → 2021-07-17 15:24 | Outpatient (BNVA) | payer OTHER, SELFPAY | PROVIDERS: PCP Physician Assistant Medical; Visit Provider Internal Medicine Pulmonary Disease | DX: Z01.812 Encounter for preprocedural laboratory examination (principal); Z20.822 Contact with and (suspected) exposure to COVID-19 | CPT/HCPCS: 87635 ==

== ENCOUNTER 2021-07-23 13:02 | Outpatient (CLI) | payer OTHER, SELFPAY ==
--- NOTE | 2021-07-23 13:40 | PFTS_ITS ---
Date of Study:07/23/21 Date of Dictation: MECHANICS: Forced vital capacity (FVC) is reduced. Forced expiratory volume in one second (FEV1) is reduced. FEV1/FVC is normal. FLOW VOLUME LOOP: Normal. LUNG VOLUMES: Total lung capacity (TLC) is reduced. Residual volume (RV) is normal. DIFFUSING CAPACITY FOR CARBON MONOXIDE: Minimally reduced. INTERPRETATION: The pulmonary function tests are consistent with mild restriction. There is no significant postbronchodilator response. Lung volumes are consistent with mild restriction. Gas exchange (DLCO) is mildly reduced. MTDD
== END 2021-07-23 13:03 | disposition home or self-care (01) ==
LOC: RT 13:03
PROVIDERS: PCP Physician Assistant Medical; Visit Provider Internal Medicine Pulmonary Disease
DX: R06.00 Dyspnea, unspecified (principal); B94.8 Sequelae of other specified infectious and parasitic diseases
CPT/HCPCS: 94060; 94618; 94726; 94729; J7611

== ENCOUNTER 2021-09-02 08:38 | Outpatient (CLI) | payer OTHER, SELFPAY ==
[2021-09-02 09:22] LABS: Alanine Aminotransferase 14 U/L (0-41); Albumin Level 4.3 g/dL (3.5-5.2); Alkaline Phosphatase 120 IU/L (40-130); Anion Gap 15.4 (5-19); Aspartate Amino Transferase 11 U/L (0-40); Blood Urea Nitrogen 21 mg/dL (6-20); Calcium 9.4 mg/dL (8.5-10.5); Carbon Dioxide 25 mmol/L (22-29); Chloride 104 mmol/L (98-107); Chol HDL Ratio 4.58 mg/dL (1.0-5.00); Cholesterol 206 mg/dL (0-200); Globulin 3.7 g/dL (1.3-4.6); Glomerular Filtration Rate 78.2 mL/min (90-130); Glucose 115 mg/dL (65-115); HDL Cholesterol 45 mg/dL (60-100); LDL Cholesterol Calculated 125 mg/dL (50-129); LDL HDL Ratio 2.78 RATIO (0.00-3.22); Osmolality Calculated 294 mOsm/kg (285-295); Potassium 4.4 mmol/L (3.5-5.1); Sodium 140 mmol/L (136-145); Total Bilirubin 0.3 mg/dL (0.15-1.2); Triglycerides 180 mg/dL (0-150)
[2021-09-02 15:47] LABS: Estmated Average Glucose 183
== END 2021-09-02 08:39 | disposition home or self-care (01) ==
PROVIDERS: PCP Physician Assistant Medical; Visit Provider Internal Medicine
DX: E11.319 Type 2 diabetes mellitus with unspecified diabetic retinopathy without macular edema (principal); E11.42 Type 2 diabetes mellitus with diabetic polyneuropathy; E11.65 Type 2 diabetes mellitus with hyperglycemia; E78.2 Mixed hyperlipidemia
CPT/HCPCS: 36415; 80053; 80061; 83036

== ENCOUNTER → 2021-09-07 15:00 | Outpatient (BNVA) | payer OTHER, SELFPAY | PROVIDERS: PCP Physician Assistant Medical; Visit Provider Internal Medicine | DX: E11.65 Type 2 diabetes mellitus with hyperglycemia (principal); E11.319 Type 2 diabetes mellitus with unspecified diabetic retinopathy without macular edema; E11.42 Type 2 diabetes mellitus with diabetic polyneuropathy; E78.2 Mixed hyperlipidemia | CPT/HCPCS: 99214 ==

== ENCOUNTER 2021-12-04 07:15 | Outpatient (RCR) | payer OTHER, SELFPAY | END 2021-12-14 23:59 | disposition home or self-care (01) | LOC: PULRHB 07:15 | PROVIDERS: Visit Provider Internal Medicine Pulmonary Disease | DX: J98.8 Other specified respiratory disorders (principal) | CPT/HCPCS: 94626 ==

== ENCOUNTER 2021-12-15 06:00 | Outpatient (RCR) | payer OTHER, SELFPAY | END 2022-01-14 23:59 | disposition home or self-care (01) | LOC: PULRHB 06:00 | PROVIDERS: Visit Provider Internal Medicine Pulmonary Disease | DX: G93.3 Postviral and related fatigue syndromes (principal) | CPT/HCPCS: 94626 ==

== ENCOUNTER 2022-01-01 09:55 | Outpatient (CLI) | payer OTHER, SELFPAY ==
[2022-01-01 10:39] LABS: Estmated Average Glucose 189; Hemoglobin A1C 8.2 % (4.0-6.0)
[2022-01-01 10:46] LABS: Alanine Aminotransferase 23 U/L (0-41); Albumin Level 4.2 g/dL (3.5-5.2); Alkaline Phosphatase 131 IU/L (40-130); Anion Gap 14.9 (5-19); Aspartate Amino Transferase 20 U/L (0-40); Blood Urea Nitrogen 20 mg/dL (6-20); Calcium 9.8 mg/dL (8.5-10.5); Carbon Dioxide 24 mmol/L (22-29); Chloride 107 mmol/L (98-107); Chol HDL Ratio 2.28 mg/dL (1.0-5.00); Cholesterol 107 mg/dL (0-200); Globulin 3.6 g/dL (1.3-4.6); Glomerular Filtration Rate 88.3 mL/min (90-130); Glucose 105 mg/dL (65-115); HDL Cholesterol 47 mg/dL (60-100); LDL Cholesterol Calculated 46 mg/dL (50-129); LDL HDL Ratio 0.98 RATIO (0.00-3.22); Osmolality Calculated 297 mOsm/kg (285-295); Potassium 3.9 mmol/L (3.5-5.1); Sodium 142 mmol/L (136-145); Total Bilirubin 0.3 mg/dL (0.15-1.2); Total Protein 7.8 g/dL (6.6-8.7); Triglycerides 72 mg/dL (0-150)
[2022-01-01 11:01] LABS: 25 Hydroxy Vitamin D 48 ng/mL (30-100)
== END 2022-01-01 09:56 | disposition home or self-care (01) ==
PROVIDERS: PCP Family Medicine; Visit Provider Internal Medicine
DX: E11.65 Type 2 diabetes mellitus with hyperglycemia (principal); E11.9 Type 2 diabetes mellitus without complications; E78.2 Mixed hyperlipidemia
CPT/HCPCS: 80053; 80061; 82306; 83036

== ENCOUNTER 2022-01-05 13:27 | Outpatient (CLI) | payer OTHER, SELFPAY ==
[2022-01-05 14:47] LABS: Microalbumin Total Volume 2425 mL
[2022-01-05 14:59] LABS: Microalbumin 24 Hour Result 29 mg/24HR (0-30); Microalbumin Result 1.2 mg/dL
== END 2022-01-05 13:28 | disposition home or self-care (01) ==
LOC: LAB 13:29
PROVIDERS: PCP Family Medicine; Visit Provider Internal Medicine
DX: E11.65 Type 2 diabetes mellitus with hyperglycemia (principal); E78.2 Mixed hyperlipidemia
CPT/HCPCS: 82043

== ENCOUNTER 2022-03-22 13:29 | Outpatient (CLI) | payer OTHER, SELFPAY | END 2022-03-22 13:30 | disposition home or self-care (01) | PROVIDERS: PCP Family Medicine | DX: R82.998 Other abnormal findings in urine (principal) | CPT/HCPCS: 36415; 87086 ==

== ENCOUNTER 2022-06-10 14:14 | Outpatient (CLI) | payer OTHER, SELFPAY ==
--- NOTE | 2022-06-10 14:27 | XR_ITS ---
WS: [id number] Chest 2 views, 06/10/2022 Clinical Data: PULMONARY NODULES/SHORTNESS OF BREATH ON EXERTION Comparison: PA and lateral chest, 11/10/2020 Findings: No nodules, masses or effusions are seen. The heart is normal. The pulmonary vascularity is not increased. No pneumonia or pneumothorax is seen. There is a patchy opacity extending from the le ft hilum to the periphery of the lung which appears to be interstitial fibrosis. XR/XR chest 2V* [id number] Impression: Probable chronic interstitial change in the left hilum extending to the periphe ry of the left lung.
== END 2022-06-10 14:15 | disposition home or self-care (01) ==
PROVIDERS: Absent Provider Internal Medicine Pulmonary Disease; PCP Registered Nurse; Visit Provider Family Medicine
DX: R91.8 Other nonspecific abnormal finding of lung field (principal); R06.02 Shortness of breath; Z86.16 Personal history of COVID-19
CPT/HCPCS: 71046

== ENCOUNTER → 2022-07-19 12:58 | Outpatient (BNVA) | payer OTHER, SELFPAY | PROVIDERS: PCP Registered Nurse; Visit Provider Internal Medicine Pulmonary Disease | DX: J98.4 Other disorders of lung (principal); R06.00 Dyspnea, unspecified; R53.83 Other fatigue; R06.02 Shortness of breath; J12.89 Other viral pneumonia; Z87.891 Personal history of nicotine dependence; U09.9 Post COVID-19 condition, unspecified | CPT/HCPCS: 80053; 82306; 83880; 84439; 84443; 85025; 85651; 86140; 86200; 86215; 86225; 86235; 86331; 86431; 86606; 86609 ==

== ENCOUNTER 2022-10-01 13:13 | Outpatient (CLI) | payer BC, SELFPAY ==
[2022-10-01 14:37] LABS: Estmated Average Glucose 163; Hemoglobin A1C 7.3 % (4.0-6.0)
[2022-10-01 14:46] LABS: Alanine Aminotransferase 45 U/L (0-41); Albumin Level 3.8 g/dL (3.5-5.2); Alkaline Phosphatase 135 U/L (40-130); Anion Gap 12.7 (5-19); Aspartate Amino Transferase 23 U/L (0-40); Blood Urea Nitrogen 21 mg/dL (6-20); Calcium 9.7 mg/dL (8.5-10.5); Carbon Dioxide 24 mmol/L (22-29); Chloride 106 mmol/L (98-107); Chol HDL Ratio 2.43 mg/dL (1.0-5.00); Cholesterol 97 mg/dL (0-200); Globulin 3.7 g/dL (1.3-4.6); Glomerular Filtration Rate 100.7 mL/min (90-130); Glucose 130 mg/dL (65-115); HDL Cholesterol 40 mg/dL (60-100); LDL Cholesterol Calculated 38 mg/dL (50-129); LDL HDL Ratio 0.95 RATIO (0.00-3.22); Osmolality Calculated 293 mOsm/kg (285-295); Potassium 3.7 mmol/L (3.5-5.1); Sodium 139 mmol/L (136-145); Total Bilirubin 0.3 mg/dL (0.15-1.2); Total Protein 7.5 g/dL (6.6-8.7); Triglycerides 96 mg/dL (0-150)
== END 2022-10-01 13:14 | disposition home or self-care (01) ==
PROVIDERS: PCP Registered Nurse; Visit Provider Internal Medicine
DX: E11.42 Type 2 diabetes mellitus with diabetic polyneuropathy (principal); E78.2 Mixed hyperlipidemia
CPT/HCPCS: 36415; 80053; 80061; 83036

== ENCOUNTER 2023-01-25 13:25 | Outpatient (CLI) | payer BC, SELFPAY | END 2023-01-25 13:26 | disposition home or self-care (01) | PROVIDERS: PCP Registered Nurse; Visit Provider Internal Medicine | DX: E78.2 Mixed hyperlipidemia (principal); E11.42 Type 2 diabetes mellitus with diabetic polyneuropathy | CPT/HCPCS: 36415; 80053; 80061; 82044; 83036 ==

== ENCOUNTER 2023-05-05 12:44 | Outpatient (CLI) | payer BC, SELFPAY ==
[2023-05-05 13:53] LABS: Alanine Aminotransferase 28 U/L (0-41); Albumin Level 4.2 g/dL (3.5-5.2); Alkaline Phosphatase 119 U/L (40-130); Anion Gap 14.6 (5-19); Aspartate Amino Transferase 18 U/L (0-40); Blood Urea Nitrogen 24 mg/dL (6-20); Carbon Dioxide 25 mmol/L (22-29); Chloride 107 mmol/L (98-107); Cholesterol 109 mg/dL (0-200); Globulin 2.5 g/dL (1.3-4.6); Glomerular Filtration Rate 87.9 mL/min (90-130); Glucose 182 mg/dL (65-115); HDL Cholesterol 52 mg/dL (60-100); LDL Cholesterol Calculated 38 mg/dL (50-129); LDL HDL Ratio 0.73 RATIO (0.00-3.22); Osmolality Calculated 303 mOsm/kg (285-295); Potassium 4.6 mmol/L (3.5-5.1); Sodium 142 mmol/L (136-145); Total Bilirubin 0.3 mg/dL (0.15-1.2); Total Protein 6.7 g/dL (6.6-8.7); Triglycerides 97 mg/dL (0-150)
[2023-05-05 13:55] LABS: Estmated Average Glucose 192; Hemoglobin A1C 8.3 % (4.0-6.0)
[2023-05-05 13:59] LABS: Creatinine Urine, Random 177 mg/dL (39-259); Microalbum Creatinine Ratio Ur 6 mg/dL (0-20); Microalbumin Random Urine 1 ug/dL (0-20)
== END 2023-05-05 12:45 | disposition home or self-care (01) ==
PROVIDERS: PCP Registered Nurse; Visit Provider Internal Medicine
DX: E78.5 Hyperlipidemia, unspecified (principal); E11.319 Type 2 diabetes mellitus with unspecified diabetic retinopathy without macular edema; E11.40 Type 2 diabetes mellitus with diabetic neuropathy, unspecified; E11.65 Type 2 diabetes mellitus with hyperglycemia
CPT/HCPCS: 36415; 80053; 80061; 82044; 83036

== ENCOUNTER 2023-08-11 09:56 | Outpatient (CLI) | payer BC, SELFPAY ==
[2023-08-11 10:58] LABS: Estmated Average Glucose 143; Hemoglobin A1C 6.6 % (4.0-6.0)
[2023-08-11 10:59] LABS: Alanine Aminotransferase 27 U/L (0-41); Albumin Level 4.4 g/dL (3.5-5.2); Alkaline Phosphatase 110 U/L (40-130); Anion Gap 14.5 (5-19); Aspartate Amino Transferase 23 U/L (0-40); Blood Urea Nitrogen 21 mg/dL (6-20); Calcium 9.9 mg/dL (8.5-10.5); Carbon Dioxide 27 mmol/L (22-29); Chloride 107 mmol/L (98-107); Chol HDL Ratio 2.09 mg/dL (1.0-5.00); Cholesterol 92 mg/dL (0-200); Globulin 2.7 g/dL (1.3-4.6); Glomerular Filtration Rate 77.9 mL/min (90-130); Glucose 95 mg/dL (65-115); HDL Cholesterol 44 mg/dL (60-100); LDL Cholesterol Calculated 33 mg/dL (50-129); LDL HDL Ratio 0.75 RATIO (0.00-3.22); Osmolality Calculated 301 mOsm/kg (285-295); Potassium 4.5 mmol/L (3.5-5.1); Sodium 144 mmol/L (136-145); Total Bilirubin 0.2 mg/dL (0.15-1.2); Total Protein 7.1 g/dL (6.6-8.7); Triglycerides 74 mg/dL (0-150)
== END 2023-08-11 09:57 | disposition home or self-care (01) ==
PROVIDERS: PCP Registered Nurse; Visit Provider Internal Medicine
DX: E11.65 Type 2 diabetes mellitus with hyperglycemia (principal)
CPT/HCPCS: 36415; 80053; 80061; 83036

== ENCOUNTER 2023-11-16 13:20 | Outpatient (CLI) | payer BC, SELFPAY ==
[2023-11-16 14:16] LABS: Alanine Aminotransferase 27 U/L (0-41); Albumin Level 4.5 g/dL (3.5-5.2); Alkaline Phosphatase 104 U/L (40-130); Anion Gap 16.6 (5-19); Aspartate Amino Transferase 18 U/L (0-40); Blood Urea Nitrogen 19 mg/dL (6-20); Calcium 9.7 mg/dL (8.5-10.5); Carbon Dioxide 22 mmol/L (22-29); Chloride 103 mmol/L (98-107); Chol HDL Ratio 2.22 mg/dL (1.0-5.00); Cholesterol 111 mg/dL (0-200); Globulin 3.4 g/dL (1.3-4.6); Glomerular Filtration Rate 69.5 mL/min (90-130); Glucose 152 mg/dL (65-115); HDL Cholesterol 50 mg/dL (60-100); LDL Cholesterol Calculated 38 mg/dL (50-129); LDL HDL Ratio 0.76 RATIO (0.00-3.22); Osmolality Calculated 291 mOsm/kg (285-295); Potassium 3.6 mmol/L (3.5-5.1); Sodium 138 mmol/L (136-145); Total Bilirubin 0.4 mg/dL (0.15-1.2); Total Protein 7.9 g/dL (6.6-8.7); Triglycerides 114 mg/dL (0-150)
[2023-11-16 14:27] LABS: Estmated Average Glucose 154
[2023-11-16 16:40] LABS: Creatinine Urine, Random 171 mg/dL (39-259); Microalbum Creatinine Ratio Ur 12 mg/dL (0-20); Microalbumin Random Urine 2 ug/dL (0-20)
== END 2023-11-16 13:21 | disposition home or self-care (01) ==
LOC: LAB 13:20
PROVIDERS: PCP Registered Nurse; Visit Provider Internal Medicine
DX: E11.65 Type 2 diabetes mellitus with hyperglycemia (principal)
CPT/HCPCS: 36415; 80053; 80061; 82044; 83036

== ENCOUNTER 2024-02-14 13:39 | Outpatient (CLI) | payer BC, SELFPAY ==
[2024-02-14 14:18] LABS: Estmated Average Glucose 166; Hemoglobin A1C 7.4 % (4.0-6.0)
[2024-02-14 14:21] LABS: Alanine Aminotransferase 22 U/L (0-41); Albumin Level 4.4 g/dL (3.5-5.2); Alkaline Phosphatase 117 U/L (40-130); Anion Gap 14.8 (5-19); Aspartate Amino Transferase 20 U/L (0-40); Blood Urea Nitrogen 17 mg/dL (6-20); Calcium 9.3 mg/dL (8.5-10.5); Carbon Dioxide 26 mmol/L (22-29); Chloride 104 mmol/L (98-107); Cholesterol 132 mg/dL (0-200); Glomerular Filtration Rate 87.6 mL/min (90-130); Glucose 140 mg/dL (65-115); HDL Cholesterol 60 mg/dL (60-100); LDL Cholesterol Calculated 54 mg/dL (50-129); Osmolality Calculated 296 mOsm/kg (285-295); Potassium 3.8 mmol/L (3.5-5.1); Sodium 141 mmol/L (136-145); Total Bilirubin 0.4 mg/dL (0.15-1.2); Total Protein 7.4 g/dL (6.6-8.7); Triglycerides 92 mg/dL (0-150)
[2024-02-14 14:22] LABS: Creatinine Urine, Random 132 mg/dL (39-259); Microalbum Creatinine Ratio Ur 8 mg/dL (0-20); Microalbumin Random Urine 1 ug/dL (0-20)
== END 2024-02-14 13:40 | disposition home or self-care (01) ==
LOC: LAB 13:39
PROVIDERS: PCP Registered Nurse; Visit Provider Internal Medicine
DX: E11.319 Type 2 diabetes mellitus with unspecified diabetic retinopathy without macular edema (principal); E11.65 Type 2 diabetes mellitus with hyperglycemia; E78.2 Mixed hyperlipidemia
CPT/HCPCS: 36415; 80053; 80061; 82044; 83036

== ENCOUNTER 2024-05-18 10:20 | Outpatient (CLI) | payer BC, SELFPAY ==
[2024-05-18 11:27] LABS: Alanine Aminotransferase 12 U/L (0-41); Albumin Level 4.4 g/dL (3.5-5.2); Alkaline Phosphatase 113 U/L (40-130); Anion Gap 16.9 (5-19); Aspartate Amino Transferase 14 U/L (0-40); Blood Urea Nitrogen 27 mg/dL (6-20); Calcium 9.9 mg/dL (8.5-10.5); Carbon Dioxide 23 mmol/L (22-29); Chloride 107 mmol/L (98-107); Chol HDL Ratio 2.25 mg/dL (1.0-5.00); Cholesterol 126 mg/dL (0-200); Globulin 3.2 g/dL (1.3-4.6); Glomerular Filtration Rate 77.6 mL/min (90-130); Glucose 166 mg/dL (65-115); HDL Cholesterol 56 mg/dL (60-100); LDL Cholesterol Calculated 55 mg/dL (50-129); LDL HDL Ratio 0.98 RATIO (0.00-3.22); Osmolality Calculated 303 mOsm/kg (285-295); Potassium 4.9 mmol/L (3.5-5.1); Sodium 142 mmol/L (136-145); Total Bilirubin 0.4 mg/dL (0.15-1.2); Total Protein 7.6 g/dL (6.6-8.7); Triglycerides 73 mg/dL (0-150)
[2024-05-18 11:32] LABS: Creatinine Urine, Random 123 mg/dL (39-259); Microalbum Creatinine Ratio Ur 8 mg/dL (0-20); Microalbumin Random Urine 1 ug/dL (0-20)
[2024-05-18 11:34] LABS: Estmated Average Glucose 169; Hemoglobin A1C 7.5 % (4.0-6.0)
== END 2024-05-18 10:21 | disposition home or self-care (01) ==
LOC: LAB 10:21
PROVIDERS: PCP Registered Nurse; Visit Provider Internal Medicine
DX: E11.65 Type 2 diabetes mellitus with hyperglycemia (principal); E78.2 Mixed hyperlipidemia
CPT/HCPCS: 36415; 80053; 80061; 82044; 83036

== ENCOUNTER 2024-07-25 10:38 | Outpatient (RCR) | payer BC, SELFPAY | END 2024-08-16 23:59 | disposition home or self-care (01) | LOC: SPT 10:38 | PROVIDERS: PCP Registered Nurse; Visit Provider Student in an Organized Health Care Education/Training Program | DX: M75.41 Impingement syndrome of right shoulder (principal) | CPT/HCPCS: 97110; 97162 ==

== ENCOUNTER 2024-08-17 06:00 | Outpatient (RCR) | payer MEDICARE, SELFPAY | END 2024-09-15 23:59 | disposition home or self-care (01) | LOC: SPT 06:00 | PROVIDERS: PCP Registered Nurse; Visit Provider Student in an Organized Health Care Education/Training Program | DX: M75.41 Impingement syndrome of right shoulder (principal) | CPT/HCPCS: 97110 ==

== ENCOUNTER 2024-09-21 13:32 | Outpatient (CLI) | payer MEDICARE, SELFPAY ==
[2024-09-21 14:44] LABS: Estmated Average Glucose 166; Hemoglobin A1C 7.4 % (4.0-6.0)
[2024-09-21 14:51] LABS: Creatinine Urine, Random 149 mg/dL (39-259); Microalbum Creatinine Ratio Ur 7 mg/dL (0-20); Microalbumin Random Urine 1 ug/dL (0-20)
[2024-09-21 14:53] LABS: Alanine Aminotransferase 13 U/L (0-41); Albumin Level 4.3 g/dL (3.5-5.2); Alkaline Phosphatase 112 U/L (40-130); Anion Gap 13.9 (5-19); Aspartate Amino Transferase 11 U/L (0-40); Blood Urea Nitrogen 17 mg/dL (6-20); Calcium 9.6 mg/dL (8.5-10.5); Carbon Dioxide 26 mmol/L (22-29); Chloride 106 mmol/L (98-107); Chol HDL Ratio 2.13 mg/dL (1.0-5.00); Cholesterol 117 mg/dL (0-200); Glomerular Filtration Rate 87.3 mL/min (90-130); Glucose 114 mg/dL (65-115); HDL Cholesterol 55 mg/dL (60-100); LDL Cholesterol Calculated 45 mg/dL (50-129); LDL HDL Ratio 0.82 RATIO (0.00-3.22); Osmolality Calculated 296 mOsm/kg (285-295); Potassium 3.9 mmol/L (3.5-5.1); Sodium 142 mmol/L (136-145); Total Bilirubin 0.6 mg/dL (0.15-1.2); Total Protein 7.3 g/dL (6.6-8.7); Triglycerides 87 mg/dL (0-150)
== END 2024-09-21 13:33 | disposition home or self-care (01) ==
LOC: LAB 13:35
PROVIDERS: PCP Registered Nurse; Visit Provider Internal Medicine
DX: E11.65 Type 2 diabetes mellitus with hyperglycemia (principal); E78.2 Mixed hyperlipidemia
CPT/HCPCS: 80053; 80061; 82044; 83036

== ENCOUNTER → 2024-09-24 09:15 | Outpatient (BNVA) | payer MEDICARE, SELFPAY | PROVIDERS: PCP Registered Nurse; Visit Provider Internal Medicine | DX: E11.65 Type 2 diabetes mellitus with hyperglycemia (principal); E78.2 Mixed hyperlipidemia; E11.319 Type 2 diabetes mellitus with unspecified diabetic retinopathy without macular edema; E11.42 Type 2 diabetes mellitus with diabetic polyneuropathy; I95.1 Orthostatic hypotension; R42 Dizziness and giddiness; R29.898 Other symptoms and signs involving the musculoskeletal system; Z79.4 Long term (current) use of insulin; Z79.85 Long-term (current) use of injectable non-insulin antidiabetic drugs | CPT/HCPCS: 99214 ==

== ENCOUNTER → 2024-10-01 09:06 | Outpatient (BNVA) | payer MEDICARE, SELFPAY | PROVIDERS: PCP Registered Nurse; Visit Provider Podiatrist Foot & Ankle Surgery | DX: E11.8 Type 2 diabetes mellitus with unspecified complications (principal); E11.42 Type 2 diabetes mellitus with diabetic polyneuropathy; M20.41 Other hammer toe(s) (acquired), right foot; M20.42 Other hammer toe(s) (acquired), left foot; L60.3 Nail dystrophy; M20.32 Hallux varus (acquired), left foot; Z79.4 Long term (current) use of insulin | CPT/HCPCS: 99213 ==

== ENCOUNTER 2025-02-20 12:09 | Outpatient (CLI) | payer MEDICARE, SELFPAY ==
[2025-02-20 13:06] LABS: Estmated Average Glucose 194; Hemoglobin A1C 8.4 % (4.0-6.0)
[2025-02-20 13:15] LABS: Creatinine Urine, Random 225 mg/dL (39-259); Microalbum Creatinine Ratio Ur 4 mg/dL (0-20); Microalbumin Random Urine 1 ug/dL (0-20)
[2025-02-20 13:17] LABS: Alanine Aminotransferase 9 U/L (0-41); Albumin Level 4.5 g/dL (3.5-5.2); Alkaline Phosphatase 112 U/L (40-130); Anion Gap 13.9 (5-19); Aspartate Amino Transferase 10 U/L (0-40); Blood Urea Nitrogen 16 mg/dL (6-20); Calcium 9.7 mg/dL (8.5-10.5); Carbon Dioxide 29 mmol/L (22-29); Chloride 103 mmol/L (98-107); Cholesterol 200 mg/dL (0-200); Globulin 3.4 g/dL (1.3-4.6); Glomerular Filtration Rate 77.3 mL/min (90-130); Glucose 114 mg/dL (65-115); HDL Cholesterol 69 mg/dL (60-100); LDL Cholesterol Calculated 112 mg/dL (50-129); LDL HDL Ratio 1.62 RATIO (0.00-3.22); Osmolality Calculated 296 mOsm/kg (285-295); Potassium 3.9 mmol/L (3.5-5.1); Sodium 142 mmol/L (136-145); Total Bilirubin 0.5 mg/dL (0.15-1.2); Total Protein 7.9 g/dL (6.6-8.7); Triglycerides 94 mg/dL (0-150)
== END 2025-02-20 12:10 | disposition home or self-care (01) ==
PROVIDERS: PCP Registered Nurse; Visit Provider Internal Medicine
DX: E11.65 Type 2 diabetes mellitus with hyperglycemia (principal); E78.2 Mixed hyperlipidemia
CPT/HCPCS: 36415; 80053; 80061; 82044; 83036

== ENCOUNTER → 2025-02-21 09:16 | Outpatient (BNVA) | payer MEDICARE, SELFPAY | PROVIDERS: PCP Registered Nurse; Visit Provider Internal Medicine | DX: E11.65 Type 2 diabetes mellitus with hyperglycemia (principal); E78.2 Mixed hyperlipidemia; E11.42 Type 2 diabetes mellitus with diabetic polyneuropathy; E11.319 Type 2 diabetes mellitus with unspecified diabetic retinopathy without macular edema | CPT/HCPCS: 99214 ==

== ENCOUNTER 2025-06-21 10:40 | Outpatient (CLI) | payer MEDICARE, SELFPAY ==
[2025-06-21 11:55] LABS: Estmated Average Glucose 171; Hemoglobin A1C 7.6 % (4.0-6.0)
[2025-06-21 12:00] LABS: Alanine Aminotransferase 12 U/L (0-41); Albumin Level 4.2 g/dL (3.5-5.2); Alkaline Phosphatase 108 U/L (40-130); Anion Gap 15.5 (5-19); Aspartate Amino Transferase 12 U/L (0-40); Blood Urea Nitrogen 17 mg/dL (6-20); Calcium 9.8 mg/dL (8.5-10.5); Carbon Dioxide 26 mmol/L (22-29); Chloride 106 mmol/L (98-107); Cholesterol 116 mg/dL (0-200); Globulin 3.0 g/dL (1.3-4.6); Glucose 118 mg/dL (65-115); HDL Cholesterol 65 mg/dL (60-100); Osmolality Calculated 299 mOsm/kg (285-295); Potassium 4.5 mmol/L (3.5-5.1); Sodium 143 mmol/L (136-145); Total Protein 7.2 g/dL (6.6-8.7); Triglycerides 53 mg/dL (0-150)
[2025-06-21 12:00] LABS: Creatinine Urine, Random 225 mg/dL (39-259); Microalbum Creatinine Ratio Ur 4 mg/dL (0-20)
== END 2025-06-21 10:41 | disposition home or self-care (01) ==
PROVIDERS: PCP Registered Nurse; Visit Provider Internal Medicine
DX: R29.898 Other symptoms and signs involving the musculoskeletal system (principal); R42 Dizziness and giddiness; E78.2 Mixed hyperlipidemia; I95.1 Orthostatic hypotension; E11.42 Type 2 diabetes mellitus with diabetic polyneuropathy; E11.65 Type 2 diabetes mellitus with hyperglycemia; E11.319 Type 2 diabetes mellitus with unspecified diabetic retinopathy without macular edema
CPT/HCPCS: 80053; 80061; 82044; 83036

== ENCOUNTER → 2025-06-26 10:30 | Outpatient (BNVA) | payer MEDICARE, SELFPAY | PROVIDERS: PCP Registered Nurse; Visit Provider Internal Medicine | DX: E11.319 Type 2 diabetes mellitus with unspecified diabetic retinopathy without macular edema (principal); E11.65 Type 2 diabetes mellitus with hyperglycemia; E11.42 Type 2 diabetes mellitus with diabetic polyneuropathy; E78.2 Mixed hyperlipidemia; I95.1 Orthostatic hypotension; R29.898 Other symptoms and signs involving the musculoskeletal system; Z79.4 Long term (current) use of insulin | CPT/HCPCS: 99214 ==

== ENCOUNTER → 2025-08-05 10:07 | Outpatient (BNVA) | payer MEDICARE, SELFPAY | PROVIDERS: PCP Registered Nurse; Visit Provider Internal Medicine | DX: J98.4 Other disorders of lung (principal); J84.10 Pulmonary fibrosis, unspecified; Z99.81 Dependence on supplemental oxygen; J44.9 Chronic obstructive pulmonary disease, unspecified; J96.10 Chronic respiratory failure, unspecified whether with hypoxia or hypercapnia; J44.1 Chronic obstructive pulmonary disease with (acute) exacerbation | CPT/HCPCS: 99214; Q3014 ==

== ENCOUNTER 2025-08-30 08:38 | Outpatient (CLI) | payer MEDICARE, SELFPAY ==
--- NOTE | 2025-08-30 08:46 | CTR_ITS ---
PROCEDURE INFORMATION: Exam: CT Chest Without Contrast, Diagnostic, High Resolution Exam date and time: 08/30/2025 9:04 AM Age: 55 years old Clinical indication: Chronic respiratory failure, HX of covid, intubation, dyspnea TECHNIQUE: Imaging protocol: Diagnostic computed tomography of the chest without contrast. Exam was performed with high resolution protocol. Radiation optimization: All CT scans at this facility use at least one of these dose optimization techniques: automated exposure control; mA and/or kV adjustment per patient size (includes targeted exams where dose is matched to clinical indication); or iterative reconstruction. COMPARISON: CR XR chest 1V portable [id number] 08/31/2020 5:05 AM RADIATION DOSE METRICS: Total DLP (mGy-cm): 1340.05 FINDINGS: Lungs: Moderate emphysematous changes in the upper lobes. Maybe some pleural-parenchymal scarring in the right apex. Some atelectasis in the left upper lobe and left lingula. Some peripheral ground-glass opacities in the left upper lobe maybe inflammatory or infectious. 1.8 mm nodule superior segment right lower lobe image 29 series 4. 3.4 mm nodule right middle lobe image 39 series 4. 3.8 mm nodule anterior right lower lobe image 43 series 4. Some calcified granulomas in the left lung. Pleural spaces: Unremarkable. No pneumothorax. No pleural effusion. Heart: Heart size normal. Faint coronary artery calcification. No pericardial effusion. Vasculature: Faint atherosclerotic calcification. No aortic aneurysm. Lymph nodes: Unremarkable. No enlarged lymph nodes. Bones/joints: Sath-bv-[id number] degenerative changes. Changes of DISH. Soft tissues: Unremarkable. Upper abdomen: Large amount of partially digested food stuff in the stomach. Correlate for delayed gastric emptying. This may be due to recent ingestion of the meal. Moderate amount of transverse colon. CT/CT chest w/o HI-Res(Pulm Only) IMPRESSION: 1. Emphysematous changes the presence of pulmonary emphysema on CT is an independent risk factor for lung cancer. In the absence of the history of lung cancer it is recommended that this patient with emphysema be evaluated for enrollment in a low-dose CT lung cancer screening program. 2. Several noncalcified nodules in the right lung largest measuring 3.8 mm in diameter. Follow-up for these depending on risk factors. For low risk patients no routine follow-up recommended. For high-risk patient optional CT follow-up at 12 months recommended. This according to Fleischner society 2017 guidelines for pulmonary nodules. Because of emphysema this would probably be considered high-risk and follow-up CT in a year recommended. 3. Areas of atelectasis in the left upper lobe. Also ground-glass opacities maybe infectious or inflammatory. 4. Coronary artery calcification. 5. 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 6. Large amount of partially digested food stuff in the stomach. This may be due to recent ingestion of meal or delayed gastric emptying.
== END 2025-08-30 08:39 | disposition home or self-care (01) ==
LOC: RAD 08:39
PROVIDERS: PCP Registered Nurse; Visit Provider Internal Medicine
DX: J96.10 Chronic respiratory failure, unspecified whether with hypoxia or hypercapnia (principal); J43.9 Emphysema, unspecified; J98.11 Atelectasis; J98.4 Other disorders of lung; R91.8 Other nonspecific abnormal finding of lung field; I25.10 Atherosclerotic heart disease of native coronary artery without angina pectoris; M47.814 Spondylosis without myelopathy or radiculopathy, thoracic region
CPT/HCPCS: 71250

== ENCOUNTER 2025-09-11 07:09 | Outpatient (CLI) | payer MEDICARE, SELFPAY | END 2025-09-11 07:10 | disposition home or self-care (01) | LOC: RT 07:11 | PROVIDERS: PCP Registered Nurse; Visit Provider Internal Medicine | DX: J44.9 Chronic obstructive pulmonary disease, unspecified (principal) | CPT/HCPCS: 94010; 94618; 94726; 94729 ==

== ENCOUNTER → 2025-09-18 08:54 | Outpatient (BNVA) | payer MEDICARE, SELFPAY | PROVIDERS: PCP Registered Nurse; Visit Provider Internal Medicine | DX: J98.4 Other disorders of lung (principal); R91.8 Other nonspecific abnormal finding of lung field; U09.9 Post COVID-19 condition, unspecified; Z87.891 Personal history of nicotine dependence; J44.9 Chronic obstructive pulmonary disease, unspecified; J84.9 Interstitial pulmonary disease, unspecified; J84.10 Pulmonary fibrosis, unspecified | CPT/HCPCS: 36415; 82103; 82164; 85651; 86036; 86038; 86235; 86431; 99214; Q3014 ==